=== PATIENT | female | born 1950 | race Caucasian/White ===

== ENCOUNTER 2016-10-17 23:33 | Inpatient (IN) | payer OTHER ==
[2016-10-18] MEDS ORDERED: NS 0.9% 1000 ML* 1,000 ML IV ONE (00:12)
[2016-10-18 01:21] LABS: Albumin 3.2 g/dL (3.2-5.2); BUN/Creatinine Ratio 14.8 (8-20); Calcium 8.7 mg/dL (8.6-10.3); EGFR African American 50.9 (>60); EGFR Non-African American 39.6 (>60); Globulin 3.9 g/dL (2-4); Magnesium 2.3 mg/dL (1.9-2.7); Potassium 4.8 mmol/L (3.5-5.0); Total Bilirubin 0.7 mg/dL (0.2-1.0); Total Protein 7.1 g/dL (6.4-8.9)
[2016-10-18 01:23] LABS: Hematocrit 33 % (35-47); Hemoglobin 10.7 g/dl (12.0-16.0); Mean Corpuscular HGB Conc 32 g/dl (31-36); Mean Corpuscular Hemoglobin 28 pg (27-31); Mean Corpuscular Volume 86 fL (80-97); Mean Platelet Volume 8 um3 (7.4-10.4); Red Blood Count 3.85 10^6/ul (4.0-5.4); Red Cell Distribution Width 15 % (10.5-15); White Blood Count 19.5 10^3/ul (3.5-10.8)
[2016-10-18 01:25] LABS: Add Diff/Slide Review? Slide Review Added; Comments Flag Yes
--- NOTE | 2016-10-18 01:34 | ED ---
I, Grupo,Amna, scribed for Hector Machado MD on 10/18/16 at 0014 . Lower Extremity - HPI Summary HPI Summary: This 65 y/o female presents to ED for RLE drainage since 2100 PM tonight. PMHx includes recent dx of RLE cellulitis 3 days ago. She is currently on Bactrim BID treatment. Pt is seen standing and ambulating at time of initial evaluation. Other PMHx includes RLE hip replacement and bilat lower extremities vascular surgery. She hasn't followed up with her primary regarding worsening RLE cellulitis. Primary care involves Dr. Taylor. - History of Current Complaint Chief Complaint: EDExtremityLower Stated Complaint: RIGHT LEG PAIN WITH WOUND Time Seen by Provider: 10/18/16 00:08 Hx Obtained From: Patient, Medical Records Mechanism Of Injury: Unknown Onset of Pain: Hours Onset/Duration: Still Present Pain Intensity: 4 Pain Scale Used: 0-10 Numeric Timing: Constant Location: Is Discrete @ - RLE leg Character Of Pain: Dull Associated Signs And Symptoms: Positive: Other - Drainage Aggravating Factor(s): Nothing Alleviating Factor(s): Nothing Able to Bear Weight: Yes - Allergies/Home Medications Allergies/Adverse Reactions: Allergies Allergy/AdvReac Type Severity Reaction Status Date / Time No Known Drug Allergy Allergy Unknown Verified 10/28/15 15:00 Reaction Details PMH/Surg Hx/FS Hx/Imm Hx Endocrine/Hematology History: Denies: Hx Diabetes Cardiovascular History: Reports: Hx Peripheral Vascular Disease - BILATERAL VARICOSE VEINS Denies: Hx Hypertension, Hx Pacemaker/ICD Respiratory History: Reports: Hx Chronic Bronchitis GI History: Reports: Hx Gastroesophageal Reflux Disease - OCCASIONAL ACID REFLUX History: Denies: Hx Renal Disease Musculoskeletal History: Reports: Hx Arthritis - OSTEOARTHRITIS IN RIGHT HIP ( REPLACED) 12/[address] [facility] Sensory History: Reports: Hx Contacts or Glasses Denies: Hx Hearing Aid Opthamlomology History: Reports: Hx Contacts or Glasses Neurological History: Reports: Other Neuro Impairments/Disorders - RESTLESS LEG SYNDROME - on medication Psychiatric History: Denies: Hx Panic Disorder - Surgical History Surgery Procedure, Year, and Place: 07[place] [facility] [place]2013 Right hip replacement, [facility]. 05/23/14 [place] [facility] [place] LEFT BREAST LUMPECTOMY [facility] Hx Anesthesia Reactions: No Infectious Disease History: No Infectious Disease History: Denies: Hx Clostridium Difficile, Hx Hepatitis, Hx Human Immunodeficiency Virus (HIV), Hx of Known/Suspected MRSA, Hx Shingles, Hx Tuberculosis, Traveled Outside the [place] in Last 30 Days - Social History Alcohol Use: Rare Alcohol Amount: FEW DRINKS/YEAR Substance Use Type: Reports: None Smoking Status (MU): Never Smoked Tobacco Have You Smoked in the Last Year: No Review of Systems Negative: Fever Positive: Other - RLE leg woozing All Other Systems Reviewed And Are Negative: Yes Physical Exam Triage Information Reviewed: Yes Vital Signs On Initial Exam: Initial Vitals Temp Pulse Resp BP Pulse Ox 98.9 F 76 22 122/36 96 10/17/16 23:37 10/17/16 23:37 10/17/16 23:37 10/17/16 23:37 10/17/16 23:37 Vital Signs Reviewed: Yes Appearance: Positive: Pain Distress - muild pain, Obese Skin: Positive: Warm, Other - bilat lower ext erythema induration, rle mild oozing, bilat warmth Head/Face: Positive: Normal Head/Face Inspection Eyes: Positive: MELECIO ENT: Positive: Hearing grossly normal Neck: Positive: Supple Respiratory/Lung Sounds: Positive: Clear to Auscultation, Breath Sounds Present Cardiovascular: Positive: RRR Abdomen Description: Positive: Nontender, Soft Bowel Sounds: Positive: Present Musculoskeletal: Positive: Strength/ROM Intact Neurological: Positive: Alert, Oriented to Person Place, Time Diagnostics - Vital Signs Vital Signs Temp Pulse Resp BP Pulse Ox 10/17/16 23:37 98.9 F 76 22 122/36 96 - Laboratory Result Diagrams: 10/18/16 00:54 10/18/16 00:54 Lab Statement: Any lab studies that have been ordered have been reviewed, and results considered in the medical decision making process. Lower Extremity Course/Dx - Course Assessment/Plan: This 65 y/o female presents to ED for RLE drainage since 2130 PM today. Pt was recently diagnosed with RLE cellulitis 3 days ago, and has been on Bactrim BID since then. Blood work is noted with elevated WBC of 19.5 and creatinine of 1.35. Pt is given NS IV, Zosyn, vancomycin in ED. Plan of care involving admission is discussed with Dr. Negrete the hospitalist environmental sampler, and pt is accepted for admission. - Diagnoses Provider Diagnoses: Cellulitis - Physician Notifications Discussed Care Of Patient With: Román Negrete Time Discussed With Above Provider: 01:37 Instructed by Provider To: Admit As Inpatient Discharge - Discharge Plan Condition: Fair Disposition: ADMITTED TO [facility] The documentation as recorded by the Grupo wiley Soohyun accurately reflects the service I personally performed and the decisions made by me, Hector Machado MD.
[2016-10-18] MEDS ORDERED: Vancomycin(*) 1,000 MG in NS 0.9% 250 ML* 250 ML IVPB ONE ×2 (01:37→06:30)
[2016-10-18] MEDS ORDERED: Vancomycin per Pharmacy* NOTE FOLLOW UP PRN (04:43)
[2016-10-18] MEDS: Heparin VIAL(*) 5000 UNITS/ML VIAL (FIVE THOUSAND) SUBCUT SCH ×3 (06:15→20:59)
--- NOTE | 2016-10-18 08:36 | HP ---
CC: Dr. Taylor * HISTORY AND PHYSICAL: DATE OF ADMISSION: 10/18/16 CHIEF COMPLAINT: Leg swelling and pain. HISTORY OF PRESENT ILLNESS: The patient is a 65-year-old woman, who saw her PCP last Monday when she noticed her leg becoming increasingly red, swollen, and tender. She had this last year as well and has had it a couple of times since then. What concerned her most is that there was a large blister-like, fluid filled lesion on the back of the leg. When she went to her PCP, she did initially agree that it was cellulitis and placed her on Bactrim. The thought process at that time was that she was on a different antibiotic last time and she was trying to cycle them to prevent resistance. Despite the treatment, the patient has worsened over the weekend. She said, she thought it might be little less red but the pain increased and she had a fever up to 101. She has decreased appetite, but no nausea or vomiting. Indeed upon evaluation, the patient does have a significantly erythematous, warm, and tender right lower extremity with a white count of over 19,000. PAST MEDICAL HISTORY: Significant for right lower extremity cellulitis 1 year ago, sepsis, GERD, osteoarthritis, restless legs syndrome, lymphedema, varicose veins, physiological murmur. PAST SURGICAL HISTORY: Significant for right hip replacement in 2013, laser surgery bilateral legs for varicoses veins, left breast lumpectomy. MEDICATIONS: Her current medications are unknown and we are attempting to get the listing from her PCP. ALLERGIES: She has no no known drug allergies. FAMILY HISTORY: Mother had pulmonary fibrosis, CHF. Father had leukemia and pancreatic cancer. SOCIAL HISTORY: No tobacco, alcohol, or recreational drug use. 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 Her brother, Kamari Gallardo, is her healthcare proxy. REVIEW OF SYSTEMS: A 14-point review of systems was completed with the patient. All pertinent positives and negatives are in the history of present illness, otherwise is negative. PHYSICAL EXAMINATION GENERAL: A very pleasant woman, lying in bed, in no acute distress. VITAL SIGNS: Temperature 98.9 degrees, heart rate 76 beats per minute, respiratory rate 22 breaths per minute, pulse ox %, blood pressure 122/36. HEENT: Normocephalic, atraumatic. Pupils equal, round, and reactive to light. Moist mucous membranes. NECK: Supple. No JVD, bruits, palpable thyroid, or lymphadenopathy. CHEST: Clear to auscultation and percussion bilaterally. CARDIOVASCULAR: S1, S2 appreciated. Regular rate and rhythm. ABDOMEN: Positive bowel sounds in all 4 quadrants. Soft, nontender, and nondistended. No hepatosplenomegaly. EXTREMITIES: No cyanosis or clubbing. She has got bilateral edema. Her right side is extremely warm, tender, and erythematous with a large bulla on the back of her lower extremity. NEURO: Alert and oriented x3. Moves all extremities. SKIN: Other than the aforementioned legs, no distinct abnormalities. LABORATORY DATA: Her white count is 19.5, hemoglobin 10.7, hematocrit 33, platelets are 338. Sodium is 132, potassium 4.8, chloride 100, CO2 of 26, BUN 20, creatinine 1.35, glucose is 109. ASSESSMENT AND PLAN: 1. Cellulitis: It seems to be most likely diagnosis. I will place her on vanco and Zosyn initially just because it has been going on for some time and she has had numerous bouts just in the last year. Also, the large bulla is of some concern to me. I will ask for Wound consult as well. Keep legs elevated. Recheck CBC in a.m. 2. Restless legs syndrome: She has been on Requip, we will just get her new med list and restart that. 3. Lymphedema: Has been on Dyazide in the past. We will just check to see if she is still on before restarting. 4. Osteoarthritis: Supportive care, monitor, p.r.n. pain meds if necessary. 5. FEN: Low-fat diet. 6. DVT prophylaxis: Heparin subcu. 7. The patient is a full code. TIME SPENT: Over 75 minutes was spent on this H and P, more than 40 minutes was spent on direct ampb-so-gaem contact with the patient in evaluation, physical exam, counseling, and coordination of care. [id number]/[facility] #: [id number] MTDD
[2016-10-18] MEDS ORDERED: Acetaminophen TAB* 325 MG PO PRN (10:05)
[2016-10-18] MEDS ORDERED: NS 0.9% 1000 ML* 1,000 ML IV SCH (10:15)
[2016-10-18] MEDS: oxyCODONE/Acetamin 5/325 MG* TAB PO PRN ×2 (10:28→16:21)
[2016-10-18] MEDS: ceFAZolin 1 GM VIAL(*) 1 GM in NS 0.9% 50 ML* 50 ML IVPB SCH ×3 (13:35→23:24)
[2016-10-18] MEDS ORDERED: Vancomycin(*) 1,250 MG IV IVPB SCH ×2 (14:30)
--- NOTE | 2016-10-18 17:35 | PN ---
Subjective Date of Service: 10/18/16 Interval History: Pt c/o r leg edema , blisters and cellulitis x 5 days. Was on Bactrim x 4 days and the erythema did not spread further, neither she developed fevers, but the was worried about the blisters and came [place] [facility] [place] Active Medications: Acetaminophen (Tylenol Tab*) 650 mg PO Q4H PRN PRN Reason: FEVER/PAIN Furosemide (Lasix Tab*) 40 mg PO DAILY [facility] Heparin Sodium (Porcine) (Heparin Vial(*)) 5,000 units SUBCUT Q8HR [facility] Last Admin: 10/18/16 13:59 Dose: 5,000 units Cefazolin Sodium 1 gm/ Sodium (Chloride) 50 mls @ 200 mls/hr IVPB Q6H [facility] Last Admin: 10/18/16 13:35 Dose: 200 mls/hr Levothyroxine Sodium (Synthroid Tab*) 25 mcg PO 0600 [facility] Lisinopril (Prinivil Tab*) 2.5 mg PO DAILY [facility] Oxycodone/Acetaminophen (Percocet 5/325 Tab*) 1 tab PO Q4H PRN PRN Reason: PAIN Last Admin: 10/18/16 16:21 Dose: 1 tab Pharmacy Consult (Vancomycin Per Pharmacy*) 1 note FOLLOW UP . PRN PRN Reason: PER PROTOCOL Pharmacy Profile Note (Vancomycin Trough Check) 1 note FOLLOW UP 0600 ONE Stop: 10/19/16 06:01 Potassium Chloride (Klor Con Er Tab*) 20 meq PO DAILY [facility] Ropinirole HCl (Requip Tab*) 0.5 mg PO TID [facility] Torsemide (Demadex*) 20 mg PO DAILY [facility] Vital Signs 10/18/16 10/18/16 10/18/16 05:23 05:48 06:10 Temperature 99.8 F 98.3 F Pulse Rate 72 73 70 Respiratory 18 24 Rate Blood Pressure 136/62 132/33 (mmHg) O2 Sat by Pulse 92 94 Oximetry 10/18/16 10/18/16 10/18/16 08:00 10:28 11:27 Temperature 98.4 F Pulse Rate 63 Respiratory 14 14 16 Rate Blood Pressure 121/34 (mmHg) O2 Sat by Pulse 93 Oximetry 10/18/16 10/18/16 12:28 16:21 Temperature Pulse Rate Respiratory 14 14 Rate Blood Pressure (mmHg) O2 Sat by Pulse Oximetry Oxygen Devices in Use Now: None Appearance: 65 yo obese f in nAD, AAOx3 Eyes: No Scleral Icterus, PERRLA Ears/Nose/Mouth/Throat: NL Teeth, Lips, Gums, Mucous Membranes Moist Neck: NL Appearance and Movements; NL JVP, Trachea Midline Respiratory: Symmetrical Chest Expansion and Respiratory Effort, Clear to Auscultation Cardiovascular: NL Sounds; No Murmurs; No JVD, RRR Abdominal: NL Sounds; No Tenderness; No Distention Lymphatic: No Cervical Adenopathy Extremities: No Clubbing, Cyanosis, - - b/l leg lymphoedema with R leg much larger than left Skin: No Nodules or Sclerosis, - - R below the knee cellulits with a large blister above the heel at 4 cm and another post ruptured blister wound under the knee Neurological: Alert and Oriented x 3, NL Muscle Strength and Tone Result Diagrams: 10/18/16 00:54 10/18/16 00:54 Assess/Plan/Problems-Billing Assessment: 65 yo F with h/o chronic lympoedema presents with cellulitis - Patient Problems (1) Cellulitis Comment: of R LE Advised to have leg elevated at all times. will tx with Ancef blood cx neg so far appreciate wound care consult and recommendations cont PO diuretics (2) Acute renal failure Comment: suspect due to spurious elevation due to Bactrim tx, although renal failure due to ongoing infection is also on differential will repeat creat levels in aM (3) Restless leg syndrome Comment: - Continue Ropinirole. (4) DVT prophylaxis Comment: - SQ heparin. (5) Hypothyroidism Comment: cont synthroid Status and Disposition: inpatient for failed outpatient tx of cellulitis
[2016-10-18] MEDS: Ropinirole TAB* 0.5 MG TAB PO SCH (20:58)
[2016-10-19] MEDS: Levothyroxine TAB* 25 MCG TAB PO SCH (05:33)
[2016-10-19] MEDS: Heparin VIAL(*) 5000 UNITS/ML VIAL (FIVE THOUSAND) SUBCUT SCH ×3 (05:33→21:12)
[2016-10-19] MEDS: ceFAZolin 1 GM VIAL(*) 1 GM in NS 0.9% 50 ML* 50 ML IVPB SCH ×3 (05:33→17:40)
[2016-10-19] MEDS ORDERED: Vancomycin Trough Check NOTE FOLLOW UP ONE (06:00)
[2016-10-19 06:08] LABS: Hematocrit 31 % (35-47); Hemoglobin 9.8 g/dl (12.0-16.0); Mean Corpuscular HGB Conc 32 g/dl (31-36); Mean Corpuscular Hemoglobin 28 pg (27-31); Mean Corpuscular Volume 87 fL (80-97); Mean Platelet Volume 7 um3 (7.4-10.4); Red Blood Count 3.54 10^6/ul (4.0-5.4); Red Cell Distribution Width 15 % (10.5-15); White Blood Count 13.7 10^3/ul (3.5-10.8)
[2016-10-19 06:12] LABS: Add Diff/Slide Review? Slide Review Added; Comments Flag Yes
[2016-10-19 06:20] LABS: Calcium 8.6 mg/dL (8.6-10.3); Potassium 4.2 mmol/L (3.5-5.0)
[2016-10-19] MEDS: Lisinopril TAB* 5 MG PO SCH (08:25)
[2016-10-19] MEDS: Ropinirole TAB* 0.5 MG TAB PO SCH ×3 (08:26→21:12)
[2016-10-19] MEDS: Furosemide TAB* 40 MG PO SCH (08:26)
[2016-10-19] MEDS: Torsemide TAB* 20 MG PO SCH (08:26)
[2016-10-19] MEDS: Potassium Chlor TAB* 20 MEQ TAB.ER PO SCH (08:26)
--- NOTE | 2016-10-19 16:29 | PN ---
Subjective Date of Service: 10/19/16 Interval History: Pt is not very compliant with having her R leg elevated at all times. No new complaints Objective Active Medications: Acetaminophen (Tylenol Tab*) 650 mg PO Q4H PRN PRN Reason: FEVER/PAIN Furosemide (Lasix Tab*) 40 mg PO DAILY [facility] Last Admin: 10/19/16 08:26 Dose: 40 mg Heparin Sodium (Porcine) (Heparin Vial(*)) 5,000 units SUBCUT Q8HR [facility] Last Admin: 10/19/16 12:51 Dose: 5,000 units Cefazolin Sodium 1 gm/ Sodium (Chloride) 50 mls @ 200 mls/hr IVPB Q6H [facility] Last Admin: 10/19/16 11:38 Dose: 200 mls/hr Levothyroxine Sodium (Synthroid Tab*) 25 mcg PO 0600 [facility] Last Admin: 10/19/16 05:33 Dose: 25 mcg Lisinopril (Prinivil Tab*) 2.5 mg PO DAILY [facility] Last Admin: 10/19/16 08:25 Dose: 2.5 mg Oxycodone/Acetaminophen (Percocet 5/325 Tab*) 1 tab PO Q4H PRN PRN Reason: PAIN Last Admin: 10/18/16 16:21 Dose: 1 tab Potassium Chloride (Klor Con Er Tab*) 20 meq PO DAILY [facility] Last Admin: 10/19/16 08:26 Dose: 20 meq Ropinirole HCl (Requip Tab*) 0.5 mg PO TID [facility] Last Admin: 10/19/16 12:51 Dose: 0.5 mg Torsemide (Demadex*) 20 mg PO DAILY [facility] Last Admin: 10/19/16 08:26 Dose: 20 mg Vital Signs 10/18/16 10/18/16 10/18/16 18:21 19:38 20:00 Temperature 98.2 F Pulse Rate 69 Respiratory 14 20 19 Rate Blood Pressure 152/58 (mmHg) O2 Sat by Pulse 94 Oximetry 10/18/16 10/19/16 10/19/16 23:34 04:38 07:15 Temperature 98.1 F 98.7 F Pulse Rate 57 71 Respiratory 16 16 Rate Blood Pressure 119/35 150/69 90/68 (mmHg) O2 Sat by Pulse 94 94 Oximetry 10/19/16 10/19/16 10/19/16 07:39 07:45 08:00 Temperature 98.1 F Pulse Rate 63 Respiratory 16 16 Rate Blood Pressure 122/62 (mmHg) O2 Sat by Pulse 95 Oximetry 10/19/16 11:15 Temperature 98.6 F Pulse Rate 64 Respiratory 18 Rate Blood Pressure 133/56 (mmHg) O2 Sat by Pulse 92 Oximetry Oxygen Devices in Use Now: None Appearance: 65 yo F in NAD, aAOx3 Eyes: No Scleral Icterus, PERRLA Ears/Nose/Mouth/Throat: NL Teeth, Lips, Gums, Mucous Membranes Moist Neck: NL Appearance and Movements; NL JVP, Trachea Midline Respiratory: Symmetrical Chest Expansion and Respiratory Effort, Clear to Auscultation Cardiovascular: NL Sounds; No Murmurs; No JVD, RRR Abdominal: NL Sounds; No Tenderness; No Distention Lymphatic: No Cervical Adenopathy Extremities: No Clubbing, Cyanosis, - - massive b/l leg lymphoedema R>>L Skin: - - venous stasis chnages b/l LEs' with cellulitis R foot to the level of r knee, 2 large blisters ruptured and weeping under the knee and aobve R ankle Neurological: Alert and Oriented x 3, NL Muscle Strength and Tone Result Diagrams: 10/19/16 05:51 10/19/16 05:51 Assess/Plan/Problems-Billing Assessment: 65 yo F with h/o chronic lympoedema presents with cellulitis - Patient Problems (1) Cellulitis Comment: of R LE Advised to have leg elevated at all times. cont tx with Ancef appreciate wound care consult and recommendations cont PO diuretics (2) Acute renal failure Comment: suspect due to spurious elevation due to Bactrim tx, although renal failure due to ongoing infection is also on differential resolving (3) Restless leg syndrome Comment: - Continue Ropinirole. (4) DVT prophylaxis Comment: - SQ heparin. (5) Hypothyroidism Comment: cont synthroid Status and Disposition: inpatient for failed outpatient tx of cellulitis
[2016-10-19] MEDS: oxyCODONE/Acetamin 5/325 MG* TAB PO PRN (20:04)
[2016-10-20] MEDS: ceFAZolin 1 GM VIAL(*) 1 GM in NS 0.9% 50 ML* 50 ML IVPB SCH ×4 (00:33→17:53)
[2016-10-20] MEDS: Levothyroxine TAB* 25 MCG TAB PO SCH (05:44)
[2016-10-20] MEDS: Heparin VIAL(*) 5000 UNITS/ML VIAL (FIVE THOUSAND) SUBCUT SCH ×3 (05:45→21:10)
[2016-10-20 06:05] LABS: Hematocrit 32 % (35-47); Hemoglobin 10.4 g/dl (12.0-16.0); Mean Corpuscular HGB Conc 32 g/dl (31-36); Mean Corpuscular Hemoglobin 28 pg (27-31); Mean Corpuscular Volume 87 fL (80-97); Mean Platelet Volume 8 um3 (7.4-10.4); Red Blood Count 3.74 10^6/ul (4.0-5.4); Red Cell Distribution Width 15 % (10.5-15)
[2016-10-20 06:17] LABS: BUN/Creatinine Ratio 12.2 (8-20); Calcium 8.6 mg/dL (8.6-10.3); EGFR African American 73.7 (>60); EGFR Non-African American 57.3 (>60)
[2016-10-20] MEDS: Torsemide TAB* 20 MG PO SCH (09:13)
[2016-10-20] MEDS: Ropinirole TAB* 0.5 MG TAB PO SCH ×3 (09:13→21:11)
[2016-10-20] MEDS: Potassium Chlor TAB* 20 MEQ TAB.ER PO SCH (09:13)
[2016-10-20] MEDS: Furosemide TAB* 40 MG PO SCH (09:14)
[2016-10-20] MEDS: Lisinopril TAB* 5 MG PO SCH (09:14)
[2016-10-20] MEDS: oxyCODONE/Acetamin 5/325 MG* TAB PO PRN ×2 (09:15→21:10)
--- NOTE | 2016-10-20 10:40 | PN ---
Subjective Date of Service: 10/20/16 Interval History: Pt's edema is slowly improving after leg elevation Objective Active Medications: Acetaminophen (Tylenol Tab*) 650 mg PO Q4H PRN PRN Reason: FEVER/PAIN Last Admin: 10/20/16 06:33 Dose: 650 mg Furosemide (Lasix Tab*) 40 mg PO DAILY [facility] Last Admin: 10/20/16 09:14 Dose: 40 mg Heparin Sodium (Porcine) (Heparin Vial(*)) 5,000 units SUBCUT Q8HR [facility] Last Admin: 10/20/16 05:45 Dose: 5,000 units Cefazolin Sodium 1 gm/ Sodium (Chloride) 50 mls @ 200 mls/hr IVPB Q6H [facility] Last Admin: 10/20/16 05:45 Dose: 200 mls/hr Levothyroxine Sodium (Synthroid Tab*) 25 mcg PO 0600 [facility] Last Admin: 10/20/16 05:44 Dose: 25 mcg Lisinopril (Prinivil Tab*) 2.5 mg PO DAILY [facility] Last Admin: 10/20/16 09:14 Dose: 2.5 mg Oxycodone/Acetaminophen (Percocet 5/325 Tab*) 1 tab PO Q4H PRN PRN Reason: PAIN Last Admin: 10/20/16 09:15 Dose: 1 tab Potassium Chloride (Klor Con Er Tab*) 20 meq PO DAILY [facility] Last Admin: 10/20/16 09:13 Dose: 20 meq Ropinirole HCl (Requip Tab*) 0.5 mg PO TID [facility] Last Admin: 10/20/16 09:13 Dose: 0.5 mg Torsemide (Demadex*) 20 mg PO DAILY [facility] Last Admin: 10/20/16 09:13 Dose: 20 mg Vital Signs 10/19/16 10/19/16 10/19/16 11:15 16:06 19:41 Temperature 98.6 F 98.8 F 98.1 F Pulse Rate 64 69 70 Respiratory 18 25 23 Rate Blood Pressure 133/56 144/45 145/45 (mmHg) O2 Sat by Pulse 92 91 92 Oximetry 10/19/16 10/19/16 10/19/16 20:00 20:04 22:04 Temperature Pulse Rate Respiratory 18 20 18 Rate Blood Pressure (mmHg) O2 Sat by Pulse Oximetry 10/19/16 10/20/16 10/20/16 23:55 03:29 07:31 Temperature 98.2 F 97.6 F 98.2 F Pulse Rate 68 59 55 Respiratory 16 16 20 Rate Blood Pressure 104/49 144/64 117/54 (mmHg) O2 Sat by Pulse 94 95 92 Oximetry 10/20/16 10/20/16 09:15 09:16 Temperature Pulse Rate 65 Respiratory 18 Rate Blood Pressure (mmHg) O2 Sat by Pulse Oximetry Oxygen Devices in Use Now: None Appearance: 65 yo F in nAD, aAOx3 Eyes: No Scleral Icterus, PERRLA Ears/Nose/Mouth/Throat: NL Teeth, Lips, Gums, Mucous Membranes Moist Neck: NL Appearance and Movements; NL JVP, Trachea Midline Respiratory: Symmetrical Chest Expansion and Respiratory Effort, Clear to Auscultation Cardiovascular: NL Sounds; No Murmurs; No JVD, RRR Abdominal: NL Sounds; No Tenderness; No Distention Lymphatic: No Cervical Adenopathy Extremities: No Clubbing, Cyanosis, - - large lymphoedema R>>L Skin: No Nodules or Sclerosis, - - blisters on R leg , ruptured under the knee and above R ankle, a couple of smaller ones at 2 cm above the r ankle still unruptured. Cellulits presents below the knee-improving Neurological: Alert and Oriented x 3, NL Muscle Strength and Tone Result Diagrams: 10/20/16 04:50 10/20/16 04:50 Assess/Plan/Problems-Billing Assessment: 65 yo F with h/o chronic lympoedema presents with cellulitis - Patient Problems (1) Cellulitis Comment: of R LE Advised to have leg elevated at all times. cont tx with Ancef appreciate wound care consult and recommendations cont PO diuretics Improving slowly with leg elevation and antibiotics, daily wound care and monitoring of compliance with leg elevation needed (2) Acute renal failure Comment: suspect due to spurious elevation due to Bactrim tx, although renal failure due to ongoing infection is also on differential resolved (3) Restless leg syndrome Comment: - Continue Ropinirole. (4) DVT prophylaxis Comment: - SQ heparin. (5) Hypothyroidism Comment: cont synthroid Status and Disposition: inpatient for failed outpatient tx of cellulitis Plan for 2 more days of IV antibiotics
[2016-10-21] MEDS: ceFAZolin 1 GM VIAL(*) 1 GM in NS 0.9% 50 ML* 50 ML IVPB SCH ×4 (00:11→18:31)
[2016-10-21] MEDS: Heparin VIAL(*) 5000 UNITS/ML VIAL (FIVE THOUSAND) SUBCUT SCH ×3 (06:03→21:25)
[2016-10-21] MEDS: Levothyroxine TAB* 25 MCG TAB PO SCH (06:04)
[2016-10-21] MEDS: Torsemide TAB* 20 MG PO SCH (08:08)
[2016-10-21] MEDS: oxyCODONE/Acetamin 5/325 MG* TAB PO PRN ×2 (08:08→20:37)
[2016-10-21] MEDS: Furosemide TAB* 40 MG PO SCH (08:08)
[2016-10-21] MEDS: Ropinirole TAB* 0.5 MG TAB PO SCH ×3 (08:09→21:25)
[2016-10-21] MEDS: Potassium Chlor TAB* 20 MEQ TAB.ER PO SCH (08:09)
[2016-10-21] MEDS: Lisinopril TAB* 5 MG PO SCH (08:09)
--- NOTE | 2016-10-21 13:33 | PN ---
Subjective Date of Service: 10/21/16 Interval History: Pt feels well, legs are less swollen every day Objective Active Medications: Acetaminophen (Tylenol Tab*) 650 mg PO Q4H PRN PRN Reason: FEVER/PAIN Last Admin: 10/20/16 06:33 Dose: 650 mg Furosemide (Lasix Tab*) 40 mg PO DAILY [facility] Last Admin: 10/21/16 08:08 Dose: 40 mg Heparin Sodium (Porcine) (Heparin Vial(*)) 5,000 units SUBCUT Q8HR [facility] Last Admin: 10/21/16 06:03 Dose: 5,000 units Cefazolin Sodium 1 gm/ Sodium (Chloride) 50 mls @ 200 mls/hr IVPB Q6H [facility] Last Admin: 10/21/16 12:25 Dose: 200 mls/hr Levothyroxine Sodium (Synthroid Tab*) 25 mcg PO 0600 [facility] Last Admin: 10/21/16 06:04 Dose: 25 mcg Lisinopril (Prinivil Tab*) 2.5 mg PO DAILY [facility] Last Admin: 10/21/16 08:09 Dose: 2.5 mg Oxycodone/Acetaminophen (Percocet 5/325 Tab*) 1 tab PO Q4H PRN PRN Reason: PAIN Last Admin: 10/21/16 08:08 Dose: 1 tab Potassium Chloride (Klor Con Er Tab*) 20 meq PO DAILY [facility] Last Admin: 10/21/16 08:09 Dose: 20 meq Ropinirole HCl (Requip Tab*) 0.5 mg PO TID [facility] Last Admin: 10/21/16 08:09 Dose: 0.5 mg Torsemide (Demadex*) 20 mg PO DAILY [facility] Last Admin: 10/21/16 08:08 Dose: 20 mg Vital Signs 10/20/16 10/20/16 10/20/16 15:29 19:36 19:54 Temperature 98.1 F 98.2 F 97.4 F Pulse Rate 58 61 66 Respiratory 18 20 20 Rate Blood Pressure 111/48 127/36 139/67 (mmHg) O2 Sat by Pulse 92 94 93 Oximetry 10/20/16 10/20/16 10/20/16 20:00 21:10 23:10 Temperature Pulse Rate Respiratory 18 18 16 Rate Blood Pressure (mmHg) O2 Sat by Pulse Oximetry 10/20/16 10/21/16 10/21/16 23:27 03:58 07:31 Temperature 97.6 F 97.8 F 98.3 F Pulse Rate 68 50 60 Respiratory 15 15 18 Rate Blood Pressure 130/42 125/55 118/59 (mmHg) O2 Sat by Pulse 98 96 94 Oximetry 10/21/16 10/21/16 10/21/16 08:00 08:08 10:08 Temperature Pulse Rate Respiratory 18 20 18 Rate Blood Pressure (mmHg) O2 Sat by Pulse Oximetry Oxygen Devices in Use Now: None Appearance: 65 yo F in NAD, AAOx3 Eyes: No Scleral Icterus, PERRLA Ears/Nose/Mouth/Throat: NL Teeth, Lips, Gums, Mucous Membranes Moist Neck: NL Appearance and Movements; NL JVP, Trachea Midline Respiratory: Symmetrical Chest Expansion and Respiratory Effort, Clear to Auscultation Cardiovascular: NL Sounds; No Murmurs; No JVD, RRR Abdominal: NL Sounds; No Tenderness; No Distention Lymphatic: No Cervical Adenopathy Extremities: No Clubbing, Cyanosis, - - b/l leg lymphoedema R>R Skin: No Nodules or Sclerosis, - - r leg cellulitis paller and recessed, r leg ruptured blisters presents under the knee and above the heel Neurological: Alert and Oriented x 3, NL Muscle Strength and Tone Result Diagrams: 10/20/16 04:50 10/20/16 04:50 Assess/Plan/Problems-Billing Assessment: 65 yo F with h/o chronic lympoedema presents with cellulitis - Patient Problems (1) Cellulitis Comment: of R LE Advised to have leg elevated at all times. cont tx with Ancef appreciate wound care consult and recommendations cont PO diuretics Improving slowly with leg elevation and antibiotics, daily wound care and monitoring of compliance with leg elevation needed (2) Acute renal failure Comment: suspect due to spurious elevation due to Bactrim tx, although renal failure due to ongoing infection is also on differential resolved (3) Restless leg syndrome Comment: - Continue Ropinirole. (4) DVT prophylaxis Comment: - SQ heparin. (5) Hypothyroidism Comment: cont synthroid Status and Disposition: inpatient for failed outpatient tx of cellulitis Plan to d/c in aM.
[2016-10-22] MEDS: ceFAZolin 1 GM VIAL(*) 1 GM in NS 0.9% 50 ML* 50 ML IVPB SCH ×3 (00:10→11:58)
[2016-10-22] MEDS: Levothyroxine TAB* 25 MCG TAB PO SCH (06:27)
[2016-10-22] MEDS: Heparin VIAL(*) 5000 UNITS/ML VIAL (FIVE THOUSAND) SUBCUT SCH (06:27)
[2016-10-22 06:28] LABS: BUN/Creatinine Ratio 10.4 (8-20); Calcium 9.4 mg/dL (8.6-10.3); EGFR African American 97.4 (>60); EGFR Non-African American 75.7 (>60)
[2016-10-22 06:38] LABS: Potassium 4.4 mmol/L (3.5-5.0)
[2016-10-22] MEDS: Potassium Chlor TAB* 20 MEQ TAB.ER PO SCH (08:24)
[2016-10-22] MEDS: Torsemide TAB* 20 MG PO SCH (08:24)
[2016-10-22] MEDS: Furosemide TAB* 40 MG PO SCH (08:24)
[2016-10-22] MEDS: Lisinopril TAB* 5 MG PO SCH (08:24)
[2016-10-22] MEDS: Ropinirole TAB* 0.5 MG TAB PO SCH (08:24)
[2016-10-22 11:02] VITALS: BP 105/38
--- NOTE | 2016-10-23 00:56 | DS ---
CC: Dr. Taylor; [facility] * DISCHARGE SUMMARY: DATE OF ADMISSION: 10/18/16 DATE OF DISCHARGE: 10/22/16 PRIMARY CARE PROVIDER: Dr. Taylor. ADMISSION DIAGNOSES: 1. Right leg cellulitis on underlying chronic lymphedema and leg wounds due to cellulitis and lymphedema on the right side. 2. History of chronic bilateral lower extremity lymphedema. 3. Acute renal failure due to combination of infection and Bactrim use. SECONDARY DIAGNOSES: 1. History or chronic bilateral lymphedema with recurrent cellulitis of legs in the past. 2. History of gastroesophageal disease. 3. Osteoarthritis. 4. Restless leg syndrome. 5. History of varicose veins, status post stripping. 6. History of right hip replacement in 2013. MEDICATIONS AT DISCHARGE: Include: 1. Keflex 500 mg 3 times a day for 10 days total. 2. Furosemide 40 mg daily. 3. Synthroid daily. 4. Lisinopril 2.5 mg daily. 5. Systane Ultra 1 drop 3 times a day to bilateral eyes for dryness. 6. Potassium chloride 20 mEq daily. 7. 0.5 mg 3 times a day. 8. Torsemide 20 mg daily. 9. Nasacort nasal spray 2 sprays each nostril b.i.d. LABORATORY DATA AND STUDIES PERFORMED DURING THE HOSPITAL STAY: Included: On , white blood cell count of 13.0, hematocrit of 32, hemoglobin of 10.4, and platelets of 292. On 10/22/16, sodium of 137, potassium 4.4, chloride 101, carbon dioxide 28, BUN 8, creatinine 0.77. Blood cultures were negative. HOSPITALIZATION COURSE: Meaghan Gallardo is a 65-year-old female with history of chronic bilateral lower extremity lymphedema, who was treated as outpatient with Bactrim for right leg cellulitis and she presented to the hospital complaining of worsening of her infection. In fact, the patient did not have any further spread of her cellulitis, but she developed blisters and the wound right underneath her right knee. She was seen by the wound Care consult. Their recommendation was to continue treatment with silver collagen to the open area and cover with gauze. The patient also was strongly encouraged to keep her legs elevated at all times as possible. Over the course of 4 days, the patient's lymphedema markedly improved and her cellulitis improved also. The wound underneath the right knee started healing and on the day of discharge, the patient has a small area of approximately 2 x 2 cm that is not covered with skin. The remaining area healed. The patient also has blisters on the area right above the right heel. A couple of blisters are still present. They are approximately 2 x 4 cm in diameter and while the blisters already look ruptured , but there is already healed skin underneath that area. At discharge, the patient is scheduled with the Wound Care with an appointment on 10/24/16. She is recommended to continue wound care to open areas with silver collagen and cover with Mepilex as perviously done during the hospital stay. She is encouraged to keep her legs elevated at all times. PHYSICAL EXAMINATION: At the time of discharge, blood pressure of 105/38, heart rate of 66 and regular, respiratory rate of 16, oxygen saturation 92% on room air, temperature 98.1. General: The patient is a very pleasant 65-year- old female, who is in no acute distress. Alert, awake, and oriented x3. HEENT : Head atraumatic, normocephalic. Eyes: Pupils equal, round, and reactive to light and accommodation. Oropharynx clear. Mucosa moist. Neck: Supple. No JVD. No bruits bilaterally. Cardiovascular: Regular rate and rhythm. No murmur. Respiratory: Clear to auscultation bilaterally. Abdomen: Soft. Nontender. Bowel sounds are present in all 4 quadrants. Extremities: Bilateral leg lymphedema, markedly improved from prior. Right leg is still much larger than the left. There is no clubbing or cyanosis. On evaluation of the skin, the right leg cellulitis and erythema have definitely improved from prior, but still is overlying the area of underneath the right knee and right above the right ankle. The area of open blister underneath the right knee is approximately 2 x 2 cm in diameter. The patient also has several ruptured and unruptured blisters above the right heel. Neuro Evaluation: Speech clear. Cranial nerves II through XII grossly intact. Motor strength is 5/5 bilaterally. Please note this is a short summary of the patient's hospital stay. Please refer to further medical records for details. TIME SPENT: Approximately 40 minutes were spent on the patient's discharge. [id number]/[facility] #: [id number] [facility]
== END 2016-10-22 12:45 | disposition home health service (06) | DRG 383 ==
LOC: ED 23:33 → MED 10-18 04:36
PROVIDERS: ADMIT Internal Medicine; ATTEND Internal Medicine
DX: L03.115 Cellulitis of right lower limb (principal); N17.9 Acute kidney failure, unspecified; I73.9 Peripheral vascular disease, unspecified; J42 Unspecified chronic bronchitis; Z96.641 Presence of right artificial hip joint; K21.9 Gastro-esophageal reflux disease without esophagitis; G25.81 Restless legs syndrome; I89.0 Lymphedema, not elsewhere classified; E03.9 Hypothyroidism, unspecified; T37.0X5A Adverse effect of sulfonamides, initial encounter; S80.221A Blister (nonthermal), right knee, initial encounter; S90.821A Blister (nonthermal), right foot, initial encounter; Z83.6 Family history of other diseases of the respiratory system; Z82.49 Family history of ischemic heart disease and other diseases of the circulatory system; Z80.0 Family history of malignant neoplasm of digestive organs; Z72.89 Other problems related to lifestyle; Z80.6 Family history of leukemia
CPT/HCPCS: 36415; 80048; 80053; 83605; 83735; 85025; 85027; A9270-GY; J0690; J1644; J2543; J3370

== ENCOUNTER 2016-10-24 13:54 | Inpatient (IN) | payer OTHER ==
--- NOTE | 2016-10-24 15:16 | RAD ---
HISTORY: Shortness of breath, syncope COMPARISONS: September 06, 2015 VIEWS:1: Single frontal portable view of the chest at 3:05 PM FINDINGS: LINES AND TUBES: None. CARDIOMEDIASTINAL SILHOUETTE: The cardiomediastinal silhouette is stable. PLEURA: The costophrenic angles are sharp. No pleural abnormalities are noted. LUNG PARENCHYMA: There is a diffuse reticular pattern with indistinct pulmonary vessels. ABDOMEN: The upper abdomen is clear. There is no subphrenic gas. BONES AND SOFT TISSUES: No bone or soft tissue abnormalities are noted. IMPRESSION: PULMONARY INTERSTITIAL EDEMA
--- NOTE | 2016-10-24 16:17 | ED ---
Júnior Valdez Alfonso, scribed for Senia Gutierrez MD on 10/24/16 at 1503 . Syncope/Near Syncope - HPI Summary HPI Summary: This patient is a 65 year old F BIBA to [facility] accompanied by family with a chief complaint of two syncopal episodes which occurred earlier today. The 1st episode occurred while leaning forward to wash her hair in the kitchen sink. at 7am. Pt turned to go to the refrigerator but then found herself on the floor but doesnt remember falling. Pt had assistance getting up. Denies injuries related to fall. Pt states 2nd episode occurred while she was sitting in passenger seat of the car. Pt sates she felt raspy breathing, flet like she was gasping for air, and then she passed out for a few seconds. Pt denies cp, abd pain, nausea or vomiting. Pt denies CP, nausea, palpitations, diarrhea. Pt with a h/o chronic RLE lymphedema. Pt was hospitalized last week, discharged on Sat, with blisters, wounds and cellulitis. Pt was discharged on Keflex which is reports is tolerating well. VNS was at bedside today. Pt scheduled for wound care appt - this is where pt was going when had second episode in the car. Pt states she was incontinent to urine - state this has happened previously related to diuretic. At time of evaluation, pt without complaints. Patient on 2L NC. She denies PMHx of syncopal episodes. PMHx of HTN, cellulitis, lymphedema , hip replaced, vein surgery. Patients medication reviewed this visit. - History Of Current Complaint Chief Complaint: EDSyncope Time Seen by Provider: 10/24/16 14:55 Hx Obtained From: Patient Onset/Duration: Lasting Minutes, Resolved Timing: Intermittent Episode Lasting - brief Context: Witnessed Activity At Onset: At Rest Aggravating Factor(s): Nothing Alleviating Factor(s): Spontaneous Resolution Associated Signs And Symptoms: Shortness Of Breath - Allergies/Home Medications Allergies/Adverse Reactions: Allergies Allergy/AdvReac Type Severity Reaction Status Date / Time No Known Drug Allergy Allergy Unknown Verified 10/28/15 15:00 Reaction Details Home Medications: Home Medications Ropinirole TAB* [Requip TAB*] 0.5 mg PO TID 10/24/16 [History Confirmed 10/24/16 ] Torsemide TAB* [Demadex*] 20 mg PO DAILY 10/24/16 [History Confirmed 10/24/16] PMH/Surg Hx/FS Hx/Imm Hx Previously Healthy: Yes Endocrine/Hematology History: Denies: Hx Anticoagulant Therapy, Hx Diabetes Cardiovascular History: Reports: Hx Peripheral Vascular Disease - BILATERAL VARICOSE VEINS Denies: Hx Hypertension, Hx Pacemaker/ICD Respiratory History: Reports: Hx Chronic Bronchitis GI History: Reports: Hx Gastroesophageal Reflux Disease - OCCASIONAL ACID REFLUX History: Denies: Hx Renal Disease Musculoskeletal History: Reports: Hx Arthritis - OSTEOARTHRITIS IN RIGHT HIP ( REPLACED) 12/2013 @ [facility] Sensory History: Reports: Hx Contacts or Glasses Denies: Hx Hearing Aid Opthamlomology History: Reports: Hx Contacts or Glasses Neurological History: Reports: Other Neuro Impairments/Disorders - RESTLESS LEG SYNDROME - on medication Psychiatric History: Denies: Hx Panic Disorder - Surgical History Surgery Procedure, Year, and Place[place] [facility] [place] [facility]. 05/23[place]14 [place] [facility] [place] [facility] [place] Anesthesia Reactions: No - Immunization History Date of Tetanus Vaccine: unknown Date of Influenza Vaccine: UTD Infectious Disease History: Yes Infectious Disease History: Denies: Hx Clostridium Difficile, Hx Hepatitis, Hx Human Immunodeficiency Virus (HIV), Hx of Known/Suspected MRSA, Hx Shingles, Hx Tuberculosis, Traveled Outside the [place] in Last 30 Days - Family History Known Family History: Negative: Seizure Disorder - Social History Occupation: Retired Lives: With Family Alcohol Use: Rare Alcohol Amount: FEW DRINKS/YEAR Substance Use Type: Reports: None Smoking Status (MU): Never Smoked Tobacco Have You Smoked in the Last Year: No Review of Systems Constitutional: Negative Eyes: Negative ENT: Negative Cardiovascular: Negative Positive: Shortness Of Breath Gastrointestinal: Negative Genitourinary: Negative Musculoskeletal: Negative Skin: Negative Positive: Syncope Psychological: Normal All Other Systems Reviewed And Are Negative: Yes Physical Exam Triage Information Reviewed: Yes Vital Signs On Initial Exam: Initial Vitals Temp Pulse Resp BP Pulse Ox 98.6 F 66 19 126/58 97 10/24/16 14:21 10/24/16 14:21 10/24/16 14:21 10/24/16 14:21 10/24/16 14:21 Vital Signs Reviewed: Yes Appearance: Positive: Well-Appearing, No Pain Distress Skin: Positive: Warm, Skin Color Reflects Adequate Perfusion, Other - RLE - diffuse mild erythema, pt with 3 discrete lesion - no drainage, no fluctuance - one lesion prox tib quarter size, one distal medial LE oliva size right elbow small, non-suturable abrasion from fall - no bleeding full extension/flexion + pronate/supinate Head/Face: Positive: Normal Head/Face Inspection Eyes: Positive: Normal ENT: Positive: Normal ENT inspection, Hearing grossly normal Neck: Positive: Supple, Nontender, No Lymphadenopathy Respiratory/Lung Sounds: Positive: Clear to Auscultation, Breath Sounds Present , Decreased Breath Sounds Cardiovascular: Positive: Normal, RRR. Negative: Murmur Abdomen Description: Positive: Nontender, No Organomegaly, Soft Bowel Sounds: Positive: Present Musculoskeletal: Positive: Normal, Strength/ROM Intact Neurological: Positive: Normal, Alert, Oriented to Person Place, Time, CN Intact II-III Psychiatric: Positive: Normal AVPU Assessment: Alert - [place] Coma Scale Best Eye Response: 4 - Spontaneous Best Motor Response: 6 - Obeys Commands Best Verbal Response: 5 - Oriented Diagnostics - Vital Signs Vital Signs Temp Pulse Resp BP Pulse Ox 10/24/16 14:21 98.6 F 66 19 126/58 97 - Laboratory Result Diagrams: 10/24/16 16:37 10/24/16 16:37 Lab Statement: Any lab studies that have been ordered have been reviewed, and results considered in the medical decision making process. - Radiology CXR Radiology Interpretation Completed By: Radiologist - PULMONARY INTERSTITIAL EDEMA - EKG 1508 Cardiac Rate: NL - 67 bpm EKG Rhythm: Sinus Rhythm EKG Interpretation: Inverted T waves in Lead III and NAC Re-Evaluation - Re-Evaluation First Eval Change: Unchanged - Pt with elevated ddimer - spoke with Dr. Gutierrez - will order CTA pt updated and in agreement with plan Course/Dx Assessment/Plan: Pt presents by EMS s/p syncopal episode x 2 - once while standing, once sitting. No injuries. No current complaints. Differential includes PE, CAD, CHF, electrolyte changes, dysrrhytmia. Will check labs, EKG, CXR. d/w hospitalist - will admit. awaiting labs - Diagnoses Provider Diagnoses: Syncope Discharge - Discharge Plan Condition: Stable Disposition: ADMITTED TO [facility] documentation as recorded by the Júnior wiley Alfonso accurately reflects the service I personally performed and the decisions made by me, Senia Gutierrez MD.
[2016-10-24 16:46] LABS: Hematocrit 36 % (35-47); Hemoglobin 11.4 g/dl (12.0-16.0); Mean Corpuscular HGB Conc 32 g/dl (31-36); Mean Corpuscular Hemoglobin 27 pg (27-31); Mean Corpuscular Volume 87 fL (80-97); Mean Platelet Volume 7 um3 (7.4-10.4); Red Blood Count 4.19 10^6/ul (4.0-5.4); Red Cell Distribution Width 16 % (10.5-15); White Blood Count 18.8 10^3/ul (3.5-10.8)
[2016-10-24 17:03] LABS: Albumin 3.4 g/dL (3.2-5.2); BUN/Creatinine Ratio 17.9 (8-20); Calcium 9.2 mg/dL (8.6-10.3); EGFR African American 76.4 (>60); EGFR Non-African American 59.4 (>60); Globulin 4.2 g/dL (2-4); Magnesium 2.6 mg/dL (1.9-2.7); Potassium 4.1 mmol/L (3.5-5.0); Total Bilirubin 0.5 mg/dL (0.2-1.0); Total Protein 7.6 g/dL (6.4-8.9); Troponin I 0.01 ng/mL (<0.04)
[2016-10-24] MEDS ORDERED: NS 0.9% 1000 ML* 1,000 ML IV ONE (17:11)
[2016-10-24] MEDS ORDERED: Iodixanol* (CONTRAST) 320 MG/ML 100 ML SDV IV ONE (17:37)
--- NOTE | 2016-10-24 18:36 | RAD ---
INDICATION: Shortness of breath, syncope. COMPARISON: Comparison is made with a prior CT angiogram of the of the chest from September 07, 2015. TECHNIQUE: A CT angiogram of the chest was performed with intravenous following intravenous injection of 96 ml of Visipaque 320 nonionic contrast. Contiguous axial sections were obtained from the lung apices through the lung bases. Images were reconstructed in the coronal and sagittal planes. FINDINGS: There is suboptimal opacification of the pulmonary arteries and motion artifact limiting the study. No central intraluminal filling defect or pulmonary embolism is seen. The heart appears mildly enlarged. No pericardial effusion is present. The thoracic aorta is normal in caliber and demonstrates homogeneous contrast opacification. There is mild calcific plaque present No significant enlarged mediastinal or hilar lymph nodes are seen. The lungs are underinflated. There are scattered patchy infiltrates suspicious for atelectasis less likely pneumonia. No pleural effusion is seen. Images of the upper abdomen demonstrate no evidence for acute finding. There is thickening of the adrenal limbs suggestive of adrenal gland hyperplasia unchanged from the prior study. No significant focal osseous abnormality is seen. IMPRESSION: 1. SIGNIFICANTLY LIMITED STUDY, NO GROSS EVIDENCE FOR CENTRAL PULMONARY EMBOLISM. 2. THE LUNGS ARE UNDERINFLATED. THERE ARE SCATTERED BILATERAL INFILTRATES LIKELY REPRESENTING ATELECTASIS LESS LIKELY PNEUMONIA.
--- NOTE | 2016-10-24 18:37 | RAD ---
INDICATION: Shortness of breath sensation of throat tightening. COMPARISON: There are no prior studies available for comparison. TECHNIQUE: A CT scan of the neck was performed without intravenous contrast. Contiguous axial sections were obtained from the skull base through the lung apices. Images were reconstructed in the coronal and sagittal planes. The exam is limited without contrast and also limited due to motion artifact. FINDINGS: The airway is patent. The epiglottis and aryepiglottic folds appear within normal limits. No retropharyngeal soft tissue swelling is noted. There are mildly prominent bilateral submandibular lymph nodes measuring up to 0.8 cm in transverse dimension. No other enlarged lymph nodes are seen.. The parotid and submandibular glands appear to be within normal limits. The thyroid gland appears normal. The lung apices appear clear. The paranasal sinuses and mastoid air cells appear clear. No significant focal osseous abnormality is seen. IMPRESSION: 1. LIMITED EXAM. 2. NO EVIDENCE FOR ACUTE FINDING. 3. MILDLY PROMINENT SUBMANDIBULAR LYMPH NODES.
--- NOTE | 2016-10-24 20:48 | RAD ---
INDICATION: Lower extremity edema, elevated d-dimer. COMPARISON: There are no prior studies available for comparison. TECHNIQUE: Multiple real-time, color flow and Doppler tracings of both lower extremities were obtained. The exam is limited due to the patient's body habitus. FINDINGS: The common femoral, femoral, profunda femoral and popliteal veins all demonstrate normal compressibility, augmentation with compression and phasic response with respiration. The posterior tibial and peroneal veins demonstrate normal compressibility and augmentation with compression. IMPRESSION: LIMITED STUDY, NO EVIDENCE FOR DEEP VENOUS THROMBOSIS.
[2016-10-24] MEDS: Ropinirole TAB* 0.5 MG TAB PO SCH (21:47)
[2016-10-24] MEDS: Cephalexin CAP* 500 MG PO SCH (21:47)
[2016-10-24] MEDS: Enoxaparin(*) 40 MG/0.4 ML SYR SUBCUT SCH (21:48)
[2016-10-24] MEDS: Nystatin TOP POWDER* 15 GM BTL TOPICAL SCH ×3 (22:05→23:00)
--- NOTE | 2016-10-25 00:18 | HP ---
CC: Dr. Taylor * HISTORY AND PHYSICAL: DATE OF ADMISSION: 10/24/16 PRIMARY CARE PHYSICIAN: Dr. Taylor. CHIEF COMPLAINT: Syncope. HISTORY OF PRESENT ILLNESS: Ms. Gallardo is a 65-year-old female with a past medical history of GERD, osteoarthritis, restless legs syndrome, chronic lymphedema, varicose veins, OA, and a recent admission for cellulitis, who presents to the hospital with two syncopal episodes. The patient states this morning, she was in her usual state of health. She states she was washing her hair in her sink. She put shampoo in her hair and was washing it when she stood up and turned towards her fridge and the next thing she knew she woke up on the ground. She does not recall any preceding chest pain, shortness of breath, lightheadedness, or palpitations. When she woke up, she states she had some incontinence; however, this is a chronic issue for her. She does not think she hit her head, but perhaps her right elbow, she had some pain. She was not confused. She yelled out for her friend to come and help her, who heard her from the other room and picked her up, brought her into the bathroom to rinse her hair out, she seemed to feel back to baseline. Later in the day, she had an appointment for the wound clinic. Her friend came to pick her up to take her to the appointment. She walked to the car, buckled herself in. She then felt some shortness of breath, felt like she could not take any deep breaths. She tried to open the door and the next thing she knew, the door was open and her friend was there shaking her trying to wake her up. Her friend states she was only out for a few seconds, had a few gasping breath sounds, she was not confused afterwards. The patient is unclear if she had any incontinence during this episode. She feels that the symptoms are related to problems with her sleep as well. She states she has "spells" during her sleep where she has vivid dreams and then wakes up gasping for air. Friend states that she often has some changes in her breathing during these episodes. Had one early this morning and woke up. EMS was called, but they did not feel the patient need to be evaluated. She currently has plans to undergo a sleep study as she apparently had a positive nocturnal pulse oximetry. She states she has a history of Chiari 1 malformation. The patient denies any history of syncope in the past. She states she is still taking her Keflex which she was discharged on from her previous hospitalization for cellulitis. She states this has been improving. This has been continuing to improve, although had a small opening of the wound recently. Of note, she was discharged on both torsemide and Lasix from the previous admission and has been taking both. She states she is not sure if she has had anymore urine output than usual. PAST MEDICAL HISTORY: Cellulitis, GERD, OA, restless legs syndrome, lymphedema , and varicose veins. PAST SURGICAL HISTORY: Right total hip arthroplasty, varicose vein, left lumpectomy. HOME MEDICATIONS: 1. Keflex 500 mg by mouth 3 times daily. 2. Lasix 40 mg by mouth daily. 3. Synthroid 25 mcg by mouth daily. 4. Lisinopril 2.5 mg by mouth daily. 5. Systane 1 drop in both eyes 3 times daily as needed for dry eyes. 6. Potassium chloride 20 mEq by mouth daily. 7. Ropinirole 0.5 mg by mouth 3 times daily. 8. Torsemide 20 mg by mouth daily. ALLERGIES: The patient reports no known drug allergies. FAMILY HISTORY: Significant for her mother with pulmonary fibrosis and CHF. Father with leukemia and pancreatic cancer. SOCIAL HISTORY: Denies any tobacco, illicit drug use, or alcohol use. She is a retired teacher. REVIEW OF SYSTEMS: Twelve-point review of systems negative except for that as noted in the HPI. PHYSICAL EXAMINATION GENERAL: The patient is a middle-aged, obese female, lying in bed, in no apparent distress. VITAL SIGNS: On admission, temperature 98.6, heart rate is 66, respiratory rate of 19, O2 saturation is 97% on 2 L, blood pressure 126/58. HEENT: Head: Normocephalic and atraumatic. Pupils equal, round, and reactive to light and accommodation. Anicteric sclerae. ENT: Dry mucous membranes. No cervical adenopathy. LUNGS: Clear to auscultation bilaterally. No wheezes, rales, or rhonchi. CARDIOVASCULAR: Regular rate and rhythm. S1 and S2 present. Mild systolic ejection murmur. ABDOMEN: Obese, soft, nontender, and nondistended. Bowel sounds present. EXTREMITIES: Chronic lymphedema. Mild lower extremity edema. Small opening on the wound of her right lower extremity. NEURO: The patient is alert and oriented x3, no focal neurological deficits. SKIN: Warm, dry, and well perfused. DIAGNOSTIC STUDIES/LAB DATA: White blood cell count of 18, hematocrit of 36, platelets of 508. D-dimer greater than 1050. Sodium 143, potassium 4.1, chloride of 102, carbon dioxide of 34, BUN of 17, creatinine 0.95, glucose of 100, lactic acid of 0.7. LFTs within normal limits. B-natriuretic peptide of 235. TSH of 2.27. EKG personally reviewed shows normal sinus rhythm, no ischemic changes. Chest x-ray shows some mild interstitial edema. CTA of the chest shows significantly limited study. No gross evidence for a central pulmonary embolism. The lungs are underinflated. There are scattered bilateral infiltrates, likely representing atelectasis, less likely pneumonia. CT of the neck: Limited exam, no evidence for acute findings. Mildly prominent submandibular lymph nodes. ASSESSMENT AND PLAN: Syncope x2 in a 65-year-old female with a past medical history of gastroesophageal reflux disease, osteoarthritis, restless legs syndrome, chronic lymphedema, varicose veins, and recent diagnosis and hospitalization for cellulitis and lower extremity wound. 1. Syncope. I am wondering if this may be due to overdiuresis. It seems that the patient may have been accidentally discharged on 2 diuretics, which she has been taking since her recent discharge on 10/22/16. We will check orthostatic vital signs. She does have some signs of dehydration on her labs and that her white blood cell count, hemoglobin, and platelets are all higher than normal and a bit of an alkalosis, kidney function seems to be around baseline. We will hold on any additional fluids for now, but we will hold her diuretics. We will trend her troponins and monitor her on telemetry. We will get an EEG, as she has had some incontinence with one of her episodes of syncope. CTA did not show any clear evidence of pulmonary embolism, but with her elevated D-dimer and lower extremity edema, we will check lower extremity Doppler. 2. Cellulitis. The patient states that her symptoms are improving. She does have leukocytosis which is higher than just a few days ago; however, she seems to have a chronic leukocytosis. We will continue wound care and her oral Keflex. 3. Hypothyroidism. Continue home Synthroid. 4. HTN. We will hold her lisinopril for now. 5. Reported breathing issues. States she often has shortness of breath which seems to be located in her neck. CT of the neck was negative. I wonder if she may have some underlying vocal cord dysfunction. I strongly recommend she continues to pursue a sleep study as she likely has some underlying sleep apnea as well. 6. DVT prophylaxis. Lovenox subcu. 7. Code status. The patient is a full code. TIME SPENT: Total time spent on this admission 60 minutes with more than half the time spent [id number] with the patient in counseling and coordinating care. [id number]/[facility] #: [id number] JACKY
[2016-10-25 03:31] LABS: Hematocrit 32 % (35-47); Hemoglobin 10.3 g/dl (12.0-16.0); Mean Corpuscular HGB Conc 32 g/dl (31-36); Mean Corpuscular Hemoglobin 28 pg (27-31); Mean Corpuscular Volume 87 fL (80-97); Mean Platelet Volume 7 um3 (7.4-10.4); Red Blood Count 3.73 10^6/ul (4.0-5.4); Red Cell Distribution Width 16 % (10.5-15)
[2016-10-25 03:38] LABS: BUN/Creatinine Ratio 19.1 (8-20); Calcium 8.7 mg/dL (8.6-10.3); EGFR African American 82.4 (>60); EGFR Non-African American 64.1 (>60); Potassium 3.8 mmol/L (3.5-5.0)
[2016-10-25 03:50] LABS: Troponin I 0.11 ng/mL (<0.04)
[2016-10-25] MEDS: Levothyroxine TAB* 25 MCG TAB PO SCH (06:11)
[2016-10-25] MEDS: Ropinirole TAB* 0.5 MG TAB PO SCH ×3 (08:42→20:58)
[2016-10-25] MEDS: Cephalexin CAP* 500 MG PO SCH ×3 (08:42→20:58)
[2016-10-25] MEDS: Nystatin TOP POWDER* 15 GM BTL TOPICAL SCH ×3 (08:43→20:57)
--- NOTE | 2016-10-25 11:59 | DCNOTE ---
Patient seen this morning. Reports feeling good, no new complaints. No further syncopal episodes. Bradycardia overnight, improved this AM. On exam, RRR, s1 and s2 present, no m/g/r, lungs with some trace rales in B/L bases, no wheezing, chronic LE changes, dressing in place. Work-up largely negative, symptoms may have been from over-diuresis, sleep symptoms certainly seem related to underlying RADHAMES. EEG pending, if negative will d/c on Torsemide alone to begin tomorrow. Needs outpatient sleep study. Continue outpatient ABx and will need to reschedule wound care appointment.
--- NOTE | 2016-10-25 17:36 | PN ---
Subjective Date of Service: 10/25/16 Interval History: Patient had 3.8 second pause while sleeping, asymptomatic. No further episodes of syncope while hospitalized. Family History: Unchanged from Admission Social History: Unchanged from Admission Past Medical History: Unchanged from Admission Objective Active Medications: Cephalexin HCl (Keflex Cap*) 500 mg PO TID [facility] Last Admin: 10/25/16 15:34 Dose: 500 mg Enoxaparin Sodium (Lovenox(*)) 40 mg SUBCUT Q24H [facility] Last Admin: 10/24/16 21:48 Dose: 40 mg Levothyroxine Sodium (Synthroid Tab*) 25 mcg PO 0600 [facility] Last Admin: 10/25/16 06:11 Dose: 25 mcg Nystatin (Nystatin Top Powder*) 1 applic TOPICAL 0900,1400,2100 [facility] Last Admin: 10/25/16 15:35 Dose: 1 applic Ropinirole HCl (Requip Tab*) 0.5 mg PO TID [facility] Last Admin: 10/25/16 15:34 Dose: 0.5 mg Vital Signs 10/24/16 10/24/16 10/24/16 19:25 23:18 23:42 Temperature 98.3 F 97.9 F Pulse Rate 50 54 54 Respiratory 20 16 Rate Blood Pressure 156/51 129/51 129/51 (mmHg) O2 Sat by Pulse 93 97 Oximetry 10/24/16 10/24/16 10/25/16 23:47 23:48 03:58 Temperature 97.7 F Pulse Rate 56 60 54 Respiratory 16 Rate Blood Pressure 133/60 135/67 145/62 (mmHg) O2 Sat by Pulse 97 Oximetry 10/25/16 10/25/16 10/25/16 07:27 11:14 15:16 Temperature 97.4 F 98.0 F 97.8 F Pulse Rate 52 56 57 Respiratory 16 16 20 Rate Blood Pressure 120/46 137/79 132/57 (mmHg) O2 Sat by Pulse 93 96 96 Oximetry Oxygen Devices in Use Now: Nasal Cannula Appearance: See physical exam from d/c note Result Diagrams: 10/25/16 03:13 10/25/16 03:13 Microbiology and Other Data: Microbiology 10/24/16 16:21 Aerobic Blood Culture - Preliminary Blood Venous No Growth Day 1 Anaerobic Blood Culture - Preliminary No Growth Day 1 10/24/16 16:20 Aerobic Blood Culture - Preliminary Blood Venous No Growth Day 1 Anaerobic Blood Culture - Preliminary No Growth Day 1 Assess/Plan/Problems-Billing Assessment: Syncope in a 65 yo F with hx of chronic lymphedema, likely RADHAMES, hypothyroidism and recent cellulitis on ABx - Patient Problems (1) Syncope Current Visit: Yes Comment: Unclear whether this pause is related to the syncope as she has not had any significant arryhthmias while awake. Suspect this pause is related to RADHAMES, will trial CPAP tonight. Continue to monitor on tele. Will get echo. (2) Cellulitis Current Visit: No Comment: Continue outpatient Keflex. (3) Hypothyroidism Current Visit: No Comment: cont synthroid (4) DVT prophylaxis Current Visit: No Comment: Lovenox
[2016-10-25] MEDS: Enoxaparin(*) 40 MG/0.4 ML SYR SUBCUT SCH (20:58)
--- NOTE | 2016-10-26 02:55 | EEG ---
ELECTROENCEPHALOGRAPHY: DATE OF STUDY: 10/25/16 - ROOM #ICU-04 PATIENT OF: Dr. Gutierrez. HISTORY: This is a 65-year-old woman being evaluated for 2 episodes of syncope to rule out seizures. MEDICATIONS: Include Lovenox, ReQuip, nystatin, Keflex, and Synthroid. INTERPRETATION: With the patient awake, background cerebral activity consists of moderate amplitude posterior dominant 9 to 10 Hz rhythm with the patient drowsy and slowing at the theta range. REPORT: The patient's sleep background consists of diffuse irregular delta and theta activity. Normal patterns of sleep including vertex waves are noted. No epileptiform potentials, focal abnormalities or major asymmetries of background are present. IMPRESSION: This awake and asleep EEG is within normal limits. [id number]/[facility] #: [id number] [facility]
[2016-10-26] MEDS ORDERED: Atropine 1MG/ML INJ* 1 ML VIAL IV PUSH PRN (03:22)
--- NOTE | 2016-10-26 03:26 | PN ---
Progress Note - Progress Note Date of Service: 10/26/16 Note: Patient had a series of 3s pauses shortly after being placed on CPAP, nursing was concerned CPAP may have caused. Last night was not on CPAP w/o repetitive pauses. OK to leave CPAP off. However, she has again developed a series of pauses culminating in a brief idioventricular rhythm from which she spontaneously recovered. Nursing was able to arouse her finding no complaints. Review of meds reveal no negative chronotrops. Will transfer to ICU, place pacer pads, & keep atropine at the bedside. Magnesium was 2.6 yesterday & K is 3.8. Jonel Otto MD cardiology apprised.
[2016-10-26] MEDS ORDERED: Atropine SYRINGE* 0.1 MG/ML 10 ML SYRINGE (1 MG) IV PUSH PRN (04:01)
--- NOTE | 2016-10-26 04:03 | DS ---
CC: Dr. Taylor * DISCHARGE SUMMARY: DATE OF ADMISSION: 10/24/16 DATE OF DISCHARGE: 10/25/16 PRIMARY CARE PHYSICIAN: Dr. Taylor. PRINCIPAL DISCHARGE DIAGNOSIS: Syncope. SECONDARY DIAGNOSES: 1. Chronic lymphedema. 2. Recent diagnosis of cellulitis. 3. Gastroesophageal reflux disease. 4. Osteoarthritis. 5. Restless leg syndrome. DISCHARGE MEDICATION REGIMEN: 1. Keflex 500 mg by mouth 3 times daily. 2. Nystatin 1 application topical 3 times daily. 3. Synthroid 25 mcg by mouth daily. 4. Lisinopril 2.5 mg by mouth daily. 5. Systane 1 drop in both eyes 3 times daily as needed for dry eyes. 6. Potassium chloride 20 mEq by mouth daily. 7. Torsemide 20 mg by mouth daily. 8. Ropinirole 0.5 mg by mouth 3 times daily. STUDIES DONE DURING HOSPITALIZATION: Chest x-ray, impression: Pulmonary interstitial edema. CTA of the chest, impression: Significantly limited study. No gross evidence for central pulmonary embolism. The lungs are underinflated. There are scattered bilateral infiltrates likely representing atelectasis, less likely pneumonia. CT soft tissue of the neck, impression: Limited exam, no evidence for acute findings. Mildly prominent submandibular lymph nodes. Lower extremity Dopplers bilateral, impression: Limited study, no evidence for DVT. HISTORY OF PRESENT ILLNESS AND HOSPITAL SUMMARY: Please see my full history and physical for full details. Briefly, Ms. Gallardo is a 65-year-old female with past medical history as above, who presented to the hospital with two episodes of syncope. The first happened while she was washing her hair in a sink when she picked her head up and looked at the fridge, she subsequently passed out. She does not recall any preceding symptoms, but she did lose of her bladder while she was unconscious. She came to and yelled for help and does not seem to have had any postictal state. The patient fell back to her baseline. Later in the day, she was planning to go to a wound care appointment when she had a second episode when she got into her friend's car. This was also just for a few seconds. The patient did not have any incontinence during this episode. No shaking was noted. The patient was evaluated here in the hospital. She was found to have an elevated D-dimer greater than 1050, also a leukocytosis of 18 and a mild alkalosis. Upon review of her previous hospitalization, it seems that she was accidentally discharged on both torsemide and furosemide, which was likely an error. It was felt that this could have contributed to her syncopal episodes, although her orthostatic vitals here in the hospital seemed to be negative. The patient had an extensive workup including a CTA of the chest which was negative and Dopplers of the lower extremities, which were both negative. She also underwent an EEG. The final report of this is pending at this time, but the information was relayed to me that there was no evidence of epileptiform activity. The patient has also been complaining of episodes of shortness of breath, which she states feel that they are in her neck; however, a CT scan did not show any abnormalities. Possibly, this is related to vocal cord dysfunction. The patient has episodes of what sounds like sleep apnea, which are likely related to her obesity. She is in the process of getting a sleep study scheduled at this time. During the hospitalization, she had no further episodes of syncope. Her troponins were trended and remained negative aside from one elevated value of 0.11, but I think this was an error as her redraw was 0.00. The patient was switched to just one diuretic on discharge. She was continued on her Keflex that was prescribed previously for her lower extremity edema and she will need to reschedule her wound care appointment. She will follow up with her PCP as an outpatient to ensure she has a sleep study set up soon. TIME SPENT: Total time spent on this discharge, 45 minutes. This is a summary of the hospitalization. Please see the full medical record for further details. [id number]/[facility] #: [id number] MTDD
[2016-10-26] MEDS ORDERED: Potassium Chlor TAB* 20 MEQ TAB.ER PO ONE (05:12)
[2016-10-26] MEDS: Levothyroxine TAB* 25 MCG TAB PO SCH (05:45)
[2016-10-26] MEDS ORDERED: Perflutren Lipid Microsphere* 3 ML VIAL ONE (07:51)
--- NOTE | 2016-10-26 08:07 | PN ---
Subjective Date of Service: 10/26/16 Interval History: Overnight events reviewed, numerous sinus pauses, transferred to ICU. Asymptomatic. Patient seen this morning. Reports alarms going off overnight and nurses running into her room a number of times, says this happened while she was asleep and while she was awake. No syncopal episodes, reports one episode was associated with a mild posterior headache that resolved. Could not get comfortable with CPAP. Feels LE edema is stable/improved. Family History: Unchanged from Admission Social History: Unchanged from Admission Past Medical History: Unchanged from Admission Objective Active Medications: Atropine Sulfate (Atropine Syringe*) 0.5 mg IV PUSH Q5M PRN Cephalexin HCl (Keflex Cap*) 500 mg PO TID [facility] Enoxaparin Sodium (Lovenox(*)) 40 mg SUBCUT Q24H [facility] Levothyroxine Sodium (Synthroid Tab*) 25 mcg PO 0600 [facility] Nystatin (Nystatin Top Powder*) 1 applic TOPICAL 0900,1400,2100 [facility] Ropinirole HCl (Requip Tab*) 0.5 mg PO TID [facility] Vital Signs 10/25/16 10/25/16 10/25/16 19:29 20:00 23:30 Temperature 97.9 F 98.1 F Pulse Rate 57 53 Respiratory 18 16 20 Rate Blood Pressure 141/63 141/47 (mmHg) O2 Sat by Pulse 98 93 Oximetry 10/26/16 10/26/16 10/26/16 04:46 05:00 05:01 Temperature Pulse Rate 42 52 37 Respiratory 15 8 12 Rate Blood Pressure 108/41 118/40 (mmHg) O2 Sat by Pulse 96 89 90 Oximetry 10/26/16 10/26/16 07:22 07:32 Temperature Pulse Rate 57 62 Respiratory 17 12 Rate Blood Pressure 137/52 133/54 (mmHg) O2 Sat by Pulse 97 99 Oximetry Oxygen Devices in Use Now: Nasal Cannula - 2L Appearance: Middle-aged, obese, F, laying in bed in NAD Eyes: No Scleral Icterus Ears/Nose/Mouth/Throat: Mucous Membranes Moist Neck: NL Appearance and Movements; NL JVP Respiratory: - - Distant BS, clear Cardiovascular: NL Sounds; No Murmurs; No JVD, RRR Abdominal: - - Obese, soft, NTND, BS+ Lymphatic: No Cervical Adenopathy Extremities: - - Improvement in LE edema, LE dressings in place Skin: - - Chronic LE skin changes Neurological: Alert and Oriented x 3 Result Diagrams: 10/25/16 03:13 10/25/16 03:13 Assess/Plan/Problems-Billing Assessment: Syncope in a 65 yo F with hx of chronic lymphedema, likely RADHAMES, hypothyroidism and recent cellulitis on ABx, now found to have numerous sinus pauses on telemetry - Patient Problems (1) Syncope Current Visit: Yes Comment: Possibly due to sinus pauses. Not on any AV rohit blocking agents, TSH WNL. Will ask Cardiology to evaluate for ?need for PPM. Needs to be treated for RADHAMES. Continue tele. Echo pending. Pacer pads on and atropine at bedside. (2) Cellulitis Current Visit: No Comment: Continue outpatient Keflex. Check procalcitonin. (3) Hypothyroidism Current Visit: No Comment: cont synthroid (4) DVT prophylaxis Current Visit: No Comment: Lovenox Status and Disposition: Inpatient for sinus pauses, ?need for PPM
[2016-10-26 08:24] LABS: Hematocrit 33 % (35-47); Hemoglobin 10.3 g/dl (12.0-16.0); Mean Corpuscular HGB Conc 31 g/dl (31-36); Mean Corpuscular Hemoglobin 27 pg (27-31); Mean Corpuscular Volume 87 fL (80-97); Mean Platelet Volume 7 um3 (7.4-10.4); Red Blood Count 3.79 10^6/ul (4.0-5.4); Red Cell Distribution Width 15 % (10.5-15); White Blood Count 11.6 10^3/ul (3.5-10.8)
[2016-10-26 08:35] LABS: BUN/Creatinine Ratio 18.9 (8-20); Calcium 8.8 mg/dL (8.6-10.3); EGFR African American 101.9 (>60); EGFR Non-African American 79.3 (>60); Magnesium 2.6 mg/dL (1.9-2.7); Potassium 4.4 mmol/L (3.5-5.0)
[2016-10-26 08:37] LABS: Troponin I 0.01 ng/mL (<0.04)
[2016-10-26 09:20] LABS: C Reactive Protein 32.41 mg/L (< 5.00)
[2016-10-26] MEDS: Ropinirole TAB* 0.5 MG TAB PO SCH ×3 (09:59→20:34)
[2016-10-26] MEDS: Cephalexin CAP* 500 MG PO SCH ×3 (09:59→20:31)
[2016-10-26 10:32] LABS: Erythrocyte Sed Rate 78 mm/Hr (0-30)
[2016-10-26] MEDS ORDERED: Lidocaine 2% PF * 5 ML VIAL ONE (11:23)
[2016-10-26] MEDS ORDERED: Propofol* 10 MG/ML 20 ML BTL IV PUSH ONE ×2 (11:23→15:03)
[2016-10-26] MEDS ORDERED: fentaNYL* 50 MCG/ML 2 ML VIAL (100 MCG VIAL) ONE (11:23)
[2016-10-26] MEDS ORDERED: Ondansetron INJ* 2 MG/ML VIAL ONE (11:23)
[2016-10-26] MEDS ORDERED: Midazolam* 1 MG/ML 5 ML VIAL (5 MG) ONE ×2 (11:23→14:22)
[2016-10-26] MEDS ORDERED: Dexamethasone IV* 4 MG/ML 1 ML (4 MG) ONE (11:23)
[2016-10-26] MEDS: Nystatin TOP POWDER* 15 GM BTL TOPICAL SCH ×3 (11:30→20:39)
[2016-10-26] MEDS ORDERED: ceFAZolin 2 GM in NS 0.9% 100 ml IVPB ONE (12:00)
--- NOTE | 2016-10-26 12:17 | ECHO ---
Patient: TEO HAILE [facility] Rec#: [id number] : 1950 Date: 10/26/2016 Age: 65y Height: 167.6 cm / 66.0 in Weight: 132.9 kg / 292.9 lbs Sex: F BSA: 2.35 Room#: ICU 4 Admit Date#: 10/25/2016 Type: Inpatient Referring: Michaela Ann MD Reading: Michaela Ann MD Mold Operator: Vale Cook RN RDCS CC: Sofia Taylor MD Transthoracic Echocardiogram Indication: Syncope, bradycardia, cardiac murmur BP: 155/65 HR: 60 Rhythm: NSR Findings History: Chronic lymphedema, recent cellulitis, morbid obesity, suspected RAHDAMES, hypothyroidism, GERD, cardiac murmur Technical Comments: The study is technically limited due to patient body habitus. Completed at 1120. Left Ventricle: The left ventricular chamber size is normal. Mild concentric left ventricular hypertrophy is observed. Global left ventricular wall motion and contractility are within normal limits. The left ventricle appears hyperdynamic. The estimated ejection fraction is 60-65%. The assessment of diastolic function is non-diagnostic. The patient was unable to perform a Valsalva maneuver. Left Atrium: The left atrium is mildly dilated. Right Ventricle: Moderator Band present. The right ventricular cavity size is normal. The right ventricular global systolic function is normal. Right Atrium: The right atrium is mildly dilated. Aortic Valve: The aortic valve is trileaflet. The aortic valve leaflets are mildly thickened. There is no evidence of aortic regurgitation. There is no evidence of aortic stenosis. Mitral Valve: There is mitral annular calcification. The mitral valve leaflets are mildly thickened. There is a trace of mitral regurgitation. There is borderline mitral stenosis. Tricuspid Valve: The tricuspid valve structure is not well visualized. There is trace tricuspid regurgitation. There is evidence of moderate pulmonary hypertension. Pulmonic Valve: The pulmonic valve structure is not well visualized. There is trace to mild pulmonic regurgitation. There is no pulmonic stenosis. Pericardium: There is no significant pericardial effusion. A pericardial fat pad is visualized. Aorta: There is mild dilatation of the ascending aorta. There is no dilatation of the aortic arch. There is no dilation of the aortic root. Pulmonary Artery: The main pulmonary artery appears normal. Venous: The inferior vena cava is dilated. There is less than 50% respiratory change in the inferior vena cava dimension. Conclusions Mild concentric left ventricular hypertrophy is observed. The left ventricle appears hyperdynamic. The estimated ejection fraction is 65%. The right ventricular global systolic function is normal. Mild bi atrial enlargement. The aortic valve leaflets are mildly thickened with normal function. Elevated velocities across the aortic valve and turbilance in LVOT on color Doppler c/w hyperdynamic LV function and LVH, no evidence of XIMENA. There is a trace of mitral regurgitation. There is trace tricuspid regurgitation. There is evidence of moderate pulmonary hypertension: 53 mmHg. There is trace to mild pulmonic regurgitation. There is mild dilatation of the ascending aorta: 3.5 cm. The inferior vena cava is dilated. No significant change c/w prior echo of 09/07/15. Measurements Name Value Normal Range RVDdMajor (2D) 3.5 cm (2.2 - 4.4) RAd ISD 4CH 5.6 cm (3.4 - 4.9) RA (A4C)W 4.5 cm (2.9 - 4.6) IVSd (2D) 1.2 cm (0.6 - 1) LVPWd (2D) 1.1 cm (0.6 - 1) LVIDd (2D) 4.5 cm (3.6 - 5.4) Aortic Annulus 1.9 cm (1.4 - 2.6) Ao root diameter (2D) 2.5 cm (2.1 - 3.5) Ascending Ao 3.5 cm (2.1 - 3.4) Aortic arch 2.3 cm (1.8 - 3.4) LA dimension (AP) 2D 3 cm (2.3 - 3.8) LAd ISD 4CH 5.7 cm (2.9 - 5.3) LA ISD 4CH W 4.2 cm (2.5 - 4.5) Name Value Normal Range LA ESV SP 4CH (A/L) 66 ml - LA ESV SP 2CH (A/L) 79.7 ml - LA ESV BP (A/L) 76.1 ml - LA ESV BP (A/L) index 33 ml/m2 - LA ESV SP 4CH (MOD) 60 ml - LA ESV SP 2CH (MOD) 75 ml - Name Value Normal Range MV E-wave Vmax 1.6 m/sec - MV deceleration time 243 msec - MV A-wave Vmax 1.3 m/sec - MV E:A ratio 1.2 ratio - LV septal e' Vmax 0.13 m/sec - LV lateral e' Vmax 0.11 m/sec - LV E:e' septal ratio 12.3 ratio - LV E:e' lateral ratio 14.5 ratio - Name Value Normal Range AV Vmax 2.4 m/sec - AV VTI 59.9 cm - AV peak gradient 23.3 mmHg - AV mean gradient 14.7 mmHg - LVOT diameter 2 cm - LVOT Vmax 2.2 m/sec - LVOT VTI 48.2 cm - LVOT peak gradient 19.6 mmHg - LVOT mean gradient 9.7 mmHg - DOI (VTI) 0.8 ratio - DOI (Vmax) 0.92 ratio - AQUILINO (continuity Vmax) 2.9 cm2 - AQUILINO (continuity VTI) 2.5 cm2 - ANGIE Vmax 1.2 m/sec - Name Value Normal Range MV Vmax 1.7 m/sec - MV VTI 53.8 cm - MV peak gradient 11.6 mmHg - MV mean gradient 3.9 mmHg - MV PHT 86 msec - MVA (PHT) 2.6 cm2 - MVA (continuity VTI) 2.8 cm2 - Name Value Normal Range TR Vmax 3.1 m/sec - TR peak gradient 38 mmHg - RAP 15 mmHg - RVSP 53 mmHg - IVC diameter 2.2 cm - Name Value Normal Range PV Vmax 1.1 m/sec -
[2016-10-26] MEDS ORDERED: KETAMINE HCL* 50 MG/ML 10 ML VIAL ONE (12:46)
[2016-10-26] MEDS ORDERED: Phenylephrine IV* 40 MCG/ML 10 ML SYRINGE ONE (13:01)
[2016-10-26] MEDS ORDERED: Lidocaine 1% INJ* 10 MG/ML 30 ML SDV ONE (13:03)
[2016-10-26] MEDS ORDERED: Iohexol 300 (CONTRAST) 10 ML SDV ONE (13:03)
--- NOTE | 2016-10-26 17:48 | RAD ---
HISTORY: Status post device implantation COMPARISONS: October 24, 2016 VIEWS:1: Frontal portable expiratory views view of the chest at 5:40 PM FINDINGS: LINES AND TUBES: A left-sided pacemaker is noted. The leads are intact. CARDIOMEDIASTINAL SILHOUETTE: The cardiomediastinal silhouette is normal for portable technique and phase of inspiration. PLEURA: The costophrenic angles are sharp. No pleural abnormalities are noted. There is no appreciable pneumothorax. LUNG PARENCHYMA: The lung volumes are low. This appears to be an expiration phase exam ABDOMEN: The upper abdomen is clear. There is no subphrenic gas. BONES AND SOFT TISSUES: No bone or soft tissue abnormalities are noted. IMPRESSION: STATUS POST PACEMAKER PLACEMENT. NO APPRECIABLE PNEUMOTHORAX.
--- NOTE | 2016-10-26 20:35 | CONS ---
CC: Dr. Taylor; Hospitalist Service CARDIOLOGY CONSULTATION REPORT: DATE OF CONSULT: 10/26/16 CHIEF COMPLAINT: Syncope. HISTORY OF PRESENT ILLNESS: Ms. Gallardo is a 65-year-old woman with no prior cardiac history. She had been hospitalized recently for cellulitis of the lower extremities (lymphedema) and was sent home on a combination of Lasix and torsemide. The patient had first syncopal episode while she was washing her hair at the kitchen sink, stood up, turned to the fridge, and found herself in the ground. The second episode, the patient had walked to her sister's car and felt suddenly very hot in the car and was trying to open the door to get more air and her sister then said she had fainted and was shaking or trying to wake her up. The patient denied any associated dyspnea, chest pain, pressure, heaviness, palpitations, racing of the heart, and no other prodrome other than that described above. The patient has had episodes during sleep recurrently for a long time where she will have dreams that are recurring and dream them over and over and she will wake up gasping for air and sweaty. PAST MEDICAL HISTORY: 1. Lymphedema. 2. Morbid obesity. 3. Venous insufficiency. 4. Restless legs syndrome. 5. Reflux. 6. Osteoarthritis. 7. Recurrent cellulitis. PAST SURGICAL HISTORY: Includes: 1. Right total hip arthroplasty. 2. Varicose vein surgery. 3. Left lumpectomy. MEDICATIONS: On admission, the patient was on: 1. Oral Keflex. 2. Lasix 40 mg a day. 3. Torsemide 20 mg a day. 4. Lisinopril 2.5 mg a day among other medications. Current inpatient medications include: 1. Keflex 500 mg t.i.d. 2. Lovenox 40 mg q.24 hours. 3. Synthroid 25 mcg a day. 4. Nystatin topical powder. 5. Ropinirole 0.5 mg t.i.d. 6. Atropine p.r.n. at bedside. ALLERGIES: No known drug allergies. FAMILY HISTORY: Significant in that her mother had a history of pulmonary fibrosis and congestive heart failure. She has a father with pancreatic cancer and leukemia history. SOCIAL HISTORY: The patient is a retired teacher, lives independently. Sometimes uses a walker to get out of bed, but is able to walk around the house independently. No tobacco, recreational drug, or alcohol use. REVIEW OF SYSTEMS: A 14-point review of systems was performed. She denies recent fevers, chills, sweats. She feels her leg ulcers from her previous admission are improving and healing and not getting worse. She denies any new infectious symptoms. No sinus problems, ear problems. Occasional cough, but no productive sputum. She sleeps in a recliner chair since her hip surgery because of comfort, but she denies orthopnea or PND. No recent diarrhea or dysuria. Negative chest pain as above. All other review of systems is negative. PHYSICAL EXAM: The patient is 5 feet 6 inches, weighs 293 pounds with a BMI of 47. Vitals: Currently, blood pressure 123/54; pulse is 64 and regular, sinus rhythm; respiratory rate 12; oxygen saturation on room air 99%. General Appearance: Morbidly obese, somewhat older woman lying at 30 degrees in a hospital bed, appearing comfortable, in no acute distress. Psychologically, calm, cooperative, and pleasant. Neurologically, awake, alert, oriented to person, place, and time. Cranial nerves II through XII intact. Grossly normal sensory and motor function in the upper and lower extremities. Gait not checked. The patient is moving her legs all the time consistent with her restless legs syndrome. Skin: Warm and dry. No cyanosis. Her lower extremities appear little pruny consistent with dehydration and there is some mild brawny discoloration consistent with chronic edema. HEENT: Pupils are equal and round. Mucous membranes moist. Neck without increased JVP appreciated at 30 degrees. Good carotid pulses, no audible bruits. Breath sounds posteriorly and anteriorly are clear with no wheezes, rales, or rhonchi. Good air movement. Coronary: S1, S2, regular. 2/6 easily audible murmur heard along the upper sternal border with respiratory variation. Abdomen: Overweight. Active bowel sounds. Soft, nontender. No hepatomegaly appreciated. Femoral pulses not checked. Lower extremities showed as above changes of chronic venous stasis and lymphedema, very obese. There is a dressing on the right anterior leg just below the knee and I did not look below that. The left lower extremity just above the ankle has an ulceration that appears healing. That dressing is easily removed. DIAGNOSTIC STUDIES/LAB DATA: On admission, her white count was 18.8; today 11.6 , hemoglobin 10.3, hematocrit 33, platelets 389. Sed rate and CRP are pending. D- dimer was greater than 10,500. Sodium 140, potassium 4.4, chloride 102, bicarb 34, BUN 14, creatinine 0.74, glucose 92. Troponin #1, 0.01; #2, 0.11; #3 , 0.00; #4, 0.01. BNP 32. TSH 2.27. Lyme titer pending. Venous Doppler from 10/24/16, limited study, no evidence of DVT. CT angiogram from 10/24/16 is limited, but no gross evidence of pulmonary embolism. The lungs are under-inflated, possible infiltrates. Echocardiogram from 09/06/15 showed mild left ventricular hypertrophy with an ejection fraction of greater than 65%, hyperdynamic. She had evidence of LVOT obstruction with elevated velocities. Abnormal diastolic filling and normal heart valve function. Monitor strip shows sinus rhythm alternating with marked sinus bradycardia with up to 5-second pauses and also some sinus bradycardia with complete heart block and at times, she has a junctional escape rhythm, very slow wide junctional escape rhythm. IMPRESSION AND PLAN: In conclusion, Meaghan Gallardo is a 65-year-old woman with 2 syncopal episodes and also sleeping, there could have been dehydration from dual diuretic treatment in the setting of hyperdynamic ventricle and left ventricular outflow tract obstruction, but additionally the patient has evidence of intermittent sick sinus syndrome and high-degree AV block intermittently. This could be related to undiagnosed sleep apnea which she is at high risk for, but these occur even with CPAP on. I think she has sick sinus syndrome with 2 syncopal episodes, has a clear indication for dual-chamber pacemaker, which I recommended and she is amenable to proceeding. The patient denies exposure to Lyme, is not outside, but we will check a Lyme titer as it is endemic in the area. With her elevated white count on admission, despite having been just admitted for cellulitis I have consulted Dr. Hernandez to evaluate if we should wait prior to implanting the device and when we proceed, what best antibiotic regimen to use and he is agreeable to coming by to see her today. The indications, risks, and benefits of the procedure were discussed in depth with the patient including her increased infectious risk from her chronic lymphedema and recurrent cellulitis as well as risk of pneumothorax injury and she is understanding and again amenable to proceeding. For this procedure, because of probable sleep apnea and morbid obesity, we will have Anesthesia assist. [id number]/[facility] #: [id number] JACKY
[2016-10-26] MEDS: Enoxaparin(*) 40 MG/0.4 ML SYR SUBCUT SCH (20:39)
--- NOTE | 2016-10-26 21:25 | CONS ---
CONSULTATION REPORT: DATE OF CONSULTATION: 10/26/16 REQUESTING PHYSICIAN: Dr. Ann. CONSULTING SERVICE: Infectious Disease. REASON FOR CONSULTATION: Leukocytosis and cellulitis. IMPRESSION: 1. Leukocytosis, which is improving, it was 19 on admission, it is down to 11 today in the setting of right lower extremity cellulitis and need for pacemaker. Her cellulitis is improving. Her blood cultures are negative. There is no drainable fluid collection evident on exam. There is no other focus of infection identified by her signs or symptoms or lab or imaging tests. I think she is not at increased risk for infection compared to others of her age and wait just because of the resolving cellulitis and leukocytosis. 2. Morbid obesity. 3. Bilateral lower extremity lymphedema with recent right lower extremity cellulitis and carbuncle all of which are resolving and with negative blood cultures. 4. Syncope, sinus pause. Pacemaker is planned. RECOMMENDATIONS: 1. Agree with Keflex while she is here and cefazolin 2 g IV before the procedure for preoperative prophylaxis. 2. I discussed with her followup plans for cellulitis for which I can meet with her in the office. I am sure that is improving and also consider strategies for her lymphedema. HISTORY OF PRESENT ILLNESS: This is a 65-year-old obese woman with lymphedema admitted with right lower extremity pain and syncope. She had been here in the hospital from 10/18/16 until the 10/22/16. She had IV antibiotics, vancomycin, and Zosyn. She was discharged on cephalexin. The swelling and redness in the leg have continued to improve. Then, she had syncope at home. So, she was brought in to the ER. She had a white count of 19,000 on her admission. Last time, it was 19.5 and then trended down to 13. At this time, it has trended down to 12. She is to continue on Keflex. She has had fluids. She was found to have sinus pause. She is going to have a pacemaker. She had a CT of the chest that showed scattered infiltrates more likely due to atelectasis per the radiologist. Blood cultures were taken and are negative. She has no urinary frequency or dysuria. She otherwise feels well and feels that her legs are actually getting better each day that she has been here. She has had infection in that leg off and on over the last year or so. PAST MEDICAL HISTORY: 1. Lymphedema. 2. Group B Strep bacteremia in September 2015 secondary to cellulitis. 3. Hypothyroidism. 4. Restless leg syndrome. 5. Obesity. 6. Varicose veins. 7. Bilateral lower extremity lymphedema. 8. Status post right hip arthroplasty. 9. Status post left lumpectomy. ALLERGIES: No known drug allergies. MEDICATIONS: 1. Keflex 500 mg by mouth 3 times a day. 2. Levothyroxine. 3. Nystatin topical powder. 4. Ropinirole. SOCIAL HISTORY: She lives with her significant other in [place]. She has no injection drug use. No travel. FAMILY HISTORY: No current infections. Mother had pulmonary fibrosis, heart failure. Father had leukemia and pancreatic cancer. REVIEW OF SYSTEMS: All negative to a full review of systems except as noted above. PHYSICAL EXAM: Vital Signs: Temperature is 36.6, heart rate 60, respiratory rate 15, blood pressure 106/68, and O2 100% on room air. In general, she is awake, not in distress. HEENT: There is no conjunctival hemorrhage. Oropharynx is without lesions. Neurologically, she is oriented x3. Follows all commands. Moves all extremities. Neck is supple. Lymph Nodes: There is no inguinal, axillary, or epitrochlear lymphadenopathy. Heart: Regular rate and rhythm without murmurs, rubs, or gallops. Lungs: Clear to auscultation bilaterally. Abdomen: Soft, nontender, nondistended. There are bowel sounds present. Skin: There is no splinter hemorrhage. Right leg, there is mild resolving erythema distal to the right knee and at the mid anterior lower leg without any crepitus or fluctuance. In the upper area of erythema, there is a 3 mm area of mildly elevated flush without any crepitus, fluctuance, or drainage. Musculoskeletal: There is no spine tenderness to palpation or joint synovitis. LABORATORY DATA: White blood cell count 11.6, hemoglobin 10.3, platelets 389. Creatinine is 0.7. CRP 32. Please see impressions and recommendations as outlined above, which I have discussed with Dr. Ann. Thanks for asking me to see Ms. Gallardo in consultation. [id number]/[facility] #: [id number] [facility]
[2016-10-27] MEDS: Ropinirole TAB* 0.5 MG TAB PO SCH ×4 (00:40→20:29)
[2016-10-27] MEDS: Acetaminophen TAB* 325 MG PO PRN ×2 (00:41→20:29)
[2016-10-27] MEDS: Levothyroxine TAB* 25 MCG TAB PO SCH (05:53)
[2016-10-27] MEDS: Nystatin TOP POWDER* 15 GM BTL TOPICAL SCH ×3 (08:07→20:30)
[2016-10-27] MEDS: Cephalexin CAP* 500 MG PO SCH ×3 (08:07→20:29)
--- NOTE | 2016-10-27 09:39 | PN ---
Subjective Date of Service: 10/27/16 - CC: syncope Interval History: The patient has had no recurrent dizziness, bad dreams or other c/o since implant. No SOB. Medications Active Medications: Acetaminophen (Tylenol Tab*) 650 mg PO Q4H PRN PRN Reason: PAIN Last Admin: 10/27/16 00:41 Dose: 650 mg Atropine Sulfate (Atropine Syringe*) 0.5 mg IV PUSH Q5M PRN PRN Reason: BRADYCARDIA Cephalexin HCl (Keflex Cap*) 500 mg PO TID [facility] Last Admin: 10/27/16 08:07 Dose: 500 mg Enoxaparin Sodium (Lovenox(*)) 40 mg SUBCUT Q24H [facility] Last Admin: 10/26/16 20:39 Dose: 40 mg Levothyroxine Sodium (Synthroid Tab*) 25 mcg PO 0600 [facility] Last Admin: 10/27/16 05:53 Dose: 25 mcg Nystatin (Nystatin Top Powder*) 1 applic TOPICAL 0900,1400,2100 [facility] Last Admin: 10/27/16 08:07 Dose: 1 applic Ropinirole HCl (Requip Tab*) 0.5 mg PO TID [facility] Last Admin: 10/27/16 08:07 Dose: 0.5 mg Objective Vital Signs: Temp Pulse Resp BP Pulse Ox 97.4 F 59 14 136/75 100 10/27/16 08:00 10/27/16 09:10 10/27/16 09:10 10/27/16 08:37 10/27/16 09:10 Oxygen Devices in Use Now: Nasal Cannula - 2L Appearance: In bed, 30 degrees, eating breakfast appears comfortable. Eyes: No Scleral Icterus, PERRLA Ears/Nose/Mouth/Throat: Clear Oropharnyx, Mucous Membranes Moist Neck: NL Appearance and Movements; NL JVP Respiratory: Symmetrical Chest Expansion and Respiratory Effort, Clear to Auscultation Cardiovascular: RRR - 2/6 systolic murmer sternal border with respiratory variation unchanged. Abdominal: - - soft, active bowel sounds, non tender, obese. Extremities: - - chronic lymphedema signs, dressings on wounds (not examined under dressing). "Pruning" of feet, stable c/w yesterday. Skin: No Rash or Ulcers Neurological: Alert and Oriented x 3, NL Muscle Strength and Tone - in bed. Lines/Tubes/Other Access: Clean, Dry and Intact Peripheral IV Laboratory Results: 10/26/16 07:54 10/26/16 07:54 Total Bilirubin 0.50 mg/dL (0.2-1.0) 10/24/16 16:37 AST 20 U/L (13-39) 10/24/16 16:37 ALT 15 U/L (7-52) 10/24/16 16:37 Alkaline Phosphatase 99 U/L (34-104) 10/24/16 16:37 B-Natriuretic Peptide 235 pg/mL (-100) H 10/24/16 16:37 Total Protein 7.6 g/dL (6.4-8.9) 10/24/16 16:37 Albumin 3.4 g/dL (3.2-5.2) 10/24/16 16:37 Globulin 4.2 g/dL (2-4) H 10/24/16 16:37 Albumin/Globulin Ratio 0.8 (1-3) L 10/24/16 16:37 TSH 2.27 mcIU/mL (0.34-5.60) 10/24/16 17:14 10/26/16 07:54 Troponin I 0.01 Diagnostic Imaging: CXR's 10/26 and 10/27/16 reviewed: No pneumothorax. Lead placement is good. Lungs appear underfilled. EKG Data: Pacemaker interogation today: A lead: sense 2.8 mv, impedance 437 Ohms, pacing : 0.5 V@ 0.4 ms V lead: sense: 6.5 mV Impedance 741 Ohms, pacing: ).5 V @ 0.4 ms. Progammed AAI-DDD (MVP mode). Assessment/Plan 65 yo with syncope X 2 and possible bradycardia hx with sleep with severe intermittant SSS on telemetry here POD #1 dual chamber pacer implant (MRI compatable). Incision looks good and functioning normally. -Abx per Dr Hernandez. -Wound check with me next week. -Family worried about patient going home and not being able to function, I will have PT see patient about using walker, moving with LUE restrictions. tool and production planner may be able to assist as well with home care options.
--- NOTE | 2016-10-27 10:13 | RAD ---
INDICATION: Device implant COMPARISON: October 26, 2016 TECHNIQUE: PA and lateral views were obtained. FINDINGS: Bones/Soft Tissues: There are no acute bony findings. There is recent left-sided cardiac pacemaker placement Cardiomediastinal: The cardiomediastinal prominent which is likely accentuated due to shallow inspiratory effort. Suspected mild pulmonary venous congestion has largely resolved Lungs: There are no infiltrates. The examination is expiratory with vascular crowding. There is mild right-sided atelectasis. Pleura: There are no pleural effusions. Other: None IMPRESSION: EXPIRATORY EXAMINATION. VASCULAR CONGESTIVE FINDINGS HAVE LARGELY RESOLVED.
--- NOTE | 2016-10-27 11:01 | PN ---
Subjective Date of Service: 10/27/16 Interval History: Pt feels well, has not walker x 2 days Family History: Unchanged from Admission Social History: Unchanged from Admission Past Medical History: Unchanged from Admission Objective Active Medications: Acetaminophen (Tylenol Tab*) 650 mg PO Q4H PRN PRN Reason: PAIN Last Admin: 10/27/16 00:41 Dose: 650 mg Atropine Sulfate (Atropine Syringe*) 0.5 mg IV PUSH Q5M PRN PRN Reason: BRADYCARDIA Cephalexin HCl (Keflex Cap*) 500 mg PO TID [facility] Last Admin: 10/27/16 08:07 Dose: 500 mg Enoxaparin Sodium (Lovenox(*)) 40 mg SUBCUT Q24H [facility] Last Admin: 10/26/16 20:39 Dose: 40 mg Levothyroxine Sodium (Synthroid Tab*) 25 mcg PO 0600 [facility] Last Admin: 10/27/16 05:53 Dose: 25 mcg Nystatin (Nystatin Top Powder*) 1 applic TOPICAL 0900,1400,2100 [facility] Last Admin: 10/27/16 08:07 Dose: 1 applic Ropinirole HCl (Requip Tab*) 0.5 mg PO TID [facility] Last Admin: 10/27/16 08:07 Dose: 0.5 mg Vital Signs 10/26/16 10/26/16 10/26/16 11:00 11:01 11:22 Temperature Pulse Rate 62 59 Respiratory 18 23 15 Rate Blood Pressure 106/68 (mmHg) O2 Sat by Pulse 97 100 Oximetry 10/26/16 10/26/16 10/26/16 12:00 12:02 12:45 Temperature 98.0 F Pulse Rate 56 52 Respiratory 18 15 16 Rate Blood Pressure 90/54 90/37 (mmHg) O2 Sat by Pulse 100 97 Oximetry 10/26/16 10/26/16 10/26/16 16:00 16:19 16:31 Temperature Pulse Rate 68 68 Respiratory 27 26 20 Rate Blood Pressure 99/57 106/56 (mmHg) O2 Sat by Pulse 97 97 Oximetry 10/26/16 10/26/16 10/26/16 16:46 17:00 17:01 Temperature Pulse Rate 68 65 Respiratory 26 16 23 Rate Blood Pressure 105/52 99/42 (mmHg) O2 Sat by Pulse 97 97 Oximetry 10/26/16 10/26/16 10/26/16 17:16 17:31 17:46 Temperature Pulse Rate 62 67 63 Respiratory 24 20 23 Rate Blood Pressure 99/49 109/56 114/55 (mmHg) O2 Sat by Pulse 97 96 95 Oximetry 10/26/16 10/26/16 10/26/16 18:00 18:01 18:11 Temperature Pulse Rate 62 Respiratory 17 26 Rate Blood Pressure 108/50 (mmHg) O2 Sat by Pulse 96 95 Oximetry 10/26/16 10/26/16 10/26/16 18:16 18:31 18:46 Temperature Pulse Rate 61 64 62 Respiratory 26 19 18 Rate Blood Pressure 96/59 108/51 101/50 (mmHg) O2 Sat by Pulse 96 93 96 Oximetry 10/26/16 10/26/16 10/26/16 19:00 19:01 19:16 Temperature Pulse Rate 60 60 63 Respiratory 22 23 15 Rate Blood Pressure 101/51 110/63 (mmHg) O2 Sat by Pulse 96 96 97 Oximetry 10/26/16 10/26/16 10/26/16 19:29 19:30 19:41 Temperature Pulse Rate 63 65 Respiratory 18 15 17 Rate Blood Pressure 127/65 (mmHg) O2 Sat by Pulse 97 98 100 Oximetry 10/26/16 10/26/16 10/26/16 19:46 20:00 20:01 Temperature 97.4 F Pulse Rate 65 61 62 Respiratory 21 19 28 Rate Blood Pressure 116/52 104/48 (mmHg) O2 Sat by Pulse 98 99 98 Oximetry 10/26/16 10/26/16 10/26/16 20:16 20:18 20:25 Temperature Pulse Rate 60 60 60 Respiratory 15 15 15 Rate Blood Pressure 77/47 97/46 108/57 (mmHg) O2 Sat by Pulse 92 90 95 Oximetry 10/26/16 10/26/16 10/26/16 20:31 20:41 20:50 Temperature Pulse Rate 60 65 Respiratory 15 31 Rate Blood Pressure 107/43 117/52 (mmHg) O2 Sat by Pulse 93 97 98 Oximetry 10/26/16 10/26/16 10/26/16 20:56 21:00 21:02 Temperature Pulse Rate 65 61 63 Respiratory 17 23 16 Rate Blood Pressure 76/36 (mmHg) O2 Sat by Pulse 97 98 97 Oximetry 10/26/16 10/26/16 10/26/16 21:04 21:16 21:31 Temperature Pulse Rate 63 60 60 Respiratory 17 15 13 Rate Blood Pressure 111/55 96/47 105/49 (mmHg) O2 Sat by Pulse 96 97 98 Oximetry 10/26/16 10/26/16 10/26/16 21:46 21:58 22:00 Temperature Pulse Rate 60 60 60 Respiratory 13 16 17 Rate Blood Pressure 101/41 (mmHg) O2 Sat by Pulse 98 97 96 Oximetry 10/26/16 10/26/16 10/26/16 22:01 22:16 22:21 Temperature Pulse Rate 61 64 61 Respiratory 17 15 17 Rate Blood Pressure 104/53 98/61 (mmHg) O2 Sat by Pulse 96 98 96 Oximetry 10/26/16 10/26/16 10/26/16 22:31 22:33 22:39 Temperature Pulse Rate 60 64 61 Respiratory 20 14 17 Rate Blood Pressure 89/49 84/53 110/58 (mmHg) O2 Sat by Pulse 95 95 94 Oximetry 10/26/16 10/26/16 10/26/16 22:46 23:00 23:01 Temperature Pulse Rate 60 60 60 Respiratory 16 14 15 Rate Blood Pressure 103/63 96/54 (mmHg) O2 Sat by Pulse 94 95 95 Oximetry 10/26/16 10/26/16 10/26/16 23:16 23:33 23:48 Temperature Pulse Rate 62 65 66 Respiratory 14 20 18 Rate Blood Pressure 109/59 129/73 (mmHg) O2 Sat by Pulse 96 98 98 Oximetry 10/26/16 10/26/16 10/27/16 23:49 23:50 00:00 Temperature 97.0 F Pulse Rate 65 65 Respiratory 18 17 Rate Blood Pressure (mmHg) O2 Sat by Pulse 98 98 Oximetry 10/27/16 10/27/16 10/27/16 00:08 00:35 00:41 Temperature Pulse Rate 64 Respiratory 23 20 Rate Blood Pressure 119/65 (mmHg) O2 Sat by Pulse 97 97 Oximetry 10/27/16 10/27/16 10/27/16 00:46 00:52 01:00 Temperature Pulse Rate 63 61 62 Respiratory 14 15 16 Rate Blood Pressure 123/66 (mmHg) O2 Sat by Pulse 98 97 99 Oximetry 10/27/16 10/27/16 10/27/16 01:01 01:31 02:00 Temperature Pulse Rate 63 60 61 Respiratory 17 13 16 Rate Blood Pressure 116/68 133/66 (mmHg) O2 Sat by Pulse 98 98 98 Oximetry 10/27/16 10/27/16 10/27/16 02:05 02:31 03:00 Temperature Pulse Rate 61 60 60 Respiratory 22 13 14 Rate Blood Pressure 113/57 110/53 (mmHg) O2 Sat by Pulse 97 99 97 Oximetry 10/27/16 10/27/16 10/27/16 03:01 03:32 03:50 Temperature 97.2 F Pulse Rate 60 60 Respiratory 13 16 Rate Blood Pressure 108/51 106/61 (mmHg) O2 Sat by Pulse 98 97 Oximetry 10/27/16 10/27/16 10/27/16 04:00 04:01 04:37 Temperature 97.2 F Pulse Rate 60 60 60 Respiratory 15 14 17 Rate Blood Pressure 105/62 112/66 (mmHg) O2 Sat by Pulse 98 98 99 Oximetry 10/27/16 10/27/16 10/27/16 05:00 05:01 05:29 Temperature Pulse Rate 60 60 Respiratory 21 13 13 Rate Blood Pressure 134/74 (mmHg) O2 Sat by Pulse 100 100 Oximetry 10/27/16 10/27/16 10/27/16 05:31 06:00 06:31 Temperature Pulse Rate 60 60 61 Respiratory 15 22 12 Rate Blood Pressure 116/60 141/73 129/63 (mmHg) O2 Sat by Pulse 99 100 100 Oximetry 10/27/16 10/27/16 10/27/16 07:00 07:01 07:30 Temperature Pulse Rate 60 60 60 Respiratory 12 13 18 Rate Blood Pressure 113/63 129/63 (mmHg) O2 Sat by Pulse 99 99 97 Oximetry 10/27/16 10/27/16 10/27/16 08:00 08:01 08:32 Temperature 97.4 F Pulse Rate 60 60 63 Respiratory 13 10 18 Rate Blood Pressure 121/63 162/113 (mmHg) O2 Sat by Pulse 96 96 100 Oximetry 10/27/16 10/27/16 10/27/16 08:37 09:00 09:10 Temperature Pulse Rate 60 59 Respiratory 18 18 14 Rate Blood Pressure 136/75 (mmHg) O2 Sat by Pulse 99 100 Oximetry 10/27/16 10/27/16 10/27/16 09:16 09:37 10:00 Temperature Pulse Rate 65 62 Respiratory 18 13 20 Rate Blood Pressure 126/60 (mmHg) O2 Sat by Pulse 100 100 Oximetry Oxygen Devices in Use Now: Nasal Cannula - 2L, 02 sat at 95% Appearance: 65 yo obese F in nAD, aAOx3 Eyes: No Scleral Icterus, PERRLA Ears/Nose/Mouth/Throat: NL Teeth, Lips, Gums, Mucous Membranes Moist Neck: NL Appearance and Movements; NL JVP, Trachea Midline Respiratory: Symmetrical Chest Expansion and Respiratory Effort, - - crackles at b/l bases Cardiovascular: NL Sounds; No Murmurs; No JVD, RRR Abdominal: NL Sounds; No Tenderness; No Distention Extremities: No Clubbing, Cyanosis, - - b/l leg edema R>>L Skin: No Nodules or Sclerosis, - - small ulcer iunder R knee at 2 cm in diam - stage 3, several blisters just above r heel Neurological: Alert and Oriented x 3, NL Muscle Strength and Tone Result Diagrams: 10/26/16 07:54 10/26/16 07:54 Microbiology and Other Data: Microbiology 10/24/16 16:21 Aerobic Blood Culture - Preliminary Blood Venous No Growth Day 1 Anaerobic Blood Culture - Preliminary No Growth Day 1 10/24/16 16:20 Aerobic Blood Culture - Preliminary Blood Venous No Growth Day 1 Anaerobic Blood Culture - Preliminary No Growth Day 1 Assess/Plan/Problems-Billing Assessment: Syncope in a 65 yo F with hx of chronic lymphedema, likely RADHAMES, hypothyroidism and recent cellulitis on ABx, found to have numerous sinus pauses on telemetry - Patient Problems (1) Syncope Current Visit: Yes Status: Acute Comment: due to SSS S/p pacemaker placmement on 10/26/16 0doing well, but deconditioned. will transfer to telem Ask PO/OT to see pt. (2) Cellulitis Comment: Continue outpatient Keflex. cont wound care with silver collagen (3) Leg edema Comment: dopplers negative Had been on Lasix and Demadex outpatient for leg edema. will re-start Demadex QOD (4) DVT prophylaxis Comment: Lovenox (5) Restless leg syndrome Comment: - Continue Ropinirole. (6) Hypothyroidism Comment: cont synthroid Status and Disposition: Inpatient . May need STR. PT/OT ordered
[2016-10-27] MEDS ORDERED: Torsemide TAB* 20 MG PO SCH (12:00)
--- NOTE | 2016-10-27 16:43 | OP ---
DATE OF OPERATION: 10/26/16 - ROOM #442 DATE OF : 54 SURGEON: Michaela Ann MD ANESTHESIA: MAC (via Dr. Mckeon). PRE-OP DIAGNOSIS: Syncope and sick sinus syndrome. POST-OP DIAGNOSIS: Syncope and sick sinus syndrome. OPERATIVE PROCEDURE: Dual-chamber pacemaker implantation. COMPLICATIONS: None. ESTIMATED BLOOD LOSS: Less than 10 cc. INDICATIONS: The indications, risks, and benefits of the procedure had been discussed with the patient in depth. Because of her recurrent cellulitis and chronic lymphedema, she is at increased risk for infection and this was explained to her and because of her body habitus and probable presumed sleep apnea, anesthesia risks were higher and we have obtained the assistance of Anesthesia and the patient was understanding of this. DESCRIPTION OF PROCEDURE: The patient is right-handed and the left subclavian fossa was prepped and draped in the usual sterile fashion. A time-out procedure was called. Dr. Mckeon administered conscious sedation. In addition to that, the patient received a total of 18 cc of 1% lidocaine in the left subclavian fossa for local anesthesia. The patient received 10 cc of radiopaque dye in the left upper extremity outlining the left subclavian vein. Following the local lidocaine, using a #10 blade knife, 2.5 cm incision was made in the left subclavian fossa and using blunt and Bovie dissection was extended to the level of the pectoralis muscle. Additional lidocaine was infused medially and inferiorly and using blunt dissection, a small pocket was fashioned. Using a modified Seldinger technique and fluoroscopic guidance, the left subclavian vein was cannulated and a guidewire inserted using fluoroscopic guidance. This procedure was repeated with a second guidewire, although this took two sticks. Using an introducer technique, the right ventricular lead was guided into the RV apex and actively fixed in place with excellent pacing and sensing thresholds. The second guidewire and introducer technique were used to guide a second lead into the right atrial appendage. It was actively fixed in place with good pacing and sensing thresholds. Unfortunately, going back to the right ventricular lead, the sensing and pacing thresholds were no longer good. This was with active fixation lead. The coil was retracted and it took 4 repositionings to find good pacing and sensing thresholds and was closer along the septum. Following this, the leads were then sutured to the pocket taking care to leave it enough extra lead. There had been some heme earlier, but by this time in the procedure, there was no significant bleeding, but some very mild oozing in the pocket where the fascia over the muscle had eroded. Surgicel was therefore placed on the floor of the pocket. The leads were then attached to the generator. We repeated thresholds which were good. The generator was then encased in an antibiotic pouch (Tyrx pouch) and the device was placed in the pocket and Surgicel was placed on the roof of the pocket and the pocket was then closed using 3 layers of resorbable suture, 2 interrupted 2-0 followed by a running 2-0 suture followed by a running 4-0, and jocelin and an external dressing. FINDINGS: The device is an MRI compatible system. The device is a Med[employer]ulr A2DR01, serial number [id number]. The atrial lead is a Medtronic model 5076-52 , serial number [id number] with P waves sensed at 1.5 millivolts and atrial lead impedance of 633 ohms and an atrial pacing threshold of 0.6 volts at 0.5 milliseconds. The ventricle lead is a Medtronic model 5076-58, serial number [id number] with R-wave sensed at 7.3 millivolts and ventricular lead impedance of 1170 ohms and a ventricular pacing threshold of 0.9 volts at 0.5 milliseconds. The patient was hemodynamically stable throughout the procedure. Her left arm did move sometimes during the procedure, which responded to just holding it through the drapes. There were no significant complications and the patient was hemodynamically stable on transfer to the floor as well as throughout the procedure. [id number]/[facility] #: [id number] JACKY
[2016-10-27] MEDS: Enoxaparin(*) 40 MG/0.4 ML SYR SUBCUT SCH (20:27)
[2016-10-28] MEDS: Levothyroxine TAB* 25 MCG TAB PO SCH (05:46)
[2016-10-28] MEDS: Cephalexin CAP* 500 MG PO SCH (07:44)
[2016-10-28] MEDS: Ropinirole TAB* 0.5 MG TAB PO SCH (07:44)
[2016-10-28] MEDS: Nystatin TOP POWDER* 15 GM BTL TOPICAL SCH (07:44)
[2016-10-28] MEDS: Acetaminophen TAB* 325 MG PO PRN (07:44)
[2016-10-28 07:48] VITALS: BP 118/55
--- NOTE | 2016-10-29 03:04 | DS ---
CC: Dr. Ann; Dr. Taylor; [facility] DISCHARGE SUMMARY: DATE OF ADMISSION: 10/24/16 DATE OF DISCHARGE: 10/28/16 PRIMARY CARE PROVIDER: Dr. Taylor. DISCHARGE DIAGNOSES: 1. Syncope with sick sinus syndrome, status post pacemaker placement by Dr. Ann on 10/26/16. 2. The pacemaker that was placed is an MRI compatible one, it is a Medtronic Advisa DR. The device's number is [id number] and the serial number is [id number]. SECONDARY DIAGNOSES: 1. History of bilateral lower extremity edema which is chronic. 2. History of hypothyroidism. 3. Recent history of cellulitis and wounds on the right leg. 4. Osteoarthritis. 5. Gastroesophageal reflux disease. 6. Restless leg syndrome. 7. History of right total hip arthroplasty. 8. History of left lumpectomy. MEDICATIONS AT DISCHARGE: Include: 1. Keflex 500 mg 3 times a day for 10 days total. 2. Levothyroxine 25 mcg daily. 3. Lisinopril 2.5 mg daily. 4. Nystatin powder apply to affected areas in the folds of the skin b.i.d. 5. Polyethylene glycol 1 drop both eyes t.i.d. p.r.n. 6. Potassium chloride 20 mEq every other day. 7. Demadex 20 mg every other day. 8. Requip 0.5 mg 3 times a day. CONSULTATIONS DURING THE HOSPITAL STAY: Included Dr. Ann from Cardiology and Dr. Hernandez, Infectious Diseases. HOSPITALIZATION COURSE: Meaghan Gallardo is a 65-year-old female with history of obesity and bilateral chronic leg edema who was originally admitted to the hospital for cellulitis of the right leg on 10/18/16 and discharged on 10/22/16 to home. She back to our facility on 10/24/16 after she had a syncopal episode. She had an extensive workup done including neck CT, CT angiogram of the chest , EEG. All of those were grossly negative and the patient was about to be discharged home with diagnosis of most likely syncope due to overdiuresis, but she started developing sinus pauses. At that point, she was transferred to the intensive care unit for closer monitoring and also Dr. Ann saw the patient in consultation. She was diagnosed with sick sinus syndrome and a pacemaker was placed on 10/26/16. On 10/27/16, she underwent physical therapy evaluation and occupational therapy evaluation and was deemed to be a good candidate going back home with visiting nurse service followup. LABORATORY DATA AND STUDIES PERFORMED DURING THE HOSPITAL STAY: Included: On 10/26/16, white blood cell count of 11.6, hemoglobin 10.3, hematocrit 33, platelets 389,000. D-dimer on 10/24/16 was above 1050. On 10/26/16, sodium 140, potassium 4.4, chloride 102, carbon dioxide 34, BUN 14 , creatinine 0.74. C-reactive protein on 10/26/16 was 32.4. Patient's troponins had been negative throughout both hospital stays apart from one that was at 0.11 noted on and that was mostly likely lab error. Patient's procalcitonin level was below 0.1 and TSH was 2.27. Lyme disease serology was negative. Most recent portable chest x-ray obtained on 10/26/16, post pacemaker placement. Impression: "Status post pacemaker placement. No appreciable pneumothorax." Transthoracic echocardiogram obtained on 10/26/16 showed EF of 65% with marked concentric LVH and left ventricular hyperdynamic. There were elevated velocities across the aortic valve with turbulence noted. There is a trace mitral regurgitation, trace tricuspid regurgitation, evidence of moderate pulmonary hypertension. There was trace mild pulmonary regurgitation. There was mild dilatation of ascending aorta of 3.[address] obtained on 10/24/16. Impression: Limited exam. No evidence of acute findings. Mild prominence of mandibular lymph nodes. CT angiogram of the chest on 10/24/16. Impression: "Significantly limited study with no gross evidence for central pulmonary embolism. The lungs are underinflated. There are scattered bilateral infiltrates likely representing atelectasis, less likely pneumonia." Venous Doppler study on 10/24/16 showed limited study but no evidence of DVT of bilateral lower extremities . The patient's EEG obtained on 10/25/16. Impression: "This is awake and asleep EEG within normal limits." PHYSICAL EXAMINATION: At the time of discharge, blood pressure 118/55, heart rate of 59 and regular and paced on satellite project site monitor, respiratory rate 18, oxygen saturation 97% on room air, temperature 98.1. General: This is a very pleasant 65- year-old obese female who is in no acute distress. Alert, awake, and oriented x3. HEENT: Head atraumatic, normocephalic. Eyes: Pupils are equal, round, and reactive to light and accommodation. Oropharynx clear. Mucosa is moist. Neck: Supple. No JVD. No bruits bilaterally. Cardiovascular : Regular rate and rhythm. No murmur. Respiratory: Clear to auscultation bilaterally. Abdomen: Protuberant, soft, nontender. Bowel sounds are present in all 4 quadrants. Extremities: There is bilateral leg lymphedema, right much larger than the left. There is no clubbing or cyanosis. The right distal leg cellulitis is almost resolved, but the patient still has what appears to be chronic erythema of the area below the knee to the ankle. Patient has a small circular ulceration right underneath the knee of approximately 2 cm in diameter , currently covered with slough. Patient had several blisters above the right heel that have mostly resolved or ruptured. There is no exposed skin. The patient's left subclavian area pacemaker site is stable with no evidence of dehiscence, no discharge, no hematoma. Neuro Evaluation: Cranial nerves II through XII grossly intact. Motor strength is 5/5 bilaterally. At this time, the patient is recommended to follow up with Dr. Ann as placed in a specific discharge instruction post pacemaker. Ambulation is also disclosed in the pacemaker discharge instructions. The patient is also recommend to follow up with Dr. Taylor in 4 to 7 days. The patient is also asked to continue following up with [facility] next week. Please note that this is a short summary of the patient's hospitalization. Please refer to further medical records for details. TIME SPENT: Approximately 40 minutes was spent on the patient's discharge. [id number]/[facility] #: [id number] [facility]PITALMisael
== END 2016-10-28 12:00 | disposition home health service (06) | DRG 171 ==
LOC: ED 13:54 → MED 16:16 → MEDTELE 17:33 → OBSVTOIN 10-25 18:11 → ICU 10-26 03:54 → MEDTELE 10-27 11:54
PROVIDERS: ADMIT Internal Medicine; ATTEND Internal Medicine
PROC: 4A00X4Z Measurement of Central Nervous Electrical Activity, External Approach (ICD-10-PCS; 2016-10-25)
PROC: 5A09457 Assistance with Respiratory Ventilation, 24-96 Consecutive Hours, Continuous Positive Airway Pressure (ICD-10-PCS; 2016-10-25)
PROC: 02H63JZ Insertion of Pacemaker Lead into Right Atrium, Percutaneous Approach (ICD-10-PCS; 2016-10-26)
PROC: 02HK3JZ Insertion of Pacemaker Lead into Right Ventricle, Percutaneous Approach (ICD-10-PCS; 2016-10-26)
PROC: 3E0102A Introduction of Anti-Infective Envelope into Subcutaneous Tissue, Open Approach (ICD-10-PCS; 2016-10-26)
PROC: 0JH606Z Insertion of Pacemaker, Dual Chamber into Chest Subcutaneous Tissue and Fascia, Open Approach (ICD-10-PCS; principal; 2016-10-26 11:00)
DX: I49.5 Sick sinus syndrome (principal); E87.3 Alkalosis; I27.2 Other secondary pulmonary hypertension; Z68.42 Body mass index [BMI] 45.0-49.9, adult; L03.115 Cellulitis of right lower limb; E66.01 Morbid (severe) obesity due to excess calories; J98.11 Atelectasis; I89.0 Lymphedema, not elsewhere classified; I10 Essential (primary) hypertension; I73.9 Peripheral vascular disease, unspecified; J42 Unspecified chronic bronchitis; K21.9 Gastro-esophageal reflux disease without esophagitis; Z96.641 Presence of right artificial hip joint; G25.81 Restless legs syndrome; R40.2362 Coma scale, best motor response, obeys commands, at arrival to emergency department; R40.2142 Coma scale, eyes open, spontaneous, at arrival to emergency department; R40.2252 Coma scale, best verbal response, oriented, at arrival to emergency department; E03.9 Hypothyroidism, unspecified; I08.1 Rheumatic disorders of both mitral and tricuspid valves; I77.819 Aortic ectasia, unspecified site; G47.33 Obstructive sleep apnea (adult) (pediatric); Z80.0 Family history of malignant neoplasm of digestive organs; Z80.1 Family history of malignant neoplasm of trachea, bronchus and lung; Z80.6 Family history of leukemia; Z82.49 Family history of ischemic heart disease and other diseases of the circulatory system; Z83.6 Family history of other diseases of the respiratory system
CPT/HCPCS: 33208; 36415; 70490; 71010; 71020; 71275; 80048; 80053; 82550; 83605; 83735; 83880; 84145; 84443; 84484; 85025; 85027; 85379; 85652; 86140; 86618; 87040; 87641; 93005; 93306; 93970; 94660; 94760; 95819; A9270-GY; C1781; C1785; C1898; G0378; J0461; J0690; J1100; J1650; J2001; J2250; J2405; J2704; J3010; Q9967

== ENCOUNTER 2017-02-21 11:42 | Inpatient (IN) | payer OTHER ==
[2017-02-21] MEDS ORDERED: NS 0.9% 1000 ML*IV.FLUID IV ONE (12:17)
[2017-02-21] MEDS ORDERED: Piperacillin/Tazobac ADVAN(*) 3.375 GM in NS 0.9% 100 ML* 100 ML IVPB ONE ×2 (12:20→13:52)
--- NOTE | 2017-02-21 12:43 | RAD ---
HISTORY: Sepsis COMPARISONS: October 27, 2016 VIEWS: 1: frontal portable view of the chest at 12:28 PM FINDINGS: LINES AND TUBES: A left-sided pacemaker is noted. CARDIOMEDIASTINAL SILHOUETTE: The cardiomediastinal silhouette is normal for portable technique. PLEURA: The costophrenic angles are sharp. No pleural abnormalities are noted. LUNG PARENCHYMA: The lungs are clear. ABDOMEN: The upper abdomen is clear. There is no subphrenic gas. BONES AND SOFT TISSUES: No bone or soft tissue abnormalities are noted. IMPRESSION: NO ACTIVE CARDIOPULMONARY DISEASE.
[2017-02-21 12:59] LABS: Hematocrit 38 % (35-47); Hemoglobin 12.1 g/dl (12.0-16.0); Mean Corpuscular HGB Conc 32 g/dl (31-36); Mean Corpuscular Hemoglobin 27 pg (27-31); Mean Corpuscular Volume 85 fL (80-97); Mean Platelet Volume 8 um3 (7.4-10.4); Red Blood Count 4.47 10^6/ul (4.0-5.4); Red Cell Distribution Width 15 % (10.5-15)
[2017-02-21 13:02] LABS: Add Diff/Slide Review? Slide Review Added; Comments Flag Yes
[2017-02-21 13:14] LABS: Albumin 3.8 g/dL (3.2-5.2); BUN/Creatinine Ratio 22.2 (8-20); C Reactive Protein 22.68 mg/L (< 5.00); Calcium 9.5 mg/dL (8.6-10.3); EGFR African American 65.7 (>60); EGFR Non-African American 51.1 (>60); Globulin 4.1 g/dL (2-4); Potassium 4.6 mmol/L (3.5-5.0); Total Bilirubin 0.6 mg/dL (0.2-1.0); Total Protein 7.9 g/dL (6.4-8.9)
[2017-02-21] MEDS ORDERED: Acetaminophen TAB* 325 MG PO ONE (13:31)
[2017-02-21] MEDS ORDERED: Ondansetron INJ* 2 MG/ML VIAL IV PRN (13:52)
[2017-02-21] MEDS ORDERED: Zosyn per Pharmacy* NOTE FOLLOW UP SCH (14:00)
[2017-02-21] MEDS ORDERED: Iodixanol* (CONTRAST) 320 MG/ML 100 ML SDV IV ONE (14:45)
--- NOTE | 2017-02-21 14:57 | ED ---
Vilma Valdez Julia, scribed for Facundo Luna MD on 02/21/17 at 1341 . Complex/Multi-Sys Presentation - HPI Summary HPI Summary: This patient is a 66 year old female [place] [facility] [place] by with a chief complaint of feeling cold and shivering since this morning. Patient reports that she woke shivering, was unable to get warm, has SOB, dental pain at upper left molars, and dry lips. Patient denies fever. Her reports that she was gasping for air prior to arrival. Patient reports using CPAP at night. She intended on having a dentist appointment for a cavity filling this morning, but did not make it. Symptoms alleviated by nothing. - History Of Current Complaint Chief Complaint: EDShortnessOfBreath Time Seen by Provider: 02/21/17 12:09 Hx Obtained From: Patient Onset/Duration: Lasting Hours - earlier this morning, Still Present Timing: Constant Alleviating Factor(s): nothing Associated Signs And Symptoms: Positive: Other - feeling cold and shivering - Allergies/Home Medications Allergies/Adverse Reactions: Allergies Allergy/AdvReac Type Severity Reaction Status Date / Time No Known Drug Allergy Allergy Unknown Verified 10/28/15 15:00 Reaction Details Home Medications: Home Medications Mupirocin 2% OINT* [Bactroban 2 % Oint*] 1 applic TOPICAL BID PRN 02/21/17 [ History Confirmed 02/21/17] Potassium Chlor TAB* [Potassium Chlor TAB 20 MEQ*] 20 mg PO BID 02/21/17 [ History Confirmed 02/21/17] Torsemide TAB* [Demadex 20 MG*] 20 mg PO DAILY 02/21/17 [History Confirmed 02/21] PMH/Surg Hx/FS Hx/Imm Hx Endocrine/Hematology History: Denies: Hx Anticoagulant Therapy, Hx Diabetes Cardiovascular History: Reports: Hx Hypertension, Hx Pacemaker/ICD, Hx Peripheral Vascular Disease - BILATERAL VARICOSE VEINS Respiratory History: Reports: Hx Chronic Bronchitis GI History: Reports: Hx Gastroesophageal Reflux Disease - OCCASIONAL ACID REFLUX History: Denies: Hx Renal Disease Musculoskeletal History: Reports: Hx Arthritis - OSTEOARTHRITIS IN RIGHT HIP ( REPLACED) 12/2013 @ [facility] Sensory History: Reports: Hx Contacts or Glasses Denies: Hx Hearing Aid Opthamlomology History: Reports: Hx Contacts or Glasses Neurological History: Reports: Other Neuro Impairments/Disorders - RESTLESS LEG SYNDROME - on medication Psychiatric History: Denies: Hx Panic Disorder - Surgical History Surgery Procedure, Year, and Place: 07/2014 [place] [facility] [facility] [place] 05/23/[place] LEG [place] [facility] LEFT BREAST L[place]OM[place] [facility] Hx Anesthesia Reactions: No - Immunization History Date of Tetanus Vaccine: unknown Date of Influenza Vaccine: UTD Infectious Disease History: No Infectious Disease History: Denies: Hx Clostridium Difficile, Hx Hepatitis, Hx Human Immunodeficiency Virus (HIV), Hx of Known/Suspected MRSA, Hx Shingles, Hx Tuberculosis, Traveled Outside the [place] in Last 30 Days - Family History Known Family History: Negative: Seizure Disorder - Social History Alcohol Use: Rare Alcohol Amount: FEW DRINKS/YEAR Hx Substance Use: No Substance Use Type: Reports: None Hx Tobacco Use: No Smoking Status (MU): Never Smoked Tobacco Have You Smoked in the Last Year: No Review of Systems Positive: Chills. Negative: Fever Positive: Dental Pain - L upper molars Positive: Shortness Of Breath Positive: Other - Dry lips All Other Systems Reviewed And Are Negative: Yes Physical Exam - Summary Physical Exam Summary: Appearance: The patient is well-nourished in no acute distress and in no acute pain. Skin: The skin is warm and dry and skin color reflects adequate perfusion. HEENT: The head is normocephalic and atraumatic. The pupils are equal and reactive. The conjunctivae are clear and without drainage. Nares are patent and without drainage. The throat is without erythema and exudate. The external ears are intact. The ear canals are patent and without drainage. The tympanic membranes are intact. The mucous membranes are dry. No obvious dental abscess. Neck: the neck is supple with full range of motion and non-tender. There are no carotid bruits. There is no neck vein distension. Respiratory: Chest is non-tender. Lungs are clear to auscultation and breath sounds are symmetrical and equal. Tachypnea. Cardiovascular: Heart is regular rate and rhythm. There is no rub auscultated. There is no peripheral edema and pulses are symmetrical and equal. Patient has a systolic ejection murmur. Abdomen: The abdomen is soft and non-tender. There are normal bowel sounds heard in all four quadrants and there is no organomegaly palpated. Musculoskeletal: There is no back tenderness noted. Extremities are non-tender with full range of motion. There is good capillary refill. There is no peripheral edema or calf tenderness elicited. Neurological: Patient is alert and oriented to person, place and time. The patient has symmetrical motor strength in all four extremities. Cranial nerves are grossly intact. Deep tendon reflexes are symmetrical and equal in all four extremities. Psychiatric: The patient has an appropriate affect and does not exhibit any anxiety or depression. Triage Information Reviewed: Yes Vital Signs On Initial Exam: Initial Vitals Temp Pulse Resp BP Pulse Ox 100.4 F 86 24 129/62 88 02/21/17 11:46 02/21/17 11:46 02/21/17 11:46 02/21/17 11:46 02/21/17 11:46 Vital Signs Reviewed: Yes Skin: Positive: Other - dry mucous membranes Dental: Positive: Other - no dental abscess - Flo Coma Scale Coma Scale Total: 15 Diagnostics - Vital Signs Vital Signs Temp Pulse Resp BP Pulse Ox 02/21/17 12:42 94 02/21/17 12:16 103.4 F 02/21/17 12:07 87 18 87 02/21/17 12:06 134/49 02/21/17 11:46 100.4 F 86 24 129/62 88 - Laboratory Lab Results: Lab Results 02/21/17 02/21/17 02/21/17 Range/Units 12:44 12:44 12:44 WBC 25.0 H (3.5-10.8) 10^3/ul RBC 4.47 (4.0-5.4) 10^6/ul Hgb 12.1 (12.0-16.0) g/dl Hct 38 (35-47) % MCV 85 (80-97) fL MCH 27 (27-31) pg MCHC 32 (31-36) g/dl RDW 15 (10.5-15) % Plt Count 282 (150-450) 10^3/ul MPV 8 (7.4-10.4) um3 Neut % (Auto) 92.9 H (38-83) % Lymph % (Auto) 2.4 L (25-47) % [place] % (Auto) 4.2 (1-9) % Eos % (Auto) 0.4 (0-6) % Baso % (Auto) 0.1 (0-2) % Absolute Neuts (auto) 23.2 H (1.5-7.7) 10^3/ul Absolute Lymphs (auto) 0.6 L (1.0-4.8) 10^3/ul Absolute Monos (auto) 1.1 H (0-0.8) 10^3/ul Absolute Eos (auto) 0.1 (0-0.6) 10^3/ul Absolute Basos (auto) 0 (0-0.2) 10^3/ul Absolute Nucleated RBC 0.02 10^3/ul Nucleated RBC % 0.1 INR (Anticoag Therapy) 0.94 (0.77-1.02) Sodium 137 (133-145) mmol/L Potassium 4.6 (3.5-5.0) mmol/L Chloride 102 (101-111) mmol/L Carbon Dioxide 28 (22-32) mmol/L Anion Gap 7 (2-11) mmol/L BUN 24 (6-24) mg/dL Creatinine 1.08 H (0.51-0.95) mg/dL Est GFR ( Amer) 65.7 (>60) Est GFR (Non-Af Amer) 51.1 (>60) BUN/Creatinine Ratio 22.2 H (8-20) Glucose 119 H (70-100) mg/dL Lactic Acid (0.5-2.0) mmol/L Calcium 9.5 (8.6-10.3) mg/dL Total Bilirubin 0.60 (0.2-1.0) mg/dL AST 20 (13-39) U/L ALT 15 (7-52) U/L Alkaline Phosphatase 92 (34-104) U/L Troponin I Pending C-Reactive Protein 22.68 H (< 5.00) mg/L B-Natriuretic Peptide ( - 100) pg/mL Total Protein 7.9 (6.4-8.9) g/dL Albumin 3.8 (3.2-5.2) g/dL Globulin 4.1 H (2-4) g/dL Albumin/Globulin Ratio 0.9 L (1-3) Influenza A (Rapid) (Negative) Influenza B (Rapid) (Negative) 02/21/17 02/21/17 02/21/17 Range/Units 12:44 12:44 12:58 WBC (3.5-10.8) 10^3/ul RBC (4.0-5.4) 10^6/ul Hgb (12.0-16.0) g/dl Hct (35-47) % MCV (80-97) fL MCH (27-31) pg MCHC (31-36) g/dl RDW (10.5-15) % Plt Count (150-450) 10^3/ul MPV (7.4-10.4) um3 Neut % (Auto) (38-83) % Lymph % (Auto) (25-47) % [place] % (Auto) (1-9) % Eos % (Auto) (0-6) % Baso % (Auto) (0-2) % Absolute Neuts (auto) (1.5-7.7) 10^3/ul Absolute Lymphs (auto) (1.0-4.8) 10^3/ul Absolute Monos (auto) (0-0.8) 10^3/ul Absolute Eos (auto) (0-0.6) 10^3/ul Absolute Basos (auto) (0-0.2) 10^3/ul Absolute Nucleated RBC 10^3/ul Nucleated RBC % INR (Anticoag Therapy) (0.77-1.02) Sodium (133-145) mmol/L Potassium (3.5-5.0) mmol/L Chloride (101-111) mmol/L Carbon Dioxide (22-32) mmol/L Anion Gap (2-11) mmol/L BUN (6-24) mg/dL Creatinine (0.51-0.95) mg/dL Est GFR ( Amer) (>60) Est GFR (Non-Af Amer) (>60) BUN/Creatinine Ratio (8-20) Glucose (70-100) mg/dL Lactic Acid 1.5 (0.5-2.0) mmol/L Calcium (8.6-10.3) mg/dL Total Bilirubin (0.2-1.0) mg/dL AST (13-39) U/L ALT (7-52) U/L Alkaline Phosphatase (34-104) U/L Troponin I C-Reactive Protein (< 5.00) mg/L B-Natriuretic Peptide 128 H ( - 100) pg/mL Total Protein (6.4-8.9) g/dL Albumin (3.2-5.2) g/dL Globulin (2-4) g/dL Albumin/Globulin Ratio (1-3) Influenza A (Rapid) Negative (Negative) Influenza B (Rapid) Negative (Negative) Result Diagrams: 02/21/17 12:44 02/21/17 12:44 Lab Statement: Any lab studies that have been ordered have been reviewed, and results considered in the medical decision making process. Complex Multi-Symp Course/Dx Course Of Treatment: Ms. Gallardo presented septic with tachypnea and fever. She was treated aggressively with fluids and antibiotics and is being admitted to the hospitalist group. The source of her infection is still unclear. - Diagnoses Provider Diagnoses: Sepsis - Critical Care Time Critical Care Time: 30-74 min Discharge - Discharge Plan Condition: Stable Disposition: ADMITTED TO [facility] Referrals: Sofia Taylor MD [Primary Care Provider] - The documentation as recorded by the Vilma wiley Julia accurately reflects the service I personally performed and the decisions made by , Facundo Luna MD.
[2017-02-21 15:07] LABS: Urine Bacteria Absent (Absent); Urine Bilirubin Negative (Negative); Urine Glucose Negative (Negative); Urine Nitrite Negative (Negative)
[2017-02-21 15:43] LABS: Troponin I 0.04 ng/mL (<0.04)
--- NOTE | 2017-02-21 15:49 | RAD ---
HISTORY: Question dental abscess, sepsis COMPARISONS: CT of the neck dated October 24, 2016 TECHNIQUE: Multiple contiguous axial CT scans were obtained of the face with intravenous contrast, with coronal and sagittal multiplanar reformations. FINDINGS: BONES: There is no displaced fracture or dislocation. The orbital rim is intact. The zygomatic arch is intact. The pterygoid plates are intact. ORBITS: The globes are round. The optic nerves are symmetric. The extraocular musculature is normal. There is no post septal or intraconal inflammatory change. There is no retrobulbar hematoma. PARANASAL SINUSES: The paranasal sinuses are clear. BRAIN AND SOFT TISSUE: Unremarkable. OTHER: Evaluation of the teeth is limited by streak artifact from dental amalgam. There is periapical lucency along the last maxillary molar on the left. There are no loculated fluid collection to suggest soft tissue abscess. IMPRESSION: PERIAPICAL LUCENCY OF THE LAST LEFT MAXILLARY MOLAR CONSISTENT WITH A PERIAPICAL ABSCESS. NO LOCULATED FLUID COLLECTION TO SUGGEST SOFT TISSUE ABSCESS
--- NOTE | 2017-02-21 16:57 | HP ---
CC: Dr. Taylor * HISTORY AND PHYSICAL: DATE OF ADMISSION: 02/21/17 PRIMARY CARE PROVIDER: Dr. Taylor. ATTENDING PHYSICIAN WHILE IN THE HOSPITAL: Vinny Del Toro MD * (report dictated by Parker Cunningham NP). CHIEF COMPLAINT: 1. Shortness of breath. 2. Shivering. HISTORY OF PRESENT ILLNESS: Ms. Gallardo is a 66-year-old patient. She has a history of cellulitis, GERD, RADHAMES, osteoarthritis, restless leg syndrome, lymphedema, varicose veins, sick sinus syndrome status post pacemaker, and a history of hypothyroidism. She came into the ED today stating that this morning the was concerned because she appeared to be notably short of breath. She was having a hard time getting her wind as he called in. She appeared to be having a difficult time. It was also noted that she was shivering and shaking and she had a similar episode like this in October and ultimately was found to have cellulitis, sick sinus syndrome and got a pacemaker , so he was concerned that she may pass out again. She may be getting sick again and he brought her into the hospital. The patient says that she really deteriorated today. She says the last few days she has not been coughing, has not been feeling stuffed up. There has been no jaw pain. No sore throat. No neck pain. She denied any headaches. She says her legs look the same. There has been no worsening redness. She does have some redness underneath her abdominal folds and breast folds, but there has been no particular areas that have been draining any discharge. She denies having any chest pain, shortness of breath. She denies having any worsening cough. She says there has not been any vomiting or diarrhea. She does admit to having some dysuria and interestingly enough, about a week ago she said she was evaluated by a dentist. She had been having a tooth bothering her on the left upper side that had been causing her some pain. She apparently got an x-ray and she was told that she may have a small abscess, but was never started on antibiotics. She was supposed to have that removed today, but she started rigoring, sounds like shivering, having a fever, shortness of breath and she came in to our ER to be evaluated. Here in the ED, it was noted that she had a fever of 103. She appeared to be tachypneic when she first came in and she had a white count of 25 ,000, so we were asked to evaluate for admission. PAST MEDICAL HISTORY: Significant for: 1. Cellulitis. 2. GERD. 3. RADHAMES. 4. Osteoarthritis. 5. Restless leg syndrome. 6. Lymphedema. 7. Varicose veins. 8. Sick sinus syndrome, status post pacemaker. 9. Hypothyroidism. PAST SURGICAL HISTORY: 1. She has had a right total hip arthroplasty. 2. She has had a left lumpectomy. 3. She has had a pacemaker placement. 4. She has had venous stripping. MEDICATIONS: Home medications according to her list that she provided includes: 1. Systane 1 drop both eyes t.i.d. as needed. 2. Bactroban 1 application topically b.i.d. as needed. 3. Requip 0.5 mg to 1.5 mg daily. 4. Potassium 20 mEq p.o. b.i.d. 5. Demadex 20 mg daily. 6. Lisinopril 2.5 mg daily. 7. Synthroid 25 mcg p.o. daily. ALLERGIES: To medications include no known drug allergies. FAMILY HISTORY: Mother had a history of pulmonary fibrosis and CHF. Father had a history of pancreatic and colon cancer. SOCIAL HISTORY: She does not smoke, does not drink. Surrogate decision maker is her brother, Kamari. REVIEW OF SYSTEMS: There was a documented fever here. She denied any significant weight change. No double vision. No ear discharge. No rhinorrhea. No sore throat. No thyroid enlargement. She denied having any chest pain. No orthopnea or nocturnal dyspnea. There is no abdominal pain. No nausea. No vomiting. There was dysuria. She does admit to having some frequency. No loss of consciousness. No pruritus and no skin ulcerations. Review of 14 systems completed, all others negative. PHYSICAL EXAMINATION GENERAL: At this time, Ms. Gallardo is a 66-year-old female patient. She is sitting in the ED stretcher. She does not appear to be in any acute distress. She is awake. She is alert. She is oriented x3. She does not appear to be tachypneic. VITAL SIGNS: Blood pressure 139/49 with a pulse of 87, respirations are 18. O2 initially was 88% on room air, she is now 94% on 4 L. her temperature was 103.4. HEENT: Head atraumatic. Eyes: Sclerae are anicteric. Not pale. Throat: Oral mucosa appears to be dry. There is no oropharyngeal erythema. NECK: Supple. The neck was palpated. I did not appreciate any adenopathy. There was no tenderness on my exam. LUNGS: Clear to auscultation bilaterally. No wheezes, rales, or rhonchi. HEART: Sounds S1, S2. Regular rate and rhythm. No murmurs, rubs, or gallops. ABDOMEN: Soft. It was flat, nontender. No CVA tenderness. EXTREMITIES: Pulses 2+ throughout. She does have bilateral lower extremity edema. Lymphedema with brawny discoloration. No erythema or wounds. There was old healed wound noted, but no discharge from the wounds noted. NEUROLOGIC: She is awake and alert. She is oriented x3. Tongue midline. Her director independent were equal. She had no gross focal deficits at this point. SKIN: Intact. DIAGNOSTIC STUDIES/LAB DATA: WBC of 25, RBC of 4.47, hemoglobin 12.1, hematocrit 38, platelet count of 282,000. INR was 0.94. Sodium was 137, potassium 4.6, chloride of 102, bicarb 28, BUN 24, creatinine 1.08, glucose 119 , lactate 1.5, calcium 9.5, total bili 0.6, AST 20, ALT 15, alk phos 93. Troponin pending. CRP was 22. BNP of 128. Albumin of 3.8. Serology was negative for flu. There was a chest x-ray obtained today which revealed no active cardiopulmonary disease. Old medical records were reviewed. ASSESSMENT AND PLAN: Ms. Gallardo is a 66-year-old female patient coming into the ED today with complaints of shortness of breath and shivering and found in the ED to be septic with an unknown source. We were asked to evaluation for admission. The patient will be admitted on inpatient status for: 1. Sepsis with unclear source. She does again have the fever. She was tachypneic when she came in and that is now improved. In addition to this, she was also noted to have an elevated white count. Blood cultures were sent. Lactic acid was sent and first set is normal. I am going to get a CT of the maxillofacial area to make sure there is not any definitive abscess. She has gotten 30 cc per kilo fluid bolus by Dr. Luna. In addition to this, she will be placed on Zosyn and Dr. Hernandez is going to be evaluating the patient. I did assess the pacemaker site. There did not appear to be any erythema. Tenderness noted here. We will get Dr. Hernandez's input. Broad-spectrum antibiotics until we narrow down the source and we will follow. 2. Gastroesophageal reflux disease. Continue meds prescribed. 3. Osteoarthritis. P.r.n. Tylenol as available. 4. Restless leg syndrome. Continue Requip. 5. Lymphedema. Continue current medical regimen. I am going to hold her diuretics in the setting of acute illness. 6. History of sick sinus syndrome, status post pacemaker. We will follow. 7. Hypothyroidism. Continue her Synthroid. 8. Obstructive sleep apnea. She will be put on a CPAP here. 9. Rash. This appears to be a fungal rash of her abdominal folds. We are going to put her on nystatin. 10. DVT prophylaxis, heparin subcu. 11. Code status. Full code. 12. Fluids, electrolytes, nutrition. She can have a heart-healthy diet. TIME SPENT: Time spent on the admission was 60 minutes; greater than half the time was spent [id number] with the patient obtaining my history and physical, other half of the time spent going over the plan of care with the patient and implementing plan of care. I did discuss plan of care with my attending, Dr. Del Toro, he is in agreement. PARKER CUNNINGHAM, KARLA [id number]/[facility] #: [id number] JACKY
[2017-02-21] MEDS: Heparin VIAL(*) 5000 UNITS/ML VIAL (FIVE THOUSAND) SUBCUT SCH ×3 (17:06→22:09)
[2017-02-21] MEDS: Nystatin TOP POWDER* 15 GM BTL TOPICAL SCH ×2 (17:07→20:29)
[2017-02-21] MEDS: ZOSYN 3.375 GM Q8H per EXTENDED INFUSION IVPB SCH ×2 (17:25)
[2017-02-21] MEDS: NS 0.9% 1000 ML* 1,000 ML IV SCH (17:26)
[2017-02-21] MEDS: Acetaminophen TAB* 325 MG PO PRN (18:19)
[2017-02-21] MEDS ORDERED: traMADol TAB* 50 MG PO ONE (19:04)
--- NOTE | 2017-02-21 21:06 | CONS ---
CONSULTATION REPORT: DATE OF CONSULT: 02/21/17 REQUESTING PROVIDER: Parker Cunningham NP CONSULTING SERVICE: Infectious Disease. REASON FOR CONSULTATION: Sepsis. IMPRESSION: 1. Sepsis was present on admission along with rigors, malaise, only left vocal symptoms, recent dental pain, which was mild and intermittent, nothing grossly on exam. A CT of her jaw is pending. She has had no urinary tract symptom. She does have a pacemaker. Blood cultures are pending. She has a right prosthetic hip, which is asymptomatic. 2. Morbid obesity. RECOMMENDATION: Agree with Zosyn 3.375 g IV every 8 hours by a standard infusion. Blood cultures, urine cultures, repeat the white count and we will follow the CT scan of the jaw. There are no obvious sources and her white blood cell count does not improve significantly and we will check a CT of the abdomen and pelvis tomorrow for cold abscess. Blood cultures may be helpful in guiding the next steps in diagnostic testing. HISTORY OF PRESENT ILLNESS: This is a 66-year-old woman with a pacemaker placed this summer. She had a sudden onset this morning of rigors, chills, malaise, and feeling "woozy." Her partner noticed that she was breathing rapidly in the chair when she initially when not let her bring her to the hospital, eventually she relented and she came in today, had a white count of 25 ,000. She is febrile to 39 degrees, hypotensive in the high 90s. She was tachycardic and started on IV fluids, Zosyn. Labs results as above. Influenza PCR was also negative. She has no right hip pain, which by the way is prosthetic. Her left chest pacemaker site is asymptomatic and intact. She has no spine pain. No other joint symptoms. She had no recent travel or sick contacts. PAST MEDICAL HISTORY: 1. Obesity. 2. Status post pacemaker placement, October 2016. 3. Bilateral lymphedema. 4. History of cellulitis. 5. Osteoarthritis, status post right hip arthroplasty. 6. Gastroesophageal reflux disease. 7. Varicose veins. 8. Restless legs syndrome. MEDICATIONS: 1. Tylenol. 2. Heparin subcutaneous injection. 3. Levothyroxine. 4. Topical powder nystatin. 5. Zosyn 3.375 g IV every 8 hours by standard infusion. 6. Requip. ALLERGIES: No drug allergies. FAMILY HISTORY: The mother has with pulmonary fibrosis and heart failure. Father had leukemia and pancreatic cancer. SOCIAL HISTORY: She is a nonsmoker. She is retired. She lives with her boyfriend. REVIEW OF SYSTEMS: A 14-point review of systems was negative except as noted above. PHYSICAL EXAM: Vital Signs: Temperature 39, heart rate 77, respiratory rate 18 , blood pressure 107/56, O2 sat 94% on room air. In general, she is awake, does not appear to be in distress. Neurologic: She is oriented x3, follows all commands. Moves all of her extremities. HEENT: There is no conjunctival hemorrhage. Oropharynx: Without lesions. There is no thrush. There are no obvious dental or gum abscess. Neck: Supple without nuchal rigidity. Lymph Nodes: There is no inguinal, axillary, or epitrochlear lymphadenopathy. Heart : Regular rate and rhythm without murmurs, rubs, or gallops. Lungs: Clear to auscultation bilaterally. Abdomen: Soft, nontender, nondistended. There are bowel sounds present. Skin: There is no rash or splinter hemorrhages. Musculoskeletal: There is no right hip tenderness to palpation or pain with log roll. There is bilateral lower extremity venous stasis changes. DIAGNOSTIC STUDIES/LAB DATA: White blood cell count 25, hemoglobin 12, platelets 282. Creatinine is 1.00, CRP 22. Influenza PCR negative. Urinalysis shows blood. Chest x-ray showed no infiltrate or effusion. Please see impressions and recommendations outlined above, which I have discussed with Parker Cunningham NP. Thank you for asking me to see Ms. Gallardo in consultation. [id number]/[facility] #: [id number] [facility] CENTERMisael
[2017-02-22] MEDS: ZOSYN 3.375 GM Q8H per EXTENDED INFUSION IVPB SCH ×6 (01:09→17:21)
[2017-02-22] MEDS: Acetaminophen TAB* 325 MG PO PRN ×2 (03:27→17:20)
[2017-02-22] MEDS: NS 0.9% 1000 ML* 1,000 ML IV SCH (04:24)
[2017-02-22] MEDS: Heparin VIAL(*) 5000 UNITS/ML VIAL (FIVE THOUSAND) SUBCUT SCH ×3 (05:44→21:23)
[2017-02-22] MEDS: Levothyroxine TAB* 25 MCG TAB PO SCH (05:44)
[2017-02-22 06:46] LABS: Hematocrit 34 % (35-47); Hemoglobin 10.7 g/dl (12.0-16.0); Mean Corpuscular HGB Conc 32 g/dl (31-36); Mean Corpuscular Hemoglobin 28 pg (27-31); Mean Corpuscular Volume 87 fL (80-97); Mean Platelet Volume 7 um3 (7.4-10.4); Red Blood Count 3.86 10^6/ul (4.0-5.4); Red Cell Distribution Width 16 % (10.5-15); White Blood Count 17.4 10^3/ul (3.5-10.8)
[2017-02-22 07:02] LABS: BUN/Creatinine Ratio 17.4 (8-20); Calcium 8.6 mg/dL (8.6-10.3); EGFR Non-African American 61.5 (>60)
[2017-02-22] MEDS ORDERED: Ropinirole TAB* 0.5 MG TAB PO SCH (09:00)
[2017-02-22] MEDS: Nystatin TOP POWDER* 15 GM BTL TOPICAL SCH ×3 (09:18→21:28)
--- NOTE | 2017-02-22 15:02 | RAD ---
INDICATION: Chronic cough with signs of sepsis COMPARISON: Chest x-ray dated April 24, 2016 TECHNIQUE: PA and lateral views of the chest were obtained. FINDINGS: Again seen is a left upper chest cardiac pacemaker with 2 leads overlying the heart. The heart and mediastinum are normal in size and contour. The lungs are grossly clear. There is no evidence of large pleural effusion. Visualized bones are normal for the patient's age. There is no radiographic evidence of free air beneath the diaphragm IMPRESSION: No radiographic evidence of acute cardiopulmonary disease.
[2017-02-22] MEDS ORDERED: traMADol TAB* 50 MG PO PRN (19:51)
--- NOTE | 2017-02-22 19:52 | PN ---
Subjective Date of Service: 02/22/17 Interval History: This is a 66 yo female with obesity, RADHAMES, GERD, and sick sinus syndrome s/p pacer who presented with c/o SOB and chills. Initial CXR unremarkable, no alternate source of obvious pathology. Empirically started on Zosyn. She has been afebrile overnight. Patient has a mild chronic cough, denies SOB, although she has been on supp O2 up to 4L since admission. Denies abd pain, n/v. Objective Active Medications: Acetaminophen (Tylenol Tab*) 650 mg PO Q4H PRN PRN Reason: FEVER/PAIN Last Admin: 02/22/17 17:20 Dose: 650 mg Heparin Sodium (Porcine) (Heparin Vial(*)) 5,000 units SUBCUT Q8HR [facility] Last Admin: 02/22/17 16:01 Dose: 5,000 units Sodium Chloride (Ns 0.9% 1000 Ml*) 1,000 mls @ 100 mls/hr IV PER RATE [facility] Last Admin: 02/22/17 04:24 Dose: 100 mls/hr Piperacillin Sod/Tazobactam (Sod 3.375 gm/ Sodium Chloride) 100 mls @ 25 mls/ hr IVPB Q8H [facility] Last Admin: 02/22/17 17:21 Dose: 25 mls/hr Levothyroxine Sodium (Synthroid Tab*) 25 mcg PO DAILY@0600 [facility] Last Admin: 02/22/17 05:44 Dose: 25 mcg Nystatin (Nystatin Top Powder*) 1 applic TOPICAL TID [facility] Last Admin: 02/22/17 16:02 Dose: 1 applic Ondansetron HCl (Zofran Inj*) 4 mg IV Q6H PRN PRN Reason: NAUSEA Pharmacy Consult (Zosyn Per Pharmacy*) 1 note FOLLOW UP .ZOSYN PER PHARMACY [facility] Ropinirole HCl (Requip Tab*) 0.5 mg PO DAILY [facility] Last Admin: 02/22/17 08:36 Dose: 0.5 mg Vital Signs - 8 hr 02/22/17 02/22/17 15:59 19:18 Temperature 98.2 F Pulse Rate 63 Respiratory 20 20 Rate Blood Pressure 134/63 (mmHg) O2 Sat by Pulse 100 Oximetry Oxygen Devices in Use Now: Nasal Cannula Appearance: Well appearing 66 yo female accompanied by her Respiratory: Symmetrical Chest Expansion and Respiratory Effort, - - faint wheeze appreciated in upper lung flower Cardiovascular: NL Sounds; No Murmurs; No JVD, RRR Abdominal: NL Sounds; No Tenderness; No Distention Extremities: - - 1-2+ non-pitting edema bilaterally Skin: No Rash or Ulcers Neurological: Alert and Oriented x 3 Result Diagrams: 02/22/17 06:36 02/22/17 06:36 Additional Lab and Data: . Microbiology and Other Data: Microbiology 02/21/17 15:49 Aerobic Blood Culture - Preliminary Blood Venous No Growth Day 1 Anaerobic Blood Culture - Preliminary No Growth Day 1 Assess/Plan/Problems-Billing Assessment: This is a 66 yo morbid obesity, GERD, RADHAMES, RLS, sick sinus syndrome s/p pacer who presented with high fevers and chills. - Patient Problems (1) Sepsis Comment: No obvious source identified Blood cultures neg Improvement noted with Zosyn Repeat CXR ordered as there is a faint wheeze on exam Influenza testing neg Plan to continue current abx ID input appreciated (2) S/P placement of cardiac pacemaker Comment: h/o sick sinus syndrome (3) Restless leg syndrome Comment: Continue Ropinirole. (4) Morbid obesity Comment: BMI 50 (5) DVT prophylaxis Comment: SQ heparin (6) Full code status Status and Disposition: Inpatient. Improving, anticipate likely dc home tomorrow
[2017-02-22] MEDS: Ropinirole TAB* 0.5 MG TAB PO SCH (21:23)
[2017-02-23] MEDS: ZOSYN 3.375 GM Q8H per EXTENDED INFUSION IVPB SCH ×6 (01:13→11:43)
[2017-02-23] MEDS: Ropinirole TAB* 0.5 MG TAB PO SCH (05:26)
[2017-02-23] MEDS: Heparin VIAL(*) 5000 UNITS/ML VIAL (FIVE THOUSAND) SUBCUT SCH (05:26)
[2017-02-23] MEDS: Levothyroxine TAB* 25 MCG TAB PO SCH (05:26)
[2017-02-23 08:11] LABS: Hematocrit 33 % (35-47); Hemoglobin 10.3 g/dl (12.0-16.0); Mean Corpuscular HGB Conc 32 g/dl (31-36); Mean Corpuscular Hemoglobin 27 pg (27-31); Mean Corpuscular Volume 86 fL (80-97); Mean Platelet Volume 8 um3 (7.4-10.4); Red Blood Count 3.76 10^6/ul (4.0-5.4); Red Cell Distribution Width 16 % (10.5-15); White Blood Count 13.1 10^3/ul (3.5-10.8)
[2017-02-23 08:17] VITALS: BP 131/57
[2017-02-23 08:32] LABS: BUN/Creatinine Ratio 13.2 (8-20); EGFR African American 98.5 (>60); EGFR Non-African American 76.6 (>60); Potassium 4.3 mmol/L (3.5-5.0)
[2017-02-23] MEDS: NS 0.9% 1000 ML* 1,000 ML IV SCH (08:58)
[2017-02-23] MEDS: Nystatin TOP POWDER* 15 GM BTL TOPICAL SCH (08:59)
--- NOTE | 2017-02-24 02:32 | DS ---
CC: Dr. Taylor* DISCHARGE SUMMARY: DATE OF ADMISSION: 02/21/17 DATE OF DISCHARGE: 02/23/17 PRIMARY CARE PROVIDER: Dr. Taylor. CONSULTING INFECTIOUS DISEASE SPECIALIST: Dr. Dirk Hernandez. DISCHARGING PROVIDER: KALPESH Mckeon SUPERVISING PHYSICIAN: Dr. Gumaro Chino* (dictated by KALPESH Mckeon). PRIMARY DISCHARGE DIAGNOSES: 1. Sepsis of unclear source, but likely respiratory infection. 2. Periapical tooth abscess of maxillary molar that requires dental followup. 3. Elevated troponin - likely due to demand ischemia without evidence of acute coronary syndrome. SECONDARY DISCHARGE DIAGNOSES: 1. Morbid obesity with a BMI of 50. 2. Gastroesophageal reflux disease. 3. Obstructive sleep apnea. 4. Sick sinus syndrome, status post pacemaker placement. 5. Restless legs syndrome. DISCHARGE MEDICATIONS: 1. Augmentin 875/125 one tablet p.o. twice daily x7 days. 2. Levothyroxine 25 mcg p.o. daily. 3. Lisinopril 2.5 mg p.o. daily. 4. Mupirocin ointment 2% apply topically daily. 5. Potassium chloride 20 mEq p.o. twice daily. 6. Requip 0.5 mg p.o. q.8 hours. 7. Torsemide 20 mg p.o. daily. Medication changes: Augmentin x7 days. HOSPITAL IMAGIN. Chest x-ray, 02/21/17, shows no acute process. 2. Maxillofacial CT shows periapical lucency of the last left maxillary molar consistent with periapical abscess. No loculated fluid collection to suggest soft tissue abscess, however. 3. Chest x-ray, 02/22/17, shows no acute process. HOSPITAL COURSE: This is a 66-year-old female with morbid obesity, GERD, obstructive sleep apnea, restless legs syndrome, and sick sinus syndrome, status post pacemaker placement, who presented to the emergency department with complaints of fever and chills. The patient's symptoms started a couple of days prior to presentation. She noted some mild shortness of breath associated , then reported a chronic cough, but no change otherwise. No associated abdominal pain, nausea, vomiting, or diarrhea. The patient had a high fever when she reached the emergency department documented as high as 103.4 degrees Fahrenheit with a significant leukocytosis measured at 25,000, which were primarily neutrophils. Initial chemistries were really unremarkable with the exception of troponin, which was indeterminately elevated to 0.04. Imaging including a chest x-ray was unremarkable. Influenza testing was negative. Urinalysis was negative and the patient had no focal exam findings. She did mention that she had been seen by a dentist, who suggested that she may have a tooth abscess a couple of days prior, but did not initiate antibiotics at that time. Maxillofacial CT was completed, which showed periapical abscess, but no evidence of significant soft tissue abscess and the patient had no associated soft tissue swelling, trismus, or neck pain, so this was felt unlikely to be the source of infection. The patient was empirically started on Zosyn. Blood cultures were drawn, which did not demonstrate any growth. Infectious disease specialist was consulted, who agreed with antibiotic choice. The patient was hypoxic during her hospital stay requiring up to 4 L of supplemental oxygen, but really denied any significant feelings of shortness of breath. A repeat chest x-ray was completed , which again showed no acute infiltrate. The patient remained afebrile following admission and her white blood cell count improved with Zosyn. DISPOSITION/FOLLOWUP PLAN: The patient is being discharged to home. Source of infection was not clearly identified, but she improved with Zosyn and will be discharged with 7 days of Augmentin for empiric therapy. Recommend followup with her primary care provider to ensure full resolution of symptoms. She was not hypoxic at the time of discharge. KALPESH MCKEON [id number]/[facility] #: [id number] [facility]ALTH[facility]
== END 2017-02-23 11:50 | disposition home health service (06) | DRG 720 ==
LOC: ED 11:42 → MED 13:49
PROVIDERS: ADMIT Internal Medicine; ATTEND Internal Medicine
DX: A41.9 Sepsis, unspecified organism (principal); E66.01 Morbid (severe) obesity due to excess calories; I24.8 Other forms of acute ischemic heart disease; Z68.43 Body mass index [BMI] 50.0-59.9, adult; I10 Essential (primary) hypertension; I73.9 Peripheral vascular disease, unspecified; I83.93 Asymptomatic varicose veins of bilateral lower extremities; Z96.641 Presence of right artificial hip joint; G25.81 Restless legs syndrome; K21.9 Gastro-esophageal reflux disease without esophagitis; J42 Unspecified chronic bronchitis; E03.9 Hypothyroidism, unspecified; G47.33 Obstructive sleep apnea (adult) (pediatric); I89.0 Lymphedema, not elsewhere classified; R21 Rash and other nonspecific skin eruption; K04.7 Periapical abscess without sinus; R09.02 Hypoxemia; Z95.0 Presence of cardiac pacemaker; Z80.0 Family history of malignant neoplasm of digestive organs; Z82.49 Family history of ischemic heart disease and other diseases of the circulatory system; Z82.5 Family history of asthma and other chronic lower respiratory diseases; Z80.6 Family history of leukemia
CPT/HCPCS: 36415; 70487; 71010; 71020; 80048; 80053; 81003; 81015; 83605; 83880; 84484; 85025; 85610; 86140; 87040; 87502; 94760; A9270-GY; J1644; J2543; Q9967

== ENCOUNTER 2017-05-21 15:21 | Inpatient (IN) | payer OTHER ==
[2017-05-21] MEDS ORDERED: NS 0.9% 1000 ML* 1,000 ML IV ONE (15:41)
[2017-05-21] MEDS ORDERED: Acetaminophen TAB* 325 MG PO ONE (15:42)
[2017-05-21] MEDS ORDERED: NS 0.9% 500 ML* 500 ML IV ONE (16:04)
[2017-05-21] MEDS ORDERED: Piperacillin/Tazobac ADVAN(*) 3.375 GM in NS 0.9% 100 ML* 100 ML IVPB ONE ×2 (16:10→17:33)
--- NOTE | 2017-05-21 16:11 | ED ---
Skin Complaint - HPI Summary HPI Summary: 66 female presents to ED with complaints of right lower leg cellulitis that has been worsening over the past few days. States it began 4 weeks ago she was first placed on ceftin, it was not working, then switched to clindamycin for 10 days. Had some relief however has been off of it for 4 days and the fever has returned and swelling, ulcers and erythema has worsened. States she has the chills and feels ill. No nausea, vomiting, chest pain or trouble breathing. No other complaints. No drainage or discharge from the wounds/lower extremity. Has been trying to keep them clean and they are very dry. Has had multiple episodes of cellulitis with some sepsis and all almost requiring IV antibiotics and hospital stay with [facility] consult. - History of Current Complaint Chief Complaint: EDFever Time Seen by Provider: 05/21/17 15:40 Stated Complaint: POSS CELLULITIS Hx Obtained From: Patient Onset/Duration: Started Weeks Ago, Still Present, Worse Since - 4 days ago Skin Exposure Onset/Duration: Weeks Ago Timing: Constant Onset Severity: Mild Current Severity: None Pain Intensity: 0 Pain Scale Used: 0-10 Numeric Skin Location: Leg - right lower extremity Character: Swelling, Redness, Raised, Painful Aggravating Symptom(s): Touch Alleviating Symptom(s): Nothing Associated Signs & Symptoms: Fever, Chills - Additional Pertinent History Primary Care Physician: KAJAL - Allergy/Home Medications Allergies/Adverse Reactions: Allergies Allergy/AdvReac Type Severity Reaction Status Date / Time MS No Known Drug Allergy Allergy Unknown Verified 05/21/17 15:29 [No Known Drug Allergy] Reaction Details PMH/Surg Hx/FS Hx/Imm Hx Endocrine/Hematology History: Denies: Hx Anticoagulant Therapy, Hx Diabetes Cardiovascular History: Reports: Hx Pacemaker/ICD, Hx Peripheral Vascular Disease - BILATERAL VARICOSE VEINS Denies: Hx Hypertension Respiratory History: Reports: Hx Chronic Bronchitis GI History: Reports: Hx Gastroesophageal Reflux Disease - OCCASIONAL ACID REFLUX History: Denies: Hx Renal Disease Musculoskeletal History: Reports: Hx Arthritis - OSTEOARTHRITIS IN RIGHT HIP ( REPLACED) 12/2013 @ [facility] Sensory History: Reports: Hx Contacts or Glasses Denies: Hx Hearing Aid Opthamlomology History: Reports: Hx Contacts or Glasses Neurological History: Reports: Other Neuro Impairments/Disorders - RESTLESS LEG SYNDROME - on medication Psychiatric History: Denies: Hx Panic Disorder - Surgical History Surgery Procedure, Year, and Place: 07/2014 LEFT LEG [place] [facility] [place] 12/2013 Right hip replacement, [facility]. 05/23/14 RT LEG VE[place] [facility] [place]. 1994 LEFT BREAST LUMPECTOMY [facility] [place] Hx Anesthesia Reactions: No - Immunization History Date of Tetanus Vaccine: unknown Date of Influenza Vaccine: UTD Infectious Disease History: No Infectious Disease History: Denies: Hx Clostridium Difficile, Hx Hepatitis, Hx Human Immunodeficiency Virus (HIV), Hx of Known/Suspected MRSA, Hx Shingles, Hx Tuberculosis, Traveled Outside the [place] in Last 30 Days - Family History Known Family History: Negative: Seizure Disorder - Social History Alcohol Use: Rare Alcohol Amount: FEW DRINKS/YEAR Hx Substance Use: No Substance Use Type: Reports: None Hx Tobacco Use: No Smoking Status (MU): Never Smoked Tobacco Have You Smoked in the Last Year: No Review of Systems Positive: Fever, Chills, Fatigue Cardiovascular: Negative Respiratory: Negative Gastrointestinal: Negative Positive: Myalgia Positive: Rash Neurological: Negative All Other Systems Reviewed And Are Negative: Yes Physical Exam Triage Information Reviewed: Yes Vital Signs On Initial Exam: Initial Vitals Temp Pulse Resp BP Pulse Ox 100.8 F 86 22 131/54 95 05/21/17 15:24 05/21/17 15:24 05/21/17 15:24 05/21/17 15:24 05/21/17 15:24 Vital Signs Reviewed: Yes Appearance: Positive: Well-Appearing, No Pain Distress, Well-Nourished Skin: Positive: Warm, Skin Color Reflects Adequate Perfusion, Dry, Erythema @ - with wounds, dry and scaley appearing without drainage, indurated and warm to touch of right lower extremity. Negative: Cold, Numb, Cyanosis @, Pale Head/Face: Positive: Normal Head/Face Inspection Eyes: Positive: Conjunctiva Clear ENT: Positive: Pharynx normal, TMs normal Neck: Positive: Supple, Nontender Respiratory/Lung Sounds: Positive: Clear to Auscultation, Breath Sounds Present. Negative: Rales, Rhonchi, Wheezes Cardiovascular: Positive: Normal, RRR, Pulses are Symmetrical in both Upper and Lower Extremities - 1+ pedal diminished b/l, Leg Edema Left - 2+, Leg Edema Right - 2+. Negative: Murmur, Rub Abdomen Description: Positive: Nontender, Soft Bowel Sounds: Positive: Present Musculoskeletal: Positive: Normal, Strength/ROM Intact, Pain @ - at rash on lower right extremity. Negative: Limited @, Interruption @ Neurological: Positive: Normal, Sensory/Motor Intact, Alert, Oriented to Person Place, Time, NV Bundle Intact Distally, Normal Gait Diagnostics - Vital Signs Vital Signs Temp Pulse Resp BP Pulse Ox 05/21/17 15:24 100.8 F 86 22 131/54 95 - Laboratory Result Diagrams: 05/21/17 16:17 05/21/17 16:17 Lab Statement: Any lab studies that have been ordered have been reviewed, and results considered in the medical decision making process. Re-Evaluation - Re-Evaluation First Eval Re-Evaluation Time: 17:06 Change: Unchanged - updated on hospitalist consult and lab results Course/Dx - Course Course Of Treatment: labs obtained, started on fluids, zosyn and tylenol for fever. urinalysis and blood cultures also obtained. blood cultures pending. WBC of 22 with left shift and elevated CRP at 33. Consulted Dr Hartley, hospitalist for possible sepsis and bacteremia, failed outpatient therapy and required IV antbiotics and wound care. Recommend wound clinic after treatment as well. Dr Hartley will admit. - Differential Diagnoses - Skin Complaint Differential Diagnoses: Abscess, Cellulitis - Diagnoses Provider Diagnoses: Cellulitis, Sepsis - Physician Notifications Discussed Care Of Patient With: Dr Hartley Time Discussed With Above Provider: 16:45 Instructed by Provider To: Admit As Inpatient Discharge - Discharge Plan Condition: Stable Disposition: ADMITTED TO [facility] Referrals: Sofia Taylor MD [Primary Care Provider] -
[2017-05-21 16:30] LABS: Hematocrit 35 % (35-47); Hemoglobin 11.7 g/dl (12.0-16.0); Mean Corpuscular HGB Conc 33 g/dl (31-36); Mean Corpuscular Hemoglobin 29 pg (27-31); Mean Corpuscular Volume 86 fL (80-97); Mean Platelet Volume 7 um3 (7.4-10.4); Platelet Count 358 10^3/ul (150-450); Red Cell Distribution Width 16 % (10.5-15); White Blood Count 22.4 10^3/ul (3.5-10.8)
[2017-05-21 16:38] LABS: INR 0.99 (0.77-1.02)
[2017-05-21 16:45] LABS: EGFR Non-African American 61.5 (>60)
[2017-05-21 16:57] LABS: ABS Basophils 0.1 10^3/ul (0-0.2); ABS Eosinophils 0.2 10^3/ul (0-0.6); ABS Monocytes 0.6 10^3/ul (0-0.8); ABS Neutrophils 20.5 10^3/ul (1.5-7.7); ABS Nucleated RBC 0 10^3/ul; Eosinophil % 0.7 % (0-6); Lymphocyte % 4.4 % (25-47); Nucleated Red Blood Cells % 0
[2017-05-21] MEDS ORDERED: Acetaminophen TAB* 325 MG PO PRN (17:34)
[2017-05-21] MEDS ORDERED: Zosyn per Pharmacy* NOTE FOLLOW UP SCH (18:00)
[2017-05-21] MEDS ORDERED: Ibuprofen TAB* 400 MG PO PRN (18:13)
[2017-05-21 19:04] LABS: Urine Appearance Clear; Urine Blood Negative (Negative); Urine Color Yellow; Urine Ketones Negative (Negative); Urine Protein Negative (Negative); Urine Specific Gravity 1.018 (1.010-1.030); Urine Urobilinogen Negative (Negative)
[2017-05-21] MEDS: Potassium Chlor TAB* 20 MEQ TAB.ER PO SCH (20:50)
[2017-05-21] MEDS: Ropinirole TAB* 0.5 MG TAB PO SCH (20:50)
[2017-05-21] MEDS: Heparin VIAL(*) 5000 UNITS/ML VIAL (FIVE THOUSAND) SUBCUT SCH (20:50)
[2017-05-21] MEDS: Piperacillin/Tazobactam 13.5 GM IV 24 hour continuous infusion IVPB SCH ×2 (20:50)
--- NOTE | 2017-05-22 03:34 | HP ---
CC: Dr. Taylor * HISTORY AND PHYSICAL: DATE OF ADMISSION: 05/21/17 PRIMARY CARE PROVIDER: Dr. Taylor ATTENDING FOR THIS ADMISSION: Dr. Kavita Hartley.* (DICTATED BY DARIELA MOSS NP) CHIEF COMPLAINT: Cellulitis, failed outpatient treatment and fevers. HISTORY OF PRESENT ILLNESS: This is a 66-year-old female patient who has had recurrent cellulitis bilaterally in the lower extremities in the past. The patient states that over the past month, she noticed some more redness to her lower legs, especially the right leg. She does have a wound as well. The patient states she has not been following either with the wound clinic or the lymphedema clinic or a tourist escort at this time, but she went to her primary who initially prescribed Ceftin; however, the patient states the Ceftin did not help. Went back to her primary, was prescribed another p.o. antibiotic, which also did not help. This morning, she woke up with some fevers and chills, recorded her temperature at home at 101. So, with her subjective fever and general malaise, she came to the emergency department for evaluation. Of significant note, she has seen Dr. Hernandez in the past for similar episodes. She had sepsis at one point and had been followed by Dr. Hernandez also as an outpatient. PAST MEDICAL HISTORY: Significant for recurrent cellulitis, obstructive sleep apnea, sick sinus syndrome, status post pacemaker insertion, hypothyroidism, chronic lymphedema, restless leg syndrome, osteoarthritis. PAST SURGICAL HISTORY: Right total hip arthroplasty, pacemaker insertion, lumpectomy of the left breast, and bilateral vein stripping of the lower extremities. MEDICATIONS: At home include: 1. K-Clor 20 mg 2 times a day. 2. Mupirocin ointment applied 2 times daily as needed. 3. Torsemide 20 mg daily. 4. Lisinopril 2.5 mg daily. 5. Levothyroxine 25 mcg daily. 6. Ropinirole 0.5 mg q. 8 hours. ALLERGIES: She has no known drug allergies. FAMILY HISTORY: Significant for mother with pulmonary fibrosis and heart failure. Father with colon cancer. SOCIAL HISTORY: The patient does not smoke, does not drink alcohol, does not have any history of illicit drug use. Her medical proxy is her brother Kamari. REVIEW OF SYSTEMS: The patient is complaining of some right lower extremity pain, fevers, and chills. She denies any fatigue or headache. Denies chest pain. No shortness of breath. No nausea, no vomiting. Does state she has had some soft stools since being on the antibiotics. Denies any urinary complaints. The rest of her review of systems is negative. PHYSICAL EXAMINATION GENERAL: The patient is awake and alert, well appearing, no acute distress. VITAL SIGNS: Currently, blood pressure 97/51, heart rate 74, respiratory rate 19. O2 saturation, she was 88% on room air; she is now 94% on 2 L nasal cannula. Temperature is 100.8. HEENT: The patient is atraumatic, normocephalic. PERRLA with nonicteric sclerae. She does wear glasses. She has no hearing disabilities. Her oral mucosa is a bit dry. NECK: Supple, nontender. No carotid bruit auscultated. No thyromegaly appreciated. LUNGS: Clear bilaterally to auscultation with no wheezing, rhonchi, or rales. CARDIOVASCULAR: S1, S2 are present. No murmurs, gallops, or rubs. She is paced on telemetry. ABDOMEN: Soft, nontender, nondistended. Obese. Positive bowel sounds in all 4 quadrants. MUSCULOSKELETAL: There is no clubbing and no cyanosis. She has bilateral lower extremity edema and erythema. She has some skin breakdown in the form of a wound on the right anterior shoemaker. Does not have any obvious drainage, although she does have a significant amount of erythema. The rest of her skin appears to be intact. NEUROLOGIC: She is grossly intact with no focal deficits. PSYCHIATRIC: She is cooperative and appropriate. DIAGNOSTIC STUDIES/LAB DATA: WBC is 22.4, RBC is 4.1, hemoglobin 11.7, hematocrit 35, platelets 358. Sodium 134, potassium 4.3, chloride 98, CO2 30, BUN 20, creatinine 0.92, GFR 61.5. Glucose 111, lactic acid 1.2, calcium 9.4, bilirubin 0.6, AST 10, ALT 8, alk phos 89, CRP is 31.43. Protein is 8.0, albumin 3.6, globulin 4.4. INR is 0.99. No available imaging for this visit. ASSESSMENT: This is a 66-year-old female patient with recurrent cellulitis with multiple bouts of failing outpatient treatment, that will be admitted under medical service for inpatient antibiotics and fluids. DIAGNOSES: 1. Cellulitis, failed outpatient treatments. She has received Zosyn in the ER. We will continue her Zosyn per pharmacy protocol. This has worked for her in the past. We will follow her blood cultures and daily labs. 2. Sepsis. Blood pressures have been a little low. She has not had compensatory tachycardia; however, she has received 1 liter of fluid resuscitation. I am a little concerned for fluid overload with her given her history of pacemaker insertion and sick sinus syndrome. So we will not continue her on fluids after this provided her blood pressure stays stable. This can be evaluated further as she gets up on to the floor. 3. For her hypotension, we will hold her lisinopril and again she has received fluid resuscitation already. 4. Sick sinus syndrome with history of pacemaker insertion. I do not feel she needs to be on telemetry at this time. She is not acutely short of breath and does not have any chest pain. If there should be some changes, we can always address that later. 5. For her leukocytosis, this is secondary to her cellulitis. We will continue to monitor her white count and temperature daily. 6. For her history of obstructive sleep apnea, she states she is supposed to use CPAP at home; however, she does not. We will order hospital CPAP to be titrated for comfort. 7. For her history of restless leg syndrome, we will continue her on Requip. 8. For diet, she can have a low fat diet. 9. DVT prophylaxis. She has been started on heparin subcutaneous. She is a full code. Again, surrogate decision maker is her brother, Kamari. The rest of the patient's course will be determined by further diagnostics, laboratories, and any other input from other providers as warranted during this admission. TIME SPENT: I spent approximately 50 minutes on this admission, face to face with the patient and with the staff regarding the implementation of the plan of care. This plan has been discussed with Dr. Kavita Hartley, who is the attending on this case and she is in agreement with the plan. DARIELA MOSS, KARLA [id number]/[facility] #: [id number] JACKY
[2017-05-22] MEDS: Heparin VIAL(*) 5000 UNITS/ML VIAL (FIVE THOUSAND) SUBCUT SCH ×3 (05:16→21:44)
[2017-05-22] MEDS: Ropinirole TAB* 0.5 MG TAB PO SCH ×3 (05:16→21:43)
[2017-05-22 05:30] LABS: ABS Basophils 0.2 10^3/ul (0-0.2); ABS Eosinophils 0.3 10^3/ul (0-0.6); ABS Lymphocytes 1.7 10^3/ul (1.0-4.8); ABS Monocytes 0.7 10^3/ul (0-0.8); ABS Neutrophils 10.1 10^3/ul (1.5-7.7); ABS Nucleated RBC 0 10^3/ul; Eosinophil % 2.2 % (0-6); Hematocrit 32 % (35-47); Hemoglobin 10.4 g/dl (12.0-16.0); Lymphocyte % 13.3 % (25-47); Mean Corpuscular HGB Conc 33 g/dl (31-36); Mean Corpuscular Hemoglobin 28 pg (27-31); Mean Corpuscular Volume 86 fL (80-97); Mean Platelet Volume 7 um3 (7.4-10.4); Nucleated Red Blood Cells % 0; Platelet Count 300 10^3/ul (150-450); Red Blood Count 3.72 10^6/ul (4.0-5.4); Red Cell Distribution Width 16 % (10.5-15); White Blood Count 12.9 10^3/ul (3.5-10.8)
[2017-05-22] MEDS: Potassium Chlor TAB* 20 MEQ TAB.ER PO SCH ×2 (08:38→21:43)
[2017-05-22] MEDS: Levothyroxine TAB* 25 MCG TAB PO SCH (08:38)
[2017-05-22] MEDS: Torsemide TAB* 20 MG PO SCH (08:38)
[2017-05-22] MEDS ORDERED: NON FORMULARY MED* (Lisinopril [Lisinopril 2.5 Mg-] 2.5 MG) PO SCH (09:00)
[2017-05-22] MEDS: Lactobacillus Acidophilu (GG)* 1 CAP CAP PO SCH ×2 (09:49→21:44)
--- NOTE | 2017-05-22 10:56 | PN ---
Subjective Date of Service: 05/22/17 Interval History: No more chills or sweats. R leg seems somewhat better to her. No bowel c/o. Objective Active Medications: Acetaminophen (Tylenol Tab*) 650 mg PO Q6H PRN PRN Reason: FEVER/HEADACHE Heparin Sodium (Porcine) (Heparin Vial(*)) 5,000 units SUBCUT Q8HR [facility] Last Admin: 05/22/17 05:16 Dose: 5,000 units Piperacillin Sod/Tazobactam (Sod 13.5 gm/ Sodium Chloride) 500 mls @ 20.833 mls /hr IVPB Q24H [facility] Last Admin: 05/21/17 20:50 Dose: 20.833 mls/hr Ibuprofen (Motrin Tab*) 400 mg PO Q6H PRN PRN Reason: fever Last Admin: 05/21/17 20:50 Dose: 400 mg Lactobacillus Rhamnosus (Culturelle*) 1 cap PO BID [facility] Last Admin: 05/22/17 09:49 Dose: 1 cap Levothyroxine Sodium (Synthroid Tab*) 25 mcg PO DAILY [facility] Last Admin: 05/22/17 08:38 Dose: 25 mcg Pharmacy Consult (Zosyn Per Pharmacy*) 1 note FOLLOW UP .ZOSYN PER PHARMACY [facility] Potassium Chloride (Klor Con Er Tab*) 20 meq PO BID [facility] Last Admin: 05/22/17 08:38 Dose: 20 meq Ropinirole HCl (Requip Tab*) 0.5 mg PO Q8HR [facility] Last Admin: 05/22/17 05:16 Dose: 0.5 mg Torsemide (Demadex*) 20 mg PO DAILY [facility] Last Admin: 05/22/17 08:38 Dose: 20 mg Vital Signs - 8 hr 05/22/17 05/22/17 05/22/17 02:53 07:15 07:46 Temperature 97.7 F 97.5 F Pulse Rate 59 59 Respiratory 16 18 18 Rate Blood Pressure 139/61 135/54 (mmHg) O2 Sat by Pulse 97 95 Oximetry Oxygen Devices in Use Now: None Appearance: Alert, sitting on the edge of her bed. In good spirits. Looks comfortable. Eyes: No Scleral Icterus Respiratory: Symmetrical Chest Expansion and Respiratory Effort, Clear to Auscultation, Clear to Percussion Cardiovascular: RRR, No Edema, - - 1/6 systolic murmur RSB Extremities: No Clubbing, Cyanosis, - - 1-2+ edema both legs, R leg larger than L Skin: No Nodules or Sclerosis, - - 6 x 6 cm area R pretibial region is depressed , covered with dry yellow-brown eschar. R leg from knee to toes in somewhat red. Neurological: Alert and Oriented x 3, NL Sensation Result Diagrams: 05/22/17 05:21 05/22/17 05:21 Assess/Plan/Problems-Billing Assessment: - Patient Problems (1) Cellulitis Current Visit: No Status: Acute Code(s): L03.90 - CELLULITIS, UNSPECIFIED SNOMED Code(s): 382241989 Comment: Failed outpt cefuroxime. Partial response to 10 days po clindamycin , worsened a few days after completing the prescription. Good response to pip/ gildardo, WBC lower, leg improved. Probably strep infection. Consider discharge on oral antibiotic extended course on 05/23. CBC, CRP 05/23. (2) Hypothyroidism Current Visit: No Status: Acute Code(s): E03.9 - HYPOTHYROIDISM, UNSPECIFIED SNOMED Code(s): 60579337 Comment: cont synthroid. addon TSH requested 05/22. (3) Morbid obesity Current Visit: No Status: Acute Code(s): E66.01 - MORBID (SEVERE) OBESITY DUE TO EXCESS CALORIES SNOMED Code(s): 635213214 Comment: BMI 48.0 (4) Leg edema Current Visit: No Status: Acute Code(s): R60.0 - LOCALIZED EDEMA SNOMED Code(s): 604541203 Comment: Has lymphedema pump at home, does not use it much. Continue torsemide and KCL. (5) Restless leg syndrome Current Visit: No Status: Acute Comment: Continue Ropinirole. (6) S/P placement of cardiac pacemaker Current Visit: No Status: Acute Code(s): Z95.0 - PRESENCE OF CARDIAC PACEMAKER SNOMED Code(s): 770566750 Comment: h/o sick sinus syndrome
[2017-05-22] MEDS: Famotidine TAB* 20 MG PO SCH ×2 (14:52→21:44)
[2017-05-22] MEDS: Piperacillin/Tazobactam 13.5 GM IV 24 hour continuous infusion IVPB SCH ×2 (19:53)
[2017-05-23] MEDS: Ropinirole TAB* 0.5 MG TAB PO SCH ×3 (04:57→20:49)
[2017-05-23] MEDS: Heparin VIAL(*) 5000 UNITS/ML VIAL (FIVE THOUSAND) SUBCUT SCH ×3 (04:58→21:29)
[2017-05-23 05:39] LABS: ABS Basophils 0.1 10^3/ul (0-0.2); ABS Eosinophils 0.4 10^3/ul (0-0.6); ABS Lymphocytes 1.9 10^3/ul (1.0-4.8); ABS Monocytes 0.6 10^3/ul (0-0.8); ABS Nucleated RBC 0 10^3/ul; Eosinophil % 4.4 % (0-6); Hematocrit 34 % (35-47); Hemoglobin 10.9 g/dl (12.0-16.0); Lymphocyte % 18.7 % (25-47); Mean Corpuscular HGB Conc 33 g/dl (31-36); Mean Corpuscular Hemoglobin 28 pg (27-31); Mean Corpuscular Volume 86 fL (80-97); Mean Platelet Volume 7 um3 (7.4-10.4); Nucleated Red Blood Cells % 0; Platelet Count 321 10^3/ul (150-450); Red Blood Count 3.88 10^6/ul (4.0-5.4); Red Cell Distribution Width 16 % (10.5-15); White Blood Count 10.1 10^3/ul (3.5-10.8)
[2017-05-23] MEDS: Potassium Chlor TAB* 20 MEQ TAB.ER PO SCH ×2 (09:38→20:49)
[2017-05-23] MEDS: Famotidine TAB* 20 MG PO SCH ×2 (09:38→20:49)
[2017-05-23] MEDS: Lactobacillus Acidophilu (GG)* 1 CAP CAP PO SCH ×2 (09:38→20:49)
[2017-05-23] MEDS: Levothyroxine TAB* 25 MCG TAB PO SCH (10:41)
--- NOTE | 2017-05-23 10:41 | PN ---
Subjective Date of Service: 05/23/17 Interval History: Patient seen and examined at bedside. Denies fever/chills, CP, SOB, increased pain to the leg. She reports improvement in pain to RLE and notes that redness is decreased. She was previously prescribed cefuroxime, which was ineffective, as well as clindamycin, which she completed but had recurrence of infection after completing 10 day course. She is not followed by wound clinic regularly, although she had previously been seen there. She is interested in following up with Dr. Hernandez upon discharge. Family History: Unchanged from Admission Social History: Unchanged from Admission Past Medical History: Unchanged from Admission Objective Active Medications: Acetaminophen (Tylenol Tab*) 650 mg PO Q6H PRN PRN Reason: FEVER/HEADACHE Last Admin: 05/23/17 04:57 Dose: 650 mg Famotidine (Pepcid Tab*) 20 mg PO BID [facility] Last Admin: 05/23/17 09:38 Dose: 20 mg Heparin Sodium (Porcine) (Heparin Vial(*)) 5,000 units SUBCUT Q8HR [facility] Last Admin: 05/23/17 04:58 Dose: 5,000 units Piperacillin Sod/Tazobactam (Sod 13.5 gm/ Sodium Chloride) 500 mls @ 20.833 mls /hr IVPB Q24H [facility] Last Admin: 05/22/17 19:53 Dose: 20.833 mls/hr Ibuprofen (Motrin Tab*) 400 mg PO Q6H PRN PRN Reason: fever Last Admin: 05/21/17 20:50 Dose: 400 mg Lactobacillus Rhamnosus (Culturelle*) 1 cap PO BID [facility] Last Admin: 05/23/17 09:38 Dose: 1 cap Levothyroxine Sodium (Synthroid Tab*) 25 mcg PO DAILY@0600 [facility] Pharmacy Consult (Zosyn Per Pharmacy*) 1 note FOLLOW UP .ZOSYN PER PHARMACY [facility] Potassium Chloride (Klor Con Er Tab*) 20 meq PO BID [facility] Last Admin: 05/23/17 09:38 Dose: 20 meq Ropinirole HCl (Requip Tab*) 0.5 mg PO Q8HR [facility] Last Admin: 05/23/17 04:57 Dose: 0.5 mg Torsemide (Demadex*) 20 mg PO DAILY [facility] Last Admin: 05/22/17 08:38 Dose: 20 mg Vital Signs - 8 hr 05/23/17 05/23/17 05/23/17 03:27 07:20 08:00 Temperature 98.4 F 97.5 F Pulse Rate 62 60 Respiratory 16 20 12 Rate Blood Pressure 155/64 120/56 (mmHg) O2 Sat by Pulse 95 94 Oximetry Oxygen Devices in Use Now: None Appearance: Female patient, lying in bed, pleasant, NAD Eyes: No Scleral Icterus, PERRLA Ears/Nose/Mouth/Throat: Clear Oropharnyx, Mucous Membranes Moist Neck: NL Appearance and Movements; NL JVP Respiratory: Symmetrical Chest Expansion and Respiratory Effort, Clear to Auscultation Cardiovascular: RRR, - - soft systolic murmur Abdominal: NL Sounds; No Tenderness; No Distention Extremities: - - 2+ BLE edema, R>L with right shoemaker wound 6.3 cm x 3.5 cm x .1 cm covered by yellow-brown eschar. Erythema to RLE Neurological: Alert and Oriented x 3, NL Muscle Strength and Tone Lines/Tubes/Other Access: Clean, Dry and Intact Peripheral IV Nutrition: Taking PO's Result Diagrams: 05/23/17 05:14 05/22/17 05:21 Microbiology and Other Data: Microbiology 05/21/17 18:37 Urine Culture - Final Urine No Growth (<1,000 CFU/mL) Assess/Plan/Problems-Billing Assessment: Ms. Gallardo is a 66 yo female with a PMH of recurrent cellulitis, RADHAMES, sick sinus syndrome s/p pacemaker, hypothyroidism, chronic lymphedema, restless leg syndrome and OA who presented to the ED on 05/21/17 with concern for worsening cellulitis after completing a 10 day course of clindamycin. - Patient Problems (1) Cellulitis Code(s): L03.90 - CELLULITIS, UNSPECIFIED Comment: Failed outpt cefuroxime. Partial response to 10 days po clindamycin, worsened a few days after completing the prescription. Good response to pip/gildardo, WBC lower, leg improved. Probably strep infection. Plan for discharge on oral antibiotic extended course; appreciate ID input - consult placed. (2) Hypothyroidism Code(s): E03.9 - HYPOTHYROIDISM, UNSPECIFIED Comment: TSH 3.43 Continue current levothyroxine dose. (3) Leg edema Code(s): R60.0 - LOCALIZED EDEMA Comment: Has lymphedema pump at home, does not use it much. Continue torsemide and KCL. (4) Restless leg syndrome Comment: Continue ropinirole. (5) S/P placement of cardiac pacemaker Code(s): Z95.0 - PRESENCE OF CARDIAC PACEMAKER Comment: h/o sick sinus syndrome (6) Morbid obesity Code(s): E66.01 - MORBID (SEVERE) OBESITY DUE TO EXCESS CALORIES Comment: BMI 48.0 (7) DVT prophylaxis Comment: SQ heparin Status and Disposition: Inpatient admission. Plan for ID consult prior to determining dispo.
[2017-05-23] MEDS: Torsemide TAB* 20 MG PO SCH (14:02)
[2017-05-23] MEDS: Clindamycin 600 MG IVPREMIX(* 600 MG/50 ML SDV IV SCH (20:45)
--- NOTE | 2017-05-23 21:13 | CONS ---
CONSULTATION REPORT: DATE OF CONSULTATION: 05/23/17 REQUESTING PROVIDER: Falguni Stephenson NP CONSULTING SERVICE: Infectious Disease. REASON FOR CONSULTATION: Fever. IMPRESSION: 1. Fever in the setting of what seem to be worsening of her right lower extremity cellulitis for which she had received antibiotics for about the last 3 to 4 weeks. Initially on oral cephalosporin and clindamycin. I do think this is likely still group B streptococcal infection in the setting of lymphedema. She has been on Zosyn. She is afebrile. White count is coming down. There are no bulla or an open wound that is superficial. 2. Lymphedema. 3. Recurrent cellulitis. 4. Morbid obesity. RECOMMENDATIONS: Clindamycin 600 mg every 8 hours. Will switch over to oral treatment pending another day. Because of her frequent recurrences in the last 6 months, we discussed medium range oral prophylaxis with amoxicillin, which should help decrease the frequency of these infections. HISTORY OF PRESENT ILLNESS: This is a 66-year-old woman admitted with right leg swelling and fever. Her right leg swelling and redness developed about 3 to 4 weeks ago. She was started on oral cephalosporin, which she took for a couple of weeks with some improvement in her fever, but the leg swelling persisted. She acknowledges she did not spend much time keeping her legs elevated at home. She developed a superficial open area, which had some serous drainage. She was switched to clindamycin about a week ago with more steady improvement. She stopped it end of last week and then developed fever over the weekend, so she came into the hospital on 05/21/17. Her white count was 22,000 ; it is down to 10,000 today. The swelling and redness has improved since she has been on Zosyn. She has also been keeping her leg elevated as much as possible here. Her last episode of right leg cellulitis was in February and before that was December - early January. PAST MEDICAL/SURGICAL HISTORY: 1. Recurrent right lower extremity cellulitis. 2. Obstructive sleep apnea. 3. Sick sinus syndrome, status post pacemaker insertion. 4. Hypothyroidism. 5. Bilateral lower extremity lymphedema. 6. Restless leg syndrome. 7. Osteoarthritis. 8. Status post right hip arthroplasty. 9. Status post left breast lumpectomy. 10. Status post bilateral vein stripping. MEDICATIONS: 1. Tylenol. 2. Famotidine. 3. Heparin subcutaneous injection. 4. Ibuprofen as needed. 5. Lactobacillus. 6. Levothyroxine. 7. Zosyn 13.5 g IV continuous infusion. 8. Ropinirole. 9. Torsemide. ALLERGIES: No known drug allergies. SOCIAL HISTORY: She lives in [place]. She is a nonsmoker. FAMILY HISTORY: Mother had pulmonary fibrosis and heart failure. Father had colon cancer. REVIEW OF SYSTEMS: A 14-point review of systems was negative except as noted above. PHYSICAL EXAMINATION: Vital Signs: Temperature is 36, heart rate 60, respiratory rate 18, blood pressure 140/64, oxygen saturation 95% on room air. In general, she is awake, not in distress. Neurologic: She is oriented x3. Follows all commands. HEENT: There is no conjunctival hemorrhage. Oropharynx without lesions. Neck is supple without masses. Lymph Nodes: No inguinal, axillary, or epitrochlear lymphadenopathy. Heart is regular rate and rhythm without murmurs, rubs, or gallops. Lungs are clear to auscultation bilaterally. Abdomen: Soft, nontender, nondistended. Bowel sounds present. Skin: There is no rash or splinter hemorrhages. Musculoskeletal: There is no spine tenderness to palpation. There is bilateral lower extremity nonpitting edema. There is mild lower leg erythema and warmth with superficial eschar. No serous drainage. No fluctuance or crepitus. LABORATORY DATA: White blood cell count 10, hemoglobin 10, platelets 321. Creatinine 0.9. CRP 72. Please see impressions and recommendations outlined above. Thank you for asking me to see Ms. Gallardo in consultation. [id number]/[facility] #: [id number] [facility] CENTERMisael
[2017-05-24] MEDS: Clindamycin 600 MG IVPREMIX(* 600 MG/50 ML SDV IV SCH (04:19)
[2017-05-24] MEDS: Heparin VIAL(*) 5000 UNITS/ML VIAL (FIVE THOUSAND) SUBCUT SCH (05:37)
[2017-05-24] MEDS: Ropinirole TAB* 0.5 MG TAB PO SCH (05:37)
[2017-05-24] MEDS ORDERED: Levothyroxine TAB* 25 MCG TAB PO SCH (06:00)
[2017-05-24] MEDS: Lactobacillus Acidophilu (GG)* 1 CAP CAP PO SCH (09:14)
[2017-05-24] MEDS: Torsemide TAB* 20 MG PO SCH ×2 (09:14→09:18)
[2017-05-24] MEDS: Famotidine TAB* 20 MG PO SCH (09:14)
[2017-05-24] MEDS: Potassium Chlor TAB* 20 MEQ TAB.ER PO SCH (09:14)
--- NOTE | 2017-05-24 09:54 | PN ---
Progress Note - Progress Note Date of Service: 05/24/17 SOAP: Subjective: CC: cellulitis HPI: 66 year old woman with right leg cellulitis, improved on clinda then worsening swelling and return of fever. Afebrile now, swelling and redness improved. No rash or diarrhea. Objective: Vital Signs Temp 36.4 C 05/24/17 07:22 Pulse 59 05/24/17 07:22 Resp 16 05/24/17 07:22 BP 146/67 05/24/17 07:22 Pulse Ox 93 05/24/17 07:22 Intake & Output 05/23/17 05/24/17 05/24/17 18:59 06:59 18:59 Intake Total 1920 600 Output Total 0 Balance 1920 600 Intake: IV Fluids 600 ABX - ZOSYN 500 clindamycin 100 IVPB 700 ABX - ZOSYN 700 Oral 1220 0 Output: Urine 0 Other: Estimated Void Medium # Bowel Movements 0 # Voids 3 Gen:awake, no distress HEENT: no thrush Heart:RRR no murmur Lungs:CTA BL Abd:+BS NTND soft Skin: no rash MSK: RLE diffuse non pitting edema, mild warmth, no erythema Microbiology 05/21/17 16:17 Blood Venous Aerobic Blood Culture - Preliminary No Growth Day 2 05/21/17 16:17 Blood Venous Anaerobic Blood Culture - Preliminary No Growth Day 2 05/21/17 16:17 Blood Venous Aerobic Blood Culture - Preliminary No Growth Day 2 05/21/17 16:17 Blood Venous Anaerobic Blood Culture - Preliminary No Growth Day 2 Assessment: 1. Right leg cellulitis, improving, probably related to keeping leg elevated more here 2. recurrent cellulitis and lymphedema 3. obesity Plan: 1. clinda 300 mg po tid for 10 more days; fu with me for continuous churn buttermaker plan either amox prophylaxis or clinda on hand 25 minutes floor time >50% face to face discussing abx options
[2017-05-24] MEDS ORDERED: Clindamycin CAP* 150 MG PO SCH (12:00)
[2017-05-24 12:55] VITALS: BP 140/74
--- NOTE | 2017-05-25 08:52 | DS ---
CC: Dr. Taylor * MEDICINE DISCHARGE SUMMARY: DATE OF ADMISSION: 05/21/17 DATE OF DISCHARGE: 05/24/17 PRIMARY CARE PHYSICIAN: Dr. Sofia Taylor. PROVIDER: Vitaliy Sun NP ATTENDING PHYSICIAN: Dr. Sophia Soto * (as dictated by Vitaliy Sun NP). CONSULTING PHYSICIAN: Dr. Dirk Hernandez, Infectious Disease. PRIMARY DISCHARGE DIAGNOSES: 1. Right lower extremity cellulitis, failed outpatient treatment. 2. Recurrent cellulitis with lymphedema. SECONDARY DISCHARGE DIAGNOSES: 1. Obstructive sleep apnea. 2. Sick sinus syndrome, status post pacemaker insertion. 3. Hypothyroidism. 4. Chronic lymphedema. 5. Restless legs syndrome. 6. Osteoarthritis. MEDICATIONS AT DISCHARGE: 1. Lansoprazole 30 mg b.i.d. p.r.n. 2. Potassium chloride 20 mEq b.i.d. 3. Bactroban 2% ointment 1 application topical b.i.d. p.r.n. 4. Torsemide 20 mg daily. 5. Lisinopril 2.5 mg daily. 6. Levothyroxine 25 mcg daily. 7. Ropinirole 0.5 mg q.8 hours. 8. Clindamycin 300 mg q.i.d. x10 additional days. HOSPITAL COURSE OF STAY: For full details, please refer to the H and P provided by the nurse practitioner, Falguni Stephenson. In summary, this is a 66-year -old female who has recurrent cellulitis bilaterally by most notably in the right lower extremity. She was initially prescribed Ceftin, but did not respond to the Ceftin and was then started on clindamycin. She had completed a 10-day course with notable improvement with cellulitis. However, a few days following the completion of the course, the patient had recurrence of pain, redness as well as accompanying fever. She was started on Zosyn here in the hospital and responded well to this. She was seen in consultation by Dr. Hernandez who switched her to IV clindamycin and has recommended that the patient resume clindamycin as an outpatient for 10 additional days and he will see her in followup likely to continue suppressive antibiotic therapy as she does have recurrences of this infection. She has had no fevers in the past 24 hours. Her last fever was on 05/21/17 on admission. She reports improvement in pain and discomfort. Her labs have normalized. PHYSICAL EXAMINATION: Vital Signs: Temperature 97.6, heart rate 59, respiratory rate 16, blood pressure 146/67, O2 saturation 93% on room air. HEENT: Head is atraumatic, normocephalic. Pupils are equal, round, and reactive to light. Oral mucosa is moist. Neck is supple. Cardiac: S1, S2 heart sounds. The patient had a soft systolic murmur. She does have peripheral lower extremity edema approximately 2+ to the bilateral lower extremities. There is erythema of the right lower extremity and chronic venous stasis changes to the left lower extremity. Lungs: Clear to auscultation bilaterally. Abdomen is soft, nontender, nondistended. Bowel sounds are normoactive. Neuro: She is grossly intact with no focal deficits. She is alert and oriented x3. OUTPATIENT FOLLOWUP NEEDS: She is to follow up with Dr. Hernandez as scheduled. He has an appointment with her on 06/08/17. She is to follow up with her PCP in 2 days on 05/26/17 for further monitoring of her wound and therapy. She has been advised to keep her legs elevated when sitting and we encouraged to increase mobility in order to help with circulation to the extremities. DIET: Heart healthy diet. ACTIVITY: As tolerated. CONDITION: Improved, stable. DISPOSITION: To home. TIME SPENT: Time spent on this discharge was approximately 40 minutes. Again, this is only a brief summary of the patient's hospital course of stay. For full details, please refer to the full medical record. If you have any further questions or need further assistance, please feel free to contact me at . VITALIY SUN NP [id number]/[facility] #: [id number] JACKY
== END 2017-05-24 13:00 | disposition home or self-care (01) | DRG 383 ==
LOC: ED 15:21 → MED 17:27
PROVIDERS: ADMIT Hospitalist; ATTEND Internal Medicine
DX: L03.115 Cellulitis of right lower limb (principal); I49.5 Sick sinus syndrome; E66.01 Morbid (severe) obesity due to excess calories; Z68.42 Body mass index [BMI] 45.0-49.9, adult; I89.0 Lymphedema, not elsewhere classified; G47.33 Obstructive sleep apnea (adult) (pediatric); E03.9 Hypothyroidism, unspecified; G25.81 Restless legs syndrome; M19.90 Unspecified osteoarthritis, unspecified site; I87.8 Other specified disorders of veins; Z96.641 Presence of right artificial hip joint; Z79.899 Other long term (current) drug therapy; Z82.5 Family history of asthma and other chronic lower respiratory diseases; Z82.49 Family history of ischemic heart disease and other diseases of the circulatory system; Z80.0 Family history of malignant neoplasm of digestive organs; Z95.0 Presence of cardiac pacemaker
CPT/HCPCS: 36415; 80048; 80053; 81003; 81015; 83605; 84443; 85025; 85610; 85730; 86140; 87040; 87086; 99284; A9270-GY; J1644; J2543

== ENCOUNTER 2017-08-26 02:34 | Emergency (ER) | payer OTHER ==
[2017-08-26 04:06] LABS: ABS Basophils 0.1 10^3/ul (0-0.2); ABS Eosinophils 0 10^3/ul (0-0.6); ABS Lymphocytes 1.1 10^3/ul (1.0-4.8); ABS Monocytes 0.6 10^3/ul (0-0.8); ABS Neutrophils 11.9 10^3/ul (1.5-7.7); ABS Nucleated RBC 0 10^3/ul; Eosinophil % 0.3 % (0-6); Hematocrit 37 % (35-47); Lymphocyte % 7.8 % (25-47); Mean Corpuscular HGB Conc 33 g/dl (31-36); Mean Corpuscular Hemoglobin 28 pg (27-31); Mean Corpuscular Volume 85 fL (80-97); Mean Platelet Volume 7.6 um3 (7.4-10.4); Nucleated Red Blood Cells % 0; Platelet Count 264 10^3/ul (150-450); Red Blood Count 4.37 10^6/ul (4.00-5.40); Red Cell Distribution Width 16 % (10.5-15); White Blood Count 13.6 10^3/ul (3.5-10.8)
[2017-08-26 04:22] LABS: EGFR Non-African American 51.6 (>60)
[2017-08-26 05:41] LABS: Urine Appearance Clear; Urine Blood Negative (Negative); Urine Color Yellow; Urine Ketones Negative (Negative); Urine Protein Negative (Negative); Urine Specific Gravity 1.012 (1.010-1.030); Urine Urobilinogen Negative (Negative)
[2017-08-26] MEDS ORDERED: NS 0.9% 1000 ML* 1,000 ML IV ONE (07:24)
--- NOTE | 2017-08-26 08:08 | RAD ---
INDICATION: Chest pain COMPARISON: February 22, 2017 TECHNIQUE: An AP portable view obtained at 0421 hours is submitted. FINDINGS: Bones/Soft Tissues: There are no acute bony findings. There is a left-sided cardiac pacemaker. Cardiomediastinal: The cardiomediastinal silhouette is normal. Lungs: There is no focal consolidation. There is mild interstitial prominence appearing unchanged. There may be a mild component of interstitial congestion. Suggest follow-up as clinically indicated. Pleura: There are no pleural effusions. Other: None IMPRESSION: MILD INTERSTITIAL CHANGE. POSSIBLE MILD INTERSTITIAL CONGESTION.
--- NOTE | 2017-08-26 08:15 | RAD ---
INDICATION: Right upper quadrant pain COMPARISON: None TECHNIQUE: Longitudinal and transverse scans of the right upper quadrant were obtained. Doppler interrogation of the hepatic and portal venous system was performed. This examination is limited due to bowel gas. FINDINGS: Liver: The liver is normal in size and echogenicity. There are no focal masses. The liver measures 17 cm in cephalocaudal dimension. Vessels: There is normal hepatic and portal venous flow. Bile ducts: There is no evidence of intrahepatic or extrahepatic ductal dilatation. The common duct measures 0.5 cm. Gallbladder: The gallbladder wall is mildly thickened. There are multiple small gallstones. There is no significant pericholecystic fluid Pancreas: The visualized pancreas appears normal Right kidney: The right kidney is normal in size and echogenicity. There are no masses or calculi. There is no evidence of hydronephrosis. The right kidney measures 11.1 x 6.1 x 4.8 cm. IVC and aorta: The aorta and superior vena cava appear normal. Fluid: There is no ascites. Other: None. IMPRESSION: CHOLELITHIASIS WITH THICKENED GALLBLADDER WALL
[2017-08-26 09:10] VITALS: BP 117/71
--- NOTE | 2017-08-26 09:28 | ED ---
I, Zaida Vergara, scribed for Jorge Rivas MD on 08/26/17 at 0755 . Progress - Progress Note Progress Note: Pt's abdominal pain is now gone. She is awaiting the US. Pt states she feels dehydrated, and will be given IV fluids. - Results/Orders Results/Orders: Gallbladder US 05:19: CHOLELITHIASIS WITH THICKENED GALLBLADDER WALL. ED physician reviewed radiology report. Course/Dx - Course Course Of Treatment: DISCUSSED RESULTS WITH THE PATIENT AND HER . DISCUSSED WITH SURGERY, DR SOLO. THE PATIENT IS PAIN FREE AND AFEBRILE, WILL D/C HOME WITH OUT PATIENT F/U WITH SURGERY. PATIENT KNOWS TO RETURN TO THE ED IF WORSE. - Diagnoses Provider Diagnoses: Gall stones, Abdominal pain - Provider Notifications Discussed Care Of Patient With: Hector Solo Time Discussed With Above Provider: 08:24 Instructed by Provider To: Other - If pt is pain-free and afebrile, then she can follow up with outpatient. Otherwise, pt should be admitted. Discharge - Sign-Out/Discharge Documenting (check all that apply): Receiving Sign-Out - Dr. Padilla Receiving patient FROM: Lissy Padilla - Discharge Plan Condition: Stable Disposition: HOME Patient Education Materials: Biliary Colic (ED), Gallstones (ED), Acute Abdominal Pain (ED) Referrals: [facility] [Provider Group] Hector Solo MD [Medical Doctor] - Sofia Taylor MD [Primary Care Provider] - Additional Instructions: FOLLOW UP WITH SURGERY, DR SOLO. GET RECHECKED FOR ANY WORSENING OF YOUR CONDITION; PAIN, FEVER, YOU FEEL ILL OR QUESTIONS OR CONCERNS. - Billing Disposition and Condition Condition: STABLE Disposition: Home The documentation as recorded by the Ursula wiley Jade accurately reflects the service I personally performed and the decisions made by me, Jorge Rivas MD.
--- NOTE | 2017-08-26 21:49 | ED ---
Sylvester Valdez Tariq, scribed for Lissy Padilla MD on 08/26/17 at 0456 . Abdominal Pain/Female - HPI Summary HPI Summary: A 66 y/o female presents to ED c/o abdominal pain. Currently, the pt noted that the pain is gone. She states that she no longer has pain and feels a lot better as it subsided in the stretcher. Around 1000, pt exhibited heart burn and she was belching frequently. Normally she gets heart burn occasionally and take OTC medication. Pt stated she has Lymphedema in both legs. Pt still has gall bladder. No PMHx NC. PMHx of hip replacement, pacemaker, vein surgury in both legs. Current medications are lisinopril for high BP. - History of Current Complaint Chief Complaint: EDAbdPain Stated Complaint: ABD PAIN Time Seen by Provider: 08/26/17 03:04 Hx Obtained From: Patient Onset/Duration: Sudden Onset, Lasting Hours Severity Initially: Mild Severity Currently: Severe Pain Intensity: 7 Pain Scale Used: 0-10 Numeric Aggravating Factor(s): Nothing Alleviating Factor(s): Nothing Allergies/Adverse Reactions: Allergies Allergy/AdvReac Type Severity Reaction Status Date / Time No Known Drug Allergies Allergy See Comment Verified 08/26/17 03:33 PMH/Surg Hx/FS Hx/Imm Hx Endocrine/Hematology History: Denies: Hx Anticoagulant Therapy, Hx Diabetes Cardiovascular History: Reports: Hx Pacemaker/ICD, Hx Peripheral Vascular Disease - BILATERAL VARICOSE VEINS Denies: Hx Hypertension Respiratory History: Reports: Hx Chronic Bronchitis GI History: Reports: Hx Gastroesophageal Reflux Disease - OCCASIONAL ACID REFLUX History: Denies: Hx Renal Disease Musculoskeletal History: Reports: Hx Arthritis - OSTEOARTHRITIS IN RIGHT HIP ( REPLACED) 12/2013 @ [facility] Sensory History: Reports: Hx Contacts or Glasses Denies: Hx Hearing Aid Opthamlomology History: Reports: Hx Contacts or Glasses Neurological History: Reports: Other Neuro Impairments/Disorders - RESTLESS LEG SYNDROME - on medication Psychiatric History: Denies: Hx Panic Disorder - Surgical History Surgery Procedure, Year, and Place: 07/[address] [facility] [place] [facility] [place] 05/23/[address] [facility] [place] [address] [facility] [place] Anesthesia Reactions: No - Immunization History Date of Tetanus Vaccine: unk Date of Influenza Vaccine: fall 2016 Infectious Disease History: No Infectious Disease History: Denies: Hx Clostridium Difficile, Hx Hepatitis, Hx Human Immunodeficiency Virus (HIV), Hx of Known/Suspected MRSA, Hx Shingles, Hx Tuberculosis, Traveled Outside the [place] in Last 30 Days - Family History Known Family History: Negative: Seizure Disorder - Social History Alcohol Use: Occasionally Alcohol Amount: FEW DRINKS/YEAR Hx Substance Use: No Substance Use Type: Reports: None Hx Tobacco Use: No Smoking Status (MU): Never Smoked Tobacco Have You Smoked in the Last Year: No Review of Systems Negative: Fever Positive: Abdominal Pain - Resolved, Other - Heart burn All Other Systems Reviewed And Are Negative: Yes Physical Exam - Summary Physical Exam Summary: GENERAL: Patient is a well developed and nourished female who is lying comfortable in the stretcher. Patient is not in any acute respiratory distress. HEAD AND FACE: Normocephalic EYES: PERRLA, EOMI x 2. EARS: Hearing grossly intact. MOUTH: Oropharynx within normal limits. NECK: Supple, trachea is midline, no adenopathy, no JVD, no carotid bruit. CHEST: Symmetric, no tenderness at palpation LUNGS: Clear to auscultation bilaterally. No wheezing or crackles. CVS: Regular rate and rhythm, S1 and S2 present, no murmurs or gallops appreciated. ABDOMEN: Soft, non-tender. Bowel sounds are normal. No abdominal abnormal pulsations. EXTREMITIES: Full ROM in all major joints, no edema, no cyanosis or clubbing. NEURO: Alert and oriented x 3. No acute neurological deficits. Speech is normal and follows commands. SKIN: Dry and warm Neuro exam extended: Cranial nerves II-XII grossly intact, no dysmetria finger to nose, nml heel to shoemaker Triage Information Reviewed: Yes Vital Signs On Initial Exam: Initial Vitals Temp Pulse Resp BP Pulse Ox 97.5 F 71 20 124/92 95 08/26/17 02:38 08/26/17 02:38 08/26/17 02:38 08/26/17 02:38 08/26/17 02:38 Vital Signs Reviewed: Yes Diagnostics - Vital Signs Vital Signs Temp Pulse Resp BP Pulse Ox 08/26/17 02:38 97.5 F 71 20 124/92 95 - Laboratory Lab Results: Lab Results 08/26/17 08/26/17 08/26/17 Range/Units 03:53 03:53 03:53 WBC 13.6 H (3.5-10.8) 10^3/ul RBC 4.37 (4.00-5.40) 10^6/ul Hgb 12.0 (12.0-16.0) g/dl Hct 37 (35-47) % MCV 85 (80-97) fL MCH 28 (27-31) pg MCHC 33 (31-36) g/dl RDW 16 H (10.5-15) % Plt Count 264 (150-450) 10^3/ul MPV 7.6 (7.4-10.4) um3 Neut % (Auto) 86.9 H (38-83) % Lymph % (Auto) 7.8 L (25-47) % Blanco % (Auto) 4.2 (0-7) % Eos % (Auto) 0.3 (0-6) % Baso % (Auto) 0.8 (0-2) % Absolute Neuts (auto) 11.9 H (1.5-7.7) 10^3/ul Absolute Lymphs (auto) 1.1 (1.0-4.8) 10^3/ul Absolute Monos (auto) 0.6 (0-0.8) 10^3/ul Absolute Eos (auto) 0 (0-0.6) 10^3/ul Absolute Basos (auto) 0.1 (0-0.2) 10^3/ul Absolute Nucleated RBC 0 10^3/ul Nucleated RBC % 0 APTT (26.0-36.3) seconds Sodium 139 (135-145) mmol/L Potassium 4.4 (3.5-5.0) mmol/L Chloride 102 (101-111) mmol/L Carbon Dioxide 31 (22-32) mmol/L Anion Gap 6 (2-11) mmol/L BUN 24 (6-24) mg/dL Creatinine 1.07 H (0.51-0.95) mg/dL Est GFR ( Amer) 62.5 (>60) Est GFR (Non-Af Amer) 51.6 (>60) BUN/Creatinine Ratio 22.4 H (8-20) Glucose 129 H (70-100) mg/dL Lactic Acid 1.4 (0.5-2.0) mmol/L Calcium 9.1 (8.6-10.3) mg/dL Total Bilirubin 0.90 (0.2-1.0) mg/dL AST 126 H (13-39) U/L ALT 60 H (7-52) U/L Alkaline Phosphatase 113 H (34-104) U/L Troponin I 0.01 (<0.04) ng/mL Total Protein 7.1 (6.4-8.9) g/dL Albumin 3.6 (3.2-5.2) g/dL Globulin 3.5 (2-4) g/dL Albumin/Globulin Ratio 1.0 (1-3) 08/26/17 08/26/17 Range/Units 03:53 04:16 WBC (3.5-10.8) 10^3/ul RBC (4.00-5.40) 10^6/ul Hgb (12.0-16.0) g/dl Hct (35-47) % MCV (80-97) fL MCH (27-31) pg MCHC (31-36) g/dl RDW (10.5-15) % Plt Count (150-450) 10^3/ul MPV (7.4-10.4) um3 Neut % (Auto) (38-83) % Lymph % (Auto) (25-47) % Blanco % (Auto) (0-7) % Eos % (Auto) (0-6) % Baso % (Auto) (0-2) % Absolute Neuts (auto) (1.5-7.7) 10^3/ul Absolute Lymphs (auto) (1.0-4.8) 10^3/ul Absolute Monos (auto) (0-0.8) 10^3/ul Absolute Eos (auto) (0-0.6) 10^3/ul Absolute Basos (auto) (0-0.2) 10^3/ul Absolute Nucleated RBC 10^3/ul Nucleated RBC % APTT 30.0 (26.0-36.3) seconds Sodium (135-145) mmol/L Potassium (3.5-5.0) mmol/L Chloride (101-111) mmol/L Carbon Dioxide (22-32) mmol/L Anion Gap (2-11) mmol/L BUN (6-24) mg/dL Creatinine (0.51-0.95) mg/dL Est GFR ( Amer) (>60) Est GFR (Non-Af Amer) (>60) BUN/Creatinine Ratio (8-20) Glucose (70-100) mg/dL Lactic Acid (0.5-2.0) mmol/L Calcium (8.6-10.3) mg/dL Total Bilirubin (0.2-1.0) mg/dL AST (13-39) U/L ALT (7-52) U/L Alkaline Phosphatase (34-104) U/L Troponin I 0.01 (<0.04) ng/mL Total Protein (6.4-8.9) g/dL Albumin (3.2-5.2) g/dL Globulin (2-4) g/dL Albumin/Globulin Ratio (1-3) Result Diagrams: 08/26/17 03:53 08/26/17 03:53 Lab Statement: Any lab studies that have been ordered have been reviewed, and results considered in the medical decision making process. - Radiology CXR Radiology Interpretation Completed By: ED Physician - NO PNEUMONIA - EKG 0431 Cardiac Rate: NL - 64 BPM EKG Rhythm: Sinus Rhythm Abdominal Pain Fem Course/Dx - Diagnoses Provider Diagnoses: Gall stones, Abdominal pain Discharge - Sign-Out/Discharge Documenting (check all that apply): Sign-Out Patient Signing out patient TO: Jorge Rivas - Pending US and re-eval - Discharge Plan Condition: Stable Disposition: HOME Patient Education Materials: Biliary Colic (ED), Gallstones (ED), Acute Abdominal Pain (ED) Referrals: [facility] [Provider Group] Hector Solo MD [Medical Doctor] - Sofia Taylor MD [Primary Care Provider] - Additional Instructions: FOLLOW UP WITH SURGERY, DR SOLO. GET RECHECKED FOR ANY WORSENING OF YOUR CONDITION; PAIN, FEVER, YOU FEEL ILL OR QUESTIONS OR CONCERNS. - Billing Disposition and Condition Condition: STABLE Disposition: Home The documentation as recorded by the Sylvester wiley Tariq accurately reflects the service I personally performed and the decisions made by me, Lissy Padilla MD.
== END 2017-08-26 09:09 | disposition home or self-care (01) ==
LOC: ED 02:34
DX: K80.80 Other cholelithiasis without obstruction (principal); J84.9 Interstitial pulmonary disease, unspecified; I10 Essential (primary) hypertension; Z95.0 Presence of cardiac pacemaker; Z79.899 Other long term (current) drug therapy
CPT/HCPCS: 36415; 71045; 76705; 80053; 81003; 83605; 84484; 85025; 85730; 93005; 99282

== ENCOUNTER 2017-11-03 16:08 | Inpatient (IN) | payer OTHER ==
--- NOTE | 2017-11-03 17:01 | RAD ---
INDICATION: "Chills" COMPARISON: Similar chest x-ray dated August 26, 2017 TECHNIQUE: PA and lateral views of the chest were obtained. FINDINGS: The left upper chest cardiac pacemaker is unchanged from the prior chest x-ray. The heart and mediastinum are normal in size and contour. The lungs are grossly clear. There is no evidence of large pleural effusion. Visualized bones are normal for the patient's age. There is no radiographic evidence of free air beneath the diaphragm IMPRESSION: No radiographic evidence of acute cardiopulmonary disease.
[2017-11-03 18:23] LABS: Hematocrit 38 % (35-47); Hemoglobin 12.3 g/dl (12.0-16.0); Mean Corpuscular HGB Conc 32 g/dl (31-36); Mean Corpuscular Hemoglobin 28 pg (27-31); Mean Corpuscular Volume 86 fL (80-97); Mean Platelet Volume 8.2 um3 (7.4-10.4); Platelet Count 255 10^3/ul (150-450); Red Cell Distribution Width 16 % (10.5-15); White Blood Count 28.7 10^3/ul (3.5-10.8)
[2017-11-03] MEDS ORDERED: Acetaminophen TAB* 325 MG PO ONE ×2 (18:25→18:31)
[2017-11-03 18:26] LABS: INR 1.05 (0.77-1.02)
[2017-11-03] MEDS ORDERED: Acetaminophen TAB* 325 MG ONE (18:27)
[2017-11-03] MEDS ORDERED: Lactated Ringers 1000 ml Bag*IV.FLUID IV ONE (18:30)
[2017-11-03] MEDS ORDERED: Piperacillin/Tazobac ADVAN(*) 3.375 GM in NS 0.9% 100 ML* 100 ML IVPB ONE ×2 (18:30→20:47)
[2017-11-03 18:36] LABS: EGFR Non-African American 48.5 (>60)
[2017-11-03 19:00] LABS: ABS Basophils 0.1 10^3/ul (0-0.2); ABS Eosinophils 0 10^3/ul (0-0.6); ABS Monocytes 0.9 10^3/ul (0-0.8); ABS Neutrophils 26.7 10^3/ul (1.5-7.7); ABS Nucleated RBC 0 10^3/ul; Eosinophil % 0 % (0-6); Lymphocyte % 3.5 % (25-47); Nucleated Red Blood Cells % 0
[2017-11-03] MEDS ORDERED: Vancomycin(*) 1,000 MG VIAL IVPB SCH (19:00)
[2017-11-03] MEDS ORDERED: LORazepam TAB(*) 1 MG PO ONE (19:12)
[2017-11-03] MEDS ORDERED: LORazepam TAB(*) 1 MG ONE (19:13)
--- NOTE | 2017-11-03 19:35 | ED ---
HPI Febrile Illness - HPI Summary HPI Summary: The pt is a 66 y/o male presenting to [facility] c/o of a fever onset today. She notes loss of consciousness and a wound on the L lower shoemaker for which she was supposed to have a Unna boot placed today. The pt denies cough, chest pain, and abd pain. - History of Current Complaint Chief Complaint: EDFever Time Seen by Provider: 11/03/17 18:15 Hx Obtained From: Patient, Family/Finish Off Operator Onset/Duration: Started Hours Ago - Today, Still Present Timing: Constant Current Severity: None Pain Intensity: 0 Pain Scale Used: 0-10 Numeric Associated Signs and Symptoms: Negative - cough, chest pain, and abd pain., Other: - Positive: LOC - Additional Pertinent History Primary Care Physician: KAJAL - Allergy/Home Medications Allergies/Adverse Reactions: Allergies Allergy/AdvReac Type Severity Reaction Status Date / Time No Known Drug Allergies Allergy See Comment Verified 11/03/17 16:17 PMH/Surg Hx/FS Hx/Imm Hx Previously Healthy: No Endocrine/Hematology History: Denies: Hx Anticoagulant Therapy, Hx Diabetes Cardiovascular History: Reports: Hx Pacemaker/ICD, Hx Peripheral Vascular Disease - BILATERAL VARICOSE VEINS Denies: Hx Hypertension Respiratory History: Reports: Hx Chronic Bronchitis GI History: Reports: Hx Gastroesophageal Reflux Disease - OCCASIONAL ACID REFLUX History: Denies: Hx Renal Disease Musculoskeletal History: Reports: Hx Arthritis - OSTEOARTHRITIS IN RIGHT HIP ( REPLACED) 12/2013 @ [facility] Sensory History: Reports: Hx Contacts or Glasses Denies: Hx Hearing Aid Opthamlomology History: Reports: Hx Contacts or Glasses Neurological History: Reports: Other Neuro Impairments/Disorders - RESTLESS LEG SYNDROME - on medication Psychiatric History: Denies: Hx Panic Disorder - Surgical History Surgery Procedure, Year, and Place: 07/2014 LEFT LEG VEINS [facility]. 12/2013 Right hip replacement, [facility]. 05/23/14 RT LEG VEINS [facility]. 1994 LEFT BREAST LUMPECTOMY [facility] Hx Anesthesia Reactions: No - Immunization History Date of Tetanus Vaccine: unk Date of Influenza Vaccine: fall 2016 Infectious Disease History: Denies: Hx Clostridium Difficile, Hx Hepatitis, Hx Human Immunodeficiency Virus (HIV), Hx of Known/Suspected MRSA, Hx Shingles, Hx Tuberculosis, Traveled Outside the [place] in Last 30 Days - Family History Known Family History: Negative: Seizure Disorder - Social History Occupation: Retired Lives: Alone Alcohol Use: Occasionally Alcohol Amount: FEW DRINKS/YEAR Hx Substance Use: No Substance Use Type: Reports: None Hx Tobacco Use: No Smoking Status (MU): Never Smoked Tobacco Have You Smoked in the Last Year: No Review of Systems Positive: Fever Negative: Chest Pain Negative: Cough Negative: Abdominal Pain Positive: Other - Positive: wound on the L lower shoemaker All Other Systems Reviewed And Are Negative: Yes Physical Exam - Summary Physical Exam Summary: Appearance: ill apearing Skin: warm, dry, reflects adequate perfusion; Rash /ulcer on lf LEs; dry mucous membranes Head/face: normal Eyes: EOMI, MELECIO ENT: normal Neck: supple, non-tender Respiratory: CTA, breath sounds present Cardiovascular: RRR, pulses symmetrical Abdomen: non-tender, soft Bowel: present Musculoskeletal: bilateral pedal edema; strength/ROM intact Neuro: normal, sensory motor intact, A&Ox3 Triage Information Reviewed: Yes Vital Signs On Initial Exam: Initial Vitals Temp Pulse Resp BP Pulse Ox 101.2 F 78 20 124/97 91 11/03/17 16:09 11/03/17 16:09 11/03/17 16:09 11/03/17 16:09 11/03/17 16:09 Vital Signs Reviewed: Yes Diagnostics - Vital Signs Vital Signs Temp Pulse Resp BP Pulse Ox 11/03/17 18:14 105.2 F 11/03/17 16:09 101.2 F 78 20 124/97 91 - Laboratory Result Diagrams: 11/03/17 21:21 11/04/17 06:10 Lab Statement: Any lab studies that have been ordered have been reviewed, and results considered in the medical decision making process. - Radiology CXR Radiology Interpretation Completed By: Radiologist - No radiographic evidence of acute cardiopulmonary disease. The ED physician reviewed this radiology report. - EKG 17:29 Cardiac Rate: NL - 69 bpm EKG Interpretation: No acute changes Course/Dx - Course Course Of Treatment: A 66 year-old F presents to the ED with a CC of a fever onset today. She notes loss of consciousness and a wound on the L lower shoemaker for which she was supposed to have a Unna boot placed today. The pt denies cough , chest pain, and abd pain. A physical exam revealed dry mucous membranes, rash on bilateral Les and bilateral pedal edema. A CXR in unremarkable An EKG reveals no acute changes. In the ED course, the pt. was given Acetaminophen 975 mg PO twice, Lactated ringers 3810 mL IV, Piperacillin 3.375 mg, N.s 0.9% 1000mL IV twice ,Lorazepam 1mg PO, Morphine 4mg IV and Vancomycin 2000mg IV which improved the symptoms. I discussed the care of the pt wit Dr. Sergei MD who agreed to admit the pt. The patient will be admitted with a final Dx of sepsis, cellulitis of the L leg and dehydration. The pt is agreeable with this plan. Allergies noted. - Febrile Illness Differential Diagnoses: Cellulitis, Sepsis, Other: - septic shock - Diagnoses Provider Diagnoses: Sepsis, Cellulitis of left leg, Dehydration - Provider Notifications Discussed Care Of Patient With: Ingrid Mai - Hospitalist Time Discussed With Above Provider: 19:40 Instructed by Provider To: Admit As Inpatient - Critical Care Time Critical Care Time: 30-74 min - 30 minutes Discharge - Sign-Out/Discharge Documenting (check all that apply): Patient Departure - Admit - Discharge Plan Condition: Stable Disposition: ADMITTED TO [facility] - Billing Disposition and Condition Condition: STABLE Disposition: Admitted to [facility] - Attestation Statements Document Initiated by Scribe: Yes Documenting Scribe: Mayela Quezada Provider For Whom João is Documenting (Include Credential): Dr. Cindi Hale MD Scribe Attestation: Mayela Valdez , scribed for Dr. Cindi Hale MD on 11/04/17 at 0735. Scribe Documentation Reviewed: Yes Provider Attestation: The documentation as recorded by the Mayela wiley accurately reflects the service I personally performed and the decisions made by me, Dr. Cindi Hale MD
[2017-11-03] MEDS ORDERED: Morphine VIAL* 10 MG/ML 1 ML VIAL IV ONE (19:59)
[2017-11-03 20:00] LABS: Urine Appearance Cloudy; Urine Blood Negative (Negative); Urine Color Yellow; Urine Ketones Negative (Negative); Urine Protein Negative (Negative); Urine Red Blood Cell 2+(6-10/hpf) (Absent); Urine Specific Gravity 1.018 (1.010-1.030); Urine Urobilinogen Negative (Negative); Urine White Blood Cell 3+(>20/hpf) (Absent)
[2017-11-03] MEDS ORDERED: Vancomycin(*) 2,000 MG in NS 0.9% 500 ML* 500 ML IVPB ONE (20:00)
[2017-11-03] MEDS ORDERED: Morphine VIAL* 10 MG/ML 1 ML VIAL ONE (20:01)
[2017-11-03] MEDS ORDERED: Acetaminophen TAB* 325 MG PO PRN (20:44)
[2017-11-03] MEDS ORDERED: Temazepam CAP* 15 MG PO PRN (20:44)
[2017-11-03] MEDS ORDERED: Al Hydrox/Mg Hydrox/Simet LIQ* 30 ML UDC PO PRN (20:44)
[2017-11-03] MEDS ORDERED: oxyCODONE/Acetamin 5/325 MG* TAB PO PRN (20:44)
[2017-11-03] MEDS ORDERED: NS 0.9% 1000 ML* 1,000 ML IV SCH (20:45)
[2017-11-03] MEDS ORDERED: Ropinirole TAB* 0.5 MG TAB PO ONE (20:57)
[2017-11-03] MEDS ORDERED: Zosyn per Pharmacy* NOTE FOLLOW UP SCH (21:00)
[2017-11-03 21:30] LABS: Hematocrit 33 % (35-47); Hemoglobin 10.9 g/dl (12.0-16.0); Mean Corpuscular HGB Conc 33 g/dl (31-36); Mean Corpuscular Hemoglobin 28 pg (27-31); Mean Corpuscular Volume 86 fL (80-97); Mean Platelet Volume 7.8 um3 (7.4-10.4); Platelet Count 215 10^3/ul (150-450); Red Blood Count 3.88 10^6/ul (4.00-5.40); Red Cell Distribution Width 16 % (10.5-15)
[2017-11-03 21:33] LABS: ABS Basophils 0.2 10^3/ul (0-0.2); ABS Eosinophils 0 10^3/ul (0-0.6); ABS Lymphocytes 1.4 10^3/ul (1.0-4.8); ABS Monocytes 0.6 10^3/ul (0-0.8); ABS Neutrophils 20.9 10^3/ul (1.5-7.7); ABS Nucleated RBC 0 10^3/ul; Eosinophil % 0 % (0-6); Lymphocyte % 6.1 % (25-47); Nucleated Red Blood Cells % 0
[2017-11-03] MEDS: Ropinirole TAB* 0.5 MG TAB PO SCH (22:53)
[2017-11-03] MEDS: Potassium Chlor TAB* 20 MEQ TAB.ER PO SCH (22:59)
[2017-11-03] MEDS: Heparin VIAL(*) 5000 UNITS/ML VIAL (FIVE THOUSAND) SUBCUT SCH (22:59)
[2017-11-03] MEDS: Docusate CAP* 100 MG PO SCH (23:00)
[2017-11-04] MEDS: ZOSYN 3.375 GM Q8H per EXTENDED INFUSION IVPB SCH ×8 (00:18→22:35)
--- NOTE | 2017-11-04 02:57 | HP ---
CC: Dr. Taylor, Dr. Hernandez; [facility] HISTORY AND PHYSICAL: DATE OF ADMISSION: 11/03/17 PRIMARY CARE PROVIDER: Dr. Taylor. CHIEF COMPLAINT: Fever and generalized weakness. HISTORY OF PRESENT ILLNESS: Meaghan Gallardo is a 66-year-old female with history of morbid obesity and BMI above 45 as well as chronic lymphedema with recurrent cellulitis in bilateral lower extremities d ue to lymphedema, who presented to the hospital complaining of fever. She came in with a fever of 10 5 degrees and chills. The patient stated that she had seen Dr. Hernandez in the past and started clind amycin for suppression of her recurrent leg infections, but she got diarrhea from it and she disconti nued the antibiotic. Currently, she is undergoing evaluation and treatment in the wound care center at [facility]. The patient herself did not notice any worsening of chronic redness in bilateral lower extremities. She denies any worsening pain in the bilateral lower extremities. She denies any urinary symptoms. The patient appears to have sepsis due to cellulitis. Again, she is going to be placed for overnight observation. PAST MEDICAL HISTORY: 1. Morbid obesity with BMI above 45. 2. Chronic bilateral lymphedema with recurrent right lower extremity cellulitis. 3. History of obstructive sleep apnea, currently untreated. 4. History of sick sinus syndrome, status post pacemaker placement. 5. Hypothyroidism. 6. Restless legs syndrome. 7. Osteoarthritis. 8. History of right total hip arthroplasty. 9. Lumpectomy of the left breast. 10. History of bilateral vein stripping of lower extremities. MEDICATIONS AT HOME: Include: 1. Torsemide 20 mg daily. 2. Requip 0.5 mg every 8 hours. 3. Potassium chloride 20 mEq b.i.d. 4. Lisinopril 2.5 mg daily. 5. Levothyroxine 25 mcg daily. 6. Lansoprazole 15 mg daily. ALLERGIES: No known drug allergies. FAMILY HISTORY: Positive for mother with pulmonary fibrosis and heart failure. Father with history o f colon cancer SOCIAL HISTORY: The patient denies any tobacco, alcohol, or drug use. Her healthcare proxy is her Kamari tellez. REVIEW OF SYSTEMS: The patient stated she lost approximately 20 pounds in the past 6 months. She has had problems with left lower extremity wounds that had been under care of our wound care cent er. She stated that for the past several days she had been feeling somewhat weak and she did not feel lik e drinking enough of fluid and she blames herself for "causing the infection" because of not drinking enough. All the remaining 12 systems were reviewed with the patient and were otherwise negative. PHYSICAL EXAMINATION VITAL SIGNS: Blood pressure of 99/49, respiratory rate 20, oxygen saturation 92% on 2 L of oxygen na ayo cannula, temperature of 98.9 currently, once again it was 105.2 at its maximum today. HEENT: Head: Atraumatic, normocephalic. Eyes: Pupils are equal and reactive to light and accommod ation. Oropharynx clear. Mucosa moist. NECK: Supple. No JVD, no bruit bilaterally. RESPIRATORY: Clear to auscultation bilaterally. CARDIOVASCULAR: Regular rate and rhythm, no murmur. ABDOMEN: Soft, nontender. Bowel sounds present in all 4 quadrants. EXTREMITIES: There is bilateral lower extremities lymphedema that does not appear to be in exacerbat ion. Pulses 4+ bilaterally. There is no clubbing or cyanosis. SKIN: On evaluation of the skin, the patient has chronic venous stasis changes and brownish discolor ation of skin of bilateral lower extremities from the level of the ankles to bilateral knees. There are chronic appearing shallow wounds covered with eschar on the anterior tibial aspect of the left lo wer extremity. There is chronic erythema surrounding the area. On the right side, the patient has w hat appears to be worsening of chronic erythema that also involves the foot, consistent with cellulit is. NEURO EVALUATION: Speech clear. Cranial nerves II through XII grossly intact. Motor strength is 5/5 bilaterally. PSYCHIATRIC EVALUATION: The patient is pleasant and cooperative with evaluation, comfortable, in no acute distress, oriented x3 with no evidence of anxiety or depression. DIAGNOSTIC STUDIES/LAB DATA: White blood cell count 28.7, hemoglobin of 12.3, hematocrit of 38, and platelets of 255. Sodium of 139, potassium 4.1, chloride 103, carbon dioxide 28, BUN 15, creatinine 1.13. Liver functi on test unremarkable. C-reactive protein elevated at 85.1. Lactic acid of 1. Urinalysis showed yellow and cloudy urine with +3 wbc's, +3 bacteria, and +2 rbc's. Positive for nitr ite. Portable chest x-ray "no radiographic evidence of acute cardiopulmonary disease." No infiltration. ASSESSMENT AND PLAN: 1. At this point, the patient's sepsis, that is present today, appears to be related to recurrent ri ght lower extremity cellulitis with underlying lymphedema. The patient also has abnormal urinalysis, but she has no symptoms of UTI at this point. At this point, the patient is going to be continued wi th Zosyn that was started in the emergency department and if she does in fact have UTI, I suspect wisam l be treated also with the same medication. At this point, it is possible that the patient may benef it from treatment with different antibiotic than clindamycin for suppression of her recurrent lymphed roger as outpatient. The patient received IV fluid bolus in the emergency department. She is going to be placed on gentle intravenous hydration afterwards due to her history of needing diuretics in the past. Her lisinopril is going to be held. I will start her diuretic in the morning. 2. The patient has mild evidence of renal insufficiency today, which is new. I suspect this is seps is and lisinopril is going to be held once again. Watch closely with her blood pressure fluctuating from 120 systolic to 99. 3. For DVT prophylaxis, the patient is going to be placed on heparin subcutaneously. 4. The patient's code status is full and her surrogate is her brother, Kamari, as mentioned above. TIME SPENT: Approximately 65 minutes was spent on the admission of this patient, more than half that time was spent [id number] with the patient during the interview and physical exam. [id number]/[facility] #: [id number]
[2017-11-04] MEDS: Levothyroxine TAB* 25 MCG TAB PO SCH (05:43)
[2017-11-04] MEDS: Omeprazole CAP* 20 MG PO SCH (05:43)
[2017-11-04] MEDS: Ropinirole TAB* 0.5 MG TAB PO SCH ×3 (05:44→20:15)
[2017-11-04] MEDS: Heparin VIAL(*) 5000 UNITS/ML VIAL (FIVE THOUSAND) SUBCUT SCH ×3 (05:44→20:15)
[2017-11-04 07:10] LABS: EGFR Non-African American 67.3 (>60)
[2017-11-04] MEDS: Potassium Chlor TAB* 20 MEQ TAB.ER PO SCH ×2 (07:31→20:15)
[2017-11-04] MEDS: Torsemide TAB* 20 MG PO SCH (07:32)
[2017-11-04] MEDS: Docusate CAP* 100 MG PO SCH ×2 (07:32→20:15)
--- NOTE | 2017-11-04 09:01 | PN ---
Subjective Date of Service: 11/04/17 Interval History: No pain either leg. Pt states she had an Unaboot applied to her LEFT leg on , was supposed to return to the [facility] 11/02 to have it removed. She did not return to the Wound Clinic but removed the Unaboot herself on 11/03. She thinks both legs are at baseline in appearance. She had chills at home x 1 day, none here. She last took amoxicillin a few months ago but stopped it due to diarrhea. She took clindamycin some time ago but it was stopped as a wound culture grew a resistant organism; she may have been switched to levofloxacin. She never had diarrhea with clindamycin. Objective Active Medications: Acetaminophen (Tylenol Tab*) 650 mg PO Q4H PRN PRN Reason: FEVER/PAIN Al Hydrox/Mg Hydrox/Simethicone (Maalox Plus*) 30 ml PO Q6H PRN PRN Reason: INDIGESTION Docusate Sodium (Colace Cap*) 100 mg PO BID [facility] Last Admin: 11/04/17 07:32 Dose: 100 mg Heparin Sodium (Porcine) (Heparin Vial(*)) 5,000 units SUBCUT Q8HR [facility] Last Admin: 11/04/17 05:44 Dose: 5,000 units Piperacillin Sod/Tazobactam (Sod 3.375 gm/ Sodium Chloride) 100 mls @ 25 mls/ hr IVPB Q8H [facility] Last Admin: 11/04/17 07:32 Dose: 25 mls/hr Levothyroxine Sodium (Synthroid Tab*) 25 mcg PO DAILY@0600 [facility] Last Admin: 11/04/17 05:43 Dose: 25 mcg Omeprazole (Prilosec Cap*) 20 mg PO DAILY@0600 [facility] Last Admin: 11/04/17 05:43 Dose: 20 mg Oxycodone/Acetaminophen (Percocet 5/325 Tab*) 1 tab PO Q4H PRN PRN Reason: Pain Pharmacy Consult (Zosyn Per Pharmacy*) 1 note FOLLOW UP .ZOSYN PER PHARMACY [facility] Potassium Chloride (Klor Con Er Tab*) 20 meq PO BID [facility] Last Admin: 11/04/17 07:31 Dose: 20 meq Ropinirole HCl (Requip Tab*) 0.5 mg PO Q8HR [facility] Last Admin: 11/04/17 05:44 Dose: 0.5 mg Temazepam (Restoril Cap*) 15 mg PO BEDTIME PRN PRN Reason: INSOMNIA Torsemide (Demadex*) 20 mg PO DAILY [facility] Last Admin: 11/04/17 07:32 Dose: 20 mg Oxygen Devices in Use Now: None Appearance: Alert, partly up in bed. In good spirits. Looks comfortable. Eyes: No Scleral Icterus Extremities: No Clubbing, Cyanosis, - - Tr edema BL Skin: No Nodules or Sclerosis, - - L lower leg some hyperpigmentation. Patchy erythema both legs. Neurological: Alert and Oriented x 3, NL Sensation Result Diagrams: 11/03/17 21:21 11/04/17 06:10 Assess/Plan/Problems-Billing Assessment: - Patient Problems (1) Cellulitis Current Visit: No Status: Acute Code(s): L03.90 - CELLULITIS, UNSPECIFIED SNOMED Code(s): 019477303 Comment: Improved. In view of high WBC and high fever, I would like to see her again here 11/05 with repeat CBC, CRP. Continue pip/gildardo. (2) Acute renal failure Current Visit: No Status: Acute Comment: Resolved. (3) Hypothyroidism Current Visit: No Status: Chronic Code(s): E03.9 - HYPOTHYROIDISM, UNSPECIFIED SNOMED Code(s): 41204833 Comment: TSH 3.43 on 05/22/17. Continue current levothyroxine dose. (4) Morbid obesity Current Visit: No Status: Acute Code(s): E66.01 - MORBID (SEVERE) OBESITY DUE TO EXCESS CALORIES SNOMED Code(s): 012356009 Comment: BMI 48.8. (5) Restless leg syndrome Current Visit: No Status: Chronic Comment: Continue ropinirole. (6) S/P placement of cardiac pacemaker Current Visit: No Status: Chronic Code(s): Z95.0 - PRESENCE OF CARDIAC PACEMAKER SNOMED Code(s): 089351074 Comment: h/o sick sinus syndrome
[2017-11-05] MEDS: Omeprazole CAP* 20 MG PO SCH (05:49)
[2017-11-05] MEDS: Ropinirole TAB* 0.5 MG TAB PO SCH (05:49)
[2017-11-05] MEDS: Levothyroxine TAB* 25 MCG TAB PO SCH (05:49)
[2017-11-05] MEDS: Heparin VIAL(*) 5000 UNITS/ML VIAL (FIVE THOUSAND) SUBCUT SCH (05:50)
[2017-11-05 06:11] LABS: ABS Basophils 0.1 10^3/ul (0-0.2); ABS Eosinophils 0.5 10^3/ul (0-0.6); ABS Lymphocytes 1.6 10^3/ul (1.0-4.8); ABS Monocytes 0.6 10^3/ul (0-0.8); ABS Neutrophils 6.3 10^3/ul (1.5-7.7); ABS Nucleated RBC 0 10^3/ul; Eosinophil % 5.2 % (0-6); Hematocrit 34 % (35-47); Hemoglobin 11.1 g/dl (12.0-16.0); Lymphocyte % 17.4 % (25-47); Mean Corpuscular HGB Conc 33 g/dl (31-36); Mean Corpuscular Hemoglobin 29 pg (27-31); Mean Corpuscular Volume 88 fL (80-97); Mean Platelet Volume 7.9 um3 (7.4-10.4); Nucleated Red Blood Cells % 0.1; Platelet Count 176 10^3/ul (150-450); Red Blood Count 3.88 10^6/ul (4.00-5.40); Red Cell Distribution Width 16 % (10.5-15)
[2017-11-05] MEDS: Torsemide TAB* 20 MG PO SCH (07:18)
[2017-11-05] MEDS: Docusate CAP* 100 MG PO SCH (07:23)
[2017-11-05] MEDS: ZOSYN 3.375 GM Q8H per EXTENDED INFUSION IVPB SCH ×2 (07:23)
[2017-11-05] MEDS: Potassium Chlor TAB* 20 MEQ TAB.ER PO SCH (07:23)
[2017-11-05 07:56] VITALS: BP 121/39
--- NOTE | 2017-11-05 09:48 | PN ---
Subjective Date of Service: 11/05/17 Interval History: Legs back to nl. No new c/o, anxious to go home. Objective Active Medications: Acetaminophen (Tylenol Tab*) 650 mg PO Q4H PRN PRN Reason: FEVER/PAIN Last Admin: 11/05/17 07:25 Dose: 650 mg Al Hydrox/Mg Hydrox/Simethicone (Maalox Plus*) 30 ml PO Q6H PRN PRN Reason: INDIGESTION Docusate Sodium (Colace Cap*) 100 mg PO BID [facility] Last Admin: 11/05/17 07:23 Dose: 100 mg Heparin Sodium (Porcine) (Heparin Vial(*)) 5,000 units SUBCUT Q8HR [facility] Last Admin: 11/05/17 05:50 Dose: 5,000 units Piperacillin Sod/Tazobactam (Sod 3.375 gm/ Sodium Chloride) 100 mls @ 25 mls/ hr IVPB Q8H [facility] Last Admin: 11/05/17 07:23 Dose: 25 mls/hr Levothyroxine Sodium (Synthroid Tab*) 25 mcg PO DAILY@0600 [facility] Last Admin: 11/05/17 05:49 Dose: 25 mcg Omeprazole (Prilosec Cap*) 20 mg PO DAILY@0600 [facility] Last Admin: 11/05/17 05:49 Dose: 20 mg Oxycodone/Acetaminophen (Percocet 5/325 Tab*) 1 tab PO Q4H PRN PRN Reason: Pain Last Admin: 11/04/17 20:15 Dose: 1 tab Pharmacy Consult (Zosyn Per Pharmacy*) 1 note FOLLOW UP .ZOSYN PER PHARMACY [facility] Potassium Chloride (Klor Con Er Tab*) 20 meq PO BID [facility] Last Admin: 11/05/17 07:23 Dose: 20 meq Ropinirole HCl (Requip Tab*) 0.5 mg PO Q8HR [facility] Last Admin: 11/05/17 05:49 Dose: 0.5 mg Temazepam (Restoril Cap*) 15 mg PO BEDTIME PRN PRN Reason: INSOMNIA Last Admin: 11/04/17 22:35 Dose: 15 mg Torsemide (Demadex*) 20 mg PO DAILY [facility] Last Admin: 11/05/17 07:18 Dose: Not Given Vital Signs - 8 hr 11/05/17 11/05/17 11/05/17 03:28 07:31 07:38 Temperature 97.4 F 97.5 F Pulse Rate 59 59 Respiratory 16 16 16 Rate Blood Pressure 123/47 121/39 (mmHg) O2 Sat by Pulse 93 93 96 Oximetry Oxygen Devices in Use Now: None Appearance: Alert, sitting on the edge of her bed. In good spirits. Looks comfortable. Eyes: No Scleral Icterus Extremities: No Clubbing, Cyanosis, - - minimal edema BL. Skin: No Nodules or Sclerosis, - - Erythema both legs virtually resolved. Neurological: Alert and Oriented x 3, NL Sensation Result Diagrams: 11/05/17 05:41 11/04/17 06:10 Microbiology and Other Data: Microbiology 11/03/17 19:41 Urine Culture - Final Urine Klebsiella Pneumoniae Normal Marielle 11/03/17 19:59 Blood Culture - Preliminary Blood Venous No Growth Day 1 11/03/17 17:50 Aerobic Blood Culture - Preliminary Blood Venous No Growth Day 1 Anaerobic Blood Culture - Preliminary No Growth Day 1 Assess/Plan/Problems-Billing Assessment: - Patient Problems (1) Cellulitis Current Visit: No Status: Acute Code(s): L03.90 - CELLULITIS, UNSPECIFIED SNOMED Code(s): 209878509 Comment: Improved. CRP 155 11/05. rx 7 days amox/clav at home. (2) Acute renal failure Current Visit: No Status: Acute Comment: Resolved. (3) Hypothyroidism Current Visit: No Status: Chronic Code(s): E03.9 - HYPOTHYROIDISM, UNSPECIFIED SNOMED Code(s): 21214397 Comment: TSH 3.43 on 05/22/17. Continue current levothyroxine dose. (4) Morbid obesity Current Visit: No Status: Acute Code(s): E66.01 - MORBID (SEVERE) OBESITY DUE TO EXCESS CALORIES SNOMED Code(s): 070946458 Comment: BMI 48.8. (5) Restless leg syndrome Current Visit: No Status: Chronic Comment: Continue ropinirole. (6) S/P placement of cardiac pacemaker Current Visit: No Status: Chronic Code(s): Z95.0 - PRESENCE OF CARDIAC PACEMAKER SNOMED Code(s): 964844804 Comment: h/o sick sinus syndrome Status and Disposition: Discharge home. [facility] 11/09, Dr. Taylor.
--- NOTE | 2017-11-05 09:58 | PN ---
Progress Note - Progress Note Date of Service: 11/05/17 Note: Time spent on discharge 45 minutes, including exam of patient, discussion with patient and nurse, review of EMR, preparation of discharge documents.
[2017-11-05] MEDS ORDERED: Amoxicillin/Clavulanate TAB* 875 MG PO SCH (21:00)
--- NOTE | 2017-11-05 21:43 | DS ---
CC: Dr. Taylor DISCHARGE SUMMARY: DATE OF ADMISSION: 11/04/17 DATE OF DISCHARGE: 11/05/17 HISTORY OF PRESENT ILLNESS/HOSPITAL COURSE: This 66-year-old woman who presented with fever and generalized weakness. She admits she has been treated for wound of her left foot at [facility]. She had an Unna boot put along the Monday before admission. She missed her appointment on 11/02/17, to go over to the Wound Clinic. She took the Unna boot off herself on 11/03/17. She did not take her temperature at home. She had chills. She had temperature of 105.2 in the ER. White count was 28,000. She has felt that cellulitis of both legs worsened, actually on the right leg. She was given intravenous piperacillin and tazobactam. I note that a few months ago, she had stopped taking daily amoxicillin prophylaxis as per Dr. Hernandez. She was recently treated for her leg wounds and cellulitis with clindamycin and then after that levofloxacin. She did very well in the hospital. She was afebrile over the last 24 hours of admission. Her white count fell to 9,000. I note that CRP was 151.51 on . The patient will take 7 days of amoxicillin clavulanate. I note that urine culture grew out Klebsiella resistant to amoxicillin, but sensitive to amoxicillin clavulanate. She had no urinary symptoms at all and I suspect she is colonized with the Klebsiella. In any case, this should be adequate treatment for cystitis. She had 2 blood cultures, both of which are no growth at the time of this dictation. I would repeat her CRP in about a week or so to use as a baseline to gauge future events. FINAL DIAGNOSES: 1. Cellulitis of legs. 2. Positive urine culture. 3. Morbid obesity. 4. Hypothyroidism. 5. Restless leg syndrome. 6. Permanent pacemaker. DISCHARGE MEDICATIONS: 1. Amoxicillin clavulanate 875 mg b.i.d. for 70 days. 2. Lisinopril 2.5 mg daily. 3. Levothyroxine 25 mcg daily. 4. Ropinirole 0.5 mg every 8 hours. 5. Potassium chloride 20 mEq b.i.d. 6. Torsemide 20 mg daily. 7. Lansoprazole 15 mg daily. DISCHARGE CONDITION: good. DISCHARGE DISPOSITION: home. [id number]/[facility] #: [id number] JACKY
== END 2017-11-05 12:50 | disposition home or self-care (01) | DRG 383 ==
LOC: ED 16:08 → MED 20:44 → OBSVTOIN 11-04 11:30
PROVIDERS: ADMIT Internal Medicine; ATTEND Internal Medicine
DX: L03.116 Cellulitis of left lower limb (principal); N17.9 Acute kidney failure, unspecified; N39.0 Urinary tract infection, site not specified; Z68.42 Body mass index [BMI] 45.0-49.9, adult; L03.115 Cellulitis of right lower limb; I49.5 Sick sinus syndrome; B96.1 Klebsiella pneumoniae [K. pneumoniae] as the cause of diseases classified elsewhere; Z16.11 Resistance to penicillins; E66.01 Morbid (severe) obesity due to excess calories; E03.9 Hypothyroidism, unspecified; G25.81 Restless legs syndrome; Z95.0 Presence of cardiac pacemaker; I89.0 Lymphedema, not elsewhere classified; G47.33 Obstructive sleep apnea (adult) (pediatric); M19.90 Unspecified osteoarthritis, unspecified site; I87.8 Other specified disorders of veins; Z96.641 Presence of right artificial hip joint; Z79.899 Other long term (current) drug therapy; Z82.5 Family history of asthma and other chronic lower respiratory diseases; Z82.49 Family history of ischemic heart disease and other diseases of the circulatory system; Z80.0 Family history of malignant neoplasm of digestive organs
CPT/HCPCS: 36415; 71046; 80048; 80053; 81003; 81015; 83605; 83880; 84484; 85025; 85610; 85730; 86140; 87040; 87077; 87086; 87186; 93005; 99285; A9270-GY; J1644; J2270; J2543; J3370

== ENCOUNTER 2017-12-01 16:24 | Inpatient (IN) | payer OTHER ==
[2017-12-01] MEDS ORDERED: NS 0.9% 1000 ML* 1,000 ML IV ONE (16:45)
[2017-12-01] MEDS ORDERED: Acetaminophen TAB* 325 MG PO ONE (16:46)
--- NOTE | 2017-12-01 16:47 | ED ---
HPI Febrile Illness - HPI Summary HPI Summary: The pt is a 66 y/o female with MHx of lymphedema [place] [facility] [place]/o a low grade fever since this afternoon. She was supposed to get a pump for her lymphedema today but her nurse did not deliver it. She notes LLE edema, occasional productive cough, and fatigue but denies CP, SOB, abd pain, and sore throat. The sx are similar to an episode she had on 11/03/2017. - History of Current Complaint Chief Complaint: EDFever Time Seen by Provider: 12/01/17 16:36 Hx Obtained From: Patient Onset/Duration: Started Hours Ago - Today afternoon, Still Present Timing: Constant Current Severity: None Pain Intensity: 0 Pain Scale Used: 0-10 Numeric Associated Signs and Symptoms: Negative - Sore throat,CP, SOB, abd pain, Cough, Leg Swelling, Other: - Positive: Fatigue - Additional Pertinent History Primary Care Physician: KAJAL - Allergy/Home Medications Allergies/Adverse Reactions: Allergies Allergy/AdvReac Type Severity Reaction Status Date / Time No Known Drug Allergies Allergy See Comment Verified 12/01/17 16:33 PMH/Surg Hx/FS Hx/Imm Hx Previously Healthy: No Endocrine/Hematology History: Denies: Hx Anticoagulant Therapy, Hx Diabetes Cardiovascular History: Reports: Hx Pacemaker/ICD, Hx Peripheral Vascular Disease - BILATERAL VARICOSE VEINS, Other Cardiovascular Problems/Disorders - Lymphedema Denies: Hx Hypertension Respiratory History: Reports: Hx Chronic Bronchitis GI History: Reports: Hx Gastroesophageal Reflux Disease - OCCASIONAL ACID REFLUX History: Denies: Hx Renal Disease Musculoskeletal History: Reports: Hx Arthritis - OSTEOARTHRITIS IN RIGHT HIP ( REPLACED) 12/2013 @ [facility] Sensory History: Reports: Hx Contacts or Glasses Denies: Hx Hearing Aid, Hx Hearing Problem Opthamlomology History: Reports: Hx Contacts or Glasses Neurological History: Reports: Other Neuro Impairments/Disorders - RESTLESS LEG SYNDROME - on medication Psychiatric History: Denies: Hx Panic Disorder - Surgical History Surgery Procedure, Year, and Place: 07/2014 [place] [facility] [place]2013 [place] replacement, [facility]. 05/23/14 [place] [facility] [place] [place] BRE[place] [facility] [place] [place] Anesthesia Reactions: No - Immunization History Date of Tetanus Vaccine: unk Date of Influenza Vaccine: fall 2016 Infectious Disease History: No Infectious Disease History: Denies: Hx Clostridium Difficile, Hx Hepatitis, Hx Human Immunodeficiency Virus (HIV), Hx of Known/Suspected MRSA, Hx Shingles, Hx Tuberculosis, Traveled Outside the [place] in Last 30 Days - Family History Known Family History: Negative: Seizure Disorder - Social History Occupation: Retired Lives: With Family Alcohol Use: Occasionally Alcohol Amount: FEW DRINKS/YEAR Hx Substance Use: No Substance Use Type: Reports: None Hx Tobacco Use: No Smoking Status (MU): Never Smoked Tobacco Have You Smoked in the Last Year: No Review of Systems Positive: Fever, Fatigue Negative: Sore Throat Negative: Chest Pain Positive: Cough. Negative: Shortness Of Breath Positive: Edema - LLE All Other Systems Reviewed And Are Negative: Yes Physical Exam - Summary Physical Exam Summary: Appearance: Well appearing, no pain distress; obese Skin: warm, dry, reflects adequate perfusion; dry mucous membranes Head/face: normal Eyes: EOMI, MELECIO ENT: normal Neck: supple, non-tender Respiratory: CTA, breath sounds present Cardiovascular: RRR, pulses symmetrical Abdomen: non-tender, soft Bowel: present Musculoskeletal: normal, strength/ROM intact Neuro: normal, sensory motor intact, A&Ox3 Triage Information Reviewed: Yes Vital Signs On Initial Exam: Initial Vitals Temp Pulse Resp BP Pulse Ox 103.2 F 80 16 146/54 92 12/01/17 16:29 12/01/17 16:29 12/01/17 16:29 12/01/17 16:29 12/01/17 16:29 Vital Signs Reviewed: Yes Diagnostics - Vital Signs Vital Signs Temp Pulse Resp BP Pulse Ox 12/01/17 16:29 103.2 F 80 16 146/54 92 - Laboratory Result Diagrams: 12/01/17 17:12 12/01/17 17:12 Lab Statement: Any lab studies that have been ordered have been reviewed, and results considered in the medical decision making process. - Radiology CXR Radiology Interpretation Completed By: Radiologist - IMPRESSION: #. Mild pulmonary vascular congestion. The ED physician reviewed this radiology report. - EKG 16:54 Cardiac Rate: NL - 78 bpm EKG Rhythm: Sinus Rhythm EKG Interpretation: No acute changes Course/Dx - Course Course Of Treatment: A 66-year-old F presents to the ED with a CC of a low grade fever since this afternoon. She was supposed to get a pump for her lymphedema today but her nurse did not deliver it. She notes LLE edema, occasional productive cough, and fatigue but denies CP, SOB, abd pain, and sore throat. The sx are similar to an episode she had on 11/03/2017. A physical exam revealed dry mucous membranes and an obese appearance. A CXR mild pulmonary vascular congestion. An EKG is unremarkable. In the ED course, pt was given Acetaminophen 975mg PO and 1000ml N.s 0.9% IV which improved the symptoms. I discussed the care of the pt with Dr. Salina Jackson MD who agreed to admit her. The Patient will be admitted with a final Dx of fever and sepsis. The pt is agreeable with this plan. Allergies noted. abx not started and waiting for ua and will give abx after that. - Febrile Illness Differential Diagnoses: Bacteremia, Pneumonia, Sepsis - Diagnoses Provider Diagnoses: Sepsis, Fever, Septic shock - Provider Notifications Discussed Care Of Patient With: Ronny Downing - Hospitalist Time Discussed With Above Provider: 18:00 Instructed by Provider To: Admit As Inpatient - Critical Care Time Critical Care Time: 30-74 min Discharge - Sign-Out/Discharge Documenting (check all that apply): Patient Departure - Admit - Discharge Plan Condition: Improved Disposition: ADMITTED TO [facility] Referrals: Sofia Taylor MD [Primary Care Provider] - - Billing Disposition and Condition Condition: IMPROVED Disposition: Admitted to [facility] - Attestation Statements Document Initiated by Scribe: Yes Documenting Scribe: Mayela Quezada Provider For Whom Scribe is Documenting (Include Credential): Dr. Geoffrey Puente MD Scribe Attestation: Mayela Valdez, scribed for Dr. Geoffrey Puente MD on 12/01/17 at 2142. Scribe Documentation Reviewed: Yes Provider Attestation: The documentation as recorded by the Mayela wiley accurately reflects the service I personally performed and the decisions made by me, Dr. Geoffrey Puente MD
[2017-12-01 17:32] LABS: ABS Basophils 0.1 10^3/ul (0-0.2); ABS Eosinophils 0.3 10^3/ul (0-0.6); ABS Lymphocytes 0.9 10^3/ul (1.0-4.8); ABS Monocytes 0.8 10^3/ul (0-0.8); ABS Neutrophils 19.6 10^3/ul (1.5-7.7); ABS Nucleated RBC 0 10^3/ul; Eosinophil % 1.3 % (0-6); Hematocrit 39 % (35-47); Hemoglobin 12.7 g/dl (12.0-16.0); Lymphocyte % 4.2 % (25-47); Mean Corpuscular HGB Conc 33 g/dl (31-36); Mean Corpuscular Hemoglobin 29 pg (27-31); Mean Corpuscular Volume 88 fL (80-97); Mean Platelet Volume 7.5 um3 (7.4-10.4); Nucleated Red Blood Cells % 0; Platelet Count 297 10^3/ul (150-450); Red Cell Distribution Width 16 % (10.5-15); White Blood Count 21.8 10^3/ul (3.5-10.8)
--- NOTE | 2017-12-01 17:35 | RAD ---
Indication: Fever. Comparison: November 03, 2017 Technique: Upright AP 1656 hours Report: Cardiomegaly, RIGHT atrial and RIGHT ventricular level pacemaker leads. Mild prominence of the central pulmonary vasculature. Mild prominence of the interstitial markings. Otherwise grossly clear lungs and pleural spaces. Negative for pneumothorax. IMPRESSION: #. Mild pulmonary vascular congestion.
[2017-12-01 17:55] LABS: INR 0.98 (0.77-1.02)
[2017-12-01 17:56] LABS: EGFR Non-African American 64.7 (>60)
--- NOTE | 2017-12-01 20:53 | HP ---
H&P (Free Text) History and Physical: PCP: Niranjan Taylor MD Infectious Disease: Misael Hernandez MD Date/Time: 12/01/20171944 CC: fever HPI: Mrs Gallardo is a 66YO female HX BLE lymphedema, RADHAMES, hypothyroidism who presents from home after 2 days of fatigue and onset of fever to 101F at home this afternoon around 1400. She denies rigors, cough, chest congestion, rash, skin tenderness or redness, change in bowel/bladder, headache, abdominal pain, or other issues. She was admitted to [facility] [place]03[place]2017 with sepsis 2nd RLE cellulitis, but does not have any recurrent symptoms of this. While awaiting results of influenza swab in ED her pressures became soft with a manual systolic in the 80s. As such, regardless of influenza status, will admit for further evaluation. PMedHx, PSurgHx, SocHx, & FamHx: reviewed & unchanged compared to H&P dated , copied below ROS: as above, otherwise reviewed and all were negative vitals: Vital Signs Temp 39.6 C 12/01/17 16:29 Pulse 78 12/01/17 17:46 Resp 23 12/01/17 17:46 BP 110/49 12/01/17 17:46 Pulse Ox 94 12/01/17 17:46 Intake & Output 11/30/17 12/01/17 12/01/17 23:59 11:59 23:59 Weight 124.284 kg Constitutional: NAD, normally developed, morbidly obese white female HEENM: atraumatic; sclera/conjunctiva: anicteric/clear; hearing: clinically intact; oropharynx: clear, mucosa moist Neck: soft tissue: no nuchal rigidity; thyroid: normal Pulmonary: clear to auscultation bilaterally, good aeration, no accessory muscle use CV: RR/RR, normal S1S2, no carotid bruit, no jugular venous distention, 2+ B DP/ PT, 3+ brauny edema Abdominal: soft, non-distended, non-tender, no rebound/guarding/rigidity, normoactive bowel sounds, no hepatosplenomegaly or masses, no costovertebral angle tenderness Musculoskeletal: general: grossly intact, non-tender Integumental: no warmth, edema, or tenderness of either LE Psychiatric orientation: AA&O to PPS affect: calm mood: cooperative eye contact: fair content: reliable responses: timely insight: fair to good Testing: Lab Results 12/01/17 12/01/17 12/01/17 Range/Units 17:12 17:12 17:12 WBC 21.8 H (3.5-10.8) 10^3/ul RBC 4.40 (4.00-5.40) 10^6/ul Hgb 12.7 (12.0-16.0) g/dl Hct 39 (35-47) % MCV 88 (80-97) fL MCH 29 (27-31) pg MCHC 33 (31-36) g/dl RDW 16 H (10.5-15) % Plt Count 297 (150-450) 10^3/ul MPV 7.5 (7.4-10.4) um3 Neut % (Auto) 90.0 H (38-83) % Lymph % (Auto) 4.2 L (25-47) % Kingsbury % (Auto) 3.9 (0-7) % Eos % (Auto) 1.3 (0-6) % Baso % (Auto) 0.6 (0-2) % Absolute Neuts (auto) 19.6 H (1.5-7.7) 10^3/ul Absolute Lymphs (auto) 0.9 L (1.0-4.8) 10^3/ul Absolute Monos (auto) 0.8 (0-0.8) 10^3/ul Absolute Eos (auto) 0.3 (0-0.6) 10^3/ul Absolute Basos (auto) 0.1 (0-0.2) 10^3/ul Absolute Nucleated RBC 0 10^3/ul Nucleated RBC % 0 INR (Anticoag Therapy) 0.98 (0.77-1.02) APTT 28.8 (26.0-36.3) seconds Sodium 138 (135-145) mmol/L Potassium 4.5 (3.5-5.0) mmol/L Chloride 104 (101-111) mmol/L Carbon Dioxide 27 (22-32) mmol/L Anion Gap 7 (2-11) mmol/L BUN 20 (6-24) mg/dL Creatinine 0.88 (0.51-0.95) mg/dL Est GFR ( Amer) 78.3 (>60) Est GFR (Non-Af Amer) 64.7 (>60) BUN/Creatinine Ratio 22.7 H (8-20) Glucose 122 H (70-100) mg/dL Lactic Acid (0.5-2.0) mmol/L Calcium 9.7 (8.6-10.3) mg/dL Total Bilirubin 0.50 (0.2-1.0) mg/dL AST 10 L (13-39) U/L ALT 10 (7-52) U/L Alkaline Phosphatase 100 (34-104) U/L Troponin I 0.01 (<0.04) ng/mL Total Protein 7.8 (6.4-8.9) g/dL Albumin 4.0 (3.2-5.2) g/dL Globulin 3.8 (2-4) g/dL Albumin/Globulin Ratio 1.1 (1-3) 12/01/17 Range/Units 17:12 WBC (3.5-10.8) 10^3/ul RBC (4.00-5.40) 10^6/ul Hgb (12.0-16.0) g/dl Hct (35-47) % MCV (80-97) fL MCH (27-31) pg MCHC (31-36) g/dl RDW (10.5-15) % Plt Count (150-450) 10^3/ul MPV (7.4-10.4) um3 Neut % (Auto) (38-83) % Lymph % (Auto) (25-47) % Kingsbury % (Auto) (0-7) % Eos % (Auto) (0-6) % Baso % (Auto) (0-2) % Absolute Neuts (auto) (1.5-7.7) 10^3/ul Absolute Lymphs (auto) (1.0-4.8) 10^3/ul Absolute Monos (auto) (0-0.8) 10^3/ul Absolute Eos (auto) (0-0.6) 10^3/ul Absolute Basos (auto) (0-0.2) 10^3/ul Absolute Nucleated RBC 10^3/ul Nucleated RBC % INR (Anticoag Therapy) (0.77-1.02) APTT (26.0-36.3) seconds Sodium (135-145) mmol/L Potassium (3.5-5.0) mmol/L Chloride (101-111) mmol/L Carbon Dioxide (22-32) mmol/L Anion Gap (2-11) mmol/L BUN (6-24) mg/dL Creatinine (0.51-0.95) mg/dL Est GFR ( Amer) (>60) Est GFR (Non-Af Amer) (>60) BUN/Creatinine Ratio (8-20) Glucose (70-100) mg/dL Lactic Acid 1.4 (0.5-2.0) mmol/L Calcium (8.6-10.3) mg/dL Total Bilirubin (0.2-1.0) mg/dL AST (13-39) U/L ALT (7-52) U/L Alkaline Phosphatase (34-104) U/L Troponin I (<0.04) ng/mL Total Protein (6.4-8.9) g/dL Albumin (3.2-5.2) g/dL Globulin (2-4) g/dL Albumin/Globulin Ratio (1-3) ECG, personally reviewed: NSR rate 78, T-wave inverted in III CXR, personally reviewed: IMPRESSION: Mild pulmonary vascular congestion. Impression: 66F presenting with sepsis (fever & leukocytosis) of uncertain origin DIAGNOSIS & PLAN Primary sepsis with unknown source, UA consistent w/ infection : blood & urine CXs : IVF bolus 30mg/kg : give single dose piperacillin/tazobactam : check rapid influenza : monitor WBC & temp curves : supportive care Secondary chronic BLE lymphedema : no acute issues RADHAMES : not on CPAP hypothyroidism : continue levothyroxine Arnold-Chiari malformation type 1 : no acute issues Admission Rational: Inpatient as without the above interventions the risk of impending adverse outcome is unacceptably high; inappropriate for the outpatient setting DVTp: SCDs & heparin SQ Code Status: full HCP: Kamari martins Critical Care time: 55minutes with >50% spent at the bedside obtaining a history , performing the examination, advising of diagnosis & treatment options along with risks/benefits/reasoning; remainder spent discussing with ER MD, reviewing labs and radiology exams, performing documentation History & Physical Patient: MEAGHAN GALLARDO /Age: 10 1950 66 Admission Date: 11/04/17 Provider: Ingrid Mai MD CC: Dr. Taylor, Dr. Hernandez; [facility] HISTORY AND PHYSICAL: DATE OF ADMISSION: 11/03/17 PRIMARY CARE PROVIDER: Dr. Taylor. CHIEF COMPLAINT: Fever and generalized weakness. HISTORY OF PRESENT ILLNESS: Meaghan Gallardo is a 66-year-old female with history of morbid obesity and BMI above 45 as well as chronic lymphedema with recurrent cellulitis in bilateral lower extremities due to lymphedema, who presented to the hospital complaining of fever. She came in with a fever of 105 degrees and chills. The patient stated that she had seen Dr. Hernandez in the past and started clindamycin for suppression of her recurrent leg infections, but she got diarrhea from it and she discontinued the antibiotic. Currently, she is undergoing evaluation and treatment in the wound care center at [facility]. The patient herself did not notice any worsening of chronic redness in bilateral lower extremities. She denies any worsening pain in the bilateral lower extremities. She denies any urinary symptoms. The patient appears to have sepsis due to cellulitis. Again, she is going to be placed for overnight observation. PAST MEDICAL HISTORY: 1. Morbid obesity with BMI above 45. 2. Chronic bilateral lymphedema with recurrent right lower extremity cellulitis. 3. History of obstructive sleep apnea, currently untreated. 4. History of sick sinus syndrome, status post pacemaker placement. 5. Hypothyroidism. 6. Restless legs syndrome. 7. Osteoarthritis. 8. History of right total hip arthroplasty. 9. Lumpectomy of the left breast. 10. History of bilateral vein stripping of lower extremities. MEDICATIONS AT HOME: Include: 1. Torsemide 20 mg daily. 2. Requip 0.5 mg every 8 hours. 3. Potassium chloride 20 mEq b.i.d. 4. Lisinopril 2.5 mg daily. 5. Levothyroxine 25 mcg daily. 6. Lansoprazole 15 mg daily. ALLERGIES: No known drug allergies. FAMILY HISTORY: Positive for mother with pulmonary fibrosis and heart failure. Father with history of colon cancer SOCIAL HISTORY: The patient denies any tobacco, alcohol, or drug use. Her healthcare proxy is her brother, Kamari. REVIEW OF SYSTEMS: The patient stated she lost approximately 20 pounds in the past 6 months. She has had problems with left lower extremity wounds that had been under care of our wound care center. She stated that for the past several days she had been feeling somewhat weak and she did not feel like drinking enough of fluid and she blames herself for "causing the infection" because of not drinking enough. All the remaining 12 systems were reviewed with the patient and were otherwise negative. PHYSICAL EXAMINATION VITAL SIGNS: Blood pressure of 99/49, respiratory rate 20, oxygen saturation 92 % on 2 L of oxygen nasal cannula, temperature of 98.9 currently, once again it was 105.2 at its maximum today. HEENT: Head: Atraumatic, normocephalic. Eyes: Pupils are equal and reactive to light and accommodation. Oropharynx clear. Mucosa moist. NECK: Supple. No JVD, no bruit bilaterally. RESPIRATORY: Clear to auscultation bilaterally. CARDIOVASCULAR: Regular rate and rhythm, no murmur. ABDOMEN: Soft, nontender. Bowel sounds present in all 4 quadrants. EXTREMITIES: There is bilateral lower extremities lymphedema that does not appear to be in exacerbation. Pulses 4+ bilaterally. There is no clubbing or cyanosis. SKIN: On evaluation of the skin, the patient has chronic venous stasis changes and brownish discoloration of skin of bilateral lower extremities from the level of the ankles to bilateral knees. There are chronic appearing shallow wounds covered with eschar on the anterior tibial aspect of the left lower extremity. There is chronic erythema surrounding the area. On the right side, the patient has what appears to be worsening of chronic erythema that also involves the foot, consistent with cellulitis. NEURO EVALUATION: Speech clear. Cranial nerves II through XII grossly intact. Motor strength is 5/5 bilaterally. PSYCHIATRIC EVALUATION: The patient is pleasant and cooperative with evaluation , comfortable, in no acute distress, oriented x3 with no evidence of anxiety or depression. DIAGNOSTIC STUDIES/LAB DATA: White blood cell count 28.7, hemoglobin of 12.3, hematocrit of 38, and platelets of 255. Sodium of 139, potassium 4.1, chloride 103, carbon dioxide 28, BUN 15, creatinine 1.13. Liver function test unremarkable. C-reactive protein elevated at 85.1. Lactic acid of 1. Urinalysis showed yellow and cloudy urine with +3 wbc's, +3 bacteria, and +2 rbc 's. Positive for nitrite. Portable chest x-ray "no radiographic evidence of acute cardiopulmonary disease." No infiltration. ASSESSMENT AND PLAN: 1. At this point, the patient's sepsis, that is present today, appears to be related to recurrent right lower extremity cellulitis with underlying lymphedema. The patient also has abnormal urinalysis, but she has no symptoms of UTI at this point. At this point, the patient is going to be continued with Zosyn that was started in the emergency department and if she does in fact have UTI, I suspect will be treated also with the same medication. At this point, it is possible that the patient may benefit from treatment with different antibiotic than clindamycin for suppression of her recurrent lymphedema as outpatient. The patient received IV fluid bolus in the emergency department. She is going to be placed on gentle intravenous hydration afterwards due to her history of needing diuretics in the past. Her lisinopril is going to be held. I will start her diuretic in the morning. 2. The patient has mild evidence of renal insufficiency today, which is new. I suspect this is sepsis and lisinopril is going to be held once again. Watch closely with her blood pressure fluctuating from 120 systolic to 99. 3. For DVT prophylaxis, the patient is going to be placed on heparin subcutaneously. 4. The patient's code status is full and her surrogate is her brother, Kmaari, as mentioned above. TIME SPENT: Approximately 65 minutes was spent on the admission of this patient , more than half that time was spent [id number] with the patient during the interview and physical exam. [id number]/[facility] #: [id number] <Electronically signed by Ingrid Mai MD> 11/04/172131 Ingrid Mai MD Dictated Date/Time: 11/03/172047 Transcribed Date/Time 11/03/17 224 CC: Dirk Hernandez MD; Ingrid Mai MD; Sofia Taylor MD
[2017-12-01] MEDS ORDERED: Acetaminophen TAB* 325 MG PO PRN (20:57)
[2017-12-01] MEDS ORDERED: Ondansetron ODT TAB* 4 MG PO PRN (20:57)
[2017-12-01] MEDS ORDERED: Melatonin 3 MG TAB PO PRN (20:57)
[2017-12-01] MEDS ORDERED: Piperacillin/Tazobac ADVAN(*) 3.375 GM in NS 0.9% 100 ML* 100 ML IVPB ONE (20:59)
[2017-12-01] MEDS: NS 0.9% 1000 ML* 1,000 ML IV SCH ×2 (21:00→22:46)
[2017-12-01] MEDS ORDERED: Lactated Ringers 1000 ml Bag*IV.FLUID IV ONE (21:22)
[2017-12-01 21:45] LABS: Urine Appearance Cloudy; Urine Blood Negative (Negative); Urine Color Yellow; Urine Ketones Negative (Negative); Urine Protein Negative (Negative); Urine Specific Gravity 1.017 (1.010-1.030); Urine Urobilinogen Negative (Negative)
[2017-12-01 21:48] LABS: Urine Red Blood Cell Trace(0-2/hpf) (Absent); Urine White Blood Cell 3+(>20/hpf) (Absent)
[2017-12-01] MEDS ORDERED: Vancomycin(*) 1,750 MG in NS 0.9% 500 ML* 500 ML IVPB ONE (22:00)
[2017-12-01] MEDS ORDERED: Ropinirole TAB* 0.5 MG TAB PO SCH (22:00)
[2017-12-01] MEDS ORDERED: Vancomycin(*) 1,000 MG VIAL IVPB SCH (22:00)
[2017-12-01] MEDS: Docusate CAP* 100 MG PO SCH (23:56)
[2017-12-02] MEDS: Heparin VIAL(*) 5000 UNITS/ML VIAL (FIVE THOUSAND) SUBCUT SCH ×3 (06:00→22:38)
[2017-12-02] MEDS: Levothyroxine TAB* 25 MCG TAB PO SCH (06:00)
[2017-12-02] MEDS ORDERED: Omeprazole CAP* 20 MG PO SCH (06:00)
[2017-12-02] MEDS: Lisinopril TAB* 5 MG PO SCH (08:19)
[2017-12-02] MEDS: Omeprazole CAP* 20 MG PO SCH (08:19)
[2017-12-02 08:22] LABS: ABS Basophils 0.1 10^3/ul (0-0.2); ABS Eosinophils 0.4 10^3/ul (0-0.6); ABS Lymphocytes 1.3 10^3/ul (1.0-4.8); ABS Monocytes 0.7 10^3/ul (0-0.8); ABS Neutrophils 11.5 10^3/ul (1.5-7.7); ABS Nucleated RBC 0 10^3/ul; Eosinophil % 2.5 % (0-6); Hematocrit 35 % (35-47); Hemoglobin 11.6 g/dl (12.0-16.0); Lymphocyte % 9.6 % (25-47); Mean Corpuscular HGB Conc 33 g/dl (31-36); Mean Corpuscular Hemoglobin 29 pg (27-31); Mean Corpuscular Volume 88 fL (80-97); Mean Platelet Volume 7.7 um3 (7.4-10.4); Nucleated Red Blood Cells % 0.1; Platelet Count 239 10^3/ul (150-450); Red Cell Distribution Width 16 % (10.5-15)
[2017-12-02] MEDS: Docusate CAP* 100 MG PO SCH ×2 (08:22→20:16)
--- NOTE | 2017-12-02 08:39 | PN ---
Subjective Date of Service: 12/02/17 Interval History: Feels better today close to baseline Denies chest pain, cough, N/V, LH, HOANG, urinary symptoms, leg pain, pain in other region +sinus congestion Objective Active Medications: Acetaminophen (Tylenol Tab*) 650 mg PO Q6H PRN PRN Reason: FEVER/PAIN Docusate Sodium (Colace Cap*) 200 mg PO BID [facility] Last Admin: 12/02/17 08:22 Dose: 200 mg Heparin Sodium (Porcine) (Heparin Vial(*)) 5,000 units SUBCUT Q8HR [facility] Last Admin: 12/02/17 06:00 Dose: 5,000 units Sodium Chloride (Ns 0.9% 1000 Ml*) 1,000 mls @ 0 mls/hr IV WIDE OPEN [facility] Stop: 12/02/17 21:01 Last Admin: 12/01/17 22:46 Dose: 1,000 mls/hr Levothyroxine Sodium (Synthroid Tab*) 25 mcg PO DAILY@0600 [facility] Last Admin: 12/02/17 06:00 Dose: 25 mcg Lisinopril (Prinivil Tab*) 2.5 mg PO DAILY [facility] Last Admin: 12/02/17 08:19 Dose: 2.5 mg Melatonin (Melatonin) 3 mg PO BEDTIME PRN; Protocol PRN Reason: Sleep Last Admin: 12/01/17 23:48 Dose: 3 mg Omeprazole (Prilosec Cap*) 20 mg PO DAILY@0730 [facility]; Protocol Last Admin: 12/02/17 08:19 Dose: 20 mg Ondansetron HCl (Zofran Odt Tab*) 4 mg PO Q6H PRN PRN Reason: n/v Ropinirole HCl (Requip Tab*) 1 mg PO QPM [facility] Last Admin: 12/01/17 23:48 Dose: 1 mg Vital Signs - 8 hr 12/02/17 12/02/17 03:11 07:24 Temperature 97.8 F 98.1 F Pulse Rate 58 59 Respiratory 16 14 Rate Blood Pressure 102/50 112/51 (mmHg) O2 Sat by Pulse 96 95 Oximetry Oxygen Devices in Use Now: None Appearance: sitting up in bed, NAD Eyes: No Scleral Icterus, PERRLA Ears/Nose/Mouth/Throat: NL Teeth, Lips, Gums, Clear Oropharnyx Neck: NL Appearance and Movements; NL JVP, Trachea Midline Respiratory: Symmetrical Chest Expansion and Respiratory Effort, Clear to Auscultation Cardiovascular: RRR, - - soft 2/6 holosystolic murmur throught precordium Abdominal: NL Sounds; No Tenderness; No Distention, No Hepatosplenomegaly Extremities: - - b/l LE extensive non-pitting edema, no pain on palpation or movement of hips Skin: - - non-tender erythema b/l lower pre tibial region without warmth Neurological: Alert and Oriented x 3 Result Diagrams: 12/02/17 08:12 12/01/17 17:12 Microbiology and Other Data: Microbiology 12/01/17 21:58 Influenza Types A,B Antigen - Final Nasopharyngeal Specimen received for Influenza A/B Molecular testing Assess/Plan/Problems-Billing Assessment: 66 yo F h/o lymphedema, RADHAMES, hypothyroidism recent short admission 11/04 with high fever/leukocytosis that resolved rapidly thought in setting of LE cellulitis now returning with similar symptoms - Patient Problems (1) Fever Comment: No source of infx Procalcitonin low CRP and ESR added to ED labs cultures are pending c/w zosyn until cultures return dc fluids (2) Lymphedema Comment: follows with wound care in process of getting new compression stockings for LE (3) Hypothyroidism Comment: TSH 3.43 on 05/22/17. recheck TSH now Continue current levothyroxine dose. (4) DVT prophylaxis Comment: HSQ
[2017-12-02 08:40] LABS: EGFR Non-African American 75.5 (>60)
[2017-12-02] MEDS ORDERED: Piperacillin/Tazobac ADVAN(*) 3.375 GM in NS 0.9% 100 ML* 100 ML IVPB ONE (08:45)
[2017-12-02] MEDS ORDERED: Zosyn per Pharmacy* NOTE FOLLOW UP SCH (09:00)
[2017-12-02] MEDS: ZOSYN 3.375 GM Q8H per EXTENDED INFUSION IVPB SCH ×4 (15:45→22:38)
[2017-12-02] MEDS: Ropinirole TAB* 0.5 MG TAB PO SCH ×2 (15:53→20:16)
[2017-12-03] MEDS: Heparin VIAL(*) 5000 UNITS/ML VIAL (FIVE THOUSAND) SUBCUT SCH (05:48)
[2017-12-03] MEDS: ZOSYN 3.375 GM Q8H per EXTENDED INFUSION IVPB SCH ×2 (05:48)
[2017-12-03] MEDS: Levothyroxine TAB* 25 MCG TAB PO SCH (05:48)
[2017-12-03 06:49] LABS: ABS Basophils 0.1 10^3/ul (0-0.2); ABS Eosinophils 0.6 10^3/ul (0-0.6); ABS Lymphocytes 1.8 10^3/ul (1.0-4.8); ABS Monocytes 0.7 10^3/ul (0-0.8); ABS Neutrophils 7.9 10^3/ul (1.5-7.7); ABS Nucleated RBC 0 10^3/ul; Eosinophil % 5.4 % (0-6); Hematocrit 36 % (35-47); Lymphocyte % 16.4 % (25-47); Mean Corpuscular HGB Conc 33 g/dl (31-36); Mean Corpuscular Hemoglobin 29 pg (27-31); Mean Corpuscular Volume 87 fL (80-97); Mean Platelet Volume 7.5 um3 (7.4-10.4); Nucleated Red Blood Cells % 0; Platelet Count 246 10^3/ul (150-450); Red Blood Count 4.16 10^6/ul (4.00-5.40); Red Cell Distribution Width 16 % (10.5-15)
[2017-12-03 07:09] LABS: EGFR Non-African American 72.2 (>60)
[2017-12-03 07:56] VITALS: BP 153/113
[2017-12-03] MEDS: Ropinirole TAB* 0.5 MG TAB PO SCH (08:04)
[2017-12-03] MEDS: Docusate CAP* 100 MG PO SCH (08:04)
[2017-12-03] MEDS: Lisinopril TAB* 5 MG PO SCH (08:04)
[2017-12-03] MEDS: Omeprazole CAP* 20 MG PO SCH (08:05)
--- NOTE | 2017-12-04 00:39 | DS ---
CC: Dr. Taylor * DISCHARGE SUMMARY: DATE OF ADMISSION: 12/01/17 DATE OF DISCHARGE: 12/03/17 PRIMARY CARE PHYSICIAN: Dr. Taylor. PRIMARY DIAGNOSIS: Sepsis suspected secondary to urinary tract infection. SECONDARY DIAGNOSES: Include: 1. Chronic bilateral lower extremity lymphedema. 2. Obstructive sleep apnea. 3. Hypothyroidism. 4. Restless leg syndrome. MEDICATIONS ON DISCHARGE: 1. Ropinirole 0.5 mg to 1.5 mg per day in divided doses. 2. Torsemide 20 mg daily. 3. Potassium chloride 20 mEq twice daily. 4. Lisinopril 2.5 mg daily. 5. Levothyroxine 25 mcg daily. 6. Prevacid 50 mg daily. 7. Ciprofloxacin 500 mg twice daily for six additional days. PERTINENT IMAGING STUDIES: Chest x-ray. Impression: Mild pulmonary vascular congestion. PERTINENT MICROBIOLOGY: Urine culture is positive for E. Coli greater than 100, 000 colony count izaguirre-sensitive to all antibiotics tested. PERTINENT LABORATORY DATA: White blood cell count on presentation 21.8, decreased to 11 on day of discharge. ESR is 48. CRP is 62. Procalcitonin less than 0.1. TSH 1.56. Serology negative for influenza A and B. HISTORY OF PRESENT ILLNESS AND HOSPITAL COURSE: This is a 66-year-old female with a past medical history as outlined in the history of present illness on day of admission, presented to the hospital with two days of fatigue as well as fevers at home. Her max temperature in the hospital stay was 103.2 on presentation and was also her only fever during the course of the hospital stay. Her blood pressure was noted to drop to systolic 77/54 prior to admission. She was treated with fluid resuscitation and started on Zosyn alone and admitted to the hospital. Of note, the patient also was admitted on with similar presentation of high fever, treated briefly for 24 hours with antibiotics and discharged after urinary culture returned positive for Klebsiella pneumonia. She has been asymptomatic and herself over the last month in the intercurrent time. She denies dysuria, urinary frequency or hesitancy which she has historically had with urinary tract infections, but did not have with this episode nor on her previous hospital stay. She was treated with Zosyn during this hospital stay alone with rapid resolution of her leukocytosis, no additional fevers other than on presentation and improvement in her symptomatology. No other etiology of infection was identified. On previous hospital stay, it was thought she had lower extremity cellulitis in the setting of her lymphedema; however, no evidence of cellulitis on this hospital stay. She believes her legs look better than at baseline. Although E. Coli was identified in the urine, it is unclear to this author whether it ultimately was the source of her presentation in the absence of urinary symptoms. She does have two consecutive presentations very similar to each other that resolved very rapidly. I believe she presented again with similar symptoms including high fever, source identified as in the urine. She would warrant further interrogation of urinary system including urodynamic testing. On the day of discharge, the patient felt back to her baseline with no specific complaints. At followup, please: 1. Evaluate for continued resolution of symptoms on ciprofloxacin. 2. Consider additional interrogation of urinary system in the setting of two positive urinary cultures in one month's time. 3. No other specific labs or vitals that need followup. Reasons to return to the hospital including but not limited to, recurrent or worsening symptoms including fevers, chills, night sweats, chest pain, shortness of breath, nausea, vomiting, lightheadedness, or loss of consciousness or near loss of consciousness, urinary symptoms, inability to obtain or tolerate medications were discussed with the patient, and she acknowledged understanding. TIME SPENT: Greater than 45 minutes were spent on the discharge of this patient , greater than half was spent [id number] with the patient. [id number]/[facility] #: [id number] MTDD
== END 2017-12-03 11:45 | disposition home or self-care (01) | DRG 720 ==
LOC: ED 16:24 → MED 21:59
PROVIDERS: ADMIT Hospitalist; ATTEND Internal Medicine
DX: A41.9 Sepsis, unspecified organism (principal); G93.5 Compression of brain; N39.0 Urinary tract infection, site not specified; Z68.42 Body mass index [BMI] 45.0-49.9, adult; B96.20 Unspecified Escherichia coli [E. coli] as the cause of diseases classified elsewhere; I89.0 Lymphedema, not elsewhere classified; G47.33 Obstructive sleep apnea (adult) (pediatric); E03.9 Hypothyroidism, unspecified; G25.81 Restless legs syndrome; E66.01 Morbid (severe) obesity due to excess calories; I49.5 Sick sinus syndrome; M19.90 Unspecified osteoarthritis, unspecified site; Z96.641 Presence of right artificial hip joint; Z95.0 Presence of cardiac pacemaker; Z79.899 Other long term (current) drug therapy; Z82.5 Family history of asthma and other chronic lower respiratory diseases; Z82.49 Family history of ischemic heart disease and other diseases of the circulatory system; Z80.0 Family history of malignant neoplasm of digestive organs
CPT/HCPCS: 36415; 71045; 80048; 80053; 81003; 81015; 83605; 84145; 84443; 84484; 85025; 85610; 85652; 85730; 86140; 87040; 87077; 87086; 87186; 93005; 99285; A9270-GY; J1644; J2543; J3370

== ENCOUNTER 2017-12-29 12:56 | Observation (INO) | payer MEDICARE, OTHER ==
[2017-12-29] MEDS ORDERED: Acetaminophen TAB* 325 MG ONE (13:46)
[2017-12-29] MEDS ORDERED: Acetaminophen TAB* 325 MG PO ONE (13:54)
[2017-12-29] MEDS ORDERED: NS 0.9% 1000 ML*IV.FLUID IV ONE (15:04)
[2017-12-29] MEDS ORDERED: cefTRIAXone(*) 1 GM in NS 0.9% 50 ML* 50 ML IVPB ONE (15:06)
--- NOTE | 2017-12-29 15:22 | ED ---
HPI Febrile Illness - HPI Summary HPI Summary: Patient is a 67-year-old female who presents emergency department for fever and chills that started today. Patient states she has a history of recurrent UTIs. She states she has been hospitalized twice over the last 6 months for high fevers and possible UTI. Patient denies headache, neck pain, chest pain, shortness of breath, abdominal pain, vomiting, diarrhea, rash, urinary symptoms. Past medical history of CHF, general hyperplasia, hypothyroidism, lymphedema, pacemaker. Symptoms are moderate in severity. No current modifying factors. - History of Current Complaint Chief Complaint: EDFever Time Seen by Provider: 12/29/17 15:04 Hx Obtained From: Patient Pain Intensity: 6 - Additional Pertinent History Primary Care Physician: KAJAL - Allergy/Home Medications Allergies/Adverse Reactions: Allergies Allergy/AdvReac Type Severity Reaction Status Date / Time No Known Drug Allergies Allergy See Comment Verified 12/29/17 13:43 PMH/Surg Hx/FS Hx/Imm Hx Previously Healthy: Yes Endocrine/Hematology History: Denies: Hx Anticoagulant Therapy, Hx Diabetes Cardiovascular History: Reports: Hx Pacemaker/ICD, Hx Peripheral Vascular Disease - BILATERAL VARICOSE VEINS, Other Cardiovascular Problems/Disorders - Lymphedema Denies: Hx Hypertension Respiratory History: Reports: Hx Chronic Bronchitis GI History: Reports: Hx Gastroesophageal Reflux Disease - OCCASIONAL ACID REFLUX History: Denies: Hx Renal Disease Musculoskeletal History: Reports: Hx Arthritis - OSTEOARTHRITIS IN RIGHT HIP ( REPLACED) 12/2013 @ [facility] Sensory History: Reports: Hx Contacts or Glasses Denies: Hx Hearing Aid, Hx Hearing Problem Opthamlomology History: Reports: Hx Contacts or Glasses Neurological History: Reports: Other Neuro Impairments/Disorders - RESTLESS LEG SYNDROME - on medication Psychiatric History: Denies: Hx Panic Disorder - Surgical History Surgery Procedure, Year, and Place: 07/[place] [facility] [place]2013 Right hip replacement, [facility]. 05/23/14 [place] [facility] [place] [facility] [place]x Anesthesia Reactions: No - Immunization History Date of Tetanus Vaccine: unk Date of Influenza Vaccine: fall 2016 Infectious Disease History: No Infectious Disease History: Denies: Hx Clostridium Difficile, Hx Hepatitis, Hx Human Immunodeficiency Virus (HIV), Hx of Known/Suspected MRSA, Hx Shingles, Hx Tuberculosis, Traveled Outside the [place] in Last 30 Days - Family History Known Family History: Negative: Seizure Disorder - Social History Alcohol Use: Occasionally Alcohol Amount: FEW DRINKS/YEAR Hx Substance Use: No Substance Use Type: Reports: None Hx Tobacco Use: No Smoking Status (MU): Never Smoked Tobacco Have You Smoked in the Last Year: No Review of Systems Positive: Fever, Chills Eyes: Negative ENT: Negative Cardiovascular: Negative Negative: Palpitations, Chest Pain Positive: Cough - intermittent, mild. Negative: Shortness Of Breath Gastrointestinal: Negative Negative: Abdominal Pain, Vomiting, Diarrhea, Nausea Genitourinary: Negative Negative: burning, frequency, flank pain Skin: Negative Neurological: Negative All Other Systems Reviewed And Are Negative: Yes Physical Exam Triage Information Reviewed: Yes Vital Signs On Initial Exam: Initial Vitals Temp Pulse Resp BP Pulse Ox 104.4 F 88 20 125/40 95 12/29/17 13:33 12/29/17 13:33 12/29/17 13:33 12/29/17 13:33 12/29/17 13:33 Vital Signs Reviewed: Yes Appearance: Positive: Well-Appearing - Patient sitting up in bed in no acute distress. Family member present. Skin: Positive: Warm, Dry, Other - Chronic skin changes to lower legs without wounds Head/Face: Positive: Normal Head/Face Inspection Eyes: Positive: Normal, EOMI ENT: Positive: Pharynx normal, TMs normal Neck: Positive: Supple, Nontender. Negative: Nuchal Rigidity Respiratory/Lung Sounds: Positive: Clear to Auscultation, Breath Sounds Present. Negative: Rales, Rhonchi, Wheezes Cardiovascular: Positive: Normal, RRR Abdomen Description: Positive: Nontender, Soft. Negative: CVA Tenderness (R), CVA Tenderness (L) Musculoskeletal: Positive: Normal, Strength/ROM Intact Neurological: Positive: Normal, CN Intact II-III Psychiatric: Positive: Affect/Mood Appropriate Diagnostics - Vital Signs Vital Signs Temp Pulse Resp BP Pulse Ox 12/29/17 13:33 104.4 F 88 20 125/40 95 - Laboratory Result Diagrams: 12/29/17 15:39 12/29/17 15:39 Lab Statement: Any lab studies that have been ordered have been reviewed, and results considered in the medical decision making process. Course/Dx - Course Course Of Treatment: Patient presenting with complaints of fever. Initial temperature was 104.4F, patient received Tylenol in triage and fever is reducing. Her exam is relatively unremarkable. Rest of her vital signs are stable. Given history of UTIs, empirically give Rocephin. Septic workup ordered. CBC shows a leukocytosis of 24,000. CMP unremarkable. Negative flu. Chest x-ray negative for pneumonia. Urinalysis is contaminated and shows trace WBCs and bacteria. I spoke with NURSERY SUPERVISOR hosipitalist and pt. will be admitted for further evalution and antibx. - Febrile Illness Differential Diagnoses: Abd. Infection, Abscess, Bacteremia, Cellulitis, Pneumonia, Pyelonephritis, Sepsis - Diagnoses Provider Diagnoses: Fever, Leukocytosis Discharge - Sign-Out/Discharge Documenting (check all that apply): Patient Departure - Discharge Plan Condition: Stable Disposition: ADMITTED TO [facility] Referrals: Sofia Taylor MD [Primary Care Provider] - - Billing Disposition and Condition Condition: STABLE Disposition: Admitted to [facility]
--- NOTE | 2017-12-29 15:34 | RAD ---
HISTORY: fever COMPARISONS: December 01, 2017 VIEWS: 1: frontal AP view of the chest at 3:14 PM FINDINGS: LINES AND TUBES: A left-sided pacemaker is noted. CARDIOMEDIASTINAL SILHOUETTE: The cardiomediastinal silhouette is stable. PLEURA: The costophrenic angles are sharp. No pleural abnormalities are noted. LUNG PARENCHYMA: The lung volumes are low. The lungs are clear accounting for the phase of respiration. ABDOMEN: The upper abdomen is clear. There is no subphrenic gas. BONES AND SOFT TISSUES: No bone or soft tissue abnormalities are noted. IMPRESSION: LOW LUNG VOLUMES. NO ACTIVE CARDIOPULMONARY DISEASE.
[2017-12-29 15:53] LABS: Hematocrit 35 % (35-47); Hemoglobin 11.6 g/dl (12.0-16.0); Mean Corpuscular HGB Conc 33 g/dl (31-36); Mean Corpuscular Hemoglobin 29 pg (27-31); Mean Corpuscular Volume 88 fL (80-97); Mean Platelet Volume 7.4 um3 (7.4-10.4); Platelet Count 279 10^3/ul (150-450); Red Blood Count 4.04 10^6/ul (4.00-5.40); Red Cell Distribution Width 15 % (10.5-15); White Blood Count 24.1 10^3/ul (3.5-10.8)
[2017-12-29 16:05] LABS: INR 0.98 (0.77-1.02)
[2017-12-29 16:25] LABS: EGFR Non-African American 65.3 (>60)
[2017-12-29 16:25] LABS: Urine Appearance Cloudy; Urine Blood Negative (Negative); Urine Color Yellow; Urine Ketones Negative (Negative); Urine Protein Negative (Negative); Urine Red Blood Cell 1+(3-5/hpf) (Absent); Urine Specific Gravity 1.015 (1.010-1.030); Urine Urobilinogen Negative (Negative); Urine White Blood Cell 2+(11-20/hpf) (Absent)
[2017-12-29] MEDS ORDERED: Acetaminophen TAB* 325 MG PO PRN (16:35)
[2017-12-29] MEDS ORDERED: Ondansetron INJ* 2 MG/ML VIAL IV PRN (16:35)
[2017-12-29 18:12] LABS: ABS Basophils 0 10^3/ul (0-0.2); ABS Eosinophils 0.1 10^3/ul (0-0.6); ABS Monocytes 0.8 10^3/ul (0-0.8); ABS Neutrophils 22.2 10^3/ul (1.5-7.7); ABS Nucleated RBC 0 10^3/ul; Eosinophil % 0.4 % (0-6); Nucleated Red Blood Cells % 0
[2017-12-29] MEDS: Ropinirole TAB* 0.5 MG TAB PO SCH (21:16)
[2017-12-29] MEDS: Heparin VIAL(*) 5000 UNITS/ML VIAL (FIVE THOUSAND) SUBCUT SCH (21:16)
[2017-12-29] MEDS: NS 0.9% 1000 ML* 1,000 ML IV SCH (21:16)
--- NOTE | 2017-12-29 22:46 | HP ---
CC: Dr. Taylor * [facility] MEDICINE HISTORY AND PHYSICAL: DATE OF ADMISSION: 12/29/17 PRIMARY CARE PHYSICIAN: Dr. Taylor. ATTENDING PHYSICIAN: Dr. Ingrid Mai * (dictation provided by Heather Slaughter NP ). CHIEF COMPLAINT: Fever. HISTORY OF PRESENT ILLNESS: Ms. Gallardo is a 67-year-old female with a past medical history of morbid obesity, bilateral lymphedema, obstructive sleep apnea , hypothyroidism, who presents today to the hospital with concern for fever. Ms. Gallardo states that her symptoms began today with sudden onset of fever. She reports T-max of 103 at home and it was reported to be 104.4 on arrival here in the ED. The patient states that she has had no other symptoms. She denies dysuria, frequency, or burning. She denies back pain or CVA tenderness. She denies loose stools. She denies abdominal pain. She denies cough, chest pain, shortness of breath. She reports that the bilateral lower leg swelling is at baseline and there is no significant erythema. In the emergency room, Ms. Gallardo had labs which showed a WBC at 24.1, again her temperature was 104.4. Her lactic acid was only 1.5. She has trace leuk esterase and 3+ bacteria in her urine. Her flu swab is negative. Her chest x- ray shows no acute intrathoracic process. Her blood pressure is stable at 125/ 40. PAST MEDICAL HISTORY: 1. Lymphedema. 2. Obstructive sleep apnea, not on home CPAP. 3. Hypothyroidism. 4. Restless legs syndrome. 5. Pacemaker for sick sinus syndrome. 6. Morbid obesity. 7. Osteoarthritis. 8. History of right total hip arthroplasty. 9. Lumpectomy to her left breast. 10. History of bilateral vein stripping. MEDICATIONS: 1. Torsemide 20 mg p.o. daily. 2. Ropinirole 0.5 mg p.o. t.i.d. 3. Potassium chloride 20 mEq p.o. b.i.d. 4. Lisinopril 2.5 mg p.o. daily. 5. Levothyroxine 25 mcg p.o. daily. 6. Lansoprazole 15 mg p.o. daily. ALLERGIES: No known drug allergies. FAMILY HISTORY: The patient's mother had pulmonary fibrosis and heart failure, and her father related to colon cancer. SOCIAL HISTORY: No report of alcohol, tobacco, or drug use. She states her , Kamari, will be the healthcare proxy. REVIEW OF SYSTEMS: A 14-point review of systems was completed with Ms. Gallardo and all those not mentioned above were negative. PHYSICAL EXAMINATION GENERAL: Ms. Gallardo is lying in the bed. She is in no acute distress. VITAL SIGNS: Temperature was 104.4 on arrival and is currently 100, pulse rate 79, respiratory rate 20, O2 saturation 90% on room air, blood pressure 125/40. LUNGS: Clear to auscultation bilaterally with no accessory muscle use and good aeration. HEART: S1, S2. No murmur, rub, or gallop, and regular. ABDOMEN: Soft, nontender. Bowel sounds are positive x4. No CVA tenderness, EXTREMITIES: No cyanosis. Positive for bilateral lower extremity edema with chronic venous stasis type changes and lymphedema changes with no significant erythema, no breakdown, no drainage. NEURO: She is alert, she is oriented x3. She moves all extremities equally. There is no facial asymmetry or focal weakness. Extraocular movements are intact. DIAGNOSTIC STUDIES/LAB DATA: WBC 24.1, hemoglobin 11.6, hematocrit 35, platelet count 279. INR 0.98. Sodium 137, potassium 4.5, chloride 101, serum bicarbonate 27, BUN 19, creatinine 0.87, glucose 113, lactic acid 1.5. Urine shows trace leuk esterase, 3+ bacteria. Flu swab is negative. Chest x-ray shows no low lung volumes, no acute cardiopulmonary disease. ASSESSMENT AND PLAN: Ms. Gallardo is a 67-year-old female with a past medical history of bilateral lymphedema with multiple episodes of cellulitis as well as obstructive sleep apnea, not on home CPAP; pacemaker for sick sinus syndrome; morbid obesity, who presents today to the hospital with concern for fever, found to have possible urinary tract infection. Our plans are for observation in the hospital for the followin. Sepsis: The patient meets sepsis criteria with elevated fever and leukocytosis. At this point, the only positive marker is a slightly positive urinalysis. We will treat with ceftriaxone and await urine culture. The patient states that she has had an outpatient workup for what she calls requent urinary tract infections with bladder and kidney ultrasound 2 days ago at [place], which she has not heard the full report yet. If there is any further concern, we can request those records. The patient has no evidence of cellulitis. I see no other source of infection. Blood cultures are drawn and will be followed. The patient's lactic acid is normal, and she has been given an appropriate amount of fluids in the ED, and we will continue with maintenance fluids overnight. She will have Tylenol available p.r.n. for fever. 2. History of lymphedema. Plan to hold the torsemide during acute illness. 3. Hypertension. Hold lisinopril. 4. Code status is full code. TIME SPENT: Approximately 60 minutes was spent on the admission of this patient , more than half the time was spent with the patient at the bedside reviewing the events leading up to this hospitalization, performing the physical examination, and reviewing the plan of care. HEATHER SLAUGHTER NP [id number]/[facility] #: [id number] JACKY
[2017-12-29] MEDS ORDERED: Docusate CAP* 100 MG PO PRN (22:51)
[2017-12-29] MEDS: traMADol TAB* 50 MG PO PRN (23:24)
[2017-12-30] MEDS: Heparin VIAL(*) 5000 UNITS/ML VIAL (FIVE THOUSAND) SUBCUT SCH ×3 (05:49→20:57)
[2017-12-30] MEDS: Levothyroxine TAB* 25 MCG TAB PO SCH (05:49)
[2017-12-30] MEDS: NS 0.9% 1000 ML* 1,000 ML IV SCH ×2 (05:49→12:46)
[2017-12-30 09:30] LABS: ABS Basophils 0.1 10^3/ul (0-0.2); ABS Eosinophils 0.3 10^3/ul (0-0.6); ABS Lymphocytes 1.7 10^3/ul (1.0-4.8); ABS Monocytes 0.7 10^3/ul (0-0.8); ABS Neutrophils 11.2 10^3/ul (1.5-7.7); ABS Nucleated RBC 0 10^3/ul; Eosinophil % 1.8 % (0-6); Hematocrit 34 % (35-47); Hemoglobin 10.9 g/dl (12.0-16.0); Lymphocyte % 12.5 % (25-47); Mean Corpuscular HGB Conc 32 g/dl (31-36); Mean Corpuscular Hemoglobin 28 pg (27-31); Mean Corpuscular Volume 88 fL (80-97); Mean Platelet Volume 7.4 um3 (7.4-10.4); Nucleated Red Blood Cells % 0; Platelet Count 263 10^3/ul (150-450); Red Blood Count 3.84 10^6/ul (4.00-5.40); Red Cell Distribution Width 15 % (10.5-15)
[2017-12-30] MEDS: Ropinirole TAB* 0.5 MG TAB PO SCH ×3 (09:56→20:57)
--- NOTE | 2017-12-30 16:34 | PN ---
Subjective Date of Service: 12/30/17 Interval History: Ms. Gallardo reports feeling better today. She feels as though she is essentially back to her baseline. She offers no complaints. She does not feel as though her legs are any redder or edematous than usual. She is wondering if she needs to be on suppressive abx therapy as she has had multiple UTIs recently. She denies CP, SOB, N/V/D, dizziness. Family History: Unchanged from Admission Social History: Unchanged from Admission Past Medical History: Unchanged from Admission Objective Active Medications: Acetaminophen (Tylenol Tab*) 650 mg PO Q6H PRN Docusate Sodium (Colace Cap*) 100 mg PO DAILY PRN Heparin Sodium (Porcine) (Heparin Vial(*)) 5,000 units SUBCUT Q8HR BEA Sodium Chloride (Ns 0.9% 1000 Ml*) 1,000 mls @ 125 mls/hr IV PER RATE BEA Ceftriaxone Sodium 1 gm/ (Sodium Chloride) 50 mls @ 200 mls/hr IVPB Q24H BEA Levothyroxine Sodium (Synthroid Tab*) 25 mcg PO DAILY@0600 BEA Ondansetron HCl (Zofran Inj*) 4 mg IV Q6H PRN Ropinirole HCl (Requip Tab*) 0.5 mg PO TID BEA Tramadol HCl (Ultram*) 25 mg PO Q6H PRN Vital Signs - 8 hr 12/30/17 12/30/17 12/30/17 10:09 11:31 11:42 Temperature 97.6 F Pulse Rate 59 Respiratory 18 22 Rate Blood Pressure 105/44 116/62 (mmHg) O2 Sat by Pulse 95 Oximetry 12/30/17 15:26 Temperature 97.6 F Pulse Rate 62 Respiratory 20 Rate Blood Pressure 142/57 (mmHg) O2 Sat by Pulse 98 Oximetry Oxygen Devices in Use Now: None Appearance: Middle-aged woman laying in bed in NAD Eyes: No Scleral Icterus Ears/Nose/Mouth/Throat: Mucous Membranes Moist Neck: NL Appearance and Movements; NL JVP Respiratory: Symmetrical Chest Expansion and Respiratory Effort, Clear to Auscultation Cardiovascular: NL Sounds; No Murmurs; No JVD, RRR Abdominal: NL Sounds; No Tenderness; No Distention Extremities: No Clubbing, Cyanosis, - - Lymphedema with mild erythema Skin: No Rash or Ulcers Neurological: Alert and Oriented x 3, NL Sensation Lines/Tubes/Other Access: Clean, Dry and Intact Peripheral IV Nutrition: Taking PO's Result Diagrams: 12/30/17 09:24 12/29/17 15:39 Assess/Plan/Problems-Billing Assessment: Ms. Gallardo is a 67yo with PMH of lymphedema, RADHAMES, morbid obesity, hypothyroidism, who was recently hospitalized in 10/2017 and again in 11/2017 for UTI presents with c/o fever and was found to have a UTI. - Patient Problems (1) UTI (urinary tract infection) Current Visit: Yes Status: Acute Priority: High Comment: - Likely cause of fever - Urine culture preliminary shows gram neg bacilli; await final results - Continue ceftriaxone (2) Sepsis Current Visit: Yes Status: Acute Priority: High Comment: - Met on admission with fever and leukocytosis - WBC improving; afebrile (3) Lymphedema Current Visit: Yes Status: Chronic Priority: Medium Code(s): I89.0 - LYMPHEDEMA, NOT ELSEWHERE CLASSIFIED SNOMED Code(s): 240139863 Comment: - No clear cellulitis at this time - Hold torsemide during acute illness (4) Hypertension Current Visit: Yes Status: Chronic Priority: Medium Code(s): I10 - ESSENTIAL (PRIMARY) HYPERTENSION SNOMED Code(s): 21902580 Comment: - Labile BP - Hold lisinopril (5) Restless leg syndrome Current Visit: Yes Status: Chronic Priority: Medium Comment: - Continue ropinirole (6) Hypothyroidism Current Visit: Yes Status: Chronic Priority: Medium Code(s): E03.9 - HYPOTHYROIDISM, UNSPECIFIED SNOMED Code(s): 99411119 Comment: - Continue levothyroxine (7) Full code status Current Visit: Yes Status: Acute Priority: High Code(s): Z78.9 - OTHER SPECIFIED HEALTH STATUS SNOMED Code(s): 207358334 (8) DVT prophylaxis Current Visit: Yes Status: Acute Priority: High Code(s): FSU8308 - SNOMED Code(s): 555660741 Comment: - Heparin SQ Status and Disposition: Observation. Awaiting final urine culture results.
[2017-12-30] MEDS ORDERED: cefTRIAXone VIAL(*) 1,000 MG VIAL IVPB SCH (17:00)
[2017-12-30] MEDS ORDERED: cefTRIAXone* 1 GM in NS 0.9% 50 ML BAG IVPB SCH (17:00)
[2017-12-30] MEDS: traMADol TAB* 50 MG PO PRN (20:56)
[2017-12-30] MEDS ORDERED: NS 0.9% 1000 ML* 1,000 ML IV SCH (21:00)
[2017-12-31] MEDS: Levothyroxine TAB* 25 MCG TAB PO SCH (05:10)
[2017-12-31] MEDS: Heparin VIAL(*) 5000 UNITS/ML VIAL (FIVE THOUSAND) SUBCUT SCH (05:10)
[2017-12-31 06:58] LABS: ABS Basophils 0.1 10^3/ul (0-0.2); ABS Eosinophils 0.4 10^3/ul (0-0.6); ABS Monocytes 0.7 10^3/ul (0-0.8); ABS Neutrophils 6.5 10^3/ul (1.5-7.7); ABS Nucleated RBC 0 10^3/ul; Eosinophil % 4.3 % (0-6); Hematocrit 33 % (35-47); Hemoglobin 10.7 g/dl (12.0-16.0); Lymphocyte % 20.8 % (25-47); Mean Corpuscular HGB Conc 33 g/dl (31-36); Mean Corpuscular Hemoglobin 29 pg (27-31); Mean Corpuscular Volume 88 fL (80-97); Mean Platelet Volume 7.5 um3 (7.4-10.4); Nucleated Red Blood Cells % 0.1; Platelet Count 241 10^3/ul (150-450); Red Blood Count 3.74 10^6/ul (4.00-5.40); Red Cell Distribution Width 15 % (10.5-15); White Blood Count 9.7 10^3/ul (3.5-10.8)
[2017-12-31 08:24] VITALS: BP 136/63
[2017-12-31] MEDS: Ropinirole TAB* 0.5 MG TAB PO SCH (08:28)
--- NOTE | 2018-01-01 03:15 | DS ---
CC: Dr. Taylor * DISCHARGE SUMMARY: DATE OF ADMISSION: 12/29/17 DATE OF DISCHARGE: 12/31/17 PRIMARY CARE PROVIDER: Dr. Taylor. ATTENDING PHYSICIAN: Dr. Llanes * (dictated by Rose Mcmahon NP) PRIMARY DIAGNOSES: 1. Urinary tract infection. 2. Sepsis. SECONDARY DIAGNOSES: 1. Lymphedema with recurrent cellulitis. 2. Hypertension. 3. Restless leg syndrome. 4. Hypothyroidism. STUDIES WHILE IN THE HOSPITAL: 1. Chest x-ray on 12/29/17 reads as: Low lung volumes, no active cardiopulmonary disease. HISTORY OF PRESENT ILLNESS AND HOSPITAL COURSE: Ms. Gallardo is a 67-year-old female with a past medical history of lymphedema, morbid obesity, hypertension, and hypothyroidism who presented to the emergency room on 12/29/17 with complaints of fever. Please see the history and physical by Heather Slaughter NP for a complete summary of the events leading up to this hospitalization; but in short, the patient reported that her fever started that day at home. She had a T -max at home of 103 and in the emergency room she was noted to be 104.4. She denied any other symptoms. She reported that her lower leg swelling was at baseline and had no more erythema than usual. While in the emergency room, she had labs, which were remarkable for a white blood count of 24.1 and a urinalysis , which was remarkable for trace leukocyte esterase, 2+ wbc's, 1+ rbc's, and then 3+ bacteria. Flu swab was negative. The patient was admitted by the hospitalist service observation for sepsis and possible UTI. There suspected cause of sepsis was UTI, though cellulitis could not be completely ruled out due to the patient's history of recurrent cellulitis. She was given appropriate IV fluids and received acetaminophen for her fever. The following day, the patient reported feeling much better. Her urine culture results came back preliminary with gram-negative bacilli. She was continued on ceftriaxone which she was started in the emergency room. Her white blood count improved to 14 and she remained afebrile. She continued to report that her lymphedema appeared at baseline and there was moderate erythema which the patient states is typical. As of the day of discharge, the patient again reports feeling well. She has been afebrile. White blood count is now down to 9.7. Urine culture resulted with Klebsiella pneumoniae which is pansensitive except to ampicillin and nitrofurantoin. She has been up ambulating and felt as though she was ready to go home. Ms. Gallardo is stable for discharge today. Vital Signs are as follows: Temp 97.6 , heart rate 61, respiratory rate 20, oxygen saturation 97% on room air, and blood pressure 136/63. DISCHARGE MEDICATIONS: New Medication: 1. Doxycycline 100 mg p.o. b.i.d. for 5 days. Continued home medications: 1. Lansoprazole 15 mg p.o. daily. 2. Levothyroxine 25 mcg p.o. daily. 3. Lisinopril 2.5 mg p.o. daily. 4. Potassium chloride 10 mEq p.o. b.i.d. 5. Ropinirole 0.5 mg p.o. t.i.d. 6. Torsemide 20 mg p.o. daily. DISCHARGE PLAN: Ms. Gallardo will be discharged back to home. Activity will be as tolerated. Diet should be heart healthy. Medications are noted above. The patient has been placed on a 5-day course of doxycycline to complete a 7-day course of antibiotic therapy. Her urine culture sensitivity showed good susceptibility to tetracycline. There is still a slight concern for cellulitis which would also likely respond to the doxy. She has been instructed to ensure she is practicing proper hygiene and fully emptying her bladder in an attempt to prevent recurrence. She should follow up with her primary care provider in 4 to 7 days. She has been instructed to return to the emergency room or the nearest hospital for any worsening of symptoms, shortness of breath, lightheadedness, dizziness, high fevers, chills, night sweats, loss of consciousness, or any other worsening signs or symptoms. This is a summarized report of a complex medical history and hospital stay. For further details, please see entire medical record. TIME SPENT: Approximately 40 minutes were spent on this discharge, greater than half of that time was spent [id number] with the patient discussing discharge plans and instructions. ROSE MCMAHON, KARLA [id number]/[facility] #: [id number] JACKY
== END 2017-12-31 11:20 | disposition home or self-care (01) ==
LOC: ED 12:56 → MED 18:28
PROVIDERS: ADMIT Internal Medicine; ATTEND Internal Medicine
DX: N39.0 Urinary tract infection, site not specified (principal); A41.9 Sepsis, unspecified organism; I89.0 Lymphedema, not elsewhere classified; I10 Essential (primary) hypertension; G25.81 Restless legs syndrome; E03.9 Hypothyroidism, unspecified; E66.01 Morbid (severe) obesity due to excess calories; M19.90 Unspecified osteoarthritis, unspecified site; Z95.0 Presence of cardiac pacemaker; I49.5 Sick sinus syndrome; Z90.12 Acquired absence of left breast and nipple; R05 Cough; D72.829 Elevated white blood cell count, unspecified; R50.9 Fever, unspecified
CPT/HCPCS: 36415; 71045; 80053; 81003; 81015; 83605; 84484; 85025; 85610; 85730; 86140; 87040; 87077; 87086; 87186; 96365; 96375; 99284; A9270-GY; G0378; J0696; J1644

== ENCOUNTER 2018-01-13 17:20 | Emergency (ER) | payer MEDICARE, OTHER ==
--- NOTE | 2018-01-13 20:53 | ED ---
Skin Complaint - HPI Summary HPI Summary: Pt is a 67 year old F presenting to the ED with a chief complaint of R hip redness. Pt states she just noticed it today but her has noticed it for a while. Pt denies pain or hx of skin dz. Pt reports itching in rectum but not on her hip. - History of Current Complaint Chief Complaint: EDHipPelvisInjury Time Seen by Provider: 01/13/18 20:40 Stated Complaint: RT HIP ISSUE Hx Obtained From: Patient Onset/Duration: Started Days Ago, Still Present Timing: Constant Onset Severity: Mild Current Severity: None Pain Intensity: 0 Pain Scale Used: 0-10 Numeric Skin Location: Other: - R hip and buttocks Aggravating Symptom(s): Nothing Alleviating Symptom(s): Nothing Associated Signs & Symptoms: Red Streaks - on R hip - Additional Pertinent History Primary Care Physician: KAJAL - Allergy/Home Medications Allergies/Adverse Reactions: Allergies Allergy/AdvReac Type Severity Reaction Status Date / Time No Known Drug Allergies Allergy See Comment Verified 01/13/18 17:29 PMH/Surg Hx/FS Hx/Imm Hx Previously Healthy: No Endocrine/Hematology History: Denies: Hx Anticoagulant Therapy, Hx Diabetes Cardiovascular History: Reports: Hx Pacemaker/ICD, Hx Peripheral Vascular Disease - BILATERAL VARICOSE VEINS, Other Cardiovascular Problems/Disorders - Lymphedema Denies: Hx Hypertension Respiratory History: Reports: Hx Chronic Bronchitis GI History: Reports: Hx Gastroesophageal Reflux Disease - OCCASIONAL ACID REFLUX History: Denies: Hx Renal Disease Musculoskeletal History: Reports: Hx Arthritis - OSTEOARTHRITIS IN RIGHT HIP ( REPLACED) 12/2013 @ [facility] Sensory History: Reports: Hx Contacts or Glasses Denies: Hx Hearing Aid, Hx Hearing Problem Opthamlomology History: Reports: Hx Contacts or Glasses Neurological History: Reports: Other Neuro Impairments/Disorders - RESTLESS LEG SYNDROME - on medication Psychiatric History: Denies: Hx Panic Disorder - Surgical History Surgery Procedure, Year, and Place: 07/[place] [facility] [place], [facility]. 05/23/14 [place] [facility] [place] LEFT BREAST LUMPECTOMY [facility] Hx Anesthesia Reactions: No - Immunization History Date of Tetanus Vaccine: unk Date of Influenza Vaccine: fall 2016 Infectious Disease History: No Infectious Disease History: Denies: Hx Clostridium Difficile, Hx Hepatitis, Hx Human Immunodeficiency Virus (HIV), Hx of Known/Suspected MRSA, Hx Shingles, Hx Tuberculosis, Traveled Outside the [place] in Last 30 Days - Family History Known Family History: Negative: Seizure Disorder - Social History Alcohol Use: None Alcohol Amount: FEW DRINKS/YEAR Hx Substance Use: No Substance Use Type: Reports: None Hx Tobacco Use: No Smoking Status (MU): Never Smoked Tobacco Have You Smoked in the Last Year: No Review of Systems Negative: Fever Skin: Negative - itching or pain Positive: Other - redness on R hip All Other Systems Reviewed And Are Negative: Yes Physical Exam Vital Signs On Initial Exam: Initial Vitals Temp Pulse Resp BP Pulse Ox 99.8 F 71 16 164/87 95 01/13/18 17:29 01/13/18 17:29 01/13/18 17:29 01/13/18 17:29 01/13/18 17:29 Diagnostics - Vital Signs Vital Signs Temp Pulse Resp BP Pulse Ox 01/13/18 19:45 98.1 F 64 16 140/53 95 01/13/18 17:29 99.8 F 71 16 164/87 95 - Laboratory Lab Statement: Any lab studies that have been ordered have been reviewed, and results considered in the medical decision making process. Course/Dx - Course Course Of Treatment: Pt is a 67 y/o F presenting to the ED with a chief complaint of redness on her R hip noticed by her a while ago but noticed by her today. Pt has nonpainful macular rash, some of the rash is scaley , the closest diagnosis is fungal rash. The pt will be treated with clotrimazole cream with instructions to apply twice a day, and will be sent home advised to see PCP on Monday, and if the rash gets worse, to see a pill coater. - Diagnoses Provider Diagnoses: Fungal infection Discharge - Sign-Out/Discharge Documenting (check all that apply): Patient Departure - Discharge Plan Condition: Stable Disposition: HOME Referrals: Sofia Taylor MD [Primary Care Provider] - Additional Instructions: Apply provided cream twice a day to the infected area. Please follow up with your primary care physician on Monday. If rash persists, please see a pill coater. - Attestation Statements Document Initiated by Scribe: Yes Documenting Scribe: Katerin Figueredo Provider For Whom Scribe is Documenting (Include Credential): Dudley Munoz MD. Scribe Attestation: Katerin Valdez, scribed for Dudley Munoz MD. on 01/13/18 at 2100.
[2018-01-13] MEDS ORDERED: Clotrimazole/Betamethasone CREAM* 15 GM TOPICAL SCH (21:00)
[2018-01-13 21:42] VITALS: BP 142/54
== END 2018-01-13 21:44 | disposition home or self-care (01) ==
LOC: ED 17:20
DX: B35.9 Dermatophytosis, unspecified (principal); Z96.641 Presence of right artificial hip joint
CPT/HCPCS: 99282; A9270-GY

== ENCOUNTER 2018-01-28 11:33 | Inpatient (IN) | payer MEDICARE, OTHER ==
--- NOTE | 2018-01-28 11:51 | ED ---
HPI Febrile Illness - HPI Summary HPI Summary: This patient is a 67 year old F presenting to [facility] with a chief complaint of a reported 104 fever since 5 days ago. Patient reports intermittent productive cough and chills. Patient denies SOB, diarrhea, neck pain, sore throat, and dysuria. Last times he was here she was diagnosed with a fungal skin infection and she was given a cream. The infection started going away but it has now come back. She has a PMHx of lymphedema and a heart murmur. - History of Current Complaint Chief Complaint: EDFever Time Seen by Provider: 01/28/18 11:43 Hx Obtained From: Patient Onset/Duration: Started Days Ago - 5 days ago Temperature: 101.3 F Pain Intensity: 0 Associated Signs and Symptoms: Chills, Cough - productive, Diarrhea - Denies, Dysuria - Denies, SOB - Denies, Sore Throat - Denies, Other: - Denies neck pain - Additional Pertinent History Primary Care Physician: KAJAL - Allergy/Home Medications Allergies/Adverse Reactions: Allergies Allergy/AdvReac Type Severity Reaction Status Date / Time No Known Drug Allergies Allergy See Comment Verified 01/13/18 17:29 PMH/Surg Hx/FS Hx/Imm Hx Endocrine/Hematology History: Denies: Hx Anticoagulant Therapy, Hx Diabetes Cardiovascular History: Reports: Hx Pacemaker/ICD, Hx Peripheral Vascular Disease - BILATERAL VARICOSE VEINS, Other Cardiovascular Problems/Disorders - Lymphedema Denies: Hx Hypertension Respiratory History: Reports: Hx Chronic Bronchitis GI History: Reports: Hx Gastroesophageal Reflux Disease - OCCASIONAL ACID REFLUX History: Denies: Hx Renal Disease Musculoskeletal History: Reports: Hx Arthritis - OSTEOARTHRITIS IN RIGHT HIP ( REPLACED) 12/2013 @ [facility] Sensory History: Reports: Hx Contacts or Glasses Denies: Hx Hearing Aid, Hx Hearing Problem Opthamlomology History: Reports: Hx Contacts or Glasses Neurological History: Reports: Other Neuro Impairments/Disorders - RESTLESS LEG SYNDROME - on medication Psychiatric History: Denies: Hx Panic Disorder - Surgical History Surgery Procedure, Year, and Place: 07/2014 [place]G [place] [facility] [place] 12[place]2013 Right hip replacement, [facility]. 05/23/14 [place] LEG [place] [facility] [place]. 1994 LEFT BREAST [place]OM[place] [facility] [place] Anesthesia Reactions: No - Immunization History Date of Tetanus Vaccine: unk Date of Influenza Vaccine: fall 2016 Infectious Disease History: No Infectious Disease History: Denies: Hx Clostridium Difficile, Hx Hepatitis, Hx Human Immunodeficiency Virus (HIV), Hx of Known/Suspected MRSA, Hx Shingles, Hx Tuberculosis, Traveled Outside the [place] in Last 30 Days - Family History Known Family History: Negative: Seizure Disorder - Social History Alcohol Use: None Alcohol Amount: FEW DRINKS/YEAR Hx Substance Use: No Substance Use Type: Reports: None Hx Tobacco Use: No Smoking Status (MU): Never Smoked Tobacco Have You Smoked in the Last Year: No Review of Systems Positive: Fever, Chills Negative: Sore Throat, Other - denies neck pain Positive: Cough - productive. Negative: Shortness Of Breath Negative: Diarrhea Negative: dysuria All Other Systems Reviewed And Are Negative: Yes Physical Exam - Summary Physical Exam Summary: VITAL SIGNS: Reviewed. GENERAL: Patient is an obese FEMALE who is lying comfortable in the stretcher. Patient is not in any acute respiratory distress. No meningeal signs: no photophobia, no neck pain, and no headache HEAD AND FACE: No signs of trauma. No ecchymosis, hematomas or skull depressions. No sinus tenderness. EYES: PERRLA, EOMI x 2, No injected conjunctiva, no nystagmus. EARS: Hearing grossly intact. Ear canals and tympanic membranes are within normal limits. MOUTH: Oropharynx within normal limits. NECK: Supple, trachea is midline, no adenopathy, no JVD, no carotid bruit, no c- spine tenderness, neck with full ROM. CHEST: Symmetric, no tenderness at palpation LUNGS: Coarse breath sounds bilaterally. CVS: Regular rate and rhythm, S1 and S2 present, no murmurs or gallops appreciated. ABDOMEN: Soft, non-tender. No signs of distention. No rebound no guarding, and no masses palpated. Bowel sounds are normal. EXTREMITIES: FROM in all major joints.Redness and swelling of right thigh and right hip and left buttocks. NEURO: Alert and oriented x 3. No acute neurological deficits. Speech is normal and follows commands. Patient has lymphedema. SKIN: Dry and warm Triage Information Reviewed: Yes Vital Signs On Initial Exam: Initial Vitals Temp Pulse Resp BP Pulse Ox 101.3 F 85 16 151/52 96 01/28/18 11:36 01/28/18 11:36 01/28/18 11:36 01/28/18 11:36 01/28/18 11:36 Vital Signs Reviewed: Yes Diagnostics - Vital Signs Vital Signs Temp Pulse Resp BP Pulse Ox 01/28/18 11:36 101.3 F 85 16 151/52 96 - Laboratory Result Diagrams: 01/28/18 12:08 01/28/18 12:09 Lab Statement: Any lab studies that have been ordered have been reviewed, and results considered in the medical decision making process. - Radiology Chest X-Ray Radiology Interpretation Completed By: Radiologist - 12:30. NO ACTIVE CARDIOPULMONARY DISEASE IS NOTED. ED Physician has reviewed this imaging report. - EKG 12:44 Cardiac Rate: NL - 77 BPM EKG Rhythm: Sinus Rhythm ST Segment: Normal EKG Comparison: No Significant Change - Similar to 11/21/2017 Course/Dx - Course Course Of Treatment: This patient is a 67 year old F presenting to [facility] with a chief complaint of a reported 104 fever since 5 days ago. Patient reports intermittent productive cough and chills. Patient denies SOB, diarrhea, neck pain, sore throat, and dysuria. Last times he was here she was diagnosed with a fungal skin infection and she was given a cream. The infection started going away but it has now come back. She has a PMHx of lymphedema and a heart murmur. Blood work shows WBC is a 26.4, absolute neutrophils of 24.3, ESR 70, PTT of 20, fibrinogen of 660, glucose 110, CRP of 58, BNP 107, urinalysis is negative for UTI. Initially in the ER, we obtained an IV access, given IV fluids, given Tylenol since the patient is febrile and i-STAT in the broad spectrum antibiotic Zosyn. The patient has a cellulitis in the right side of the thigh and hip possibly the source of infection. Chest x-ray impression: No acute pathology. At this time I discussed my physical exam, findings and test results with Dr. Ch from the hospital services who accepted the patient for admission. At this time the patient is hemodynamically stable alert and oriented 3. - Diagnoses Provider Diagnoses: Fever, Leukocytosis, Cellulitis, Sepsis - Provider Notifications Discussed Care Of Patient With: Hussein Ch - Hospitalist Time Discussed With Above Provider: 13:58 Instructed by Provider To: Admit As Inpatient Discharge - Sign-Out/Discharge Documenting (check all that apply): Patient Departure - Admit - Discharge Plan Condition: Stable Disposition: ADMITTED TO [facility] - Billing Disposition and Condition Condition: STABLE Disposition: Admitted to [facility] - Attestation Statements Document Initiated by João: Yes Documenting Scribe: Newton Kat Provider For Whom João is Documenting (Include Credential): Dandre Araujo MD Scribe Attestation: Newton Valdez, scribed for Dandre Araujo MD on 01/28/18 at 1843. Scribe Documentation Reviewed: Yes Provider Attestation: The documentation as recorded by the rufinoibNewton owens accurately reflects the service I personally performed and the decisions made by me, Dandre Araujo MD
[2018-01-28] MEDS ORDERED: Piperacillin/Tazobac ADVAN(*) 3.375 GM in NS 0.9% 100 ML* 100 ML IVPB ONE (11:55)
[2018-01-28 12:19] LABS: Hematocrit 38 % (35-47); Hemoglobin 12.3 g/dl (12.0-16.0); Mean Corpuscular HGB Conc 32 g/dl (31-36); Mean Corpuscular Hemoglobin 28 pg (27-31); Mean Corpuscular Volume 87 fL (80-97); Mean Platelet Volume 7.6 fL (7.4-10.4); Platelet Count 312 10^3/ul (150-450); Red Cell Distribution Width 15 % (10.5-15); White Blood Count 26.4 10^3/ul (3.5-10.8)
[2018-01-28] MEDS ORDERED: Acetaminophen TAB* 325 MG ONE (12:20)
[2018-01-28] MEDS ORDERED: Acetaminophen TAB* 325 MG PO ONE (12:23)
[2018-01-28 12:37] LABS: ABS Basophils 0.1 10^3/ul (0-0.2); ABS Eosinophils 0.2 10^3/ul (0-0.6); ABS Monocytes 0.8 10^3/ul (0-0.8); ABS Neutrophils 24.3 10^3/ul (1.5-7.7)
[2018-01-28 12:39] LABS: Monocytes % 2 % (0-7)
[2018-01-28] MEDS ORDERED: NS 0.9% 1000 ML* 1,000 ML IV ONE ×2 (12:39→14:35)
[2018-01-28 12:40] LABS: ABS Neutrophils 25.3 10^3/ul (1.5-7.7)
[2018-01-28 13:53] LABS: Urine Appearance Cloudy; Urine Blood 1+ (Negative); Urine Color Yellow; Urine Ketones Negative (Negative); Urine Protein Negative (Negative); Urine Red Blood Cell Trace(0-2/hpf) (Absent); Urine Specific Gravity 1.016 (1.010-1.030); Urine Urobilinogen Negative (Negative); Urine White Blood Cell Trace(0-5/hpf) (Absent)
[2018-01-28] MEDS ORDERED: Ondansetron INJ* 2 MG/ML VIAL IV PRN (14:35)
[2018-01-28] MEDS ORDERED: Acetaminophen TAB* 325 MG PO PRN (14:35)
[2018-01-28] MEDS ORDERED: Vancomycin per Pharmacy* NOTE FOLLOW UP SCH (15:00)
[2018-01-28] MEDS ORDERED: Vancomycin(*) 2,000 MG in NS 0.9% 500 ML* 500 ML IVPB ONE ×2 (15:00→15:01)
[2018-01-28] MEDS: oxyCODONE/Acetamin 5/325 MG* TAB PO PRN ×2 (15:07→23:04)
[2018-01-28] MEDS: NS 0.9% 1000 ML* 1,000 ML IV SCH (18:31)
--- NOTE | 2018-01-28 20:40 | HP ---
CC: Dr. Taylor; Dr. Hernandez; Dr. Martinez.* HISTORY AND PHYSICAL: DATE OF ADMISSION: 01/27/18 PRIMARY CARE PROVIDER: Dr. Taylor. MY ATTENDING PHYSICIAN WHILE IN THE HOSPITAL: Hussein Ch MD * (report dictated by Parker Cunningham NP). CONSULTING INFECTIOUS DISEASE SPECIALIST: Dr. Hernandez. CONSULTING ORTHOPEDIST: Dr. Martinez. CHIEF COMPLAINT: 1. Fever. 2. Chills. HISTORY OF PRESENT ILLNESS: Ms. Gallardo is a 67-year-old female patient. She carries a history of lymphedema, RADHAMES, hypothyroidism, sick sinus syndrome, restless legs syndrome, osteoarthritis, hypertension and morbid obesity. She is presenting to our ER today stating that she noticed today that she started coming down with chills and she started having shivering, shaking. She knew that she was coming down with a fever as she has had this previously with fevers. She was concerned, she was not feeling well and she said that she has been having an intermittent cough that has been productive of clear sputum, but she said that it has been a longstanding chronic issue with this cough. She does admit to having redness along the right hip where she had a previous hip replacement in the past. She denied any vomiting or diarrhea. No dysuria or frequency. No skin openings, but she reported that she had redness and erythema along her right hip. She says her legs have been bothering her with exception she is worried about her left thigh because it does, to her, feels like it is bigger than the right thigh. She denied having any again chest pain , shortness of breath. She came into the ED because she was concerned that she was spiking a fever. She has had 4 episodes since October essentially according to the patient of fever and at times she was diagnosed with UTI, other times the sources were unclear. She came into the ED today, was evaluated, again noted to have a fever of 101.3, she also had leukocytosis, her CRP and ESR are elevated and because of these findings, we were asked to evaluate for admission for sepsis related to possible cellulitis. PAST MEDICAL HISTORY: Significant for: 1. Lymphedema. 2. RADHAMES. 3. Morbid obesity. 4. Hypothyroidism. 5. Sick sinus syndrome. 6. Restless legs syndrome. 7. Osteoarthritis. 8. Hypertension. PAST SURGICAL HISTORY: 1. Pacemaker implantation. 2. Right total hip arthroplasty 4 years ago. 3. Lumpectomy. 4. Vein stripping bilaterally. HOME MEDICATIONS: I did review the list with her in the computer. She says that she is takin. Demadex 20 mg p.o. daily. 2. Requip 0.5 mg p.o. t.i.d. 3. Potassium 20 mEq p.o. b.i.d. 4. Lisinopril 2.5 mg daily. 5. Synthroid 25 mcg p.o. daily. 6. Prevacid 15 mg p.o. daily. ALLERGIES TO MEDICATIONS: Include no known drug allergies. FAMILY HISTORY: Her mother had a history of pulmonary fibrosis. Father had a history of colon cancer. SOCIAL HISTORY: She does not smoke. She does not drink. Surrogate decision maker is her brother, Juarez. REVIEW OF SYSTEMS: There is a documented fever here. She does admit to having chills. She denied having any significant weight change. There is no double vision. There was no ear discharge. She denied having any rhinorrhea, no sore throat, no thyroid enlargement. Denied any chest pain. There is no orthopnea. There was no nocturnal dyspnea. She denied having any abdominal pain. No nausea, no vomiting. No dysuria, no frequency. No seizure, no loss of consciousness. No pruritus and no skin ulcerations. Review of 14 systems was completed, all others negative. PHYSICAL EXAMINATION GENERAL: At this time, Ms. Gallardo is a 67-year-old female patient. She is sitting in the ED stretcher. She does not appear to be in any acute distress. She appears to be well nourished and well developed. VITAL SIGNS: Blood pressure 116/68, pulse 81, respirations were 20, O2 sat 95% , temperature was 101.3. HEENT: Head: Atraumatic and normocephalic. Eyes: EOMs are intact. Sclerae anicteric and not pale. Throat: Oral mucosa appears to be moist. No oropharyngeal erythema. NECK: Supple. LUNGS: Clear to auscultation bilaterally. No wheezes, rales, or rhonchi. HEART: Sounds S1, S2. Regular rate and rhythm. There were no murmurs, rubs, or gallops. ABDOMEN: Soft. It was flat, nontender. Bowel sounds were present. EXTREMITIES: Pulses were 2+ throughout. She is moving all 4 extremities with 5 /5 strength. NEUROLOGIC: She is awake, alert, and oriented x3. Tongue midline. Double Needle Operator Lockstitch were equal. No gross focal deficits. SKIN: She does have an area of erythema noted to the right leg extending up to just below her right knee and then when looking at the right hip, she has got erythema that does extend along an incision line, an old scar that wraps and comes down into her buttocks area. The left hip was examined and I did not appreciate any erythema, but there is definitely erythema in the right leg, which is different compared to the left. No other ulcerations were noted or open areas. DIAGNOSTIC STUDIES/LAB DATA: WBC 26.4, RBC of 4.40, hemoglobin of 12.3, hematocrit of 38, platelet count of 312. INR 1.00, PTT of 20.0, fibrinogen 660. Sodium 137, potassium 4.3, chloride 100, bicarb 29, BUN 19, creatinine of 0.91, glucose 110, lactic 1.2, calcium 9.5. Total bili 0.5, AST 11, ALT 9, alk phos 84. CK 25, troponin 0, CRP of 58.9, BNP 107. Albumin of 4. Procalcitonin less than 1. Urine: 1+ blood, 1+ bacteria. She had a chest x-ray obtained today, which showed no active cardiopulmonary disease. EKG shows a normal sinus rhythm, rate of 77 with a left axis, no ST elevation or T- wave inversion. When you look back to her old EKG, it appears to be unchanged. Old medical records were reviewed. ASSESSMENT AND PLAN: Ms. Gallardo is a 67-year-old female patient coming into the ED today with complaints of not feeling well, chills, rigors, on evaluation found to be febrile. She will be admitted under inpatient status for: 1. Sepsis secondary to presumed cellulitis. Again, it looks like she has cellulitis in the right lower extremity and I am concerned because she has had 4 episodes of recurrent infection and apparently 2 of those times she was diagnosed with a urinary tract infection; however, I do get concern that with the hardware that she has particularly in the right hip and now with cellulitis overlying that could this be a nidus of infection, so I am going to get a second opinion with Dr. Martinez and Dr. Hernandez. I do think we should put her on vancomycin for the time being. We will get blood cultures. There was report of a murmur, although I did not appreciate it on my exam. I am going to just check an echo to be safe. I will get blood cultures and we will continue to follow her. She will get 2 L bolus. Blood cultures were sent and lactic is pending. Again, she appears to be septic, but not with severe sepsis or septic shock. 2. Lymphedema. We will continue with elevating her extremities and supportive care. 3. Obstructive sleep apnea. She is noncompliant with CPAP. 4. Hypothyroidism. Continue her Synthroid. 5. Restless legs. I have ordered her Requip. 6. Hypertension. In the setting of this acute illness, I will hold her lisinopril and Demadex. We will need to restart when able. 7. DVT prophylaxis: She is high risk. She will be placed on heparin subcu. I am going to ultrasound her lower extremities because of the swelling just to make sure there are no underlying blood clots. 8. Code status: Full code. 9. Fluids, electrolytes, and nutrition: She can have a heart-healthy diet. TIME SPENT: Time spent on the admission was approximately 60 minutes, greater than half of the time was spent [id number] with the patient obtaining my history and physical, other half of the time was spent going over the plan of care with the patient and implementing plan of care. I did discuss the plan of care with my attending, Dr. Ch; he is in agreement. PARKER CUNNINGHAM NP [id number]/CPS #: [id number] JACKY
[2018-01-28] MEDS: Vancomycin(*) 1,250 MG in NS 0.9% 250 ML* 250 ML IVPB SCH (21:48)
[2018-01-28] MEDS: Ropinirole TAB* 0.5 MG TAB PO SCH (21:52)
[2018-01-28] MEDS: Nystatin TOP POWDER* 15 GM BTL TOPICAL SCH (21:52)
[2018-01-28] MEDS: Heparin VIAL(*) 5000 UNITS/ML VIAL (FIVE THOUSAND) SUBCUT SCH (21:52)
[2018-01-29] MEDS: Levothyroxine TAB* 25 MCG TAB PO SCH (05:23)
[2018-01-29] MEDS: Heparin VIAL(*) 5000 UNITS/ML VIAL (FIVE THOUSAND) SUBCUT SCH ×3 (05:23→20:37)
[2018-01-29 05:54] LABS: ABS Basophils 0.1 10^3/ul (0-0.2); ABS Eosinophils 0.1 10^3/ul (0-0.6); ABS Lymphocytes 1.5 10^3/ul (1.0-4.8); ABS Monocytes 0.9 10^3/ul (0-0.8); ABS Neutrophils 17.6 10^3/ul (1.5-7.7); ABS Nucleated RBC 0 10^3/ul; Eosinophil % 0.5 % (0-6); Hematocrit 32 % (35-47); Hemoglobin 10.4 g/dl (12.0-16.0); Lymphocyte % 7.3 % (25-47); Mean Corpuscular HGB Conc 32 g/dl (31-36); Mean Corpuscular Hemoglobin 28 pg (27-31); Mean Corpuscular Volume 89 fL (80-97); Mean Platelet Volume 7.7 fL (7.4-10.4); Nucleated Red Blood Cells % 0; Platelet Count 245 10^3/ul (150-450); Red Blood Count 3.66 10^6/ul (4.00-5.40); Red Cell Distribution Width 15 % (10.5-15); White Blood Count 20.1 10^3/ul (3.5-10.8)
[2018-01-29] MEDS: NS 0.9% 1000 ML* 1,000 ML IV SCH (06:11)
[2018-01-29 06:20] LABS: EGFR Non-African American 58.3 (>60)
[2018-01-29] MEDS: oxyCODONE/Acetamin 5/325 MG* TAB PO PRN (07:13)
[2018-01-29] MEDS: Vancomycin(*) 1,250 MG in NS 0.9% 250 ML* 250 ML IVPB SCH (07:13)
[2018-01-29] MEDS: Omeprazole CAP* 20 MG PO SCH (09:58)
[2018-01-29] MEDS: Lactobacillus Acidophilus* 1 TAB PO SCH ×2 (09:58→20:30)
[2018-01-29] MEDS: Ropinirole TAB* 0.5 MG TAB PO SCH ×3 (09:58→20:30)
[2018-01-29] MEDS: Nystatin TOP POWDER* 15 GM BTL TOPICAL SCH ×3 (09:58→20:31)
--- NOTE | 2018-01-29 13:10 | PN ---
Subjective Date of Service: 01/29/18 Interval History: pt's r leg cellulitis is improving. Pt denies pain in the area, or worsening edema. Was concerned about R hip (s/p remote surgery), but denies any rash in the r hip area, denies pain or problems with ambulation Objective Active Medications: Acetaminophen (Tylenol Tab*) 650 mg PO Q4H PRN PRN Reason: FEVER/PAIN Cephalexin HCl (Keflex Cap*) 500 mg PO TID [facility] Heparin Sodium (Porcine) (Heparin Vial(*)) 5,000 units SUBCUT Q8HR [facility] Last Admin: 01/29/18 05:23 Dose: 5,000 units Lactobacillus Rhamnosus (Lactobacillus Acidophilus*) 1 tab PO BID [facility] Last Admin: 01/29/18 09:58 Dose: 1 tab Levothyroxine Sodium (Synthroid Tab*) 25 mcg PO 0600 [facility] Last Admin: 01/29/18 05:23 Dose: 25 mcg Nystatin (Nystatin Top Powder*) 1 applic TOPICAL TID [facility] Last Admin: 01/29/18 09:58 Dose: 1 applic Omeprazole (Prilosec Cap*) 20 mg PO DAILY@0730 [facility]; Protocol Last Admin: 01/29/18 09:58 Dose: 20 mg Ondansetron HCl (Zofran Inj*) 4 mg IV Q6H PRN PRN Reason: NAUSEA Oxycodone/Acetaminophen (Percocet 5/325 Tab*) 1 tab PO Q8H PRN PRN Reason: PAIN Last Admin: 01/29/18 07:13 Dose: 1 tab Ropinirole HCl (Requip Tab*) 0.5 mg PO TID [facility] Last Admin: 01/29/18 09:58 Dose: 0.5 mg Vital Signs - 8 hr 01/29/18 01/29/18 01/29/18 07:13 07:37 08:00 Temperature 97.5 F Pulse Rate 61 Respiratory 22 18 18 Rate Blood Pressure 98/83 (mmHg) O2 Sat by Pulse 97 97 Oximetry 01/29/18 01/29/18 01/29/18 08:14 09:58 11:25 Temperature 97.9 F Pulse Rate 58 Respiratory 18 18 Rate Blood Pressure 110/72 114/50 (mmHg) O2 Sat by Pulse 95 Oximetry Oxygen Devices in Use Now: None Appearance: 67 yo F, obese in NAD, AAOx3 Eyes: No Scleral Icterus, PERRLA Ears/Nose/Mouth/Throat: NL Teeth, Lips, Gums, Mucous Membranes Moist Neck: NL Appearance and Movements; NL JVP, Trachea Midline Respiratory: Symmetrical Chest Expansion and Respiratory Effort, Clear to Auscultation Cardiovascular: RRR, - - 2/6 [place] at apex Lymphatic: No Cervical Adenopathy Extremities: - - b/l LE's lymphoedema-chronci appearing Skin: No Nodules or Sclerosis, - - R leg small area of eythema on R lateral calf Neurological: Alert and Oriented x 3, NL Muscle Strength and Tone Result Diagrams: 01/29/18 05:31 01/29/18 05:31 Microbiology and Other Data: Microbiology 01/28/18 12:39 Aerobic Blood Culture - Preliminary Blood Venous No Growth Day 1 Anaerobic Blood Culture - Preliminary No Growth Day 1 01/28/18 12:08 Aerobic Blood Culture - Preliminary Blood Venous No Growth Day 1 Anaerobic Blood Culture - Preliminary No Growth Day 1 01/28/18 13:43 Urine Culture - Final Urine No Growth (<1,000 CFU/mL) 01/29/18 08:17 Influenza Types A,B Antigen - Final Nasal Specimen received for Influenza A/B Molecular testing Assess/Plan/Problems-Billing Assessment: 67 yo F with h/o chronic lympoedema presents with cellulitis - Patient Problems (1) Cellulitis Comment: sepsis at admission. WBC improved today. Afebrile As per ID Vanc disontinued. Placed on Keflex, to cont long term care administrator for supression of recurrent infection due to maked leukocytosis will cont to monitor one more day (2) DVT prophylaxis Comment: - Heparin SQ (3) Hypothyroidism Comment: - Continue levothyroxine Status and Disposition: inpatient
[2018-01-29] MEDS: Cephalexin CAP* 500 MG PO SCH ×2 (13:32→20:30)
[2018-01-29] MEDS ORDERED: Vancomycin Trough Check NOTE FOLLOW UP ONE (14:30)
--- NOTE | 2018-01-29 14:30 | ECHO ---
Patient: TEO HAILE [facility] Rec#: [id number] : 1950 Date: 01/29/2018 Age: 67y Height: 168 cm / 66.1 in Weight: 127 kg / 279.9 lbs Sex: F BSA: 2.31 Room#: 413 Admit Date#: 01/28/2018 Type: Inpatient Referring: Parker Cunningham NP Reading: Suhail Zurita MD Front Maker: Dotty Smith,CHRISTIANCS,RDMS CC: Sofia Taylor MD Transthoracic Echocardiogram Indication: MURMUR BP: 110/72 HR: 60 Rhythm: NSR Findings History: SSS, pacemaker, lymphedema Technical Comments: The study quality is fair. Left Ventricle: The left ventricular chamber size is normal. Mild concentric left ventricular hypertrophy is observed. Global left ventricular wall motion and contractility are within normal limits. There is normal left ventricular systolic function. The estimated ejection fraction is 55-60%. There is no consistent Doppler evidence of clinically significant diastolic dysfunction. Left Atrium: The left atrium is mildly dilated. Right Ventricle: The right ventricular chamber size and systolic function are within normal limits. Right Atrium: The right atrium is mildly dilated. Aortic Valve: The aortic valve is trileaflet. Systolic excursion of the aortic valve is normal. There is no evidence of aortic regurgitation. There is no evidence of aortic stenosis. Mitral Valve: There is mitral annular calcification. The mitral valve leaflets are mildly thickened. There is no evidence of mitral regurgitation. There is no evidence of mitral stenosis. Tricuspid Valve: The tricuspid valve leaflets are normal. There is trace tricuspid regurgitation. No pulmonary hypertension is noted. Pulmonic Valve: There is no evidence of pulmonic valve thickening. There is a trace pulmonic regurgitation. Pericardium: There is no significant pericardial effusion. Aorta: The aortic root appears normal. There is no dilatation of the aortic arch. Pulmonary Artery: The main pulmonary artery is not well visualized. Venous: The inferior vena cava is dilated. Summary: There are no significant changes when compared to the previous study done on 10/26/17 Conclusions Mild concentric left ventricular hypertrophy is observed. Global left ventricular wall motion and contractility are within normal limits. There is normal left ventricular systolic function. The estimated ejection fraction is 55-60%. There is no evidence of aortic stenosis. There is no evidence of mitral regurgitation. There is trace tricuspid regurgitation. No pulmonary hypertension is noted. There is no significant pericardial effusion. Measurements Name Value Normal Range RVIDd (AP) 2D 2 cm (0.9 - 2.6) RVDdMajor (2D) 3.8 cm (2.2 - 4.4) RAd ISD 4CH 5.5 cm (3.4 - 4.9) RA (A4C)W 3.1 cm (2.9 - 4.6) IVSd (2D) 1.4 cm (0.6 - 1) LVPWd (2D) 0.9 cm (0.6 - 1) LVIDd (2D) 4.6 cm (3.6 - 5.4) LVIDs (2D) 2.6 cm - LV FS (2D) 45 % (25 - 45) Aortic Annulus 2 cm (1.4 - 2.6) Ao root diameter (2D) 2.7 cm (2.1 - 3.5) Ascending Ao 3.2 cm (2.1 - 3.4) Aortic arch 2.5 cm (1.8 - 3.4) LA dimension (AP) 2D 4.7 cm (2.3 - 3.8) LAd ISD 4CH 6.5 cm (2.9 - 5.3) LA ISD 4CH W 4.1 cm (2.5 - 4.5) Name Value Normal Range LA ESV BP (A/L) index 28 ml/m2 - Name Value Normal Range MV E-wave Vmax 1.3 m/sec - MV deceleration time 238 msec - MV A-wave Vmax 1.1 m/sec - MV E:A ratio 1.1 ratio - P. vein S-wave Vmax 0.5 m/sec - P. vein D-wave Vmax 0.7 m/sec - P. vein S:D Vmax ratio 0.7 ratio - P. vein A-wave duration 148 msec - LV septal e' Vmax 0.07 m/sec - LV lateral e' Vmax 0.07 m/sec - Name Value Normal Range AV Vmax 2.6 m/sec - AV VTI 55 cm - AV peak gradient 27 mmHg - AV mean gradient 12 mmHg - LVOT diameter 2 cm - LVOT Vmax 1.7 m/sec - LVOT VTI 34 cm - LVOT peak gradient 12 mmHg - LVOT mean gradient 5 mmHg - DOI (VTI) 0.6 ratio - AQUILINO (continuity Vmax) 2.1 cm2 - AQUILINO (continuity VTI) 1.9 cm2 - Name Value Normal Range MV Vmax 1.4 m/sec - MV VTI 57 cm - MV peak gradient 8 mmHg - MV mean gradient 3 mmHg - MV PHT 108 msec - MVA (PHT) 2 cm2 - MVA (continuity VTI) 1.9 cm2 - Name Value Normal Range TR Vmax 2.8 m/sec - TR peak gradient 31 mmHg - RAP 3 mmHg - RVSP 34 mmHg - IVC diameter 2.9 cm - Name Value Normal Range PV Vmax 0.9 m/sec - PV peak gradient 3 mmHg -
--- NOTE | 2018-01-29 15:21 | CONS ---
CONSULTATION REPORT: DATE OF CONSULT: 01/29/18 REQUESTING PROVIDER: Parker Cunningham NP CONSULTING SERVICE: Infectious Disease. REASON FOR CONSULT: Right leg cellulitis. IMPRESSION: 1. Right leg cellulitis in the setting of recurrent cellulitis and bilateral venous stasis changes, improving on vancomycin. 2. Recently treated for a fungal dermatitis over a right hip incision, which had recurred and has resolved now. She does not have symptoms of right septic hip, which incidentally has been replaced. Log roll and range of motion of the right hip are pain-free. 3. Morbid obesity. RECOMMENDATIONS: We will stop vancomycin. We will start cephalexin 500 mg by mouth 3 times a day and attempt again longer term antibiotic prophylaxis, which in the past she had not tolerated with amoxicillin due to side effects. HISTORY OF PRESENT ILLNESS: This is a 67-year-old woman with obesity, bilateral venous stasis changes, lymphedema, recurrent right leg cellulitis, admitted with right leg cellulitis. She has come to the hospital once a month for about the last 4 months, twice was diagnosed with UTI, once in October with right leg cellulitis, had not been able to follow up with me because of her hospitalizations. Earlier in the summer, she had decided to stop the amoxicillin prophylaxis because she experienced diarrhea from it. She had a fever developed yesterday, so came back to the hospital, found to have redness in the right leg, had an ultrasound for DVT that was negative. She has had no fever today. Her CRP was 60 yesterday, 160 today. Her procalcitonin was 0. Her legs a little bit less painful and red today. She did have some pain and redness of the dorsal foot yesterday, which has gone. PAST MEDICAL HISTORY: 1. Morbid obesity. 2. Venous stasis of both legs. 3. Lymphedema of both legs. 4. Recurrent cellulitis of the right leg. 5. Obstructive sleep apnea. 6. Hypothyroidism. 7. Sick sinus syndrome with a pacemaker. Blood cultures have always been negative. 8. Osteoarthritis. 9. Hypertension. PAST SURGICAL HISTORY: 1. Status post right hip arthroplasty. 2. Status post lumpectomy. 3. Status post bilateral vein stripping. ALLERGIES: No known drug allergies. MEDICATIONS: 1. Tylenol. 2. Heparin subcutaneous injection. 3. Lactobacillus. 4. Levothyroxine. 5. Nystatin. 6. Omeprazole. 7. Oxycodone. 8. Ropinirole. 9. Vancomycin. SOCIAL HISTORY: She is a nonsmoker. No alcohol. Has a significant other. FAMILY HISTORY: Mother had pulmonary fibrosis. Father had colon cancer. REVIEW OF SYSTEMS: All negative to a 14-point review, except as noted above in the history of present illness. PHYSICAL EXAM: Temperature of 36, heart rate 60, respiratory rate 18, blood pressure 100/83, oxygen saturation 97% on room air. In general, she is awake, not in distress. Neurologic: She is oriented x3. Follows all commands. Sensation is intact to light touch in both feet. HEENT: There is no conjunctival hemorrhage. Oropharynx without lesions. Neck is supple without mass. Heart is regular rate and rhythm without murmurs, rubs, or gallops. Lungs are clear to auscultation bilaterally. Abdomen: Soft, nontender, nondistended. There are bowel sounds present. Skin: There are venous stasis changes to both legs with erythema, warmth, slight tenderness from mid lower leg to above the ankle without crepitance or fluctuance. There is no open wound. Musculoskeletal: There is no spine tenderness to palpation or joint synovitis. Right hip, log roll negative. No pain with flexion or internal/ external rotation. LABORATORY DATA: White blood cell count 20 down from 26. Creatinine 0.9. CRP 160. Urinalysis: Blood. Influenza PCR negative. Please see impressions and recommendations as outlined above, which I have discussed with Dr. Mai. Thanks for asking me to see Amilcar Sami in consultation. [id number]/[facility] #: [id number] [facility]ITALMisael
--- NOTE | 2018-01-29 15:29 | CONS ---
ORTHOPEDIC CONSULTATION: DATE OF CONSULT: 01/29/18 ATTENDING PROVIDER: Dr. Gumaro Martinez. PRIMARY CARE PROVIDER: Dr. Taylor. CHIEF COMPLAINT: Right hip cellulitis. HISTORY OF PRESENT ILLNESS: is a 67-year-old female who presented to the emergency room on 01/28/18 due to redness of her right hip. She carries a history of lymphedema, RADHAMES, hypothyroidism, sick sinus syndrome, restless legs syndrome, osteoarthritis, hypertension, and morbid obesity. She first presented to the emergency room on 01/13/18 due to 2 red spots appearing on her right hip. She was treated with an antifungal cream, which up until 3 to 4 days ago had resolved the redness in this area, then 3 to 4 days ago the patient noticed that she had redness along her incision, it was warm to touch, it was never tender. She never had any difficulty bearing weight on the hip nor did she have any pain with movement of the hip, whatsoever. She has chronic lymphedema of bilateral lower extremities and associated frequent cellulitis of bilateral lower extremities affecting the lower legs. She has history of a right hip replacement in 2013, done by Dr. Parsons. The patient denies having any other recent illness, though she has felt as though she has had fever and chills. PAST MEDICAL HISTORY: Lymphedema, RADHAMES, morbid obesity, hypothyroidism, sick sinus syndrome, restless legs syndrome, osteoarthritis, hypertension. PAST SURGICAL HISTORY: Pacemaker implantation, right total hip arthroplasty 4 years ago, lumpectomy, vein stripping bilaterally. ALLERGIES TO MEDICATIONS: No known drug allergies. FAMILY HISTORY: Mother with pulmonary fibrosis. Father with colon cancer. SOCIAL HISTORY: Does not smoke. Does not drink. REVIEW OF SYSTEMS: General: Confirms feeling of fever and chills. Denies any recent illness. HEENT: No change in vision, headache, head trauma. Cardio: No irregular beats. Does have a history of pacemaker. No chest pain. Respiratory: No shortness of breath or cough. Abdomen: No abdominal pain, vomiting, diarrhea, nausea. : No dysuria. Musculoskeletal: No right hip pain, whatsoever. No difficulty with ambulation. Neuro: Sensation intact throughout all extremities without numbness or paresthesias. Hematology: No blood clot history. Skin: Positive for redness around the well-healed incision of her right hip. PHYSICAL EXAM: General: Well-appearing, in no acute distress, morbidly obese. HEENT: Normocephalic, atraumatic. Extraocular movements intact. Cardio: S1, S2. Respiratory: Good air exchange bilaterally. The patient does have wheezes bilaterally. Abdomen: Bowel sounds normoactive. Nontender to palpation without guarding or rigidity. Upper Extremities: Skin envelope intact. No obvious deformity. Nontender to palpation. Active flexion and extension of digits, wrists, elbows without any associated pain. Shoulders with nonpainful active forward flexion and abduction. Left lower extremity: Skin envelope is intact. No obvious deformity. Nontender to palpation. Active nonpainful flexion and extension of digits, ankle, knee, and hip. Right lower extremity: Skin envelope is intact. The patient has well-healed surgical scar along her right hip. She has very mild remnants of erythema around the right hip that does not streak proximally. She also has chronic venous stasis hyperpigmentation of her lower legs. This is bilateral. There may be an overlying cellulitis, it is difficult to tell. She has active and passive nonpainful flexion and extension at the hip, knee, ankle, and MCPs. She is also able to internally and externally rotate at the hip. Negative log roll. She has absolutely no tenderness about the hip on the right side. Normal gait pattern. Vascular: DP pulses poor, 1+ bilaterally. Neuro: Sensation is intact to light touch distally throughout the bilateral lower extremities. LABORATORY DATA: White blood cell count is 20.1. CRP is 160.56. ASSESSMENT: Cellulitis of the right hip without evidence for abscess or septic joint. Potential cellulitis of bilateral lower legs as well, underlying venous stasis makes it difficult to definitively determine. PLAN: The patient can be weightbearing as tolerated. Please contact Orthopedics should she have further concerns including but not limited to increased pain, decreased ROM, inability to bear weight on the right hip. KALPESH NOE [id number]/[facility] #: [id number] MTDD
--- NOTE | 2018-01-29 21:33 | PN ---
PROGRESS NOTE: DATE OF SERVICE: 01/29/18 HISTORY: Ms. Gallardo has been evaluated thoroughly by Infectious Disease and medical team and was seen earlier today by my orthopedic colleague. I basically agree with the impression at this point that she has a transient cellulitis of the soft tissues of her previous total hip and this is improving significantly here just on 24 hours of IV antibiotics. Basically, Ms. Gallardo is 67 years of age and had her total hip done in [place] 4 years ago. She has had no troubles with the hip and is still completely pain-free when ambulating. However, over the last several weeks, she has had some punctate redness along the line of the incision. There has been no drainage and no fluctuance. The punctate area of erythema became more continuous and so she has been evaluated and admitted for possible antibiotics. Again, she has no pain with range of motion or walking on the hip. Her exam is relatively benign. She is obese and has significant lymphedema in the lower leg, but the wound itself is faintly erythematous and no tenderness, no fluctuance, and no areas that appear to be breaking down at all on the wound. She has free range of motion of the hip. I agree with the plan for prolonged course of oral antibiotics and observation. She also may consider a followup visit with her primary total hip surgeon. [id number]/[facility] #: [id number] JACKY
[2018-01-30] MEDS: Heparin VIAL(*) 5000 UNITS/ML VIAL (FIVE THOUSAND) SUBCUT SCH (05:10)
[2018-01-30] MEDS: Levothyroxine TAB* 25 MCG TAB PO SCH (05:10)
[2018-01-30 09:17] LABS: ABS Basophils 0.1 10^3/ul (0-0.2); ABS Eosinophils 0.4 10^3/ul (0-0.6); ABS Lymphocytes 1.4 10^3/ul (1.0-4.8); ABS Monocytes 0.8 10^3/ul (0-0.8); ABS Neutrophils 8.8 10^3/ul (1.5-7.7); ABS Nucleated RBC 0 10^3/ul; Eosinophil % 3.7 %; Hematocrit 34 % (35-47); Hemoglobin 11.1 g/dl (12.0-16.0); Lymphocyte % 12.5 %; Mean Corpuscular HGB Conc 33 g/dl (31-36); Mean Corpuscular Hemoglobin 29 pg (27-31); Mean Corpuscular Volume 88 fL (80-97); Mean Platelet Volume 7.6 fL (7.4-10.4); Nucleated Red Blood Cells % 0.1; Platelet Count 281 10^3/ul (150-450); Red Blood Count 3.88 10^6/ul (4.00-5.40); Red Cell Distribution Width 15 % (10.5-15); White Blood Count 11.5 10^3/ul (3.5-10.8)
[2018-01-30 09:31] LABS: EGFR Non-African American 75.2 (>60)
[2018-01-30] MEDS: Cephalexin CAP* 500 MG PO SCH (10:44)
[2018-01-30] MEDS: Nystatin TOP POWDER* 15 GM BTL TOPICAL SCH (10:44)
[2018-01-30] MEDS: Lactobacillus Acidophilus* 1 TAB PO SCH (10:44)
[2018-01-30] MEDS: Ropinirole TAB* 0.5 MG TAB PO SCH (10:44)
[2018-01-30] MEDS: Omeprazole CAP* 20 MG PO SCH (10:45)
[2018-01-30 10:58] VITALS: BP 138/58
--- NOTE | 2018-01-31 06:36 | DS ---
CC: Dr. Hernandez; Dr. Taylor * DISCHARGE SUMMARY: DATE OF ADMISSION: 01/28/18 DATE OF DISCHARGE: 01/29/18 PRIMARY CARE PROVIDER: Dr. Taylor. DISCHARGE DIAGNOSIS: Cellulitis with sepsis on admission. SECONDARY DIAGNOSES: 1. Lymphedema. 2. Obstructive sleep apnea. 3. Morbid obesity. 4. Hypothyroidism. 5. Sick sinus syndrome, status post pacemaker. 6. Restless leg syndrome. 7. Hypertension. 8. Osteoarthritis. 9. History of right total hip arthroplasty four years ago. MEDICATIONS AT DISCHARGE: Include: 1. Keflex 500 mg three times a day long-term treatment for cellulitis suppression. 2. Lisinopril 2.5 mg daily. 3. Torsemide 20 mg daily. 4. Requip 0.5 mg three times a day. 5. Potassium chloride 20 mEq b.i.d. 6. Synthroid 25 mcg daily. 7. Prevacid 15 mg daily. LABORATORY DATA AND STUDIES PERFORMED DURING THE HOSPITAL STAY: Included: On 01/30/18, sodium of 136, potassium 4.2, chloride 104, carbon dioxide 27, BUN 12 , creatinine 0.77. C-reactive protein peaked on 01/29/18 at 160. Procalcitonin level was below 0.1. CBC on 01/30/18, showed white blood cell count of 11.5, hemoglobin is 11.1, hematocrit of 34, and platelets of 281. Influenza testing was negative. Urine cultures and blood cultures were negative on the day of discharge. Venous Doppler study was negative for DVT in bilateral lower extremities and mildly enlarged lymph nodes in the right inguinal area. Transthoracic echocardiogram showed EF of 55 to 60% with mild concentric LVH. Portable chest x-ray obtained on admission, impression "no active cardiopulmonary disease present." CONSULTATIONS DURING THE HOSPITAL STAY: Included Dr. Hernandez in regards to her current infection. HOSPITALIZATION COURSE: Meaghan Gallardo is a 67-year-old morbidly obese female with a history of chronic lymphedema, who presents once again with infection. It appears at this time that it was related to cellulitis in the right distal lower extremity. The patient was placed initially on vancomycin, but then switched by Dr. Hernandez on Keflex p.o. and had been afebrile on p.o. antibiotic also. Her initial white blood cell count was markedly elevated at 26 ,000 which resolved to 11,500 by the time of discharge. The patient was septic at admission. Her blood cultures were negative. Dr. Hernandez discussed with the patient possibility of being placed on long-term antibiotics for the infection suppression. The patient was placed on Keflex at 500 mg three times a day and she is to continue it and follow up with Dr. Hernandez as an outpatient in approximately 1 to 2 weeks. The patient is also recommended to follow up with her primary care provider in approximately 4 to 7 days. PHYSICAL EXAMINATION: At the time of discharge, blood pressure 125/61, heart rate of 59 and regular, respiratory rate 20, oxygen saturation 94% on room air, temperature 97.8. General: The patient is a very pleasant 67-year-old morbidly obese female, with a BMI of 46 who is in no acute distress. Alert, awake, and oriented x3. HEENT: Head: Atraumatic and normocephalic. Eyes: Pupils are equal and reactive to light and accommodation. Oropharynx is clear. Mucosa moist. Neck: Supple. No JVD. No bruit bilaterally. Cardiovascular: Regular rate and rhythm. No murmur. Respiratory: Clear to auscultation bilaterally. Abdomen: Soft, nontender. Bowel sounds are present in all 4 quadrants. Extremities: There is bilateral lower extremity lymphedema present. Pulses +2 bilaterally. There is no clubbing or cyanosis. Right lateral cuff cellulitis is almost resolved by the time of discharge. There is dry and flaky skin on bilateral feet, but no other significant lesions noted. On neuro evaluation, speech clear. Cranial nerves II through XII grossly intact. Motor strength is 5/5 bilaterally. Please note this is a short summary of the patient's hospitalization. Please refer to further medical records for details. TIME SPENT: Approximately 40 minutes was spent on the patient's discharge. [id number]/[facility] #: [id number] [facility]ENTER[facility]isael
== END 2018-01-30 12:10 | disposition home or self-care (01) | DRG 872 ==
LOC: ED 11:33 → MED 14:28
PROVIDERS: ADMIT Internal Medicine; ATTEND Internal Medicine
DX: A41.9 Sepsis, unspecified organism (principal); Z68.42 Body mass index [BMI] 45.0-49.9, adult; L03.115 Cellulitis of right lower limb; I89.0 Lymphedema, not elsewhere classified; I73.9 Peripheral vascular disease, unspecified; K21.9 Gastro-esophageal reflux disease without esophagitis; Z96.641 Presence of right artificial hip joint; G25.81 Restless legs syndrome; I87.8 Other specified disorders of veins; I10 Essential (primary) hypertension; J42 Unspecified chronic bronchitis; G47.33 Obstructive sleep apnea (adult) (pediatric); E03.9 Hypothyroidism, unspecified; E66.01 Morbid (severe) obesity due to excess calories; Z95.0 Presence of cardiac pacemaker; Z80.0 Family history of malignant neoplasm of digestive organs; Z82.5 Family history of asthma and other chronic lower respiratory diseases
CPT/HCPCS: 36415; 71045; 80048; 80053; 81003; 81015; 82550; 83605; 83880; 84145; 84484; 85025; 85060; 85384; 85610; 85652; 85730; 86140; 87040; 87086; 93005; 93306; 93970; 99284; A9270-GY; J1644; J2543; J3370

== ENCOUNTER 2020-10-10 16:43 | Inpatient (IN) ==
[2020-10-10 18:42] LABS: ABS Basophils 0.1 10^3/ul (0-0.2); ABS Eosinophils 0.1 10^3/ul (0-0.6); ABS Monocytes 0.7 10^3/ul (0-0.8); ABS Neutrophils 8.7 10^3/ul (1.5-7.7); Eosinophil % 0.7 %; Hematocrit 34 % (35-47); Hemoglobin 10.6 g/dL (12.0-16.0); Lymphocyte % 9.1 %; Mean Corpuscular HGB Conc 32 g/dL (31-36); Mean Corpuscular Hemoglobin 25 pg (27-31); Mean Corpuscular Volume 80 fL (80-97); Mean Platelet Volume 6.7 fL (7.4-10.4); Nucleated Red Blood Cells % 0.1; Platelet Count 356 10^3/uL (150-450); Red Blood Count 4.18 10^6 /uL (3.70-4.87); Red Cell Distribution Width 18 % (10-15); White Blood Count 10.5 10^3/uL (3.5-10.8)
[2020-10-10 19:01] LABS: Influenza A Molecular Negative (Negative); Influenza B Molecular Negative (Negative)
[2020-10-10 19:02] LABS: INR 1.25 (0.86-1.15)
[2020-10-10 19:03] LABS: ALT 13 U/L (7-52); AST 16 U/L (13-39); Albumin 3.4 g/dL (3.2-5.2); Albumin/Globulin Ratio 0.8 (1-3); Alkaline Phosphatase 98 U/L (35-149); Blood Urea Nitrogen 27 mg/dL (6-24); CO2 Carbon Dioxide 31 mmol/L (22-32); Calcium 8.4 mg/dL (8.6-10.3); Chloride 102 mmol/L (101-111); EGFR African American 61.9 (>60); EGFR Non-African American 51.1 (>60); Globulin 4.4 g/dL (2-4); Glucose 99 mg/dL (70-100); Sodium 137 mmol/L (135-145); Total Protein 7.8 g/dL (6.4-8.9)
[2020-10-10 19:05] LABS: Anion Gap 4 mmol/L (2-11); Potassium 5.6 mmol/L (3.5-5.0)
[2020-10-10 19:06] LABS: Troponin I 0.15 ng/mL (<0.03)
[2020-10-10] MEDS ORDERED: Clindamycin 900 MG/D5W BAG 900 MG/50 ML BAG IVPB ONE (19:13)
[2020-10-10] MEDS ORDERED: Iodixanol (CONTRAST) 320 MG/ML 100 ML SDV IV ONE (19:24)
[2020-10-10] MEDS ORDERED: Furosemide 40 mg/4 ml IV VIAL IV SLOW PU ONE (23:32)
[2020-10-10 23:56] LABS: Urine Appearance Cloudy; Urine Bilirubin Negative (Negative); Urine Blood Negative (Negative); Urine Color Yellow; Urine Glucose Negative (Negative); Urine Ketones Negative (Negative); Urine Nitrite Positive (Negative); Urine Protein Negative (Negative); Urine Specific Gravity 1.044 (1.002-1.030); Urine Urobilinogen Negative (Negative)
[2020-10-10 23:58] LABS: Urine Bacteria Absent (Absent); Urine Red Blood Cell Trace(0-2/hpf) (Absent); Urine Squamous Epithelial Cell Present (Absent); Urine White Blood Cell 3+(>20/hpf) (Absent)
[2020-10-11] MEDS: Enoxaparin 40 MG/0.4 ML SYR SUBCUT SCH ×2 (00:29→21:33)
[2020-10-11 00:48] LABS: Troponin I 0.09 ng/mL (<0.03)
[2020-10-11] MEDS: Albuterol HFA INHALER 8 gm MDI INH SCH ×7 (02:44→23:05)
[2020-10-11] MEDS ORDERED: DOXYcycline 100 MG in NS 0.9% 250 ml 250 ML IVPB ONE (02:46)
[2020-10-11] MEDS ORDERED: NS 0.9% 250 ml 250 ML ONE (03:00)
[2020-10-11 03:28] LABS: LDH 241 U/L (140-271)
[2020-10-11 03:48] LABS: Ferritin 17.6 ng/mL (11-307)
[2020-10-11 08:00] LABS: CO2 Carbon Dioxide 23 mmol/L (22-32); Calcium 7.9 mg/dL (8.6-10.3); Chloride 104 mmol/L (101-111); Sodium 136 mmol/L (135-145)
[2020-10-11 08:03] LABS: Hematocrit 33 % (35-47); Hemoglobin 10.4 g/dL (12.0-16.0); Mean Corpuscular HGB Conc 31 g/dL (31-36); Mean Corpuscular Hemoglobin 26 pg (27-31); Mean Corpuscular Volume 82 fL (80-97); Red Blood Count 4.07 10^6 /uL (3.70-4.87); Red Cell Distribution Width 18 % (10-15)
[2020-10-11 08:05] LABS: Blood Urea Nitrogen 24 mg/dL (6-24); EGFR African American 64.7 (>60); EGFR Non-African American 53.4 (>60); Glucose 110 mg/dL (70-100)
[2020-10-11 08:07] LABS: Anion Gap 9 mmol/L (2-11)
[2020-10-11] MEDS ORDERED: Potassium Chlor 20 meq TAB.ER PO SCH (09:00)
[2020-10-11 09:12] LABS: Anisocytosis 1+; Hypochromasia 1+
[2020-10-11 09:13] LABS: Platelet Count Platelets clumped. 10^3/uL (150-450); Polychromasia 1+
[2020-10-11] MEDS: Furosemide 40 mg/4 ml IV VIAL IV SLOW PU SCH (11:11)
[2020-10-11 11:48] LABS: PCO2 Arterial 70 mmHg (35-45); PO2 Arterial 66 mmHg (80-100)
[2020-10-11 14:35] LABS: TSH Ultra Thyroid Stim Horm 2.79 mcIU/mL (0.34-5.60)
[2020-10-11] MEDS: cefTRIAXone 1 gm/50 mL NS BAG 1 GM/50 ML BAG IVPB SCH (15:07)
[2020-10-11] MEDS: DULoxetine DR 20 mg CAP PO SCH (15:07)
[2020-10-11] MEDS: DOXYcycline 100 MG in NS 0.9% 250 ml 250 ML IVPB SCH (17:18)
[2020-10-12] MEDS: Albuterol HFA INHALER 8 gm MDI INH SCH ×7 (02:01→23:16)
[2020-10-12] MEDS: DOXYcycline 100 MG in NS 0.9% 250 ml 250 ML IVPB SCH (03:21)
[2020-10-12 06:48] LABS: ABS Lymphocytes 0.8 10^3/ul (1.0-4.8); ABS Monocytes 0.5 10^3/ul (0-0.8); ABS Neutrophils 6.6 10^3/ul (1.5-7.7); Eosinophil % 0.5 %; Hematocrit 33 % (35-47); Hemoglobin 9.6 g/dL (12.0-16.0); Lymphocyte % 10.4 %; Mean Corpuscular HGB Conc 29 g/dL (31-36); Mean Corpuscular Hemoglobin 25 pg (27-31); Mean Corpuscular Volume 86 fL (80-97); Nucleated Red Blood Cells % 0.1; Platelet Count 160 10^3/uL (150-450); Red Blood Count 3.82 10^6 /uL (3.70-4.87); Red Cell Distribution Width 18 % (10-15); White Blood Count 7.9 10^3/uL (3.5-10.8)
[2020-10-12 06:59] LABS: CO2 Carbon Dioxide 27 mmol/L (22-32); Calcium 8.3 mg/dL (8.6-10.3); Chloride 102 mmol/L (101-111); Sodium 135 mmol/L (135-145)
[2020-10-12 07:04] LABS: Blood Urea Nitrogen 27 mg/dL (6-24); C Reactive Protein 88.23 mg/L (<8.01); EGFR African American 76.5 (>60); EGFR Non-African American 63.3 (>60); Glucose 102 mg/dL (70-100)
[2020-10-12 07:14] LABS: Anion Gap 6 mmol/L (2-11)
[2020-10-12] MEDS: DULoxetine DR 20 mg CAP PO SCH (07:32)
[2020-10-12] MEDS: Furosemide 40 mg/4 ml IV VIAL IV SLOW PU SCH (07:32)
[2020-10-12 08:49] LABS: PO2 Arterial 136 mmHg (80-100)
[2020-10-12 09:08] LABS: PCO2 Arterial 74 mmHg (35-45)
[2020-10-12] MEDS: cefTRIAXone 1 gm/50 mL NS BAG 1 GM/50 ML BAG IVPB SCH (14:24)
[2020-10-12] MEDS ORDERED: Perflutren Lipid Microsphere 3 ML VIAL ONE (15:05)
[2020-10-12 16:07] LABS: PCO2 Arterial 69 mmHg (35-45); PO2 Arterial 83 mmHg (80-100)
[2020-10-12 17:00] LABS: Ferritin 17.2 ng/mL (11-307)
[2020-10-12 17:03] LABS: Folate 19.58 ng/mL (5.90-24.80); Total Iron Binding Capacity 400 mcg/dL (250-450); Transferrin 286 mg/dL (203-362)
[2020-10-12 17:05] LABS: Vitamin B12 687 pg/mL (180-914)
[2020-10-12 17:07] LABS: % Iron Saturation 5 % (15-55); Iron < 20 ug/dL (50-212)
[2020-10-12 17:08] LABS: Unsaturated Iron Binding < 385 ug/dL
[2020-10-12] MEDS: ceFAZolin 2 GM in NS PREMIX 2 GM/100 ML BAG IVPB SCH (17:56)
[2020-10-12] MEDS: Enoxaparin 40 MG/0.4 ML SYR SUBCUT SCH (20:33)
[2020-10-13] MEDS: ceFAZolin 2 GM in NS PREMIX 2 GM/100 ML BAG IVPB SCH (01:57)
[2020-10-13] MEDS: Albuterol HFA INHALER 8 gm MDI INH SCH ×5 (04:06→19:01)
[2020-10-13 06:25] LABS: ABS Eosinophils 0.1 10^3/ul (0-0.6); ABS Lymphocytes 1.5 10^3/ul (1.0-4.8); ABS Monocytes 0.6 10^3/ul (0-0.8); ABS Neutrophils 7.5 10^3/ul (1.5-7.7); Eosinophil % 0.9 %; Hematocrit 33 % (35-47); Lymphocyte % 15.9 %; Mean Corpuscular HGB Conc 31 g/dL (31-36); Mean Corpuscular Hemoglobin 25 pg (27-31); Mean Corpuscular Volume 81 fL (80-97); Mean Platelet Volume 6.9 fL (7.4-10.4); Nucleated Red Blood Cells % 0.1; Platelet Count 339 10^3/uL (150-450); Red Blood Count 4.02 10^6 /uL (3.70-4.87); Red Cell Distribution Width 18 % (10-15); White Blood Count 9.7 10^3/uL (3.5-10.8)
[2020-10-13 06:42] LABS: Calcium 8.9 mg/dL (8.6-10.3); EGFR African American 73.7 (>60); EGFR Non-African American 60.9 (>60); Magnesium 2.6 mg/dL (1.9-2.7); Potassium 4.4 mmol/L (3.5-5.0)
[2020-10-13] MEDS: DULoxetine DR 20 mg CAP PO SCH (08:52)
[2020-10-13] MEDS: cefTRIAXone 2 GM ADDV.VIAL 2 GM in NS 0.9% 100 ml BAG 100 ML IV SCH (10:05)
[2020-10-13] MEDS ORDERED: Furosemide 40 mg/4 ml IV VIAL IV SLOW PU ONE (11:42)
[2020-10-13] MEDS: Enoxaparin 40 MG/0.4 ML SYR SUBCUT SCH (20:52)
[2020-10-14] MEDS: Albuterol HFA INHALER 8 gm MDI INH SCH ×2 (01:09→07:26)
[2020-10-14 05:03] LABS: Calcium 8.5 mg/dL (8.6-10.3); EGFR African American 86.6 (>60); EGFR Non-African American 71.5 (>60); Magnesium 2.5 mg/dL (1.9-2.7); Potassium 4.4 mmol/L (3.5-5.0)
[2020-10-14] MEDS: DULoxetine DR 20 mg CAP PO SCH (08:03)
[2020-10-14] MEDS ORDERED: Albuterol HFA INHALER 8 gm MDI INH PRN (08:58)
[2020-10-14] MEDS: cefTRIAXone 2 GM ADDV.VIAL 2 GM in NS 0.9% 100 ml BAG 100 ML IV SCH (10:05)
[2020-10-14] MEDS: Amoxicillin/Clavul 875/125 TAB (Augmentin 875 tab) PO SCH ×2 (13:00→19:39)
[2020-10-14] MEDS: Enoxaparin 40 MG/0.4 ML SYR SUBCUT SCH (19:40)
[2020-10-15] MEDS: DULoxetine DR 20 mg CAP PO SCH (09:23)
[2020-10-15] MEDS: Amoxicillin/Clavul 875/125 TAB (Augmentin 875 tab) PO SCH (09:24)
[2020-10-15 13:29] VITALS: BP 127/63
== END 2020-10-15 16:45 | disposition home health service (06) | DRG 602 ==
LOC: ED 16:43 → MED 23:08
PROVIDERS: ADMIT Internal Medicine; ATTEND Hospitalist

== ENCOUNTER 2022-05-30 09:45 | Inpatient (IN) ==
[2022-05-30] MEDS ORDERED: Albuterol/Ipratropium NEB.SOL (2.5/0.5 MG) 3 ML NEB.SOLN INH ONE (10:07)
[2022-05-30 10:48] LABS: ABS Basophils 0.1 10^3/ul (0-0.2); ABS Eosinophils 0.2 10^3/ul (0-0.6); ABS Lymphocytes 1.4 10^3/ul (1.0-4.8); ABS Monocytes 0.7 10^3/ul (0-0.8); ABS Neutrophils 7.6 10^3/ul (1.5-7.7); Eosinophil % 2.5 %; Hematocrit 44 % (35-47); Lymphocyte % 13.9 %; Mean Corpuscular Hemoglobin 30 pg (27-31); Mean Corpuscular Hgb Conc 32 g/dL (31-36); Mean Corpuscular Volume 93 fL (80-97); Mean Platelet Volume 7.1 fL (7.4-10.4); Platelet Count 266 10^3/uL (150-450); Red Blood Count 4.68 10^6 /uL (3.70-4.87); Red Cell Distribution Width 16 % (10-15)
[2022-05-30 11:23] LABS: Albumin 3.9 g/dL (3.2-5.2); Albumin/Globulin Ratio 1.2 (1-3); Calcium 9.2 mg/dL (8.6-10.3); Creatinine, Serum 1.13 mg/dL (0.51-0.95); Globulin 3.2 g/dL (2-4); Total Bilirubin 0.6 mg/dL (0.2-1.0); Total Protein 7.1 g/dL (6.4-8.9); eGFR CKD-EPI 52.7 (>60)
[2022-05-30 11:25] LABS: Potassium 5.2 mmol/L (3.5-5.0)
[2022-05-30] MEDS ORDERED: Furosemide 40 mg/4 ml IV VIAL IV SLOW PU ONE ×2 (11:54→17:00)
[2022-05-30 12:18] LABS: High Sensitivity Troponin 1 Hr 5 pg/mL (<15)
[2022-05-30] MEDS ORDERED: Morphine 4 MG/ML VIAL (1 ml) IV ONE (14:21)
[2022-05-30 15:11] LABS: TSH Ultra Thyroid Stim Horm 3.96 mcIU/mL (0.34-5.60)
[2022-05-30 15:13] LABS: Magnesium 2.6 mg/dL (1.9-2.7)
[2022-05-30] MEDS ORDERED: Sulfur Hexaflouride MICROSPHR 25 MG VIAL ONE (15:29)
[2022-05-30 17:18] LABS: Calcium 8.8 mg/dL (8.6-10.3); Creatinine, Serum 0.94 mg/dL (0.51-0.95); Potassium 4.8 mmol/L (3.5-5.0); eGFR CKD-EPI 65.7 (>60)
[2022-05-31 07:33] LABS: Hematocrit 39 % (35-47); Hemoglobin 12.4 g/dL (12.0-16.0); Mean Corpuscular Hemoglobin 30 pg (27-31); Mean Corpuscular Hgb Conc 32 g/dL (31-36); Mean Corpuscular Volume 94 fL (80-97); Mean Platelet Volume 7.4 fL (7.4-10.4); Platelet Count 231 10^3/uL (150-450); Red Blood Count 4.12 10^6 /uL (3.70-4.87); Red Cell Distribution Width 15 % (10-15); White Blood Count 7.6 10^3/uL (3.5-10.8)
[2022-05-31 07:37] LABS: Calcium 8.8 mg/dL (8.6-10.3); Creatinine, Serum 0.86 mg/dL (0.51-0.95); Magnesium 2.7 mg/dL (1.9-2.7); Potassium 4.7 mmol/L (3.5-5.0); eGFR CKD-EPI 73.1 (>60)
[2022-05-31] MEDS ORDERED: Furosemide 40 mg/4 ml IV VIAL IV SLOW PU ONE ×2 (07:47→17:00)
[2022-05-31] MEDS ORDERED: Iohexol 350 (CONTRAST) 500 ML MDV IV ONE (09:53)
[2022-05-31 15:51] LABS: Calcium 8.9 mg/dL (8.6-10.3); Creatinine, Serum 1.01 mg/dL (0.51-0.95); eGFR CKD-EPI 60.3 (>60)
[2022-05-31 15:52] LABS: Potassium 5.1 mmol/L (3.5-5.0)
[2022-05-31] MEDS ORDERED: acetaZOLAMIDE IV 500 MG in NS 0.9% 50 ML 50 ML IVPB ONE (16:30)
[2022-06-01 06:01] LABS: Calcium 8.9 mg/dL (8.6-10.3); Creatinine, Serum 0.8 mg/dL (0.51-0.95); Magnesium 2.7 mg/dL (1.9-2.7); Potassium 4.5 mmol/L (3.5-5.0); eGFR CKD-EPI 79.7 (>60)
[2022-06-01] MEDS: Nystatin TOP POWDER 15 GM BTL TOPICAL SCH ×2 (09:29→14:23)
[2022-06-01 14:40] VITALS: BP 133/60
[2022-06-01] MEDS ORDERED: Albuterol/Ipratropium NEB.SOL (2.5/0.5 MG) 3 ML NEB.SOLN INH SCH (15:00)
[2022-06-01] MEDS ORDERED: Mometasone/Formoter 100/5 MDI INH SCH (19:00)
== END 2022-06-01 17:15 | disposition home or self-care (01) | DRG 189 ==
LOC: ED 09:45 → EDHOLD 09:45 → MEDTELE 15:34
PROVIDERS: ADMIT Internal Medicine; ATTEND Internal Medicine

== ENCOUNTER 2022-08-15 05:35 | Inpatient (IN) ==
[2022-08-15] MEDS ORDERED: Morphine 4 MG/ML VIAL (1 ml) IV ONE (05:37)
[2022-08-15] MEDS ORDERED: Ondansetron 4 mg VIAL 2 MG/ML 2 ml VIAL IV ONE (06:23)
[2022-08-15 06:47] LABS: ABS Basophils 0.1 10^3/uL (0.0-0.1); ABS Eosinophils 0.2 10^3/uL (0.0-0.5); ABS Lymphocytes 1.8 10^3/uL (1.0-4.8); ABS Monocytes 0.7 10^3/uL (0.0-0.9); ABS Neutrophils 7.9 10^3/uL (1.5-7.6); ABS Nucleated RBC 0.01 10^3/ul; Eosinophil % 2.2 %; Hematocrit 39.6 % (35-45); Hemoglobin 13.2 g/dL (11.5-14.3); Lymphocyte % 16.6 %; Mean Corpuscular Hgb Conc 33.3 g/dL (31-36); Mean Corpuscular Volume 90.1 fL (80-97); Mean Platelet Volume 7.6 fL (7.5-11.2); Nucleated Red Blood Cells % 0.1 /100 WBC (0.0-0.4); Platelet Count 293 10^3/uL (150-450); Red Cell Distribution Width 14.5 % (12-17); White Blood Count 10.8 10^3/uL (3.8-11.8)
[2022-08-15 07:08] LABS: Albumin 4.1 g/dL (3.2-5.2); Albumin/Globulin Ratio 1.1 (1-3); Calcium 9.3 mg/dL (8.6-10.3); Creatinine, Serum 1.45 mg/dL (0.51-0.95); Globulin 3.8 g/dL (2-4); Potassium 3.9 mmol/L (3.5-5.0); Total Bilirubin 0.5 mg/dL (0.2-1.0); Total Protein 7.9 g/dL (6.4-8.9)
[2022-08-15] MEDS ORDERED: HYDROmorphone 1 MG/1 ML SYRINGE IV SLOW PU ONE (07:45)
[2022-08-15 11:36] LABS: C Reactive Protein 43.49 mg/L (<8.01)
[2022-08-15] MEDS ORDERED: Furosemide 40 mg/4 ml IV VIAL IV ONE (12:18)
[2022-08-15] MEDS ORDERED: Albuterol HFA INHALER 8 gm MDI INH PRN (13:04)
[2022-08-15] MEDS: Morphine 2 MG/ML SYRINGE IV PRN ×2 (15:59→22:01)
[2022-08-15] MEDS: Mometasone/Formoter 100/5 MDI INH SCH (19:41)
[2022-08-16] MEDS: Morphine 2 MG/ML SYRINGE IV PRN ×2 (04:12→14:27)
[2022-08-16 06:38] LABS: ABS Eosinophils 0.3 10^3/uL (0.0-0.5); ABS Lymphocytes 1.5 10^3/uL (1.0-4.8); ABS Monocytes 0.7 10^3/uL (0.0-0.9); ABS Neutrophils 7.3 10^3/uL (1.5-7.6); Eosinophil % 2.8 %; Hematocrit 37.7 % (35-45); Hemoglobin 12.6 g/dL (11.5-14.3); Lymphocyte % 15.2 %; Mean Corpuscular Hemoglobin 30.3 pg (27-33); Mean Corpuscular Hgb Conc 33.5 g/dL (31-36); Mean Corpuscular Volume 90.4 fL (80-97); Mean Platelet Volume 7.4 fL (7.5-11.2); Platelet Count 263 10^3/uL (150-450); Red Blood Count 4.18 10^6/uL (3.63-4.92); Red Cell Distribution Width 15.1 % (12-17); White Blood Count 9.8 10^3/uL (3.8-11.8)
[2022-08-16 06:54] LABS: Calcium 9.1 mg/dL (8.6-10.3); Creatinine, Serum 0.93 mg/dL (0.51-0.95); Magnesium 2.8 mg/dL (1.9-2.7); Potassium 4.3 mmol/L (3.5-5.0); eGFR CKD-EPI 66.5 (>60)
[2022-08-16] MEDS: Mometasone/Formoter 100/5 MDI INH SCH ×2 (07:32→19:40)
[2022-08-16] MEDS: Fluticasone NASAL SPRAY 50MCG 16 gm SPRAY BTL INTRANASAL SCH (09:56)
[2022-08-16] MEDS: Nystatin TOP POWDER 15 GM BTL TOPICAL PRN (09:57)
[2022-08-16] MEDS ORDERED: Furosemide 40 mg/4 ml IV VIAL IV SLOW PU SCH (10:00)
[2022-08-16] MEDS ORDERED: Furosemide 40 mg/4 ml IV VIAL IV SLOW PU ONE (20:00)
[2022-08-17] MEDS: Morphine 2 MG/ML SYRINGE IV PRN (03:56)
[2022-08-17 06:56] LABS: ABS Basophils 0.1 10^3/uL (0.0-0.1); ABS Eosinophils 0.4 10^3/uL (0.0-0.5); ABS Lymphocytes 1.8 10^3/uL (1.0-4.8); ABS Monocytes 0.7 10^3/uL (0.0-0.9); ABS Neutrophils 6.5 10^3/uL (1.5-7.6); Hemoglobin 12.5 g/dL (11.5-14.3); Lymphocyte % 18.7 %; Mean Corpuscular Hemoglobin 30.4 pg (27-33); Mean Corpuscular Hgb Conc 33.8 g/dL (31-36); Mean Platelet Volume 7.3 fL (7.5-11.2); Platelet Count 266 10^3/uL (150-450); Red Blood Count 4.11 10^6/uL (3.63-4.92); Red Cell Distribution Width 14.8 % (12-17); White Blood Count 9.4 10^3/uL (3.8-11.8)
[2022-08-17 07:12] LABS: Creatinine, Serum 0.78 mg/dL (0.51-0.95); Potassium 4.2 mmol/L (3.5-5.0); eGFR CKD-EPI 82.2 (>60)
[2022-08-17] MEDS: Mometasone/Formoter 100/5 MDI INH SCH ×2 (07:22→19:32)
[2022-08-17] MEDS: Fluticasone NASAL SPRAY 50MCG 16 gm SPRAY BTL INTRANASAL SCH (07:57)
[2022-08-17] MEDS ORDERED: Furosemide 40 mg/4 ml IV VIAL IV SLOW PU ONE (11:39)
[2022-08-18] MEDS: Mometasone/Formoter 100/5 MDI INH SCH (07:07)
[2022-08-18] MEDS: Fluticasone NASAL SPRAY 50MCG 16 gm SPRAY BTL INTRANASAL SCH (09:42)
[2022-08-18] MEDS: Nystatin TOP POWDER 15 GM BTL TOPICAL PRN (09:44)
[2022-08-18 10:30] VITALS: BP 118/70
== END 2022-08-18 13:30 | disposition home or self-care (01) | DRG 607 ==
LOC: ED 05:35 → EDHOLD 05:35 → SUATTDRO 11:36 → MEDTELE 13:51 → MED 08-17 14:51
PROVIDERS: ADMIT Hospitalist; ATTEND Hospitalist

== ENCOUNTER 2023-03-07 12:22 | Inpatient (IN) ==
[2023-03-07] MEDS ORDERED: fentaNYL 100 mcg/2 ml 50 MCG/ML VIAL IV SLOW PU ONE ×2 (13:17→16:18)
[2023-03-07 13:29] LABS: ABS Basophils 0.1 10^3/uL (0.0-0.1); ABS Eosinophils 0.2 10^3/uL (0.0-0.5); ABS Lymphocytes 1.4 10^3/uL (1.0-4.8); ABS Monocytes 0.8 10^3/uL (0.0-0.9); ABS Neutrophils 10.4 10^3/uL (1.5-7.6); ABS Nucleated RBC 0.01 10^3/ul; Eosinophil % 1.7 %; Hematocrit 42.2 % (35-45); Hemoglobin 13.4 g/dL (11.5-14.3); Lymphocyte % 10.7 %; Mean Corpuscular Hemoglobin 28.8 pg (27-33); Mean Corpuscular Hgb Conc 31.7 g/dL (31-36); Mean Corpuscular Volume 90.7 fL (80-97); Mean Platelet Volume 7.3 fL (7.5-11.2); Platelet Count 345 10^3/uL (150-450); Red Blood Count 4.65 10^6/uL (3.63-4.92); Red Cell Distribution Width 15.7 % (12-17); White Blood Count 12.8 10^3/uL (3.8-11.8)
[2023-03-07 13:45] LABS: Albumin 3.8 g/dL (3.2-5.2); Albumin/Globulin Ratio 1.1 (1-3); Calcium 9.2 mg/dL (8.6-10.3); Creatinine, Serum 0.82 mg/dL (0.51-0.95); Globulin 3.6 g/dL (2-4); Potassium 4.1 mmol/L (3.5-5.0); Total Bilirubin 0.5 mg/dL (0.2-1.0); Total Protein 7.4 g/dL (6.4-8.9); eGFR CKD-EPI 76.9 (>60)
[2023-03-07] MEDS ORDERED: Furosemide 40 mg/4 ml IV VIAL IV ONE (14:23)
[2023-03-07] MEDS ORDERED: Lidocaine 1% MPF 5 ML VIAL INJ ONE (16:18)
[2023-03-07] MEDS ORDERED: Lidocaine 1% VIAL 10 MG/ML 30 ML VIAL ONE (16:18)
[2023-03-07] MEDS: Bacitracin OINTMENT TUBE TOPICAL SCH (21:47)
[2023-03-07] MEDS: Mometasone/Formoter 100/5 MDI INH SCH (21:48)
[2023-03-07] MEDS: oxyCODONE/Acetamin 5/325 mg TAB PO PRN (23:13)
[2023-03-08 05:33] LABS: ABS Basophils 0.1 10^3/uL (0.0-0.1); ABS Eosinophils 0.2 10^3/uL (0.0-0.5); ABS Lymphocytes 1.2 10^3/uL (1.0-4.8); ABS Monocytes 0.8 10^3/uL (0.0-0.9); ABS Neutrophils 7.8 10^3/uL (1.5-7.6); ABS Nucleated RBC 0.01 10^3/ul; Eosinophil % 2.2 %; Hematocrit 36.9 % (35-45); Hemoglobin 12.2 g/dL (11.5-14.3); Lymphocyte % 12.2 %; Mean Corpuscular Hgb Conc 33.2 g/dL (31-36); Mean Corpuscular Volume 90.4 fL (80-97); Nucleated Red Blood Cells % 0.1 %/100WBC (0.0-0.8); Platelet Count 277 10^3/uL (150-450); Red Blood Count 4.08 10^6/uL (3.63-4.92); Red Cell Distribution Width 15.6 % (12-17); White Blood Count 10.2 10^3/uL (3.8-11.8)
[2023-03-08 05:50] LABS: C Reactive Protein 37.47 mg/L (<8.01)
[2023-03-08 07:00] LABS: TSH Ultra Thyroid Stim Horm 3.35 mcIU/mL (0.34-5.60)
[2023-03-08] MEDS ORDERED: Furosemide 40 mg/4 ml IV VIAL IV ONE (07:00)
[2023-03-08] MEDS: Mometasone/Formoter 100/5 MDI INH SCH ×2 (07:30→20:54)
[2023-03-08] MEDS: Bacitracin OINTMENT TUBE TOPICAL SCH ×2 (08:28→22:18)
[2023-03-08] MEDS: oxyCODONE/Acetamin 5/325 mg TAB PO PRN ×2 (08:32→20:16)
[2023-03-09] MEDS ORDERED: Acetaminophen IV 1 GM/100ML 1,000 MG/100 ML BAG IV ONE (02:38)
[2023-03-09 06:34] LABS: ABS Basophils 0.1 10^3/uL (0.0-0.1); ABS Eosinophils 0.3 10^3/uL (0.0-0.5); ABS Lymphocytes 1.2 10^3/uL (1.0-4.8); ABS Monocytes 0.6 10^3/uL (0.0-0.9); ABS Neutrophils 7.6 10^3/uL (1.5-7.6); Eosinophil % 3.2 %; Hemoglobin 11.9 g/dL (11.5-14.3); Lymphocyte % 12.2 %; Mean Corpuscular Hemoglobin 29.4 pg (27-33); Mean Corpuscular Hgb Conc 32.1 g/dL (31-36); Mean Corpuscular Volume 91.5 fL (80-97); Mean Platelet Volume 7.1 fL (7.5-11.2); Platelet Count 262 10^3/uL (150-450); Red Blood Count 4.05 10^6/uL (3.63-4.92); Red Cell Distribution Width 15.1 % (12-17); White Blood Count 9.8 10^3/uL (3.8-11.8)
[2023-03-09] MEDS: Mometasone/Formoter 100/5 MDI INH SCH ×2 (07:24→20:27)
[2023-03-09 08:01] LABS: C Reactive Protein 55.76 mg/L (<8.01); Calcium 8.7 mg/dL (8.6-10.3); Creatinine, Serum 0.74 mg/dL (0.51-0.95)
[2023-03-09] MEDS ORDERED: Sulfur Hexaflouride MICROSPHR 25 MG VIAL ONE (08:36)
[2023-03-09] MEDS ORDERED: Furosemide 40 mg/4 ml IV VIAL IV ONE (11:41)
[2023-03-09] MEDS: Bacitracin OINTMENT TUBE TOPICAL SCH ×2 (13:19→20:02)
[2023-03-10 06:30] LABS: ABS Basophils 0.1 10^3/uL (0.0-0.1); ABS Eosinophils 0.3 10^3/uL (0.0-0.5); ABS Lymphocytes 1.2 10^3/uL (1.0-4.8); ABS Monocytes 0.7 10^3/uL (0.0-0.9); Eosinophil % 3.2 %; Hematocrit 36.2 % (35-45); Hemoglobin 11.8 g/dL (11.5-14.3); Mean Corpuscular Hemoglobin 29.7 pg (27-33); Mean Corpuscular Hgb Conc 32.6 g/dL (31-36); Mean Corpuscular Volume 91.2 fL (80-97); Mean Platelet Volume 7.2 fL (7.5-11.2); Platelet Count 272 10^3/uL (150-450); Red Blood Count 3.97 10^6/uL (3.63-4.92); Red Cell Distribution Width 15.4 % (12-17); White Blood Count 10.3 10^3/uL (3.8-11.8)
[2023-03-10 06:42] LABS: Calcium 8.5 mg/dL (8.6-10.3); Creatinine, Serum 0.8 mg/dL (0.51-0.95); Magnesium 2.5 mg/dL (1.9-2.7); Potassium 3.6 mmol/L (3.5-5.0); eGFR CKD-EPI 79.2 (>60)
[2023-03-10] MEDS: Mometasone/Formoter 100/5 MDI INH SCH (07:36)
[2023-03-10] MEDS: Bacitracin OINTMENT TUBE TOPICAL SCH (11:14)
[2023-03-10 13:00] LABS: C Reactive Protein 41.05 mg/L (<8.01)
[2023-03-10 14:02] VITALS: BP 128/77
== END 2023-03-10 14:47 | disposition home or self-care (01) | DRG 291 ==
LOC: ED 12:22 → EDHOLD 12:22 → MEDTELE 03-08 08:11
PROVIDERS: ADMIT Internal Medicine; ATTEND Student in an Organized Health Care Education/Training Program

== ENCOUNTER 2023-10-16 11:38 | Inpatient (IN) ==
[2023-10-16] MEDS: Iodixanol (CONTRAST) 320 MG/ML 100 ML SDV IV ONE (12:21)
[2023-10-16 12:25] LABS: Hematocrit 44.1 % (35-45); Hemoglobin 13.6 g/dL (11.5-14.3); Mean Corpuscular Hemoglobin 29.6 pg (27-33); Mean Corpuscular Hgb Conc 30.9 g/dL (31-36); Mean Corpuscular Volume 95.9 fL (80-97); Mean Platelet Volume 7.1 fL (7.5-11.2); Platelet Count 343 10^3/uL (150-450); Red Cell Distribution Width 16.3 % (12-17); White Blood Count 15.5 10^3/uL (3.8-11.8)
[2023-10-16] MEDS: Propofol 10 mg/ml 100 ML BTL 1,000 MG/100 ML BTL IV SCH (12:40)
[2023-10-16 12:44] LABS: Resp Rate 18
[2023-10-16 12:45] LABS: INR 1.05 (0.83-1.13)
[2023-10-16] MEDS: Piperacillin/Tazobac 3.375 BAG 3.375 GM/100 ML BAG IV ONE (12:48)
[2023-10-16 12:50] LABS: PO2 Arterial 142 mmHg (80-100)
[2023-10-16 12:53] LABS: PCO2 Arterial > 100 mmHg (35-45)
[2023-10-16 13:10] LABS: ABS Basophils 0.1 10^3/uL (0.0-0.1); ABS Lymphocytes 0.8 10^3/uL (1.0-4.8); ABS Monocytes 0.6 10^3/uL (0.0-0.9); ABS Neutrophils 13.9 10^3/uL (1.5-7.6); ABS Nucleated RBC 0.02 10^3/ul; Eosinophil % 0.1 %; Lymphocyte % 5.4 %; Nucleated Red Blood Cells % 0.1 %/100WBC (0.0-0.8)
[2023-10-16 13:14] LABS: Potassium 5.4 mmol/L (3.5-5.0)
[2023-10-16 13:15] LABS: Albumin 3.7 g/dL (3.2-5.2); Albumin/Globulin Ratio 0.9 (1-3); C Reactive Protein 46.48 mg/L (<8.01); Creatinine, Serum 1.1 mg/dL (0.51-0.95); Globulin 3.9 g/dL (2-4); Total Bilirubin 0.7 mg/dL (0.2-1.0); Total Protein 7.6 g/dL (6.4-8.9); eGFR CKD-EPI 54.1 (>60)
[2023-10-16 13:33] LABS: Urine Appearance Turbid; Urine Bilirubin Negative (Negative); Urine Blood Negative (Negative); Urine Color Yellow; Urine Glucose 4+ (>=1000 mg/dL) (Negative); Urine Ketones Negative (Negative); Urine Nitrite Negative (Negative); Urine Protein 1+ (>=30 mg/dL) (Negative); Urine Specific Gravity >1.050 (1.002-1.030); Urine Urobilinogen 1+ (Negative)
[2023-10-16 13:37] LABS: Urine Bacteria 1+ /HPF (Absent); Urine Red Blood Cell Trace(0-2/hpf) /HPF (0-Trace); Urine Squamous Epithelial Cell Present /HPF (Absent); Urine White Blood Cell 3+(>20/hpf) /HPF (0-Trace)
[2023-10-16 13:44] LABS: High Sensitivity Troponin 1 Hr 176 pg/mL (<15)
[2023-10-16 13:46] LABS: Calcium 8.4 mg/dL (8.6-10.3)
[2023-10-16] MEDS ORDERED: Albuterol 2.5mg/3 ml (0.083%) NEB.SOLN INH PRN (13:54)
[2023-10-16] MEDS ORDERED: Albuterol/Ipratropium NEB.SOL (2.5/0.5 MG) 3 ML NEB.SOLN INH PRN (13:54)
[2023-10-16 14:00] LABS: Resp Rate 22
[2023-10-16 14:02] LABS: PO2 Arterial 142 mmHg (80-100)
[2023-10-16 14:06] LABS: PCO2 Arterial 98 mmHg (35-45)
[2023-10-16] MEDS ORDERED: Piperacillin/Tazobac 3.375 BAG 3.375 GM/100 ML BAG IV ONE (14:10)
[2023-10-16 14:27] LABS: Magnesium 2.8 mg/dL (1.9-2.7)
[2023-10-16] MEDS ORDERED: Sulfur Hexaflouride MICROSPHR 25 MG VIAL ONE (14:37)
[2023-10-16] MEDS ORDERED: Zosyn per Pharmacy NOTE FOLLOW UP SCH (15:00)
[2023-10-16] MEDS ORDERED: Morphine 2 MG/ML SYRINGE IV PRN ×2 (15:10→15:11)
[2023-10-16] MEDS: Furosemide 40 mg/4 ml IV VIAL IV ONE (15:23)
[2023-10-16] MEDS: Sulfur Hexaflouride MICROSPHR 25 MG VIAL IV ONE (16:04)
[2023-10-16] MEDS: ZOSYN 3.375 GM Q8H per EXTENDED INFUSION IV SCH (16:17)
[2023-10-16 18:32] LABS: High Sensitivity Troponin 3 Hr 66 pg/mL (<15)
[2023-10-16 18:59] LABS: Calcium 8.5 mg/dL (8.6-10.3); Creatinine, Serum 0.82 mg/dL (0.51-0.95); Direct Bilirubin 0.4 mg/dL (0.03-0.18); Indirect Bilirubin 0.5 mg/dL (0.3-1.0); Potassium 4.7 mmol/L (3.5-5.0); Total Bilirubin 0.9 mg/dL (0.2-1.0); eGFR CKD-EPI 76.9 (>60)
[2023-10-16] MEDS: Midazolam 2 mg/2 ml VIAL 1 mg/ml 2 ml VIAL (2 mg) IV SLOW PU ONE (19:11)
[2023-10-16] MEDS: Chlorhexidine MOUTHWASH 0.12% 15 ML UDC SWISH SPIT SCH (19:11)
[2023-10-17 04:26] LABS: ABS Lymphocytes 0.9 10^3/uL (1.0-4.8); ABS Monocytes 0.9 10^3/uL (0.0-0.9); ABS Neutrophils 13.9 10^3/uL (1.5-7.6); ABS Nucleated RBC 0.01 10^3/ul; Eosinophil % 0.3 %; Hematocrit 35.8 % (35-45); Hemoglobin 11.4 g/dL (11.5-14.3); Lymphocyte % 5.7 %; Mean Corpuscular Hemoglobin 29.3 pg (27-33); Mean Corpuscular Hgb Conc 31.9 g/dL (31-36); Mean Corpuscular Volume 92.1 fL (80-97); Mean Platelet Volume 7.4 fL (7.5-11.2); Nucleated Red Blood Cells % 0.1 %/100WBC (0.0-0.8); Platelet Count 286 10^3/uL (150-450); Red Blood Count 3.89 10^6/uL (3.63-4.92); White Blood Count 15.7 10^3/uL (3.8-11.8)
[2023-10-17 06:27] LABS: Calcium 8.7 mg/dL (8.6-10.3); Creatinine, Serum 0.82 mg/dL (0.51-0.95); HDL Cholesterol 61.6 mg/dL; Magnesium 2.3 mg/dL (1.9-2.7); Potassium 4.1 mmol/L (3.5-5.0); eGFR CKD-EPI 76.9 (>60)
[2023-10-17 08:46] LABS: Albumin 3.1 g/dL (3.2-5.2); Direct Bilirubin 0.2 mg/dL (0.03-0.18); Indirect Bilirubin 0.5 mg/dL (0.3-1.0); Total Bilirubin 0.7 mg/dL (0.2-1.0); Total Protein 6.1 g/dL (6.4-8.9)
[2023-10-17 09:08] LABS: Venous Bicarbonate HCO3 38.6 mmol/L (24-28)
[2023-10-17] MEDS: cefTRIAXone 2 gm/50 mL D5W 2 GM/50 ML BAG IV SCH (12:10)
[2023-10-17] MEDS: Dexmedetomidine 1,000 MCG in NS 0.9% 250 ml 240 ML IV SCH (13:33)
[2023-10-17] MEDS: Pantoprazole VIAL 40 MG VIAL IV SCH (15:13)
[2023-10-18 04:40] LABS: ABS Basophils 0.1 10^3/uL (0.0-0.1); ABS Eosinophils 0.2 10^3/uL (0.0-0.5); ABS Lymphocytes 1.5 10^3/uL (1.0-4.8); ABS Monocytes 0.9 10^3/uL (0.0-0.9); ABS Neutrophils 10.3 10^3/uL (1.5-7.6); Eosinophil % 1.7 %; Hematocrit 36.1 % (35-45); Hemoglobin 11.5 g/dL (11.5-14.3); Lymphocyte % 11.9 %; Mean Corpuscular Hemoglobin 29.6 pg (27-33); Mean Corpuscular Hgb Conc 31.8 g/dL (31-36); Mean Platelet Volume 7.3 fL (7.5-11.2); Platelet Count 262 10^3/uL (150-450); Red Blood Count 3.88 10^6/uL (3.63-4.92); Red Cell Distribution Width 16.3 % (12-17); White Blood Count 13.1 10^3/uL (3.8-11.8)
[2023-10-18 05:23] LABS: Potassium 3.9 mmol/L (3.5-5.0)
[2023-10-18 05:25] LABS: Calcium 8.6 mg/dL (8.6-10.3); Creatinine, Serum 0.83 mg/dL (0.51-0.95); Magnesium 2.7 mg/dL (1.9-2.7); eGFR CKD-EPI 75.8 (>60)
[2023-10-19 04:55] LABS: ABS Basophils 0.1 10^3/uL (0.0-0.1); ABS Eosinophils 0.4 10^3/uL (0.0-0.5); ABS Monocytes 0.9 10^3/uL (0.0-0.9); ABS Nucleated RBC 0.01 10^3/ul; Eosinophil % 3.5 %; Hematocrit 34.5 % (35-45); Hemoglobin 10.9 g/dL (11.5-14.3); Lymphocyte % 8.3 %; Mean Corpuscular Hemoglobin 29.5 pg (27-33); Mean Corpuscular Hgb Conc 31.5 g/dL (31-36); Mean Corpuscular Volume 93.8 fL (80-97); Mean Platelet Volume 7.3 fL (7.5-11.2); Platelet Count 256 10^3/uL (150-450); Red Blood Count 3.67 10^6/uL (3.63-4.92); Red Cell Distribution Width 15.6 % (12-17); White Blood Count 12.5 10^3/uL (3.8-11.8)
[2023-10-19 05:28] LABS: Calcium 8.5 mg/dL (8.6-10.3); Creatinine, Serum 0.68 mg/dL (0.51-0.95); Magnesium 2.4 mg/dL (1.9-2.7); Potassium 3.8 mmol/L (3.5-5.0); eGFR CKD-EPI 93.6 (>60)
[2023-10-19] MEDS: DULoxetine DR 20 mg CAP PO SCH (08:59)
[2023-10-19] MEDS: Nystatin TOP POWDER 15 GM BTL TOPICAL SCH (16:33)
[2023-10-20 06:56] LABS: ABS Basophils 0.1 10^3/uL (0.0-0.1); ABS Eosinophils 0.4 10^3/uL (0.0-0.5); ABS Lymphocytes 0.8 10^3/uL (1.0-4.8); ABS Monocytes 0.7 10^3/uL (0.0-0.9); ABS Neutrophils 7.8 10^3/uL (1.5-7.6); Eosinophil % 4.5 %; Hematocrit 32.7 % (35-45); Hemoglobin 10.7 g/dL (11.5-14.3); Lymphocyte % 8.5 %; Mean Corpuscular Hemoglobin 30.2 pg (27-33); Mean Corpuscular Hgb Conc 32.6 g/dL (31-36); Mean Corpuscular Volume 92.6 fL (80-97); Mean Platelet Volume 7.5 fL (7.5-11.2); Platelet Count 244 10^3/uL (150-450); Red Blood Count 3.54 10^6/uL (3.63-4.92); Red Cell Distribution Width 15.4 % (12-17); White Blood Count 9.8 10^3/uL (3.8-11.8)
[2023-10-20 07:27] LABS: Calcium 8.2 mg/dL (8.6-10.3); Creatinine, Serum 0.62 mg/dL (0.51-0.95); Magnesium 2.3 mg/dL (1.9-2.7); Potassium 3.5 mmol/L (3.5-5.0); eGFR CKD-EPI 95.7 (>60)
[2023-10-20] MEDS: Potassium Chlor 20 meq TAB.ER PO ONE (10:17)
[2023-10-21 06:44] LABS: ABS Basophils 0.1 10^3/uL (0.0-0.1); ABS Eosinophils 0.4 10^3/uL (0.0-0.5); ABS Lymphocytes 1.2 10^3/uL (1.0-4.8); ABS Monocytes 0.7 10^3/uL (0.0-0.9); Eosinophil % 4.6 %; Hematocrit 33.6 % (35-45); Hemoglobin 10.8 g/dL (11.5-14.3); Lymphocyte % 12.9 %; Mean Corpuscular Hemoglobin 29.8 pg (27-33); Mean Corpuscular Hgb Conc 32.1 g/dL (31-36); Mean Corpuscular Volume 92.6 fL (80-97); Mean Platelet Volume 7.3 fL (7.5-11.2); Platelet Count 250 10^3/uL (150-450); Red Blood Count 3.63 10^6/uL (3.63-4.92); Red Cell Distribution Width 15.5 % (12-17); White Blood Count 9.4 10^3/uL (3.8-11.8)
[2023-10-21 07:57] LABS: Calcium 8.6 mg/dL (8.6-10.3); Creatinine, Serum 0.62 mg/dL (0.51-0.95); Magnesium 2.4 mg/dL (1.9-2.7); Potassium 4.1 mmol/L (3.5-5.0); eGFR CKD-EPI 95.7 (>60)
[2023-10-22 05:58] LABS: Hematocrit 34.4 % (35-45); Hemoglobin 10.9 g/dL (11.5-14.3); Mean Corpuscular Hemoglobin 29.4 pg (27-33); Mean Corpuscular Hgb Conc 31.7 g/dL (31-36); Mean Corpuscular Volume 92.8 fL (80-97); Mean Platelet Volume 7.6 fL (7.5-11.2); Platelet Count 256 10^3/uL (150-450); Red Blood Count 3.71 10^6/uL (3.63-4.92); Red Cell Distribution Width 15.3 % (12-17); White Blood Count 9.6 10^3/uL (3.8-11.8)
[2023-10-22 06:21] LABS: Calcium 8.9 mg/dL (8.6-10.3); Creatinine, Serum 0.58 mg/dL (0.51-0.95); Magnesium 2.6 mg/dL (1.9-2.7); Potassium 4.2 mmol/L (3.5-5.0); eGFR CKD-EPI 97.3 (>60)
[2023-10-23 06:53] LABS: ABS Basophils 0.1 10^3/uL (0.0-0.1); ABS Eosinophils 0.4 10^3/uL (0.0-0.5); ABS Lymphocytes 1.5 10^3/uL (1.0-4.8); ABS Monocytes 0.8 10^3/uL (0.0-0.9); ABS Neutrophils 6.8 10^3/uL (1.5-7.6); Corrected Retic Count 1.1 % (0.5-1.5); Eosinophil % 4.5 %; Hematocrit 34.2 % (35-45); Hematocrit for Retic CNT 34.2 % (35-45); Hemoglobin 11.1 g/dL (11.5-14.3); Lymphocyte % 15.4 %; Mean Corpuscular Hemoglobin 29.6 pg (27-33); Mean Corpuscular Hgb Conc 32.3 g/dL (31-36); Mean Corpuscular Volume 91.7 fL (80-97); Mean Platelet Volume 7.1 fL (7.5-11.2); Platelet Count 284 10^3/uL (150-450); RBC Retic Count 3.73 10^6/ul (3.63-4.92); Red Blood Count 3.73 10^6/uL (3.63-4.92); Red Cell Distribution Width 15.6 % (12-17); White Blood Count 9.6 10^3/uL (3.8-11.8)
[2023-10-23 07:25] LABS: Calcium 8.6 mg/dL (8.6-10.3); Creatinine, Serum 0.62 mg/dL (0.51-0.95); Magnesium 2.5 mg/dL (1.9-2.7); Potassium 4.3 mmol/L (3.5-5.0); eGFR CKD-EPI 95.7 (>60)
[2023-10-23] MEDS: Lidocaine PATCH 5% PATCH TRANSDERM ONE (23:32)
[2023-10-24 06:08] LABS: PCO2 Arterial 68 mmHg (35-45); PO2 Arterial 92 mmHg (80-100)
[2023-10-24 06:17] LABS: ABS Basophils 0.1 10^3/uL (0.0-0.1); ABS Eosinophils 0.5 10^3/uL (0.0-0.5); ABS Lymphocytes 1.6 10^3/uL (1.0-4.8); ABS Monocytes 0.8 10^3/uL (0.0-0.9); ABS Neutrophils 6.7 10^3/uL (1.5-7.6); Eosinophil % 4.9 %; Hematocrit 36.3 % (35-45); Hemoglobin 11.7 g/dL (11.5-14.3); Lymphocyte % 16.4 %; Mean Corpuscular Hemoglobin 29.9 pg (27-33); Mean Corpuscular Hgb Conc 32.1 g/dL (31-36); Mean Corpuscular Volume 93.1 fL (80-97); Mean Platelet Volume 7.2 fL (7.5-11.2); Platelet Count 260 10^3/uL (150-450); Red Cell Distribution Width 15.7 % (12-17); White Blood Count 9.5 10^3/uL (3.8-11.8)
[2023-10-24 06:24] LABS: Albumin 3.1 g/dL (3.2-5.2); Albumin/Globulin Ratio 1.1 (1-3); Calcium 8.9 mg/dL (8.6-10.3); Creatinine, Serum 0.63 mg/dL (0.51-0.95); Globulin 2.8 g/dL (2-4); Magnesium 2.4 mg/dL (1.9-2.7); Phosphorus 3.9 mg/dL (2.5-5.0); Potassium 4.1 mmol/L (3.5-5.0); Total Bilirubin 0.5 mg/dL (0.2-1.0); Total Protein 5.9 g/dL (6.4-8.9); eGFR CKD-EPI 95.4 (>60)
[2023-10-24 07:58] LABS: Rapid COVID-19 Molecular Undetected (Undetected)
[2023-10-24 10:00] VITALS: BP 108/50
== END 2023-10-24 13:35 | DRG 871 ==
LOC: ED 11:38 → SUATTDRO 13:39 → EDHOLD 13:39 → ICU 14:17 → MEDTELE 10-19 17:01
PROVIDERS: ADMIT Student in an Organized Health Care Education/Training Program; ATTEND Internal Medicine